=== PATIENT | female | born 1950 | race Caucasian/White ===

== ENCOUNTER 2019-03-04 14:28 | Emergency (ER) | payer MEDICARE, MEDICAID ==
[2019-03-04 14:38] VITALS: BP 112/70
--- NOTE | 2019-03-04 15:59 | EDM.PDOC ---
ED HPI GENERAL MEDICAL PROBLEM - General Chief Complaint: General Stated Complaint: Lab recheck Time Seen by Provider: 03/04/19 14:51 Source of Information: Reports: Patient History Limitations: Reports: No Limitations - History of Present Illness INITIAL COMMENTS - FREE TEXT/NARRATIVE: Patient sent to get recheck of labs due to previous concerns around elevated GFR. Is scheduled to see Nephrology March 12. Last GFR per [facility] was around 7 Patient feels well and has no complaints. - Related Data Allergies Allergy/AdvReac Type Severity Reaction Status Date / Time ibuprofen Allergy Renal Verified 03/04/19 14:29 Insufficiency zolpidem Allergy Hallucinati Verified 03/04/19 14:29 ons Home Meds: Home Meds Alendronate [Fosamax] 1 tab PO WEEKLY 04/14/15 [History] Cholecalciferol (Vitamin D3) [Vitamin D3] 4 tab PO DAILY 04/14/15 [History] Venlafaxine [Effexor XR] 1 cap PO DAILY 04/14/15 [History] ALPRAZolam [Alprazolam] 1 mg PO DAILY PRN 04/23/18 [History] Calcitriol 0.25 mcg PO DAILY 04/23/18 [History] Cyanocobalamin (Vitamin B-12) [Vitamin B-12] 1,000 mcg IM Q30D 04/23/18 [History ] Levothyroxine [Synthroid] 100 mcg PO DAILY 04/23/18 [History] Magnesium Oxide [Magnesium] 400 mg PO BID 04/23/18 [History] Metoprolol Tartrate 25 mg PO DAILY 04/23/18 [History] Nortriptyline HCl 75 mg PO DAILY 04/23/18 [History] Furosemide 20 mg PO DAILY 03/04/19 [History] Past Medical History HEENT History: Reports: Impaired Vision, Other (See Below) Other HEENT History: 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 of Lung Nodules. 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 every 6 months [employer] History: Reports: Other [employer] History: Menopause at age 46, Full term without complications during pregnancies or deliveries Musculoskeletal History: Reports: Osteoporosis Other Musculoskeletal History: Chronic knee and shoulder pain Neurological History: Reports: Migraines, Other (See Below) Other Neuro History: Long history, but have greatly improved Psychiatric History: Reports: Anxiety, Depression Endocrine/Metabolic History: Reports: Hypothyroidism, Osteoporosis, Other (See Below) Other Endocrine/Metabolic History: Hx of thyroid cancer and lymphoma; hypercalcemia; hypomagnesaemia Hematologic History: Reports: B12 Deficiency, Blood Transfusion(s) Other Hematologic History: blood transfusions with knee surgeries as below Immunologic History: Reports: None Oncologic (Cancer) History: Reports: Lymphoma, Thyroid Other Oncologic History: Thyroid cancer diagnosed in June 2010 with completed chemotherapy treatment in October 2015 with no radiation therapy or thyroidectomy secondary to apparent an operable disease Dermatologic History: Reports: None - Infectious Disease History Infectious Disease History: Reports: Chicken Pox - Past Surgical History Head Surgeries/Procedures: Reports: None GI Surgical History: Reports: Bariatric Procedure, Colonoscopy, Other (See Below ) Other GI Surgeries/Procedures: Gastric bypass, hemorrhoid surgery Endocrine Surgical History: Reports: Thyroid Biopsy Neurological Surgical History: Reports: Spinal Fusion Musculoskeletal Surgical History: Reports: Knee Replacement, Other (See Below) Other Musculoskeletal Surgeries/Procedures:: Spinal fusion; Bilateral knee replacement - Past Imaging History Past Imaging History: Reports: CAT Scan, DEXA Scan, Other (See Below) Social & Family History - Family History HEENT: Reports: None. Denies: Allergic Rhinitis, Glaucoma, Macular Degeneration , Retinal Detachment Cardiac: Reports: CAD, Heart Failure, High Cholesterol, Hypertension, [place], Other (See Below) Other Cardiac Family History: Maternal grandmother with fatal CHF at age 89, father with hyperlipidemia and hypertension, father with fatal LA at age 88 Respiratory: Reports: None. Denies: Asthma, COPD, PE, Pneumothorax, Sleep Apnea GI: Reports: None. Denies: Celiac Disease, Cholelithiasis, Colon Polyps, GERD, GI bleed, Inflammatory Bowel Disease, Irritable Bowel Syndrome, PUD : Reports: Dialysis, Renal Calculus, Renal Disease/Insufficiency, Other (See Below) Other Family History: Mother with urolithiasis, father and brother with renal insufficiency which did require dialysis OBGYN: Reports: None. Denies: Endometriosis, Recurrent Spontaneous Musculoskeletal: Reports: Osteoarthritis, SLE, Other (See Below) Other Musculoskeletal Family History: mother with SLE Neurological: Reports: None. Denies: Alzheimers Disease, CVA, Dementia, Migraines, Parkinson's, Seizure, TIA Psychiatric: Reports: None. Denies: Abuse, Victim of, ADD, ADHD, Anxiety, Depression, Psych Hospitalization(s), PTSD, Suicide Attempt Endocrine/Metabolic: Reports: None. Denies: Diabetes, Type I, Diabetes, type II , Hypothyroidism, IDDM Hematologic: Reports: None, SLE, Other (See Below) Other Hematologic Family History: Mother with SLE Immunologic: Reports: SLE, Other (See Below) Other Immunologic Family History: Mother with SLE Dermatologic: Reports: None. Denies: Angiodema, Eczema, Psoriasis, Seborrheic Dermatitis Oncologic: Reports: Metastatic, Prostate, Other (See Below) Other Oncologic Family History: brother with fatal metastatic prostate cancer in his 60s - Tobacco Use Smoking Status *Q: Never Smoker - Caffeine Use Caffeine Use: Reports: None - Recreational Drug Use Recreational Drug Use: No - Living Situation & Occupation Living situation: Reports: , with Family Occupation: Retired ED ROS GENERAL - Review of Systems Review Of Systems: ROS reveals no pertinent complaints other than HPI. Constitutional: Denies: Fever, Malaise, Weakness, Fatigue, Night Sweats, Diaphoresis, Decreased Appetite, Weight Loss Respiratory: Denies: Shortness of Breath Cardiovascular: Denies: Chest Pain, Lightheadedness, Palpitations GI/Abdominal: Denies: Abdominal Pain, Anorexia, Black Stool, Bloody Stool, Constipation, Diarrhea, Nausea, Vomiting : Reports: No Symptoms Musculoskeletal: Reports: No Symptoms (no acute changes from baeline) Skin: Reports: No Symptoms Neurological: Reports: No Symptoms Psychiatric: Reports: No Symptoms Hematologic/Lymphatic: Reports: No Symptoms ED EXAM, GENERAL - Physical Exam Exam: See Below Exam Limited By: No Limitations General Appearance: Alert, WD/WN, No Apparent Distress Eye Exam: Bilateral Eye: EOMI, PERRL Throat/Mouth: Normal Voice, No Airway Compromise Head: Atraumatic, Normocephalic Neck: Supple Respiratory/Chest: No Respiratory Distress Cardiovascular: Regular Rate, Rhythm GI/Abdominal: Soft Extremities: Normal Range of Motion Neurological: Alert, Oriented, Normal Cognition, Normal Gait Psychiatric: Normal Affect, Normal Mood Skin Exam: Warm, Dry, Normal Color Course - Vital Signs Last Recorded V/S: Last Vital Signs Temp 36.6 C 03/04/19 14:37 Pulse 72 03/04/19 14:37 Resp 16 03/04/19 14:37 BP 112/70 03/04/19 14:37 Pulse Ox 98 03/04/19 14:37 - Orders/Labs/Meds Labs: Laboratory Tests 03/04/19 03/04/19 Range/Units 15:13 15:13 WBC 6.4 (4.0-10.2) K/uL RBC 2.66 L (3.77-5.09) M/uL Hgb 8.6 L (11.7-15.5) g/dL Hct 26.9 L (34.0-46.0) % MCV 101.1 H D (84.0-98.0) fL MCH 32.3 (28.2-33.3) pg MCHC 32.0 (31.7-36.0) g/dL RDW 13.3 (11.2-14.1) % Plt Count 207 (150-350) K/uL Neut % (Auto) 79.7 (45.0-80.0) % Lymph % (Auto) 12.5 (10.0-50.0) % [place] % (Auto) 6.7 (2.0-14.0) % Eos % (Auto) 0.8 (0.0-5.0) % Baso % (Auto) 0.3 (0.0-2.0) % Neut # (Auto) 5.10 (1.40-7.00) K/uL Lymph # (Auto) 0.80 (0.50-3.50) K/uL [place] # (Auto) 0.43 (0.00-1.00) K/uL Eos # (Auto) 0.05 (0.00-0.50) K/uL Baso # (Auto) 0.02 (0.00-0.20) K/uL Sodium 138 (136-145) mmol/L Potassium 3.5 D (3.5-5.1) mmol/L Chloride 103 (98-107) mmol/L Carbon Dioxide 19.9 L (21.0-32.0) mmol/L BUN 70 H D (7-18) mg/dL Creatinine 5.76 H* D (0.51-1.17) mg/dL Est Cr Clr Drug Dosing 8.96 mL/min Estimated GFR (MDRD) 7 mL/min Glucose 93 (74-106) mg/dL Calcium 8.5 (8.5-10.1) mg/dL Total Bilirubin 0.4 (0.2-1.0) mg/dL AST 18 (15-37) U/L ALT 22 (12-78) U/L Alkaline Phosphatase 106 (46-116) IU/L Total Protein 6.6 (6.4-8.2) g/dL Albumin 3.2 L (3.4-5.0) g/dL - Re-Assessments/Exams Free Text/Narrative Re-Assessment/Exam: 03/04/19 16:07 GFR continues to remain at 7 (elevated BUN/Cr noted) Normal WBC. Na/K within good limits. CO2 19.9 Call placed to [facility]. Reviewed labs with from Nephrology. Given that the numbers are stable, and that patient feels well, he recommended that no intervention was required at this time. Patient is scheduled to see him March 12. He wants her to come in for labs before the appointment and will be further evaluated at that time. This was relayed to the patient who is in agreement with the above plan. Precautions reviewed. Patient is aware that electrolyte disturbances can result from renal disease. She will follow up as needed if she is not feeling well. Departure - Departure Time of Disposition: 15:57 Disposition: Home, Self-Care 01 Condition: Good Clinical Impression: Chronic kidney disease Qualifiers: Chronic kidney disease stage: unspecified stage Qualified Code(s): N18.9 - Chronic kidney disease, unspecified - Discharge Information *PRESCRIPTION DRUG MONITORING PROGRAM REVIEWED*: Not Applicable *COPY OF PRESCRIPTION DRUG MONITORING REPORT IN PATIENT [place]RAY[place]: Not Applicable Referrals: Shyla Chiang PA [Primary Care Provider] - Forms: ED Department Discharge Additional Instructions: Make certain that you follow up with at your scheduled Nephrology appointment at [facility] March 12. You will need to repeat your labs right before that appointment (day before or day of). Contact [facility] to make certain that the clinic has put in orders for these labs. Follow up as needed otherwise if you start to feel unwell.
== END 2019-03-04 16:30 | disposition home or self-care (01) ==
LOC: LL.ED 14:28
DX: N18.9 Chronic kidney disease, unspecified (principal); E03.9 Hypothyroidism, unspecified; E78.00 Pure hypercholesterolemia, unspecified; F41.9 Anxiety disorder, unspecified; F32.9 Major depressive disorder, single episode, unspecified; Z88.6 Allergy status to analgesic agent; Z88.8 Allergy status to other drugs, medicaments and biological substances; Z79.899 Other long term (current) drug therapy
CPT/HCPCS: 36415; 80053; 85025; 99284

== ENCOUNTER 2019-03-25 18:17 | Emergency (ER) | payer MEDICARE, MEDICAID ==
[2019-03-25 19:08] LABS: CHLORIDE,CL 107 mmol/L (98-107); SODIUM,NA 141 mmol/L (136-145)
[2019-03-25] MEDS ORDERED: Sodium Polystyrene Sulfonate 15 GM/60 ML Susp 60 ML Bot PO ONE (20:07)
--- NOTE | 2019-03-25 20:18 | EDM.PDOC ---
ED HPI GENERAL MEDICAL PROBLEM - General Chief Complaint: General Stated Complaint: abnormal lab work Time Seen by Provider: 03/25/19 19:01 Source of Information: Reports: Patient History Limitations: Reports: No Limitations - History of Present Illness INITIAL COMMENTS - FREE TEXT/NARRATIVE: Patient told to report to ER by [facility] Neurology for reported level of Potassium of 6.2 that was drawn earlier at local [facility]. Patient has been told that she needs to start dialysis due to chronic kidney failure. Due to transportation issues it appears that she will start peritoneal dialysis and be able to stay home. She feels fine. ROS negative for acute changes. Patient feels that she is at her usual baseline. Labs today were drawn in anticipation of Nephrology appointment tomorrow at [facility]. - Related Data Allergies Allergy/AdvReac Type Severity Reaction Status Date / Time ibuprofen Allergy Renal Verified 03/04/19 14:29 Insufficiency zolpidem Allergy Hallucinati Verified 03/04/19 14:29 ons Home Meds: Home Meds Alendronate [Fosamax] 1 tab PO WEEKLY 04/14/15 [History] Cholecalciferol (Vitamin D3) [Vitamin D3] 4 tab PO DAILY 04/14/15 [History] Venlafaxine [Effexor XR] 1 cap PO DAILY 04/14/15 [History] ALPRAZolam [Alprazolam] 1 mg PO DAILY PRN 04/23/18 [History] Calcitriol 0.25 mcg PO DAILY 04/23/18 [History] Cyanocobalamin (Vitamin B-12) [Vitamin B-12] 1,000 mcg IM Q30D 04/23/18 [History ] Levothyroxine [Synthroid] 100 mcg PO DAILY 04/23/18 [History] Magnesium Oxide [Magnesium] 400 mg PO BID 04/23/18 [History] Metoprolol Tartrate 25 mg PO DAILY 04/23/18 [History] Nortriptyline HCl 75 mg PO DAILY 04/23/18 [History] Sevelamer Carbonate 800 mg PO ASDIRECTED 03/25/19 [History] Sodium Bicarbonate 2 tab PO TID 03/25/19 [History] Past Medical History HEENT History: Reports: Impaired Vision, Other (See Below) Other HEENT History: 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 of Lung Nodules. 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 [employer] SUPERVISOR History: Menopause at age 46, Full term without complications during pregnancies or deliveries Musculoskeletal History: Reports: Osteoporosis Other Musculoskeletal History: Chronic knee and shoulder pain Neurological History: Reports: Migraines, Other (See Below) Other Neuro History: Long history, but have greatly improved Psychiatric History: Reports: Anxiety, Depression Endocrine/Metabolic History: Reports: Hypothyroidism, Osteoporosis, Other (See Below) Other Endocrine/Metabolic History: Hx of thyroid cancer and lymphoma; hypercalcemia; hypomagnesaemia Hematologic History: Reports: B12 Deficiency, Blood Transfusion(s) Other Hematologic History: blood transfusions with knee surgeries as below Immunologic History: Reports: None Oncologic (Cancer) History: Reports: Lymphoma, Thyroid Other Oncologic History: Thyroid cancer diagnosed in June 2010 with completed chemotherapy treatment in October 2015 with no radiation therapy or thyroidectomy secondary to apparent an operable disease Dermatologic History: Reports: None - Infectious Disease History Infectious Disease History: Reports: Chicken Pox - Past Surgical History Head Surgeries/Procedures: Reports: None GI Surgical History: Reports: Bariatric Procedure, Colonoscopy, Other (See Below ) Other GI Surgeries/Procedures: Gastric bypass, hemorrhoid surgery Endocrine Surgical History: Reports: Thyroid Biopsy Neurological Surgical History: Reports: Spinal Fusion Musculoskeletal Surgical History: Reports: Knee Replacement, Other (See Below) Other Musculoskeletal Surgeries/Procedures:: Spinal fusion; Bilateral knee replacement - Past Imaging History Past Imaging History: Reports: CAT Scan, DEXA Scan, Other (See Below) Social & Family History - Family History HEENT: Reports: None Cardiac: Reports: CAD, Heart Failure, High Cholesterol, Hypertension, [place], Other (See Below) Other Cardiac Family History: Maternal grandmother with fatal CHF at age 89, father with hyperlipidemia and hypertension, father with fatal [place] at age 88 Respiratory: Reports: None GI: Reports: None : Reports: Dialysis, Renal Calculus, Renal Disease/Insufficiency, Other (See Below) Other Family History: Mother with urolithiasis, father and brother with renal insufficiency which did require dialysis OBGYN: Reports: None Musculoskeletal: Reports: Osteoarthritis, SLE, Other (See Below) Other Musculoskeletal Family History: mother with SLE Neurological: Reports: None Psychiatric: Reports: None Endocrine/Metabolic: Reports: None Hematologic: Reports: None, SLE, Other (See Below) Other Hematologic Family History: Mother with SLE Immunologic: Reports: SLE, Other (See Below) Other Immunologic Family History: Mother with SLE Dermatologic: Reports: None Oncologic: Reports: Metastatic, Prostate, Other (See Below) Other Oncologic Family History: brother with fatal metastatic prostate cancer in his 60s - Caffeine Use Caffeine Use: Reports: None - Living Situation & Occupation Living situation: Reports: , with Family Occupation: Retired ED ROS GENERAL - Review of Systems Review Of Systems: ROS reveals no pertinent complaints other than HPI. ED EXAM, GENERAL - Physical Exam Exam: See Below General Appearance: Alert, No Apparent Distress, Obese Eye Exam: Bilateral Eye: EOMI, PERRL Nose: No: Nasal Deformity, Nasal Swelling, Nasal Drainage Throat/Mouth: Normal Voice, No Airway Compromise Head: Atraumatic, Normocephalic Neck: Supple Respiratory/Chest: No Respiratory Distress, Lungs Clear, Normal Breath Sounds, No Accessory Muscle Use Cardiovascular: Regular Rate, Rhythm, No Murmur GI/Abdominal: Soft, Non-Tender Extremities: Non-Tender, Normal Capillary Refill Neurological: Alert, Oriented, Normal Cognition Psychiatric: Normal Affect, Normal Mood Skin Exam: Warm, Dry, Intact, Normal Color EKG INTERPRETATION EKG Date: 03/25/19 Time: 19:13 Rhythm: Other (1st degree AV block) Rate (Beats/Min): 83 [place]: Normal P-Wave: Present QRS: Other (low voltage) ST-T: Normal QT: Normal Comparison: No Change Course - Orders/Labs/Meds Orders: Active Orders 24 hr Category Date Time Status EKG Documentation Completion [RC] ASDIRECTED Care 03/25/19 19:11 Active Labs: Laboratory Tests 03/25/19 03/25/19 Range/Units 18:45 18:45 WBC 3.8 L (4.0-10.2) K/uL RBC 2.73 L (3.77-5.09) M/uL Hgb 8.8 L (11.7-15.5) g/dL Hct 28.9 L (34.0-46.0) % MCV 105.9 H D (84.0-98.0) fL MCH 32.2 (28.2-33.3) pg MCHC 30.4 L (31.7-36.0) g/dL RDW 13.0 (11.2-14.1) % Plt Count 165 (150-350) K/uL Neut % (Auto) 71.8 (45.0-80.0) % Lymph % (Auto) 18.2 (10.0-50.0) % [place] % (Auto) 8.2 (2.0-14.0) % Eos % (Auto) 1.3 (0.0-5.0) % Baso % (Auto) 0.5 (0.0-2.0) % Neut # (Auto) 2.73 (1.40-7.00) K/uL Lymph # (Auto) 0.69 (0.50-3.50) K/uL [place] # (Auto) 0.31 (0.00-1.00) K/uL Eos # (Auto) 0.05 (0.00-0.50) K/uL Baso # (Auto) 0.02 (0.00-0.20) K/uL Sodium 141 (136-145) mmol/L Potassium 5.7 H* D (3.5-5.1) mmol/L Chloride 107 (98-107) mmol/L Carbon Dioxide 25.5 (21.0-32.0) mmol/L BUN 51 H (7-18) mg/dL Creatinine 5.02 H* (0.51-1.17) mg/dL Est Cr Clr Drug Dosing TNP Estimated GFR (MDRD) 9 mL/min Glucose 84 (74-106) mg/dL Calcium 8.5 (8.5-10.1) mg/dL Total Bilirubin 0.2 (0.2-1.0) mg/dL AST 22 (15-37) U/L ALT 22 (12-78) U/L Alkaline Phosphatase 106 (46-116) IU/L Total Protein 5.9 L (6.4-8.2) g/dL Albumin 3.0 L (3.4-5.0) g/dL Meds: Medications Discontinued Medications Generic Name Dose Route Start Last Admin Trade Name Freq PRN Reason Stop Dose Admin Sodium Polystyrene Sulfonate 45 gm 03/25/19 20:07 03/25/19 20:12 Kayexalate PO 03/25/19 20:08 45 gm NOW ONE Administration - Re-Assessments/Exams Free Text/Narrative Re-Assessment/Exam: 03/25/19 20:17 Given the concern over earlier lab values, CBC and Chemistry were repeated. Potassium 5.7 Creatinine 5.02 Hgb 8.[address] [facility] and patient reviewed with the on-call Baker Doughnut that referred her to the ER, . He felt comfortable having us give the patient a single dose of Kayexalate. She has an appointment to follow up with him tomorrow at the clinic in [place]. He plans on admitting her to [facility] from the clinic for initiation of dialysis treatment. Patient is happy that she is able to go home and is comfortable with the above plan. Departure - Departure Time of Disposition: 20:25 Disposition: Home, Self-Care 01 Condition: Good Clinical Impression: Hyperkalemia Chronic kidney disease Qualifiers: Chronic kidney disease stage: unspecified stage Qualified Code(s): N18.9 - Chronic kidney disease, unspecified - Discharge Information *PRESCRIPTION DRUG MONITORING PROGRAM REVIEWED*: Not Applicable *COPY OF PRESCRIPTION DRUG MONITORING REPORT IN PATIENT BRAYDEN: Not Applicable Instructions: Sodium Polystyrene Sulfonate powder for reconstitution to suspension Referrals: Shyla Chiang PA [Primary Care Provider] - Forms: ED Department Discharge Additional Instructions: Follow up tomorrow at your scheduled appointment with Nephrology. Do not miss this appointment as you need to be started on dialysis as planned. Follow up otherwise as needed. - My Orders Last 24 Hours: My Active Orders 03/25/19 19:11 EKG Documentation Completion [RC] ASDIRECTED - Assessment/Plan Last 24 Hours: My Active Orders 03/25/19 19:11 EKG Documentation Completion [RC] ASDIRECTED
[2019-03-25 21:33] VITALS: BP 160/89
== END 2019-03-25 20:35 | disposition home or self-care (01) ==
LOC: LL.ED 18:17
DX: E87.6 Hypokalemia (principal); N18.9 Chronic kidney disease, unspecified; E78.00 Pure hypercholesterolemia, unspecified; E03.9 Hypothyroidism, unspecified; F41.9 Anxiety disorder, unspecified; F32.9 Major depressive disorder, single episode, unspecified; Z79.899 Other long term (current) drug therapy; Z88.6 Allergy status to analgesic agent; Z88.8 Allergy status to other drugs, medicaments and biological substances
CPT/HCPCS: 36415; 80053; 85025; 93005; 99283-25; A9270-GY

== ENCOUNTER 2019-06-24 16:04 | Inpatient (IN) | payer MEDICARE, MEDICAID ==
[2019-06-24] MEDS ORDERED: Sodium Chloride 0.9% 10 ML Syringe FLUSH PRN (16:11)
[2019-06-24] MEDS ORDERED: Sodium Chloride 0.9% 1,000 ML IV SCH (16:30)
--- NOTE | 2019-06-24 17:23 | PCM.HP.2 ---
H&P History of Present Illness - General Date of Service: 06/24/19 Admit Problem/Dx: Admission Diagnosis/Problem Admission Diagnosis/Problem Hypotension Source of Information: Patient, Old Records History Limitations: Reports: No Limitations - History of Present Illness Initial Comments - Free Text/Narative: Seen today for [facility] follow-up, after overnight stay for symptomatic hypotension 06-15 to 06-16-19. Losartan was DC'd at that time. Onset of Symptoms: Reports: Gradual Duration of Symptoms: Reports: Day(s): Location: Reports: Generalized Improves with: Reports: Rest Worsens with: Reports: Movement Associated Symptoms: Reports: Loss of Appetite, Malaise, Weakness - Related Data Allergies/Adverse Reactions: Allergies Allergy/AdvReac Type Severity Reaction Status Date / Time ibuprofen Allergy Renal Verified 03/04/19 14:29 Insufficiency zolpidem Allergy Hallucinati Verified 03/04/19 14:29 ons Home Medications: Home Meds ALPRAZolam [Xanax] 1 cap PO BEDTIME 06/24/19 [History] Calcitriol [Rocaltrol] 0.25 mcg PO DAILY 06/24/19 [History] Cholecalciferol (Vitamin D3) [Vitamin D3] 4,000 unit PO DAILY 06/24/19 [History] Cyanocobalamin (Vitamin B-12) [Cyanocobalamin Injection] 1 ml IM Q30D 06/24/19 [ History] Levothyroxine [Synthroid] 88 mcg PO ACBREAKFAST 06/24/19 [History] Magnesium Chloride [Mag-64] 2 tab PO DAILY 06/24/19 [History] Nortriptyline HCl 1 cap PO BEDTIME 06/24/19 [History] Potassium Chloride [Klor-Con M20] 1 tab PO ACBREAKFAST 06/24/19 [History] Sevelamer Carbonate [Renvela] 800 mg PO TID 06/24/19 [History] Venlafaxine [Effexor XR] 1 cap PO DAILY 06/24/19 [History] Past Medical History HEENT History: Reports: Impaired Vision, Other (See Below) Other HEENT History: 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 of Lung Nodules. Negative for cancer Gastrointestinal History: Reports: Hemorrhoids Other Gastrointestinal History: Bowel obstruction about 1978 with subsequent surgery as below Genitourinary History: Reports: Chronic Renal Insuffiency, Dialysis, Peritoneal Other Genitourinary History: Home peritoneal dialysis, run every night continuously ANALYSIS CONSULTANT History: Reports: Other OB/BYN History: Menopause at age 46, Full term without complications during pregnancies or deliveries Musculoskeletal History: Reports: Osteoporosis Other Musculoskeletal History: Chronic knee and shoulder pain Neurological History: Reports: Migraines, Other (See Below) Other Neuro History: Long history, but have greatly improved Psychiatric History: Reports: Anxiety, Depression Endocrine/Metabolic History: Reports: Hypothyroidism, Osteoporosis, Other (See Below) Other Endocrine/Metabolic History: Hx of thyroid cancer and lymphoma; hypercalcemia; hypomagnesaemia Hematologic History: Reports: B12 Deficiency, Blood Transfusion(s) Other Hematologic History: blood transfusions with knee surgeries as below Immunologic History: Reports: None Oncologic (Cancer) History: Reports: Lymphoma, Thyroid Other Oncologic History: Thyroid cancer diagnosed in June 2010 with completed chemotherapy treatment in October 2015 with no radiation therapy or thyroidectomy secondary to apparent an operable disease Dermatologic History: Reports: None - Infectious Disease History Infectious Disease History: Reports: Chicken Pox - Past Surgical History Head Surgeries/Procedures: Reports: None GI Surgical History: Reports: Bariatric Procedure, Colonoscopy, Other (See Below ) Other GI Surgeries/Procedures: Gastric bypass, hemorrhoid surgery Endocrine Surgical History: Reports: Thyroid Biopsy Neurological Surgical History: Reports: Spinal Fusion Musculoskeletal Surgical History: Reports: Knee Replacement, Other (See Below) Other Musculoskeletal Surgeries/Procedures:: Spinal fusion; Bilateral knee replacement - Past Imaging History Past Imaging History: Reports: CAT Scan, DEXA Scan, Other (See Below) Social & Family History - Family History HEENT: Reports: None Cardiac: Reports: CAD, Heart Failure, High Cholesterol, Hypertension, MO, Other (See Below) Other Cardiac Family History: Maternal grandmother with fatal CHF at age 89, father with hyperlipidemia and hypertension, father with fatal MO at age 88 Respiratory: Reports: None GI: Reports: None : Reports: Dialysis, Renal Calculus, Renal Disease/Insufficiency, Other (See Below) Other Family History: Mother with urolithiasis, father and brother with renal insufficiency which did require dialysis OBGYN: Reports: None Musculoskeletal: Reports: Osteoarthritis, SLE, Other (See Below) Other Musculoskeletal Family History: mother with SLE Neurological: Reports: None Psychiatric: Reports: None Endocrine/Metabolic: Reports: None Hematologic: Reports: None, SLE, Other (See Below) Other Hematologic Family History: Mother with SLE Immunologic: Reports: SLE, Other (See Below) Other Immunologic Family History: Mother with SLE Dermatologic: Reports: None Oncologic: Reports: Metastatic, Prostate, Other (See Below) Other Oncologic Family History: brother with fatal metastatic prostate cancer in his 60s - Caffeine Use Caffeine Use: Reports: None - Alcohol Use Alcohol Use in Last Twelve Months: No - Living Situation & Occupation Living situation: Reports: , with Family Occupation: Retired H&P Review of Systems - Review of Systems: Review Of Systems: ROS reveals no pertinent complaints other than HPI. Exam - Exam Exam: See Below - Exam General: Alert, Oriented, Cooperative, Mild Distress HEENT: EACs Clear, EOMI, Hearing Intact Neck: Supple, Trachea Midline Lungs: Clear to Auscultation, Normal Respiratory Effort Cardiovascular: Regular Rate, Regular Rhythm GI/Abdominal Exam: Normal Bowel Sounds, Soft, Non-Tender, Other (peritoneal dialysis port) (Female) Exam: Deferred Rectal (Female) Exam: Deferred Back Exam: Normal Inspection Neuro Extensive - Mental Status: Alert, Oriented x3, Normal Mood/Affect Psychiatric: Alert, Normal Affect, Normal Mood - Problem List (1) Hypotension SNOMED Code(s): 89174691 ICD Code: I95.9 - HYPOTENSION, UNSPECIFIED Status: Acute Priority: High Current Visit: Yes Problem Details: Concern for dialysis related hypotension. Qualifiers: Hypotension type: unspecified hypotension type Qualified Code(s): I95.9 - Hypotension, unspecified (2) Weakness SNOMED Code(s): 32728886 ICD Code: R53.1 - WEAKNESS Status: Acute Priority: High Current Visit: Yes Problem Details: Considered secondary to hypotension. (3) Fall SNOMED Code(s): 1739809, 113192733 ICD Code: W19.XXXA - UNSPECIFIED FALL, INITIAL ENCOUNTER Status: Acute Priority: Medium Current Visit: Yes Problem Details: Fall at home today secondary to weakness. (4) Dialysis patient SNOMED Code(s): 218412602 ICD Code: Z99.2 - DEPENDENCE ON RENAL DIALYSIS Status: Acute Priority: High Current Visit: Yes Problem Details: Doing peritoneal dialysis, continuous run every night during hours of sleep. Problem List Initiated/Reviewed/Updated: Yes Orders Last 24hrs: Active Orders 24 hr Category Date Time Status Patient Status [ADT] Routine ADT 06/24/19 16:12 Active Antiembolic Devices [RC] PER UNIT ROUTINE Care 06/24/19 16:16 Ordered Bedrest Bathroom Privileges [RC] ASDIRECTED Care 06/24/19 16:11 Ordered Communication Order [RC] DAILY Care 06/24/19 17:00 Ordered Communication Order [RC] DAILY Care 06/24/19 17:01 Ordered Height and Weight [RC] DAILY Care 06/24/19 16:11 Ordered Intake and Output [RC] QSHIFT Care 06/24/19 16:13 Ordered Oxygen Therapy [RC] PRN Care 06/24/19 16:12 Ordered Peripheral IV Care [RC] . DIRECTED Care 06/24/19 16:16 Ordered Telemetry Monitoring [Cardiac Monitoring] [RC] . Care 06/24/19 16:17 Ordered DIRECTED Up With Assistance [RC] ASDIRECTED Care 06/24/19 16:11 Ordered VTE/DVT Education [RC] PER UNIT ROUTINE Care 06/24/19 16:12 Ordered Vital Signs [RC] Q4H Care 06/24/19 16:12 Ordered Regular Diet [DIET] Diet 06/24/19 Dinner Ordered Chest 2V [CR] Routine Exams 06/24/19 16:57 Ordered C-REACTIVE PROTEIN [CHEM] AM Lab 06/25/19 05:11 Ordered C-REACTIVE PROTEIN [CHEM] AM Lab 06/26/19 05:11 Ordered C-REACTIVE PROTEIN [CHEM] AM Lab 06/27/19 05:11 Ordered C-REACTIVE PROTEIN [CHEM] AM Lab 06/28/19 05:11 Ordered C-REACTIVE PROTEIN [CHEM] Stat Lab 06/24/19 16:11 Ordered CBC WITH AUTO DIFF [HEME] AM Lab 06/25/19 05:11 Ordered CBC WITH AUTO DIFF [HEME] AM Lab 06/26/19 05:11 Ordered CBC WITH AUTO DIFF [HEME] AM Lab 06/27/19 05:11 Ordered CBC WITH AUTO DIFF [HEME] AM Lab 06/28/19 05:11 Ordered CBC WITH AUTO DIFF [HEME] Stat Lab 06/24/19 16:11 Ordered COMPREHENSIVE METABOLIC PN,CMP [CHEM] AM Lab 06/25/19 05:11 Ordered COMPREHENSIVE METABOLIC PN,CMP [CHEM] AM Lab 06/26/19 05:11 Ordered COMPREHENSIVE METABOLIC PN,CMP [CHEM] AM Lab 06/27/19 05:11 Ordered COMPREHENSIVE METABOLIC PN,CMP [CHEM] AM Lab 06/28/19 05:11 Ordered COMPREHENSIVE METABOLIC PN,CMP [CHEM] Stat Lab 06/24/19 16:11 Ordered MAGNESIUM [CHEM] Stat Lab 06/24/19 16:11 Ordered PHOSPHORUS [CHEM] Stat Lab 06/24/19 16:11 Ordered UA W/MICROSCOPIC [URIN] Stat Lab 06/24/19 16:11 Ordered Sodium Chloride 0.9% [Normal Saline] 1,000 ml Med 06/24/19 16:30 Ordered IV ASDIRECTED Sodium Chloride 0.9% [Normal Saline] 1,000 ml Med 06/24/19 20:30 Ordered IV ASDIRECTED Sodium Chloride 0.9% [Saline Flush] Med 06/24/19 16:11 Ordered 10 ml FLUSH ASDIRECTED PRN Antiembolic Hose [OM.PC] Per Unit Routine Oth 06/24/19 16:14 Ordered Peripheral IV Insertion Adult [OM.PC] Routine Oth 06/24/19 16:11 Ordered Resuscitation Status Routine Resus Stat 06/24/19 16:11 Ordered Medication Orders Sodium Chloride (Normal Saline) 1,000 mls @ 250 mls/hr IV ASDIRECTED NILO Stop: 06/24/19 20:29 Sodium Chloride (Normal Saline) 1,000 mls @ 125 mls/hr IV ASDIRECTED NILO Sodium Chloride (Saline Flush) 10 ml FLUSH ASDIRECTED PRN PRN Reason: Keep Vein Open Assessment/Plan Comment:: 06-25-19 Rayna Chiang PA-C 68 yr-old female being admitted to status under the medical management of Dr. Kebede, who was consulted at the time of admit. She was recently hospitalized overnight at [facility] (06-15) for symptomatic hypotension, considered at that time secondary to the start of Losartan. The Losartan was DC 'd at that time. However she has continued to feel weak at home. Home Health did see her today and found her BP low, and she was evaluated at [facility] and BP was very difficult to determine and was heard manually to be 72/50. Patient was brought in a wheelchair as she felt too weak to walk, and did tell me she had fallen at home today. She denied any chest pain at any time. She did tell me that she has not been eating or drinking per her norm since coming home on the as she has been just too tired and weak to make meals. Within the last couple months the home PD dialysis has been started, the couple set it up and run it every night during hours of sleep. This is a patient with multiple co-morbidities and the etiology for the hypotension and weakness it not completely clear, and she will require 3-4 days of IP evaluation and treatment with medication adjustment. She is a significant fall risk. Telemetry is placed and follow-up labs ordered. - Mortality Measure Prognosis:: Good
[2019-06-24] MEDS ORDERED: Potassium Chloride 20 MEQ Tab.ER PO ONE (18:40)
[2019-06-24] MEDS: ALPRAZolam 1 MG Tab PO SCH (20:03)
[2019-06-24] MEDS: Nortriptyline 25 MG Cap PO SCH (20:04)
[2019-06-24] MEDS ORDERED: Aluminum Hydroxide/Magnesium Hydroxide/Simethicone Susp 30 ML Cup PO PRN (20:16)
[2019-06-24] MEDS: SEVELAMER CARBONATE 800 MG PO SCH (21:09)
[2019-06-24] MEDS: Sodium Chloride 0.9% 1,000 ML IV SCH (23:12)
[2019-06-25] MEDS: Sodium Chloride 0.9% 1,000 ML IV SCH ×3 (06:25→23:20)
[2019-06-25] MEDS ORDERED: Potassium Chloride 20 MEQ Tab.ER PO SCH (07:30)
[2019-06-25] MEDS: MAG PO SCH (08:24)
[2019-06-25] MEDS: SEVELAMER CARBONATE 800 MG PO SCH ×3 (08:26→18:08)
[2019-06-25] MEDS: Potassium Chloride 20 MEQ Tab.ER PO SCH ×2 (08:26→18:08)
[2019-06-25] MEDS: Calcitriol 0.25 MCG Cap PO SCH (08:26)
[2019-06-25] MEDS: Venlafaxine 75 MG Cap.ER PO SCH (08:27)
[2019-06-25] MEDS: Levothyroxine 88 MCG Tab PO SCH (08:27)
[2019-06-25] MEDS: Cholecalciferol (Vitamin D3) 25 MCG Tab PO SCH (08:27)
[2019-06-25] MEDS ORDERED: Potassium Chloride 10 MEQ Tab.ER PO ONE (18:00)
--- NOTE | 2019-06-25 19:00 | PCM.PN ---
- General Info Date of Service: 06/25/19 Admission Dx/Problem (Free Text): Admission Diagnosis/Problem Admission Diagnosis/Problem Hypotension Functional Status: Reports: Pain Controlled, Tolerating Diet - Review of Systems General: Reports: Weakness, Other (still dizziness) HEENT: Reports: No Symptoms Pulmonary: Reports: No Symptoms Cardiovascular: Reports: No Symptoms Gastrointestinal: Reports: No Symptoms Genitourinary: Reports: No Symptoms Musculoskeletal: Reports: No Symptoms Skin: Reports: No Symptoms Neurological: Reports: Dizziness, Weakness (improving) Psychiatric: Reports: No Symptoms - Patient Data Vitals - Most Recent: Last Vital Signs Temp 96.5 F 06/25/19 17:00 Pulse 93 06/25/19 17:00 Resp 24 H 06/25/19 17:00 BP 108/83 06/25/19 17:00 Pulse Ox 95 06/25/19 17:00 Weight - Most Recent: 218 lb 9.59 oz I&O - Last 24 Hours: Intake & Output 06/25/19 06/25/19 06/25/19 06:59 14:59 22:59 Intake Total 2039 700 2360 Output Total 0 200 Balance 2039 500 2360 Lab Results Last 24 Hours: Laboratory Results - last 24 hr 06/24/19 06/25/19 06/25/19 Range/Units 19:30 07:15 07:15 WBC 7.8 (4.0-10.2) K/uL RBC 2.92 L (3.77-5.09) M/uL Hgb 9.3 L D (11.7-15.5) g/dL Hct 29.0 L (34.0-46.0) % MCV 99.3 H (84.0-98.0) fL MCH 31.8 (28.2-33.3) pg MCHC 32.1 (31.7-36.0) g/dL RDW 13.8 (11.2-14.1) % Plt Count 240 (150-350) K/uL Neut % (Auto) 78.9 (45.0-80.0) % Lymph % (Auto) 12.8 (10.0-50.0) % [place] % (Auto) 7.6 (2.0-14.0) % Eos % (Auto) 0.6 (0.0-5.0) % Baso % (Auto) 0.1 (0.0-2.0) % Neut # (Auto) 6.12 (1.40-7.00) K/uL Lymph # (Auto) 0.99 (0.50-3.50) K/uL [place] # (Auto) 0.59 (0.00-1.00) K/uL Eos # (Auto) 0.05 (0.00-0.50) K/uL Baso # (Auto) 0.01 (0.00-0.20) K/uL Sodium 135 L (136-145) mmol/L Potassium 3.0 L (3.5-5.1) mmol/L Chloride 99 (98-107) mmol/L Carbon Dioxide 24.0 (21.0-32.0) mmol/L BUN 43 H (7-18) mg/dL Creatinine 5.17 H* (0.51-1.17) mg/dL Est Cr Clr Drug Dosing 9.99 mL/min Estimated GFR (MDRD) 8 mL/min Glucose 99 (74-106) mg/dL Calcium 7.4 L (8.5-10.1) mg/dL Total Bilirubin 0.3 (0.2-1.0) mg/dL AST 19 (15-37) U/L ALT 22 (12-78) U/L Alkaline Phosphatase 122 H (46-116) IU/L C-Reactive Protein 0.1 (<=0.9) mg/dL Total Protein 5.1 L (6.4-8.2) g/dL Albumin 1.9 L (3.4-5.0) g/dL Specimen Type Urincc Urine Color Yellow Urine Appearance Cloudy Urine pH 5.0 (5.0-9.0) Ur Specific [place] 1.025 (1.005-1.030) Urine Protein 30 H (NEGATIVE) mg/dL Urine Glucose (UA) Negative (NEGATIVE) mg/dL Urine Ketones 15 H (NEGATIVE) mg/dL Urine Occult Blood Trace-intact H (NEGATIVE) Urine Nitrite Negative (NEGATIVE) Urine Bilirubin Moderate H (NEGATIVE) Urine Urobilinogen 0.2 (0.2-1.0) E.U./dL Ur Leukocyte Esterase Small H (NEGATIVE) Urine RBC 0-5 /HPF Urine WBC >100 H /HPF Ur Epithelial Cells Many H /LPF Urine Bacteria Many H (NONE TO FEW) /HPF Med Orders - Current: Current Medications Al Hydroxide/Mg Hydroxide (Mag-Al Plus) 30 ml PO QID PRN PRN Reason: GI upset Alprazolam (Xanax) 1 mg PO BEDTIME [facility] Last Admin: 06/24/19 20:03 Dose: 1 mg Calcitriol (Rocaltrol) 0.25 mcg PO DAILY [facility] Last Admin: 06/25/19 08:26 Dose: 0.25 mcg Cholecalciferol (Vitamin D3) 100 mcg PO DAILY [facility] Last Admin: 06/25/19 08:27 Dose: 100 mcg Cyanocobalamin (Vitamin B12) 1,000 mcg IM Q30D [facility] Sodium Chloride (Normal Saline) 1,000 mls @ 125 mls/hr IV ASDIRECTED [facility] Last Admin: 06/25/19 15:16 Dose: 125 mls/hr Levothyroxine Sodium (Synthroid) 88 mcg PO ACBREAKFAST [facility] Last Admin: 06/25/19 08:27 Dose: 88 mcg Mag-64Own Med 2 tab PO DAILY [facility] Last Admin: 06/25/19 08:24 Dose: 2 tab Sevelamer Carbonate (800 MgOwn Med) 800 mg PO TIDMEALS [facility] Last Admin: 06/25/19 18:08 Dose: 800 mg Nortriptyline HCl (Nortriptyline) 75 mg PO BEDTIME [facility] Last Admin: 06/24/19 20:04 Dose: 75 mg Potassium Chloride (Klor-Con M20) 20 meq PO BID [facility] Last Admin: 06/25/19 18:08 Dose: 20 meq Sodium Chloride (Saline Flush) 10 ml FLUSH ASDIRECTED PRN PRN Reason: Keep Vein Open Last Admin: 06/25/19 15:20 Dose: 10 ml Venlafaxine HCl (Effexor Xr) 150 mg PO DAILY [facility] Last Admin: 06/25/19 08:27 Dose: 150 mg Discontinued Medications Sodium Chloride (Normal Saline) 1,000 mls @ 250 mls/hr IV ASDIRECTED [facility] Stop: 06/24/19 20:29 Last Admin: 06/24/19 18:38 Dose: 250 mls/hr Potassium Chloride (Klor-Con M20) 20 meq PO ACBREAKFAST [facility] Potassium Chloride (Klor-Con M20) 20 meq PO ONETIME ONE Stop: 06/24/19 18:41 Last Admin: 06/24/19 20:03 Dose: 20 meq Potassium Chloride (Klor-Con 10) 20 meq PO ONETIME ONE Stop: 06/25/19 18:01 Last Admin: 06/25/19 18:08 Dose: 20 meq - Exam General: Alert, Cooperative, No Acute Distress HEENT: Mucous Membr. Moist/[place] Neck: Trachea Midline, No JVD Lungs: Clear to Auscultation, Normal Respiratory Effort Cardiovascular: Regular Rate, Regular Rhythm GI/Abdominal Exam: Soft, Non-Tender, No Distention, Other (peritoneal catheter LUQ) (Female) Exam: Deferred Back Exam: Normal Inspection Extremities: Normal Inspection, Non-Tender, No Pedal Edema Skin: Warm, Dry, Intact Neurological: No New Focal Deficit Psy/Mental Status: Alert, Normal Affect, Normal Mood - Problem List & Annotations (1) Hypotension SNOMED Code(s): 35860771 Code(s): I95.9 - HYPOTENSION, UNSPECIFIED Status: Acute Priority: High Current Visit: Yes Qualifiers: Hypotension type: hemodialysis-associated hypotension Qualified Code(s): I95.3 - Hypotension of hemodialysis (2) Dialysis patient SNOMED Code(s): 313791353 Code(s): Z99.2 - DEPENDENCE ON RENAL DIALYSIS Status: Acute Priority: High Current Visit: Yes Annotation/Comment:: Doing peritoneal dialysis, continuous run every night during hours of sleep. (3) Fall SNOMED Code(s): 2258253, 718467493 Code(s): W19.XXXA - UNSPECIFIED FALL, INITIAL ENCOUNTER Status: Acute Priority: Medium Current Visit: Yes (4) Weakness SNOMED Code(s): 89620842 Code(s): R53.1 - WEAKNESS Status: Acute Priority: High Current Visit: Yes Annotation/Comment:: Considered secondary to hypotension. (5) Anemia SNOMED Code(s): 886188334 Code(s): D64.9 - ANEMIA, UNSPECIFIED Status: Acute Priority: High Current Visit: No Onset Date: ~10/04/16 Qualifiers: Anemia type: other cause Other causes of anemia: chronic disease, kidney Qualified Code(s): N18.9 - Chronic kidney disease, unspecified; D63.1 - Anemia in chronic kidney disease Annotation/Comment:: Hemoccult-positive stools as above. IV Protonix with caution secondary to her renal disease. Further GI workup depending on her clinical course. Blood workup for anemia initiated today with normal findings to this point, however transfer level is still pending. Note mild leukopenia (6) Chronic kidney disease SNOMED Code(s): 920779104 Code(s): N18.9 - CHRONIC KIDNEY DISEASE, UNSPECIFIED Status: Acute Current Visit: No Qualifiers: Chronic kidney disease stage: unspecified stage Qualified Code(s): N18.9 - Chronic kidney disease, unspecified (7) Fatigue SNOMED Code(s): 37614187 Code(s): R53.83 - OTHER FATIGUE Status: Acute Priority: High Current Visit: No Onset Date: ~10/04/16 Qualifiers: Fatigue type: other Qualified Code(s): R53.83 - Other fatigue Annotation/Comment:: Fatigue with history of recent recurrent falls is multifactorial secondary to her increased stressors, current anemia, renal insufficiency, inadequate thyroid supplementation, etc. as below. No chest pain or anginal complaints with elevated d-dimer and BNP. Secondary to renal insufficiency CTA of the chest cannot be conducted with consideration of VQ scan depending on venous Doppler study results tomorrow. Consider transfer to [facility] tomorrow depending on her clinical course. [place] [facility] physician assumes care in the a.m. (8) Hypoalbuminemia SNOMED Code(s): 940315810 Code(s): E88.09 - OTH DISORDERS OF PLASMA-PROTEIN METABOLISM, NEC Status: Acute Priority: Medium Current Visit: No Onset Date: 10/04/16 Annotation /Comment:: Consider high protein Glucerna supplements with caution secondary to her renal insufficiency, however advise nephrology followup prior to initiation of this therapy (9) Hypomagnesemia SNOMED Code(s): 352170450 Code(s): E83.42 - HYPOMAGNESEMIA Status: Acute Priority: Medium Current Visit: No Onset Date: 10/04/16 Annotation/Comment:: Low-dose magnesium therapy with caution secondary to her renal disease (10) Hypothyroidism SNOMED Code(s): 11779286 Code(s): E03.9 - HYPOTHYROIDISM, UNSPECIFIED Status: Acute Priority: High Current Visit: No Qualifiers: Hypothyroidism type: postablative Qualified Code(s): E89.0 - Postprocedural hypothyroidism Annotation/Comment:: Increase thyroid supplementation. TSH to be repeated in about 4 weeks with oncology consultation depending on her clinical course (11) Hypertension SNOMED Code(s): 78685500 Code(s): I10 - ESSENTIAL (PRIMARY) HYPERTENSION Status: Chronic Priority : Medium Current Visit: No Qualifiers: Hypertension type: essential hypertension Qualified Code(s): I10 - Essential (primary) hypertension Annotation/Comment:: Continue to observe closely with mild hypotension in the emergency room (12) Hypocalcemia SNOMED Code(s): 4510796 Code(s): E83.51 - HYPOCALCEMIA Status: Chronic Priority: Medium Current Visit: No Annotation/Comment:: Calcium supplementation with caution secondary to her renal disease with phosphate levels in the morning (13) Mixed anxiety depressive disorder SNOMED Code(s): 736980156 Code(s): F41.8 - OTHER SPECIFIED ANXIETY DISORDERS Status: Chronic Priority: Medium Current Visit: No Annotation/Comment:: Note increased stressors secondary to her 's illness as above. Observe closely by regular providers (14) Osteoarthritis SNOMED Code(s): 879014146 Code(s): M19.90 - UNSPECIFIED OSTEOARTHRITIS, UNSPECIFIED SITE Status: Chronic Priority: Medium Current Visit: No Qualifiers: Osteoarthritis location: multiple joints Osteoarthritis type: primary Qualified Code(s): M15.0 - Primary generalized (osteo)arthritis Annotation/Comment:: Stable by history (15) Peptic reflux disease SNOMED Code(s): 714573484 Code(s): K21.9 - GASTRO-ESOPHAGEAL REFLUX DISEASE WITHOUT ESOPHAGITIS Status: Chronic Priority: Medium Current Visit: No Annotation/Comment:: Stable by history (16) Thyroid cancer SNOMED Code(s): 294446036 Code(s): C73 - MALIGNANT NEOPLASM OF THYROID GLAND Status: Chronic Priority: Medium Current Visit: No Annotation/Comment:: As above (17) Hypovolemia dehydration SNOMED Code(s): 94194517 Code(s): E86.1 - HYPOVOLEMIA Status: Acute Priority: High Current Visit : Yes - Problem List Review Problem List Initiated/Reviewed/Updated: Yes - My Orders Last 24 Hours: My Active Orders 06/26/19 05:11 BLOOD GAS VENOUS [BG] Routine FERRITIN [CHEM] Routine FOLATE [REF] Routine IRON/TIBC [CHEM] Routine PHOSPHORUS [CHEM] Routine TSH ULTRASENSITIVE [CHEM] Routine 06/26/19 08:00 Consult to Case Management/Waiter/[employer] Caf[employer]ia [CONS] Routine Consult to Occupational Therapy [OT Evaluation and Treatment] [CONS] Routine Consult to Physical Therapy [PT Evaluation and Treatment] [CONS] Routine - Plan Plan:: 06-25-19 Rayna Chiang PA-C 68 yr-old female being admitted to status under the medical management of Dr. Kebede, who was consulted at the time of admit. She was recently hospitalized overnight at [facility] (06-15) for symptomatic hypotension, considered at that time secondary to the start of Losartan. The Losartan was DC 'd at that time. However she has continued to feel weak at home. Home Health did see her today and found her BP low, and she was evaluated at [facility] and BP was very difficult to determine and was heard manually to be 72/50. Patient was brought in a wheelchair as she felt too weak to walk, and did tell me she had fallen at home today. She denied any chest pain at any time. She did tell me that she has not been eating or drinking per her norm since coming home on the as she has been just too tired and weak to make meals. Within the last couple months the home PD dialysis has been started, the couple set it up and run it every night during hours of sleep. This is a patient with multiple co-morbidities and the etiology for the hypotension and weakness it not completely clear, and she will require 3-4 days of IP evaluation and treatment with medication adjustment. She is a significant fall risk. Telemetry is placed and follow-up labs ordered. 06/26/19 Yandy Dennison MD She does feel better today but still some dizziness. Blood pressure still low. Continue IV fluids. Hypokalemia so continue replacement.
[2019-06-25] MEDS: Nortriptyline 25 MG Cap PO SCH (19:13)
[2019-06-25] MEDS: ALPRAZolam 1 MG Tab PO SCH (19:13)
[2019-06-26 06:41] LABS: O2 DELIVERY DEVICE ROOM AIR
[2019-06-26 06:49] LABS: BASE EXCESS VENOUS -5 mmol/L ((-2)-3); BICARBONATE,VENOUS 21 mmol/L (23-28); O2 SATURATION VENOUS 75 %; PCO2 VENOUS 45 mmHG (41-51); PH,VENOUS 7.28 (7.31-7.41); PO2 VENOUS 45 mmHG
[2019-06-26] MEDS: SEVELAMER CARBONATE 800 MG PO SCH ×2 (07:28→11:47)
[2019-06-26] MEDS: Venlafaxine 75 MG Cap.ER PO SCH (07:30)
[2019-06-26] MEDS: MAG PO SCH (07:30)
[2019-06-26] MEDS: Potassium Chloride 20 MEQ Tab.ER PO SCH (07:30)
[2019-06-26] MEDS: Cholecalciferol (Vitamin D3) 25 MCG Tab PO SCH (07:31)
[2019-06-26] MEDS: Levothyroxine 88 MCG Tab PO SCH (07:31)
[2019-06-26] MEDS: Calcitriol 0.25 MCG Cap PO SCH (07:31)
[2019-06-26] MEDS: Sodium Chloride 0.9% 1,000 ML IV SCH (07:46)
[2019-06-26] MEDS ORDERED: Levothyroxine 25 MCG Tab PO ONE ×2 (09:48→11:24)
[2019-06-26] MEDS ORDERED: Folic Acid 1 MG Tab PO SCH (10:45)
[2019-06-26 12:11] VITALS: BP 112/51; PULSE 88
--- NOTE | 2019-06-26 12:29 | PCM.PN ---
- General Info Date of Service: 06/26/19 Admission Dx/Problem (Free Text): Admission Diagnosis/Problem Admission Diagnosis/Problem Hypotension Functional Status: Reports: Tolerating Diet, Ambulating, Urinating - Review of Systems General: Reports: No Symptoms HEENT: Reports: No Symptoms Pulmonary: Reports: No Symptoms Cardiovascular: Reports: No Symptoms Gastrointestinal: Reports: No Symptoms Genitourinary: Reports: No Symptoms Musculoskeletal: Reports: No Symptoms Skin: Reports: No Symptoms Neurological: Reports: No Symptoms Psychiatric: Reports: No Symptoms - Patient Data Vitals - Most Recent: Last Vital Signs Temp 96.5 F 06/26/19 12:00 Pulse 88 06/26/19 12:00 Resp 16 06/26/19 12:00 BP 112/51 L 06/26/19 12:00 Pulse Ox 96 06/26/19 12:00 Weight - Most Recent: 232 lb 8 oz I&O - Last 24 Hours: Intake & Output 06/25/19 06/26/19 06/26/19 22:59 06:59 14:59 Intake Total 2360 2889 1118 Output Total 100 300 Balance 2260 2889 818 Lab Results Last 24 Hours: Laboratory Results - last 24 hr 06/26/19 06/26/19 06/26/19 Range/Units 06:30 06:30 06:30 WBC 5.5 (4.0-10.2) K/uL RBC 2.73 L (3.77-5.09) M/uL Hgb 8.5 L (11.7-15.5) g/dL Hct 27.5 L (34.0-46.0) % MCV 100.7 H (84.0-98.0) fL MCH 31.1 (28.2-33.3) pg MCHC 30.9 L (31.7-36.0) g/dL RDW 13.8 (11.2-14.1) % Plt Count 229 (150-350) K/uL Neut % (Auto) 75.9 (45.0-80.0) % Lymph % (Auto) 15.6 (10.0-50.0) % [place] % (Auto) 7.6 (2.0-14.0) % Eos % (Auto) 0.5 (0.0-5.0) % Baso % (Auto) 0.4 (0.0-2.0) % Neut # (Auto) 4.18 (1.40-7.00) K/uL Lymph # (Auto) 0.86 (0.50-3.50) K/uL [place] # (Auto) 0.42 (0.00-1.00) K/uL Eos # (Auto) 0.03 (0.00-0.50) K/uL Baso # (Auto) 0.02 (0.00-0.20) K/uL VBG pH 7.28 L (7.31-7.41) VBG pCO2 45 (41-51) mmHG VBG pO2 45 mmHG VBG HCO3 21 L (23-28) mmol/L VBG Total CO2 23 mmol/L VBG O2 Saturation 75 % VBG Base Excess -5 L ((-2)-3) mmol/L O2 Delivery Device Room air Sodium 136 (136-145) mmol/L Potassium 3.7 (3.5-5.1) mmol/L Chloride 103 (98-107) mmol/L Carbon Dioxide 22.1 (21.0-32.0) mmol/L BUN 43 H (7-18) mg/dL Creatinine 4.65 H* (0.51-1.17) mg/dL Est Cr Clr Drug Dosing 11.07 mL/min Estimated GFR (MDRD) 9 mL/min Glucose 89 (74-106) mg/dL Calcium 7.6 L (8.5-10.1) mg/dL Phosphorus 3.0 (2.6-4.7) mg/dL Iron (50-175) ug/dL TIBC (250-450) ug/dL % Saturation Ferritin (8-388) ng/mL Total Bilirubin 0.2 (0.2-1.0) mg/dL AST 19 (15-37) U/L ALT 19 (12-78) U/L Alkaline Phosphatase 120 H (46-116) IU/L Troponin I (0.000-0.056) ng/mL NT-Pro-B Natriuret Pep (0-125) pg/mL Total Protein 4.8 L (6.4-8.2) g/dL Albumin 1.7 L (3.4-5.0) g/dL Folate 3.2 L (8.6-58.9) ng/mL TSH, Ultra Sensitive 26.104 H (0.358-3.740) mIU/mL 06/26/19 06/26/19 Range/Units 06:30 06:30 WBC (4.0-10.2) K/uL RBC (3.77-5.09) M/uL Hgb (11.7-15.5) g/dL Hct (34.0-46.0) % MCV (84.0-98.0) fL MCH (28.2-33.3) pg MCHC (31.7-36.0) g/dL RDW (11.2-14.1) % Plt Count (150-350) K/uL Neut % (Auto) (45.0-80.0) % Lymph % (Auto) (10.0-50.0) % [place] % (Auto) (2.0-14.0) % Eos % (Auto) (0.0-5.0) % Baso % (Auto) (0.0-2.0) % Neut # (Auto) (1.40-7.00) K/uL Lymph # (Auto) (0.50-3.50) K/uL [place] # (Auto) (0.00-1.00) K/uL Eos # (Auto) (0.00-0.50) K/uL Baso # (Auto) (0.00-0.20) K/uL VBG pH (7.31-7.41) VBG pCO2 (41-51) mmHG VBG pO2 mmHG VBG HCO3 (23-28) mmol/L VBG Total CO2 mmol/L VBG O2 Saturation % VBG Base Excess ((-2)-3) mmol/L O2 Delivery Device Sodium (136-145) mmol/L Potassium (3.5-5.1) mmol/L Chloride (98-107) mmol/L Carbon Dioxide (21.0-32.0) mmol/L BUN (7-18) mg/dL Creatinine (0.51-1.17) mg/dL Est Cr Clr Drug Dosing mL/min Estimated GFR (MDRD) mL/min Glucose (74-106) mg/dL Calcium (8.5-10.1) mg/dL Phosphorus (2.6-4.7) mg/dL Iron 128 (50-175) ug/dL TIBC 198 L (250-450) ug/dL % Saturation 64.68450 Ferritin 375 (8-388) ng/mL Total Bilirubin (0.2-1.0) mg/dL AST (15-37) U/L ALT (12-78) U/L Alkaline Phosphatase (46-116) IU/L Troponin I 0.013 (0.000-0.056) ng/mL NT-Pro-B Natriuret Pep 1048 H (0-125) pg/mL Total Protein (6.4-8.2) g/dL Albumin (3.4-5.0) g/dL Folate (8.6-58.9) ng/mL TSH, Ultra Sensitive (0.358-3.740) mIU/mL Med Orders - Current: Current Medications Al Hydroxide/Mg Hydroxide (Mag-Al Plus) 30 ml PO QID PRN PRN Reason: GI upset Alprazolam (Xanax) 1 mg PO BEDTIME [facility] Last Admin: 06/25/19 19:13 Dose: 1 mg Calcitriol (Rocaltrol) 0.25 mcg PO DAILY [facility] Last Admin: 06/26/19 07:31 Dose: 0.25 mcg Cholecalciferol (Vitamin D3) 100 mcg PO DAILY [facility] Last Admin: 06/26/19 07:31 Dose: 100 mcg Cyanocobalamin (Vitamin B12) 1,000 mcg IM Q30D [facility] Folic Acid (Folic Acid) 1 mg PO DAILY [facility] Last Admin: 06/26/19 11:48 Dose: 1 mg Levothyroxine Sodium (Levothyroxine) 112 mcg PO ACBREAKFAST [facility] Mag-64Own Med 2 tab PO DAILY [facility] Last Admin: 06/26/19 07:30 Dose: 2 tab Sevelamer Carbonate (800 MgOwn Med) 800 mg PO TIDMEALS [facility] Last Admin: 06/26/19 11:47 Dose: 800 mg Nortriptyline HCl (Nortriptyline) 75 mg PO BEDTIME [facility] Last Admin: 06/25/19 19:13 Dose: 75 mg Potassium Chloride (Klor-Con M20) 20 meq PO BID [facility] Last Admin: 06/26/19 07:30 Dose: 20 meq Sodium Chloride (Saline Flush) 10 ml FLUSH ASDIRECTED PRN PRN Reason: Keep Vein Open Last Admin: 06/25/19 15:20 Dose: 10 ml Venlafaxine HCl (Effexor Xr) 150 mg PO DAILY [facility] Last Admin: 06/26/19 07:30 Dose: 150 mg Discontinued Medications Sodium Chloride (Normal Saline) 1,000 mls @ 250 mls/hr IV ASDIRECTED [facility]O Stop: 06/24/19 20:29 Last Admin: 06/24/19 18:38 Dose: 250 mls/hr Sodium Chloride (Normal Saline) 1,000 mls @ 125 mls/hr IV ASDIRECTED [facility] Last Admin: 06/26/19 07:46 Dose: 125 mls/hr Levothyroxine Sodium (Synthroid) 88 mcg PO ACBREAKFAST [facility] Last Admin: 06/26/19 07:31 Dose: 88 mcg Levothyroxine Sodium (Levothyroxine) 25 mcg PO ONETIME ONE Stop: 06/26/19 09:49 Last Admin: 06/26/19 10:04 Dose: 25 mcg Levothyroxine Sodium (Levothyroxine) 25 mcg PO ONETIME ONE Stop: 06/26/19 11:25 Last Admin: 06/26/19 11:47 Dose: 25 mcg Potassium Chloride (Klor-Con M20) 20 meq PO ACBREAKFAST [facility] Potassium Chloride (Klor-Con M20) 20 meq PO ONETIME ONE Stop: 06/24/19 18:41 Last Admin: 06/24/19 20:03 Dose: 20 meq Potassium Chloride (Klor-Con 10) 20 meq PO ONETIME ONE Stop: 06/25/19 18:01 Last Admin: 06/25/19 18:08 Dose: 20 meq - Exam General: Alert, Cooperative, No Acute Distress HEENT: Mucous Membr. Moist/[place] Neck: Trachea Midline, No JVD Lungs: Clear to Auscultation, Normal Respiratory Effort Cardiovascular: Regular Rate, Regular Rhythm GI/Abdominal Exam: Soft, Non-Tender, Other (peritoneal dialysis catheter in LUQ) (Female) Exam: Deferred Back Exam: Normal Inspection Extremities: Normal Inspection, No Pedal Edema Skin: Warm, Dry, Intact Neurological: No New Focal Deficit Psy/Mental Status: Alert, Normal Affect, Normal Mood - Problem List & Annotations (1) Hypotension SNOMED Code(s): 99867403 Code(s): I95.9 - HYPOTENSION, UNSPECIFIED Status: Acute Priority: High Current Visit: Yes Qualifiers: Hypotension type: hemodialysis-associated hypotension Qualified Code(s): I95.3 - Hypotension of hemodialysis (2) Dialysis patient SNOMED Code(s): 897695930 Code(s): Z99.2 - DEPENDENCE ON RENAL DIALYSIS Status: Acute Priority: High Current Visit: Yes Annotation/Comment:: Doing peritoneal dialysis, continuous run every night during hours of sleep. (3) Fall SNOMED Code(s): 5209799, 220788875 Code(s): W19.XXXA - UNSPECIFIED FALL, INITIAL ENCOUNTER Status: Acute Priority: Medium Current Visit: Yes (4) Weakness SNOMED Code(s): 10588774 Code(s): R53.1 - WEAKNESS Status: Acute Priority: High Current Visit: Yes Annotation/Comment:: Considered secondary to hypotension. (5) Anemia SNOMED Code(s): 643936486 Code(s): D64.9 - ANEMIA, UNSPECIFIED Status: Acute Priority: High Current Visit: No Onset Date: ~10/04/16 Qualifiers: Anemia type: other cause Other causes of anemia: chronic disease, kidney Qualified Code(s): N18.9 - Chronic kidney disease, unspecified; D63.1 - Anemia in chronic kidney disease Annotation/Comment:: Hemoccult-positive stools as above. IV Protonix with caution secondary to her renal disease. Further GI workup depending on her clinical course. Blood workup for anemia initiated today with normal findings to this point, however transfer level is still pending. Note mild leukopenia (6) Chronic kidney disease SNOMED Code(s): 054225701 Code(s): N18.9 - CHRONIC KIDNEY DISEASE, UNSPECIFIED Status: Acute Current Visit: No Qualifiers: Chronic kidney disease stage: unspecified stage Qualified Code(s): N18.9 - Chronic kidney disease, unspecified (7) Fatigue SNOMED Code(s): 49436855 Code(s): R53.83 - OTHER FATIGUE Status: Acute Priority: High Current Visit: No Onset Date: ~10/04/16 Qualifiers: Fatigue type: other Qualified Code(s): R53.83 - Other fatigue Annotation/Comment:: Fatigue with history of recent recurrent falls is multifactorial secondary to her increased stressors, current anemia, renal insufficiency, inadequate thyroid supplementation, etc. as below. No chest pain or anginal complaints with elevated d-dimer and BNP. Secondary to renal insufficiency CTA of the chest cannot be conducted with consideration of VQ scan depending on venous Doppler study results tomorrow. Consider transfer to [place] tomorrow depending on her clinical course. [facility] physician assumes care in the a.m. (8) Hypoalbuminemia SNOMED Code(s): 075780808 Code(s): E88.09 - OTH DISORDERS OF PLASMA-PROTEIN METABOLISM, NEC Status: Acute Priority: Medium Current Visit: No Onset Date: 10/04/16 Annotation /Comment:: Consider high protein Glucerna supplements with caution secondary to her renal insufficiency, however advise nephrology followup prior to initiation of this therapy (9) Hypomagnesemia SNOMED Code(s): 606445686 Code(s): E83.42 - HYPOMAGNESEMIA Status: Acute Priority: Medium Current Visit: No Onset Date: 10/04/16 Annotation/Comment:: Low-dose magnesium therapy with caution secondary to her renal disease (10) Hypothyroidism SNOMED Code(s): 66236194 Code(s): E03.9 - HYPOTHYROIDISM, UNSPECIFIED Status: Acute Priority: High Current Visit: No Qualifiers: Hypothyroidism type: postablative Qualified Code(s): E89.0 - Postprocedural hypothyroidism Annotation/Comment:: Increase thyroid supplementation. TSH to be repeated in about 4 weeks with oncology consultation depending on her clinical course (11) Hypertension SNOMED Code(s): 96601584 Code(s): I10 - ESSENTIAL (PRIMARY) HYPERTENSION Status: Chronic Priority : Medium Current Visit: No Qualifiers: Hypertension type: essential hypertension Qualified Code(s): I10 - Essential (primary) hypertension Annotation/Comment:: Continue to observe closely with mild hypotension in the emergency room (12) Hypocalcemia SNOMED Code(s): 6959359 Code(s): E83.51 - HYPOCALCEMIA Status: Chronic Priority: Medium Current Visit: No Annotation/Comment:: Calcium supplementation with caution secondary to her renal disease with phosphate levels in the morning (13) Mixed anxiety depressive disorder SNOMED Code(s): 935481098 Code(s): F41.8 - OTHER SPECIFIED ANXIETY DISORDERS Status: Chronic Priority: Medium Current Visit: No Annotation/Comment:: Note increased stressors secondary to her 's illness as above. Observe closely by regular providers (14) Osteoarthritis SNOMED Code(s): 725222603 Code(s): M19.90 - UNSPECIFIED OSTEOARTHRITIS, UNSPECIFIED SITE Status: Chronic Priority: Medium Current Visit: No Qualifiers: Osteoarthritis location: multiple joints Osteoarthritis type: primary Qualified Code(s): M15.0 - Primary generalized (osteo)arthritis Annotation/Comment:: Stable by history (15) Peptic reflux disease SNOMED Code(s): 554710462 Code(s): K21.9 - GASTRO-ESOPHAGEAL REFLUX DISEASE WITHOUT ESOPHAGITIS Status: Chronic Priority: Medium Current Visit: No Annotation/Comment:: Stable by history (16) Thyroid cancer SNOMED Code(s): 758559622 Code(s): C73 - MALIGNANT NEOPLASM OF THYROID GLAND Status: Chronic Priority: Medium Current Visit: No Annotation/Comment:: As above (17) Hypovolemia dehydration SNOMED Code(s): 96458825 Code(s): E86.1 - HYPOVOLEMIA Status: Acute Priority: High Current Visit : Yes (18) Folic acid deficiency SNOMED Code(s): 466998318 Code(s): E53.8 - DEFICIENCY OF OTHER SPECIFIED B GROUP VITAMINS Status: Acute Priority: High Current Visit: Yes (19) Hypokalemia SNOMED Code(s): 77844465 Code(s): E87.6 - HYPOKALEMIA Status: Acute Priority: High Current Visit : Yes - Problem List Review Problem List Initiated/Reviewed/Updated: Yes - My Orders Last 24 Hours: My Active Orders 06/26/19 07:00 ACTH, PLASMA [REF] Routine CORTISOL [REF] Routine 06/26/19 08:00 Consult to Case Management/Profile Mill Operator Tape Control [CONS] Routine Consult to Occupational Therapy [OT Evaluation and Treatment] [CONS] Routine Consult to Physical Therapy [PT Evaluation and Treatment] [CONS] Routine 06/26/19 10:45 Folic Acid 1 mg PO DAILY 06/26/19 11:32 Ready for Discharge [RC] PER UNIT ROUTINE 06/26/19 11:34 Discontinue Telemetry Monitoring [Cardiac Monitoring Discontinue] [RC] Click to Edit Discontinue Saline Lock [Peripheral IV Discontinue] [OM.PC] Routine - Plan Plan:: 06-25-19 Rayna Chiang PA-C 68 yr-old female being admitted to IP status under the medical management of Dr. Kebede, who was consulted at the time of admit. She was recently hospitalized overnight at [facility] (06-15) for symptomatic hypotension, considered at that time secondary to the start of Losartan. The Losartan was DC 'd at that time. However she has continued to feel weak at home. Home Health did see her today and found her BP low, and [place] [facility] [place] was very difficult to determine and was heard manually to be 72/50. Patient was brought in a wheelchair as she felt too weak to walk, and did tell me she had fallen at home today. She denied any chest pain at any time. She did tell me that she has not been eating or drinking per her norm since coming home on the as she has been just too tired and weak to make meals. Within the last couple months the home PD dialysis has been started, the couple set it up and run it every night during hours of sleep. This is a patient with multiple co-morbidities and the etiology for the hypotension and weakness it not completely clear, and she will require 3-4 days of IP evaluation and treatment with medication adjustment. She is a significant fall risk. Telemetry is placed and follow-up labs ordered. 06/25/19 Yandy Dennison MD She does feel better today but still some dizziness. Blood pressure still low. Continue IV fluids. Hypokalemia so continue replacement. 06/26/19 Yandy Dennison MD She says she feels fine and she feels ready to go home. Denies shortness of breath, chest pain, dizziness, no syncope. Discussed lab results from this AM. Low folate and TSH 26.1. Potssium corrected. I did also talk with [facility], Dr. Schmidt. We will also check her for adrenal insufficiency. All medications discussed with her and discharge plans discussed with her. Will set up the ACTH Stimulation testing on Saturday as outpatient.
--- NOTE | 2019-06-26 12:31 | PCM.DCSUM1 ---
Discharge Summary - Hospital Course Diagnosis: Stroke: No - Discharge Data Discharge Date: 06/26/19 Discharge Disposition: Home, Self-Care 01 Condition: Good - Referral to Home Health Primary Care Physician: JAE Griffin - Discharge Diagnosis/Problem(s) (1) Hypotension SNOMED Code(s): 75074469 ICD Code: I95.9 - HYPOTENSION, UNSPECIFIED Status: Acute Priority: High Current Visit: Yes Qualifiers: Hypotension type: hemodialysis-associated hypotension Qualified Code(s): I95.3 - Hypotension of hemodialysis (2) Dialysis patient SNOMED Code(s): 343714583 ICD Code: Z99.2 - DEPENDENCE ON RENAL DIALYSIS Status: Acute Priority: High Current Visit: Yes Problem Details: Doing peritoneal dialysis, continuous run every night during hours of sleep. (3) Fall SNOMED Code(s): 2785979, 274807800 ICD Code: W19.XXXA - UNSPECIFIED FALL, INITIAL ENCOUNTER Status: Acute Priority: Medium Current Visit: Yes (4) Weakness SNOMED Code(s): 52260797 ICD Code: R53.1 - WEAKNESS Status: Acute Priority: High Current Visit: Yes Problem Details: Considered secondary to hypotension. (5) Anemia SNOMED Code(s): 676566136 ICD Code: D64.9 - ANEMIA, UNSPECIFIED Status: Acute Priority: High Current Visit: No Onset Date: ~10/04/16 Problem Details: Hemoccult-positive stools as above. IV Protonix with caution secondary to her renal disease. Further GI workup depending on her clinical course. Blood workup for anemia initiated today with normal findings to this point, however transfer level is still pending. Note mild leukopenia Qualifiers: Anemia type: other cause Other causes of anemia: chronic disease, kidney Qualified Code(s): N18.9 - Chronic kidney disease, unspecified; D63.1 - Anemia in chronic kidney disease (6) Chronic kidney disease SNOMED Code(s): 858484313 ICD Code: N18.9 - CHRONIC KIDNEY DISEASE, UNSPECIFIED Status: Acute Current Visit: No Qualifiers: Chronic kidney disease stage: unspecified stage Qualified Code(s): N18.9 - Chronic kidney disease, unspecified (7) Fatigue SNOMED Code(s): 30939896 ICD Code: R53.83 - OTHER FATIGUE Status: Acute Priority: High Current Visit: No Onset Date: ~10/04/16 Problem Details: Fatigue with history of recent recurrent falls is multifactorial secondary to her increased stressors, current anemia, renal insufficiency, inadequate thyroid supplementation, etc. as below. No chest pain or anginal complaints with elevated d-dimer and BNP. Secondary to renal insufficiency CTA of the chest cannot be conducted with consideration of VQ scan depending on venous Doppler study results tomorrow. Consider transfer to [place] tomorrow depending on her clinical course. bee breeder physician assumes care in the a.m. Qualifiers: Fatigue type: other Qualified Code(s): R53.83 - Other fatigue (8) Hypoalbuminemia SNOMED Code(s): 298849449 ICD Code: E88.09 - OTH DISORDERS OF PLASMA-PROTEIN METABOLISM, NEC Status: Acute Priority: Medium Current Visit: No Onset Date: 10/04/16 Problem Details: Consider high protein Glucerna supplements with caution secondary to her renal insufficiency, however advise nephrology followup prior to initiation of this therapy (9) Hypomagnesemia SNOMED Code(s): 947341295 ICD Code: E83.42 - HYPOMAGNESEMIA Status: Acute Priority: Medium Current Visit: No Onset Date: 10/04/16 Problem Details: Low-dose magnesium therapy with caution secondary to her renal disease (10) Hypothyroidism SNOMED Code(s): 91639550 ICD Code: E03.9 - HYPOTHYROIDISM, UNSPECIFIED Status: Acute Priority: High Current Visit: No Problem Details: Increase thyroid supplementation. TSH to be repeated in about 4 weeks with oncology consultation depending on her clinical course Qualifiers: Hypothyroidism type: postablative Qualified Code(s): E89.0 - Postprocedural hypothyroidism (11) Hypertension SNOMED Code(s): 33275247 ICD Code: I10 - ESSENTIAL (PRIMARY) HYPERTENSION Status: Chronic Priority : Medium Current Visit: No Problem Details: Continue to observe closely with mild hypotension in the emergency room Qualifiers: Hypertension type: essential hypertension Qualified Code(s): I10 - Essential (primary) hypertension (12) Hypocalcemia SNOMED Code(s): 4609712 ICD Code: E83.51 - HYPOCALCEMIA Status: Chronic Priority: Medium Current Visit: No Problem Details: Calcium supplementation with caution secondary to her renal disease with phosphate levels in the morning (13) Mixed anxiety depressive disorder SNOMED Code(s): 357260459 ICD Code: F41.8 - OTHER SPECIFIED ANXIETY DISORDERS Status: Chronic Priority: Medium Current Visit: No Problem Details: Note increased stressors secondary to her 's illness as above. Observe closely by regular providers (14) Osteoarthritis SNOMED Code(s): 267394918 ICD Code: M19.90 - UNSPECIFIED OSTEOARTHRITIS, UNSPECIFIED SITE Status: Chronic Priority: Medium Current Visit: No Problem Details: Stable by history Qualifiers: Osteoarthritis location: multiple joints Osteoarthritis type: primary Qualified Code(s): M15.0 - Primary generalized (osteo)arthritis (15) Peptic reflux disease SNOMED Code(s): 858225651 ICD Code: K21.9 - GASTRO-ESOPHAGEAL REFLUX DISEASE WITHOUT ESOPHAGITIS Status: Chronic Priority: Medium Current Visit: No Problem Details: Stable by history (16) Thyroid cancer SNOMED Code(s): 732710194 ICD Code: C73 - MALIGNANT NEOPLASM OF THYROID GLAND Status: Chronic Priority: Medium Current Visit: No Problem Details: As above (17) Hypovolemia dehydration SNOMED Code(s): 84336887 ICD Code: E86.1 - HYPOVOLEMIA Status: Acute Priority: High Current Visit: Yes (18) Folic acid deficiency SNOMED Code(s): 285475176 ICD Code: E53.8 - DEFICIENCY OF OTHER SPECIFIED B GROUP VITAMINS Status: Acute Priority: High Current Visit: Yes (19) Hypokalemia SNOMED Code(s): 38163774 ICD Code: E87.6 - HYPOKALEMIA Status: Acute Priority: High Current Visit: Yes - Patient Summary/Data Consults: Consultations 06/26/19 08:00 Consult to Case Management/Bakery Sales Clerk [CONS] Routine Consult to Occupational Therapy [OT Evaluation and Treatment] [CONS] Routine Consult to Physical Therapy [PT Evaluation and Treatment] [CONS] Routine - Patient Instructions Diet: Usual Diet as Tolerated Activity: As Tolerated Driving: Do Not Drive Showering/Bathing: May Shower - Discharge Plan *PRESCRIPTION DRUG MONITORING PROGRAM REVIEWED*: Not Applicable *COPY OF PRESCRIPTION DRUG MONITORING REPORT IN PATIENT [place]RAY[place]: Not Applicable Prescriptions/Med Rec: Folic Acid 1 mg PO DAILY #100 tablet Levothyroxine 150 mcg PO ACBREAKFAST #90 tab Home Medications: Home Meds ALPRAZolam [Xanax] 1 cap PO BEDTIME 06/24/19 [History] Calcitriol [Rocaltrol] 0.25 mcg PO DAILY 06/24/19 [History] Cholecalciferol (Vitamin D3) [Vitamin D3] 4,000 unit PO DAILY 06/24/19 [History] Cyanocobalamin (Vitamin B-12) [Cyanocobalamin Injection] 1 ml IM Q30D 06/24/19 [ History] Magnesium Chloride [Mag-64] 2 tab PO DAILY 06/24/19 [History] Nortriptyline HCl 1 cap PO BEDTIME 06/24/19 [History] Potassium Chloride [Klor-Con M20] 1 tab PO ACBREAKFAST 06/24/19 [History] Sevelamer Carbonate [Renvela] 800 mg PO TID 06/24/19 [History] Venlafaxine [Effexor XR] 1 cap PO DAILY 06/24/19 [History] Folic Acid 1 mg PO DAILY #100 tablet 06/26/19 [Rx] Levothyroxine 150 mcg PO ACBREAKFAST #90 tab 06/26/19 [Rx] Oxygen Therapy Mode: Room Air - Discharge Summary/Plan Comment DC Time >30 min.: No - Patient Data Vitals - Most Recent: Last Vital Signs Temp 96.5 F 06/26/19 12:00 Pulse 88 06/26/19 12:00 Resp 16 06/26/19 12:00 BP 112/51 L 06/26/19 12:00 Pulse Ox 96 06/26/19 12:00 Weight - Most Recent: 232 lb 8 oz I&O - Last 24 hours: Intake & Output 06/25/19 06/26/19 06/26/19 22:59 06:59 14:59 Intake Total 2360 2889 1118 Output Total 100 300 Balance 2260 2889 818 Lab Results - Last 24 hrs: Laboratory Results - last 24 hr 06/26/19 06/26/19 06/26/19 Range/Units 06:30 06:30 06:30 WBC 5.5 (4.0-10.2) K/uL RBC 2.73 L (3.77-5.09) M/uL Hgb 8.5 L (11.7-15.5) g/dL Hct 27.5 L (34.0-46.0) % MCV 100.7 H (84.0-98.0) fL MCH 31.1 (28.2-33.3) pg MCHC 30.9 L (31.7-36.0) g/dL RDW 13.8 (11.2-14.1) % Plt Count 229 (150-350) K/uL Neut % (Auto) 75.9 (45.0-80.0) % Lymph % (Auto) 15.6 (10.0-50.0) % [place] % (Auto) 7.6 (2.0-14.0) % Eos % (Auto) 0.5 (0.0-5.0) % Baso % (Auto) 0.4 (0.0-2.0) % Neut # (Auto) 4.18 (1.40-7.00) K/uL Lymph # (Auto) 0.86 (0.50-3.50) K/uL [place] # (Auto) 0.42 (0.00-1.00) K/uL Eos # (Auto) 0.03 (0.00-0.50) K/uL Baso # (Auto) 0.02 (0.00-0.20) K/uL VBG pH 7.28 L (7.31-7.41) VBG pCO2 45 (41-51) mmHG VBG pO2 45 mmHG VBG HCO3 21 L (23-28) mmol/L VBG Total CO2 23 mmol/L VBG O2 Saturation 75 % VBG Base Excess -5 L ((-2)-3) mmol/L O2 Delivery Device Room air Sodium 136 (136-145) mmol/L Potassium 3.7 (3.5-5.1) mmol/L Chloride 103 (98-107) mmol/L Carbon Dioxide 22.1 (21.0-32.0) mmol/L BUN 43 H (7-18) mg/dL Creatinine 4.65 H* (0.51-1.17) mg/dL Est Cr Clr Drug Dosing 11.07 mL/min Estimated GFR (MDRD) 9 mL/min Glucose 89 (74-106) mg/dL Calcium 7.6 L (8.5-10.1) mg/dL Phosphorus 3.0 (2.6-4.7) mg/dL Iron (50-175) ug/dL TIBC (250-450) ug/dL % Saturation Ferritin (8-388) ng/mL Total Bilirubin 0.2 (0.2-1.0) mg/dL AST 19 (15-37) U/L ALT 19 (12-78) U/L Alkaline Phosphatase 120 H (46-116) IU/L Troponin I (0.000-0.056) ng/mL NT-Pro-B Natriuret Pep (0-125) pg/mL Total Protein 4.8 L (6.4-8.2) g/dL Albumin 1.7 L (3.4-5.0) g/dL Folate 3.2 L (8.6-58.9) ng/mL TSH, Ultra Sensitive 26.104 H (0.358-3.740) mIU/mL 06/26/19 06/26/19 Range/Units 06:30 06:30 WBC (4.0-10.2) K/uL RBC (3.77-5.09) M/uL Hgb (11.7-15.5) g/dL Hct (34.0-46.0) % MCV (84.0-98.0) fL MCH (28.2-33.3) pg MCHC (31.7-36.0) g/dL RDW (11.2-14.1) % Plt Count (150-350) K/uL Neut % (Auto) (45.0-80.0) % Lymph % (Auto) (10.0-50.0) % [place] % (Auto) (2.0-14.0) % Eos % (Auto) (0.0-5.0) % Baso % (Auto) (0.0-2.0) % Neut # (Auto) (1.40-7.00) K/uL Lymph # (Auto) (0.50-3.50) K/uL [place] # (Auto) (0.00-1.00) K/uL Eos # (Auto) (0.00-0.50) K/uL Baso # (Auto) (0.00-0.20) K/uL VBG pH (7.31-7.41) VBG pCO2 (41-51) mmHG VBG pO2 mmHG VBG HCO3 (23-28) mmol/L VBG Total CO2 mmol/L VBG O2 Saturation % VBG Base Excess ((-2)-3) mmol/L O2 Delivery Device Sodium (136-145) mmol/L Potassium (3.5-5.1) mmol/L Chloride (98-107) mmol/L Carbon Dioxide (21.0-32.0) mmol/L BUN (7-18) mg/dL Creatinine (0.51-1.17) mg/dL Est Cr Clr Drug Dosing mL/min Estimated GFR (MDRD) mL/min Glucose (74-106) mg/dL Calcium (8.5-10.1) mg/dL Phosphorus (2.6-4.7) mg/dL Iron 128 (50-175) ug/dL TIBC 198 L (250-450) ug/dL % Saturation 64.13139 Ferritin 375 (8-388) ng/mL Total Bilirubin (0.2-1.0) mg/dL AST (15-37) U/L ALT (12-78) U/L Alkaline Phosphatase (46-116) IU/L Troponin I 0.013 (0.000-0.056) ng/mL NT-Pro-B Natriuret Pep 1048 H (0-125) pg/mL Total Protein (6.4-8.2) g/dL Albumin (3.4-5.0) g/dL Folate (8.6-58.9) ng/mL TSH, Ultra Sensitive (0.358-3.740) mIU/mL Med Orders - Current: Current Medications Al Hydroxide/Mg Hydroxide (Mag-Al Plus) 30 ml PO QID PRN PRN Reason: GI upset Alprazolam (Xanax) 1 mg PO BEDTIME [facility] Last Admin: 06/25/19 19:13 Dose: 1 mg Calcitriol (Rocaltrol) 0.25 mcg PO DAILY [facility] Last Admin: 06/26/19 07:31 Dose: 0.25 mcg Cholecalciferol (Vitamin D3) 100 mcg PO DAILY [facility] Last Admin: 06/26/19 07:31 Dose: 100 mcg Cyanocobalamin (Vitamin B12) 1,000 mcg IM Q30D [facility] Folic Acid (Folic Acid) 1 mg PO DAILY [facility] Last Admin: 06/26/19 11:48 Dose: 1 mg Levothyroxine Sodium (Levothyroxine) 112 mcg PO ACBREAKFAST [facility] Mag-64Own Med 2 tab PO DAILY [facility] Last Admin: 06/26/19 07:30 Dose: 2 tab Sevelamer Carbonate (800 MgOwn Med) 800 mg PO TIDMEALS [facility] Last Admin: 06/26/19 11:47 Dose: 800 mg Nortriptyline HCl (Nortriptyline) 75 mg PO BEDTIME [facility] Last Admin: 06/25/19 19:13 Dose: 75 mg Potassium Chloride (Klor-Con M20) 20 meq PO BID [facility] Last Admin: 06/26/19 07:30 Dose: 20 meq Sodium Chloride (Saline Flush) 10 ml FLUSH ASDIRECTED PRN PRN Reason: Keep Vein Open Last Admin: 06/25/19 15:20 Dose: 10 ml Venlafaxine HCl (Effexor Xr) 150 mg PO DAILY [facility] Last Admin: 06/26/19 07:30 Dose: 150 mg Discontinued Medications Sodium Chloride (Normal Saline) 1,000 mls @ 250 mls/hr IV ASDIRECTED [facility] Stop: 06/24/19 20:29 Last Admin: 06/24/19 18:38 Dose: 250 mls/hr Sodium Chloride (Normal Saline) 1,000 mls @ 125 mls/hr IV ASDIRECTED [facility] Last Admin: 06/26/19 07:46 Dose: 125 mls/hr Levothyroxine Sodium (Synthroid) 88 mcg PO ACBREAKFAST [facility] Last Admin: 06/26/19 07:31 Dose: 88 mcg Levothyroxine Sodium (Levothyroxine) 25 mcg PO ONETIME ONE Stop: 06/26/19 09:49 Last Admin: 06/26/19 10:04 Dose: 25 mcg Levothyroxine Sodium (Levothyroxine) 25 mcg PO ONETIME ONE Stop: 06/26/19 11:25 Last Admin: 06/26/19 11:47 Dose: 25 mcg Potassium Chloride (Klor-Con M20) 20 meq PO ACBREAKFAST [facility] Potassium Chloride (Klor-Con M20) 20 meq PO ONETIME ONE Stop: 06/24/19 18:41 Last Admin: 06/24/19 20:03 Dose: 20 meq Potassium Chloride (Klor-Con 10) 20 meq PO ONETIME ONE Stop: 06/25/19 18:01 Last Admin: 06/25/19 18:08 Dose: 20 meq
[2019-06-27] MEDS ORDERED: Levothyroxine 112 MCG Tab PO SCH (07:30)
[2019-07-10] MEDS ORDERED: Cyanocobalamin (Vitamin B12) 1,000 MCG/ML SDV IM SCH (18:00)
== END 2019-06-26 13:50 | disposition home or self-care (01) | DRG 312 ==
LOC: UNDOADMIN 16:04 → LL.MS 16:04
PROVIDERS: ADMIT Physician Assistant; ATTEND Family Medicine
DX: I95.3 Hypotension of hemodialysis (principal); H54.7 Unspecified visual loss; E78.00 Pure hypercholesterolemia, unspecified; N18.9 Chronic kidney disease, unspecified; M81.0 Age-related osteoporosis without current pathological fracture; G43.909 Migraine, unspecified, not intractable, without status migrainosus; C73 Malignant neoplasm of thyroid gland; E86.1 Hypovolemia; F41.9 Anxiety disorder, unspecified; F32.9 Major depressive disorder, single episode, unspecified; E03.9 Hypothyroidism, unspecified; Z96.653 Presence of artificial knee joint, bilateral; W19.XXXA Unspecified fall, initial encounter; D63.1 Anemia in chronic kidney disease; E87.6 Hypokalemia; E88.09 Other disorders of plasma-protein metabolism, not elsewhere classified; E83.42 Hypomagnesemia; I10 Essential (primary) hypertension; E83.51 Hypocalcemia; F41.8 Other specified anxiety disorders; M15.0 Primary generalized (osteo)arthritis; K21.9 Gastro-esophageal reflux disease without esophagitis; E53.8 Deficiency of other specified B group vitamins; Z98.84 Bariatric surgery status; Y92.009 Unspecified place in unspecified non-institutional (private) residence as the place of occurrence of the external cause; Z99.2 Dependence on renal dialysis; Z98.1 Arthrodesis status; Z79.899 Other long term (current) drug therapy; Z79.890 Hormone replacement therapy
CPT/HCPCS: 36415; 71046; 80053; 81001; 82533; 82728; 82746; 82803; 83540; 83550; 83735; 83880; 84100; 84443; 84484; 85025; 86140; 93005; A9270-GY; J7030

== ENCOUNTER 2019-09-16 15:19 | Inpatient (IN) | payer MEDICARE, MEDICAID ==
[2019-09-18] MEDS ORDERED: Sodium Chloride 0.9% 10 ML Syringe FLUSH PRN ×2 (20:53)
--- NOTE | 2019-09-18 21:16 | PCM.HP.2 ---
H&P History of Present Illness - General Date of Service: 09/18/19 Admit Problem/Dx: Admission Diagnosis/Problem Admission Diagnosis/Problem Weakness Source of Information: Patient, Family, Old Records History Limitations: Reports: No Limitations - History of Present Illness Initial Comments - Free Text/Narative: Weakness. Improves with: Reports: Other (therapy.) Worsens with: Reports: None Associated Symptoms: Reports: Loss of Appetite, Malaise, Weakness - Related Data Allergies/Adverse Reactions: Allergies Allergy/AdvReac Type Severity Reaction Status Date / Time ibuprofen Allergy Renal Verified 09/16/19 18:05 Insufficiency zolpidem Allergy Hallucinati Verified 09/16/19 18:05 ons Home Medications: Home Meds ALPRAZolam [Xanax] 1 cap PO BEDTIME 06/24/19 [History] Cholecalciferol (Vitamin D3) [Vitamin D3] 4,000 unit PO DAILY 06/24/19 [History] Cyanocobalamin (Vitamin B-12) [Cyanocobalamin Injection] 1 ml IM Q30D 06/24/19 [ History] Potassium Chloride [Klor-Con M20] 1 tab PO BID 06/24/19 [History] Sevelamer Carbonate [Renvela] 800 mg PO TID 06/24/19 [History] Venlafaxine [Effexor XR] 150 mg PO DAILY 06/24/19 [History] calcitrioL [Rocaltrol] 0.25 mcg PO DAILY 06/24/19 [History] Folic Acid 1 mg PO DAILY #100 tablet 06/26/19 [Rx] Ciprofloxacin [Ciprofloxacin HCl] 500 mg PO DAILY 09/16/19 [History] Epoetin Dante [Epogen] 20,000 unit SQ WEEKLY 09/16/19 [History] Levothyroxine [Synthroid] 100 mcg PO ACBREAKFAST 09/16/19 [History] Polyethylene Glycol 3350 [MiraLAX] 17 gm PO DAILY 09/16/19 [History] Venlafaxine [Effexor XR 24 Hr] 37.5 mg PO DAILY 09/16/19 [History] Past Medical History HEENT History: Reports: Impaired Vision, Other (See Below) Other HEENT History: 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 of Lung Nodules. Negative for cancer Gastrointestinal History: Reports: Hemorrhoids Other Gastrointestinal History: Bowel obstruction about 1978 with subsequent surgery as below Genitourinary History: Reports: Chronic Renal Insuffiency, Dialysis, Peritoneal Other Genitourinary History: Home peritoneal dialysis, run every night continuously STAFF TOXICOLOGIST History: Reports: Other OB/BYN History: Menopause at age 46, Full term without complications during pregnancies or deliveries Musculoskeletal History: Reports: Osteoporosis Other Musculoskeletal History: Chronic knee and shoulder pain Neurological History: Reports: Migraines, Other (See Below) Other Neuro History: Long history, but have greatly improved Psychiatric History: Reports: Anxiety, Depression Endocrine/Metabolic History: Reports: Hypothyroidism, Osteoporosis, Other (See Below) Other Endocrine/Metabolic History: Hx of thyroid cancer and lymphoma; hypercalcemia; hypomagnesaemia Hematologic History: Reports: B12 Deficiency, Blood Transfusion(s) Other Hematologic History: blood transfusions with knee surgeries as below Immunologic History: Reports: None Oncologic (Cancer) History: Reports: Lymphoma, Thyroid Other Oncologic History: Thyroid cancer diagnosed in June 2010 with completed chemotherapy treatment in October 2015 with no radiation therapy or thyroidectomy secondary to apparent an operable disease Dermatologic History: Reports: None - Infectious Disease History Infectious Disease History: Reports: Chicken Pox - Past Surgical History Head Surgeries/Procedures: Reports: None GI Surgical History: Reports: Bariatric Procedure, Colonoscopy, Other (See Below ) Other GI Surgeries/Procedures: Gastric bypass, hemorrhoid surgery Endocrine Surgical History: Reports: Thyroid Biopsy Neurological Surgical History: Reports: Spinal Fusion Musculoskeletal Surgical History: Reports: Knee Replacement, Other (See Below) Other Musculoskeletal Surgeries/Procedures:: Spinal fusion; Bilateral knee replacement - Past Imaging History Past Imaging History: Reports: CAT Scan, DEXA Scan, Other (See Below) Social & Family History - Family History HEENT: Reports: None Cardiac: Reports: CAD, Heart Failure, High Cholesterol, Hypertension, ND, Other (See Below) Other Cardiac Family History: Maternal grandmother with fatal CHF at age 89, father with hyperlipidemia and hypertension, father with fatal ND at age 88 Respiratory: Reports: None GI: Reports: None : Reports: Dialysis, Renal Calculus, Renal Disease/Insufficiency, Other (See Below) Other Family History: Mother with urolithiasis, father and brother with renal insufficiency which did require dialysis OBGYN: Reports: None Musculoskeletal: Reports: Osteoarthritis, SLE, Other (See Below) Other Musculoskeletal Family History: mother with SLE Neurological: Reports: None Psychiatric: Reports: None Endocrine/Metabolic: Reports: None Hematologic: Reports: None, SLE, Other (See Below) Other Hematologic Family History: Mother with SLE Immunologic: Reports: SLE, Other (See Below) Other Immunologic Family History: Mother with SLE Dermatologic: Reports: None Oncologic: Reports: Metastatic, Prostate, Other (See Below) Other Oncologic Family History: brother with fatal metastatic prostate cancer in his 60s - Caffeine Use Caffeine Use: Reports: None - Living Situation & Occupation Living situation: Reports: , with Family Occupation: Retired H&P Review of Systems - Review of Systems: Review Of Systems: See Below General: Reports: No Symptoms HEENT: Reports: No Symptoms Pulmonary: Reports: No Symptoms Cardiovascular: Reports: No Symptoms Gastrointestinal: Reports: No Symptoms Genitourinary: Reports: No Symptoms Musculoskeletal: Reports: No Symptoms Skin: Reports: Other (weeping) Psychiatric: Reports: No Symptoms Neurological: Reports: Weakness Hematologic/Lymphatic: Reports: Anemia Immunologic: Reports: No Symptoms Exam - Exam Exam: See Below - Exam General: Alert, Cooperative HEENT: Conjunctiva Clear, EOMI, Hearing Intact, Mucosa Moist & [place], Nares Patent Neck: Trachea Midline Lungs: Clear to Auscultation, Normal Respiratory Effort Cardiovascular: Regular Rate, Regular Rhythm GI/Abdominal Exam: Soft, Non-Tender, No Distention (Female) Exam: Deferred Rectal (Female) Exam: Deferred Back Exam: Normal Inspection Extremities: Pedal Edema, Other (BUE weeping) *Q Meaningful Use (ADM) - VTE *Q VTE Mechanical Contraindications *Q: At Risk for Falls VTE Pharmacological Contraindications *Q: Renal Impairment - Problem List (1) Weakness SNOMED Code(s): 91170918 ICD Code: R53.1 - WEAKNESS Status: Acute Priority: High Onset Date: ~ (2) Anemia SNOMED Code(s): 290727795 ICD Code: D64.9 - ANEMIA, UNSPECIFIED Status: Acute Priority: High Onset Date: ~10/04/16 Qualifiers: Anemia type: due to chronic kidney disease Chronic kidney disease stage: stage 4 (severe) Qualified Code(s): N18.4 - Chronic kidney disease, stage 4 ( severe); D63.1 - Anemia in chronic kidney disease (3) E. coli urinary tract infection SNOMED Code(s): 978021736 ICD Code: N39.0 - URINARY TRACT INFECTION, SITE NOT SPECIFIED; B96.20 - UNSP ESCHERICHIA COLI THE CAUSE OF DISEASES CLASSD ELSWHR Status: Acute Priority: High (4) Hypoalbuminemia SNOMED Code(s): 886262471 ICD Code: E88.09 - OTH DISORDERS OF PLASMA-PROTEIN METABOLISM, NEC Status: Acute Priority: Medium Onset Date: 10/04/16 (5) Hypomagnesemia SNOMED Code(s): 539360971 ICD Code: E83.42 - HYPOMAGNESEMIA Status: Acute Priority: Medium Onset Date: 10/04/16 (6) Chronic renal insufficiency, stage IV (severe) SNOMED Code(s): 726995110 ICD Code: N18.4 - CHRONIC KIDNEY DISEASE, STAGE 4 (SEVERE) Status: Chronic Priority: Medium (7) Hypertension SNOMED Code(s): 83964448 ICD Code: I10 - ESSENTIAL (PRIMARY) HYPERTENSION Status: Chronic Priority : Medium Qualifiers: Hypertension type: essential hypertension (8) Hypothyroidism SNOMED Code(s): 59283242 ICD Code: E03.9 - HYPOTHYROIDISM, UNSPECIFIED Status: Chronic Priority: Medium Qualifiers: Hypothyroidism type: postablative (9) Mixed anxiety depressive disorder SNOMED Code(s): 321768552 ICD Code: F41.8 - OTHER SPECIFIED ANXIETY DISORDERS Status: Chronic Priority: Medium (10) Osteoarthritis SNOMED Code(s): 258474115 ICD Code: M19.90 - UNSPECIFIED OSTEOARTHRITIS, UNSPECIFIED SITE Status: Chronic Priority: Medium Qualifiers: Osteoarthritis location: multiple joints Osteoarthritis type: primary Qualified Code(s): M15.0 - Primary generalized (osteo)arthritis (11) Peptic reflux disease SNOMED Code(s): 950316535 ICD Code: K21.9 - GASTRO-ESOPHAGEAL REFLUX DISEASE WITHOUT ESOPHAGITIS Status: Chronic Priority: Medium (12) Chronic kidney disease SNOMED Code(s): 017920606 ICD Code: N18.9 - CHRONIC KIDNEY DISEASE, UNSPECIFIED Status: Acute Qualifiers: Chronic kidney disease stage: on chronic dialysis Qualified Code(s): N18.6 - End stage renal disease; Z99.2 - Dependence on renal dialysis (13) Dialysis patient SNOMED Code(s): 286395643 ICD Code: Z99.2 - DEPENDENCE ON RENAL DIALYSIS Status: Acute Priority: High (14) Fall SNOMED Code(s): 9241343, 782189226 ICD Code: W19.XXXA - UNSPECIFIED FALL, INITIAL ENCOUNTER Status: Acute Priority: Medium (15) Fatigue SNOMED Code(s): 68327015 ICD Code: R53.83 - OTHER FATIGUE Status: Acute Priority: High Onset Date: ~10/04/16 Qualifiers: Fatigue type: due to exposure Encounter type: subsequent encounter Qualified Code(s): T73.2XXD - Exhaustion due to exposure, subsequent encounter (16) Folic acid deficiency SNOMED Code(s): 808247681 ICD Code: E53.8 - DEFICIENCY OF OTHER SPECIFIED B GROUP VITAMINS Status: Acute Priority: High (17) Hypocalcemia SNOMED Code(s): 6219570 ICD Code: E83.51 - HYPOCALCEMIA Status: Chronic Priority: Medium (18) Thyroid cancer SNOMED Code(s): 814269461 ICD Code: C73 - MALIGNANT NEOPLASM OF THYROID GLAND Status: Chronic Priority: Medium Problem List Initiated/Reviewed/Updated: Yes Orders Last 24hrs: Active Orders 24 hr Category Date Time Status Patient Status [ADT] Routine ADT 09/18/19 20:56 Active Cardiac Monitoring [RC] . DIRECTED Care 09/18/19 20:53 Inactive Communication Order [RC] ROUTINE Care 09/18/19 20:53 Active Communication Order [RC] ROUTINE Care 09/18/19 20:53 Active Communication Order [RC] ROUTINE Care 09/18/19 20:53 Inactive Communication Order [RC] ROUTINE Care 09/18/19 20:53 Inactive Communication, Vaccine [RC] PER UNIT ROUTINE Care 09/18/19 20:53 Inactive Communication, Vaccine [RC] PER UNIT ROUTINE Care 09/18/19 20:54 Inactive Cooling Warming Measures [RC] ASDIRECTED Care 09/18/19 20:53 Active Height and Weight [RC] DAILY Care 09/18/19 20:53 Inactive Intake and Output Strict [RC] ASDIRECTED Care 09/18/19 20:53 Inactive Oxygen Therapy [RC] PRN Care 09/18/19 20:53 Active Peripheral IV Care [RC] . DIRECTED Care 09/18/19 20:53 Inactive Peripheral IV Care [RC] . DIRECTED Care 09/18/19 20:53 Inactive Pulse Oximetry [RC] ASDIRECTED Care 09/18/19 20:53 Active Up With Assistance [RC] ASDIRECTED Care 09/18/19 20:53 Active Vaccines to be Administered [RC] PER UNIT ROUTINE Care 09/18/19 20:54 Inactive Vital Signs [RC] BID Care 09/19/19 08:00 Active Consult to Sebd Teacher [CONS] Routine Cons 09/18/19 20:53 Active OT Evaluation and Treatment [CONS] Routine Cons 09/18/19 20:53 Active PT Evaluation and Treatment [CONS] Routine Cons 09/18/19 20:53 Active Heart Healthy Diet [DIET] Diet 09/18/19 Dinner Active ALPRAZolam [Xanax] Med 09/19/19 20:00 Ordered 1 mg PO BEDTIME Acetaminophen [Tylenol] Med 09/18/19 20:53 Ordered 650 mg PO Q4H PRN Cholecalciferol (Vitamin D3) [Vitamin D3] Med 09/19/19 08:00 Ordered 100 mcg PO DAILY Ciprofloxacin [Ciprofloxacin HCl] Med 09/19/19 20:00 Ordered 500 mg PO BEDTIME Folic Acid Med 09/19/19 08:00 Ordered 1 mg PO DAILY Levothyroxine [Synthroid] Med 09/19/19 07:30 Ordered 100 mcg PO ACBREAKFAST Polyethylene Glycol 3350 [MiraLAX] Med 09/19/19 08:00 Ordered 17 gm PO DAILY Potassium Chloride [Klor-Con M20] Med 09/19/19 08:00 Ordered 20 meq PO BID Sevelamer Carbonate [Renvela] Med 09/19/19 08:00 Ordered 800 mg PO TID Venlafaxine [Effexor XR] Med 09/19/19 08:00 Ordered 150 mg PO DAILY Venlafaxine [Effexor XR] Med 09/19/19 08:00 Ordered 37.5 mg PO DAILY calcitrioL [Rocaltrol] Med 09/19/19 08:00 Ordered 0.25 mcg PO DAILY Heat Therapy [OM.PC] Routine Oth 09/18/19 20:53 Ordered Code Status [Resuscitation Status] Routine Resus Stat 09/18/19 20:57 Ordered Medication Orders Acetaminophen (Tylenol) 650 mg PO Q4H PRN PRN Reason: Pain Alprazolam (Xanax) 1 mg PO BEDTIME [facility] Calcitriol (Rocaltrol) 0.25 mcg PO DAILY [facility] Cholecalciferol (Vitamin D3) 100 mcg PO DAILY [facility] Ciprofloxacin (Ciprofloxacin Hcl) 500 mg PO BEDTIME [facility] Stop: 09/19/19 20:01 Folic Acid (Folic Acid) 1 mg PO DAILY [facility] Levothyroxine Sodium (Synthroid) 100 mcg PO ACBREAKFAST [facility] Non-Formulary Medication (Sevelamer Carbonate [Renvela]) 800 mg PO TID [facility] Polyethylene Glycol (Miralax) 17 gm PO DAILY [facility] Potassium Chloride (Klor-Con M20) 20 meq PO BID [facility] Venlafaxine HCl (Effexor Xr) 37.5 mg PO DAILY [facility] Venlafaxine HCl (Effexor Xr) 150 mg PO DAILY [facility] Assessment/Plan Comment:: 09/18/19 Yandy Dennison MD Extreme fatigue being unable to get out of bed. She needs swing-bed for PT-OT. - Mortality Measure Prognosis:: Good
[2019-09-19] MEDS ORDERED: SEVELAMER CARBONATE 800 MG PO SCH (08:00)
[2019-09-19] MEDS ORDERED: Sodium Chloride 0.9% 10 ML Syringe FLUSH SCH (08:00)
[2019-09-19] MEDS: Polyethylene Glycol 3350 Powder 17 GM Packet PO SCH (08:22)
[2019-09-19] MEDS: Venlafaxine 37.5 MG Cap.ER PO SCH (08:23)
[2019-09-19] MEDS: Venlafaxine 75 MG Cap.ER PO SCH (08:23)
[2019-09-19] MEDS: Cholecalciferol (Vitamin D3) 25 MCG Tab PO SCH (08:23)
[2019-09-19] MEDS: Folic Acid 1 MG Tab PO SCH (08:24)
[2019-09-19] MEDS: Potassium Chloride 20 MEQ Tab.ER PO SCH ×2 (08:24→17:33)
[2019-09-19] MEDS: Calcitriol 0.25 MCG Cap PO SCH (08:24)
[2019-09-19] MEDS: Levothyroxine 100 MCG Tab PO SCH (08:24)
[2019-09-19] MEDS: ALPRAZolam 1 MG Tab PO SCH (19:26)
[2019-09-19] MEDS ORDERED: Ciprofloxacin 500 MG Tab PO SCH (20:00)
[2019-09-20] MEDS: Venlafaxine 75 MG Cap.ER PO SCH (07:51)
[2019-09-20] MEDS: Calcitriol 0.25 MCG Cap PO SCH (07:52)
[2019-09-20] MEDS: Potassium Chloride 20 MEQ Tab.ER PO SCH ×2 (07:52→17:05)
[2019-09-20] MEDS: Venlafaxine 37.5 MG Cap.ER PO SCH (07:53)
[2019-09-20] MEDS: Cholecalciferol (Vitamin D3) 25 MCG Tab PO SCH (07:53)
[2019-09-20] MEDS: Levothyroxine 100 MCG Tab PO SCH (07:53)
[2019-09-20] MEDS: Folic Acid 1 MG Tab PO SCH (07:54)
[2019-09-20] MEDS: Polyethylene Glycol 3350 Powder 17 GM Packet PO SCH (07:55)
[2019-09-20] MEDS: ALPRAZolam 1 MG Tab PO SCH (19:44)
[2019-09-21] MEDS: Venlafaxine 75 MG Cap.ER PO SCH (07:35)
[2019-09-21] MEDS: Folic Acid 1 MG Tab PO SCH (07:35)
[2019-09-21] MEDS: Potassium Chloride 20 MEQ Tab.ER PO SCH ×2 (07:35→17:01)
[2019-09-21] MEDS: Polyethylene Glycol 3350 Powder 17 GM Packet PO SCH (07:35)
[2019-09-21] MEDS: Venlafaxine 37.5 MG Cap.ER PO SCH (07:35)
[2019-09-21] MEDS: Cholecalciferol (Vitamin D3) 25 MCG Tab PO SCH (07:35)
[2019-09-21] MEDS: Calcitriol 0.25 MCG Cap PO SCH (07:35)
[2019-09-21] MEDS: Levothyroxine 100 MCG Tab PO SCH (07:35)
[2019-09-21] MEDS: ALPRAZolam 1 MG Tab PO SCH (21:01)
[2019-09-22] MEDS: Folic Acid 1 MG Tab PO SCH (07:44)
[2019-09-22] MEDS: Levothyroxine 100 MCG Tab PO SCH (07:44)
[2019-09-22] MEDS: Cholecalciferol (Vitamin D3) 25 MCG Tab PO SCH (07:44)
[2019-09-22] MEDS: Potassium Chloride 20 MEQ Tab.ER PO SCH ×2 (07:45→17:15)
[2019-09-22] MEDS: Polyethylene Glycol 3350 Powder 17 GM Packet PO SCH (07:45)
[2019-09-22] MEDS: Calcitriol 0.25 MCG Cap PO SCH (07:45)
[2019-09-22] MEDS: Venlafaxine 37.5 MG Cap.ER PO SCH (07:45)
[2019-09-22] MEDS: Venlafaxine 75 MG Cap.ER PO SCH (07:45)
[2019-09-22] MEDS: ALPRAZolam 1 MG Tab PO SCH (20:11)
[2019-09-23] MEDS: Polyethylene Glycol 3350 Powder 17 GM Packet PO SCH (07:37)
[2019-09-23] MEDS: Cholecalciferol (Vitamin D3) 25 MCG Tab PO SCH (07:37)
[2019-09-23] MEDS: Calcitriol 0.25 MCG Cap PO SCH (07:38)
[2019-09-23] MEDS: Venlafaxine 75 MG Cap.ER PO SCH (07:38)
[2019-09-23] MEDS: Folic Acid 1 MG Tab PO SCH (07:38)
[2019-09-23] MEDS: Venlafaxine 37.5 MG Cap.ER PO SCH (07:38)
[2019-09-23] MEDS: Levothyroxine 100 MCG Tab PO SCH (07:38)
[2019-09-23] MEDS: Potassium Chloride 20 MEQ Tab.ER PO SCH ×2 (07:38→17:18)
[2019-09-23] MEDS: ALPRAZolam 1 MG Tab PO SCH (21:07)
[2019-09-24] MEDS: Folic Acid 1 MG Tab PO SCH (07:18)
[2019-09-24] MEDS: Venlafaxine 37.5 MG Cap.ER PO SCH (07:18)
[2019-09-24] MEDS: Potassium Chloride 20 MEQ Tab.ER PO SCH ×2 (07:18→17:21)
[2019-09-24] MEDS: Venlafaxine 75 MG Cap.ER PO SCH (07:18)
[2019-09-24] MEDS: Calcitriol 0.25 MCG Cap PO SCH (07:18)
[2019-09-24] MEDS: Levothyroxine 100 MCG Tab PO SCH (07:18)
[2019-09-24] MEDS: Cholecalciferol (Vitamin D3) 25 MCG Tab PO SCH (07:18)
[2019-09-24] MEDS: Polyethylene Glycol 3350 Powder 17 GM Packet PO SCH (07:19)
[2019-09-24] MEDS: ALPRAZolam 1 MG Tab PO SCH (21:11)
[2019-09-25] MEDS: Levothyroxine 100 MCG Tab PO SCH (07:19)
[2019-09-25] MEDS: Cholecalciferol (Vitamin D3) 25 MCG Tab PO SCH (07:19)
[2019-09-25] MEDS: Venlafaxine 75 MG Cap.ER PO SCH (07:20)
[2019-09-25] MEDS: Folic Acid 1 MG Tab PO SCH (07:20)
[2019-09-25] MEDS: Venlafaxine 37.5 MG Cap.ER PO SCH (07:20)
[2019-09-25] MEDS: Potassium Chloride 20 MEQ Tab.ER PO SCH ×2 (07:21→17:44)
[2019-09-25] MEDS: Calcitriol 0.25 MCG Cap PO SCH (07:21)
[2019-09-25] MEDS: Polyethylene Glycol 3350 Powder 17 GM Packet PO SCH (07:43)
[2019-09-25] MEDS: ALPRAZolam 1 MG Tab PO SCH (19:41)
[2019-09-26] MEDS: Calcitriol 0.25 MCG Cap PO SCH (08:58)
[2019-09-26] MEDS: Venlafaxine 75 MG Cap.ER PO SCH (08:58)
[2019-09-26] MEDS: Venlafaxine 37.5 MG Cap.ER PO SCH (08:58)
[2019-09-26] MEDS: Folic Acid 1 MG Tab PO SCH (08:59)
[2019-09-26] MEDS: Levothyroxine 100 MCG Tab PO SCH (08:59)
[2019-09-26] MEDS: Potassium Chloride 20 MEQ Tab.ER PO SCH ×2 (08:59→17:17)
[2019-09-26] MEDS: Cholecalciferol (Vitamin D3) 25 MCG Tab PO SCH (09:00)
[2019-09-26] MEDS: Polyethylene Glycol 3350 Powder 17 GM Packet PO SCH (09:01)
[2019-09-26] MEDS: ALPRAZolam 1 MG Tab PO SCH (20:18)
[2019-09-27] MEDS: Venlafaxine 75 MG Cap.ER PO SCH (08:53)
[2019-09-27] MEDS: Venlafaxine 37.5 MG Cap.ER PO SCH (08:54)
[2019-09-27] MEDS: Folic Acid 1 MG Tab PO SCH (08:54)
[2019-09-27] MEDS: Cholecalciferol (Vitamin D3) 25 MCG Tab PO SCH (08:55)
[2019-09-27] MEDS: Calcitriol 0.25 MCG Cap PO SCH (08:55)
[2019-09-27] MEDS: Polyethylene Glycol 3350 Powder 17 GM Packet PO SCH (08:56)
[2019-09-27] MEDS: Potassium Chloride 20 MEQ Tab.ER PO SCH ×2 (08:56→17:16)
[2019-09-27] MEDS: Levothyroxine 100 MCG Tab PO SCH (08:56)
[2019-09-27] MEDS: ALPRAZolam 1 MG Tab PO SCH (20:30)
[2019-09-28] MEDS: Venlafaxine 75 MG Cap.ER PO SCH (07:56)
[2019-09-28] MEDS: Levothyroxine 100 MCG Tab PO SCH (07:57)
[2019-09-28] MEDS: Cholecalciferol (Vitamin D3) 25 MCG Tab PO SCH (07:57)
[2019-09-28] MEDS: Venlafaxine 37.5 MG Cap.ER PO SCH (07:57)
[2019-09-28] MEDS: Calcitriol 0.25 MCG Cap PO SCH (07:57)
[2019-09-28] MEDS: Potassium Chloride 20 MEQ Tab.ER PO SCH ×2 (07:57→18:13)
[2019-09-28] MEDS: Folic Acid 1 MG Tab PO SCH (07:57)
[2019-09-28] MEDS: Polyethylene Glycol 3350 Powder 17 GM Packet PO SCH (07:57)
[2019-09-28] MEDS: ALPRAZolam 1 MG Tab PO SCH (19:47)
[2019-09-29] MEDS: Polyethylene Glycol 3350 Powder 17 GM Packet PO SCH (07:26)
[2019-09-29] MEDS: Cholecalciferol (Vitamin D3) 25 MCG Tab PO SCH (07:27)
[2019-09-29] MEDS: Potassium Chloride 20 MEQ Tab.ER PO SCH ×2 (07:27→17:45)
[2019-09-29] MEDS: Levothyroxine 100 MCG Tab PO SCH (07:27)
[2019-09-29] MEDS: Calcitriol 0.25 MCG Cap PO SCH (07:27)
[2019-09-29] MEDS: Venlafaxine 75 MG Cap.ER PO SCH (07:27)
[2019-09-29] MEDS: Folic Acid 1 MG Tab PO SCH (07:27)
[2019-09-29] MEDS: Venlafaxine 37.5 MG Cap.ER PO SCH (07:28)
[2019-09-29] MEDS: ALPRAZolam 1 MG Tab PO SCH (20:51)
[2019-09-30] MEDS: Polyethylene Glycol 3350 Powder 17 GM Packet PO SCH (07:44)
[2019-09-30] MEDS: Potassium Chloride 20 MEQ Tab.ER PO SCH ×2 (07:44→17:16)
[2019-09-30] MEDS: Venlafaxine 75 MG Cap.ER PO SCH (07:44)
[2019-09-30] MEDS: Levothyroxine 100 MCG Tab PO SCH (07:44)
[2019-09-30] MEDS: Venlafaxine 37.5 MG Cap.ER PO SCH (07:44)
[2019-09-30] MEDS: Folic Acid 1 MG Tab PO SCH (07:44)
[2019-09-30] MEDS: Calcitriol 0.25 MCG Cap PO SCH (07:45)
[2019-09-30] MEDS: Cholecalciferol (Vitamin D3) 25 MCG Tab PO SCH (07:45)
[2019-09-30] MEDS: ALPRAZolam 1 MG Tab PO SCH (20:56)
[2019-10-01] MEDS: Cholecalciferol (Vitamin D3) 25 MCG Tab PO SCH (07:23)
[2019-10-01] MEDS: Potassium Chloride 20 MEQ Tab.ER PO SCH ×2 (07:23→17:26)
[2019-10-01] MEDS: Folic Acid 1 MG Tab PO SCH (07:23)
[2019-10-01] MEDS: Venlafaxine 37.5 MG Cap.ER PO SCH (07:23)
[2019-10-01] MEDS: Levothyroxine 100 MCG Tab PO SCH (07:23)
[2019-10-01] MEDS: Calcitriol 0.25 MCG Cap PO SCH (07:23)
[2019-10-01] MEDS: Venlafaxine 75 MG Cap.ER PO SCH (07:23)
[2019-10-01] MEDS: Polyethylene Glycol 3350 Powder 17 GM Packet PO SCH (07:24)
[2019-10-01] MEDS: ALPRAZolam 1 MG Tab PO SCH (20:51)
[2019-10-02] MEDS: Potassium Chloride 20 MEQ Tab.ER PO SCH ×2 (07:26→17:24)
[2019-10-02] MEDS: Calcitriol 0.25 MCG Cap PO SCH (07:26)
[2019-10-02] MEDS: Polyethylene Glycol 3350 Powder 17 GM Packet PO SCH (07:26)
[2019-10-02] MEDS: Levothyroxine 100 MCG Tab PO SCH (07:26)
[2019-10-02] MEDS: Cholecalciferol (Vitamin D3) 25 MCG Tab PO SCH (07:26)
[2019-10-02] MEDS: Venlafaxine 75 MG Cap.ER PO SCH (07:26)
[2019-10-02] MEDS: Venlafaxine 37.5 MG Cap.ER PO SCH (07:26)
[2019-10-02] MEDS: Folic Acid 1 MG Tab PO SCH (07:26)
[2019-10-02] MEDS: Acetaminophen 325 MG Tab PO PRN ×2 (09:45→17:28)
[2019-10-02] MEDS: ALPRAZolam 1 MG Tab PO SCH (19:59)
[2019-10-03] MEDS: Levothyroxine 100 MCG Tab PO SCH (08:58)
[2019-10-03] MEDS: Folic Acid 1 MG Tab PO SCH (08:59)
[2019-10-03] MEDS: Venlafaxine 75 MG Cap.ER PO SCH (08:59)
[2019-10-03] MEDS: Potassium Chloride 20 MEQ Tab.ER PO SCH ×2 (08:59→17:50)
[2019-10-03] MEDS: Polyethylene Glycol 3350 Powder 17 GM Packet PO SCH (08:59)
[2019-10-03] MEDS: Calcitriol 0.25 MCG Cap PO SCH (08:59)
[2019-10-03] MEDS: Venlafaxine 37.5 MG Cap.ER PO SCH (08:59)
[2019-10-03] MEDS: Cholecalciferol (Vitamin D3) 25 MCG Tab PO SCH (08:59)
[2019-10-03] MEDS: Acetaminophen 325 MG Tab PO PRN (12:12)
[2019-10-03] MEDS: ALPRAZolam 1 MG Tab PO SCH (19:36)
[2019-10-04] MEDS: Calcitriol 0.25 MCG Cap PO SCH (08:21)
[2019-10-04] MEDS: Potassium Chloride 20 MEQ Tab.ER PO SCH ×2 (08:21→18:01)
[2019-10-04] MEDS: Venlafaxine 37.5 MG Cap.ER PO SCH (08:21)
[2019-10-04] MEDS: Venlafaxine 75 MG Cap.ER PO SCH (08:21)
[2019-10-04] MEDS: Levothyroxine 100 MCG Tab PO SCH (08:22)
[2019-10-04] MEDS: Folic Acid 1 MG Tab PO SCH (08:22)
[2019-10-04] MEDS: Polyethylene Glycol 3350 Powder 17 GM Packet PO SCH (08:22)
[2019-10-04] MEDS: Cholecalciferol (Vitamin D3) 25 MCG Tab PO SCH (08:22)
[2019-10-04] MEDS: Ondansetron 4 MG Tab.DIS PO PRN (20:19)
[2019-10-04] MEDS: ALPRAZolam 1 MG Tab PO SCH (20:19)
[2019-10-05] MEDS: Venlafaxine 75 MG Cap.ER PO SCH (07:48)
[2019-10-05] MEDS: Calcitriol 0.25 MCG Cap PO SCH (07:49)
[2019-10-05] MEDS: Folic Acid 1 MG Tab PO SCH (07:49)
[2019-10-05] MEDS: Polyethylene Glycol 3350 Powder 17 GM Packet PO SCH (07:49)
[2019-10-05] MEDS: Potassium Chloride 20 MEQ Tab.ER PO SCH ×2 (07:49→17:30)
[2019-10-05] MEDS: Cholecalciferol (Vitamin D3) 25 MCG Tab PO SCH (07:49)
[2019-10-05] MEDS: Levothyroxine 100 MCG Tab PO SCH (07:49)
[2019-10-05] MEDS: Venlafaxine 37.5 MG Cap.ER PO SCH (07:49)
[2019-10-05] MEDS: ALPRAZolam 1 MG Tab PO SCH (20:34)
[2019-10-06] MEDS: Calcitriol 0.25 MCG Cap PO SCH (08:11)
[2019-10-06] MEDS: Cholecalciferol (Vitamin D3) 25 MCG Tab PO SCH (08:11)
[2019-10-06] MEDS: Folic Acid 1 MG Tab PO SCH (08:11)
[2019-10-06] MEDS: Venlafaxine 37.5 MG Cap.ER PO SCH (08:11)
[2019-10-06] MEDS: Venlafaxine 75 MG Cap.ER PO SCH (08:12)
[2019-10-06] MEDS: Levothyroxine 100 MCG Tab PO SCH (08:12)
[2019-10-06] MEDS: Potassium Chloride 20 MEQ Tab.ER PO SCH ×2 (08:12→18:01)
[2019-10-06] MEDS: Polyethylene Glycol 3350 Powder 17 GM Packet PO SCH (08:12)
[2019-10-06] MEDS: Ondansetron 4 MG Tab.DIS PO PRN ×2 (13:17→22:28)
[2019-10-06] MEDS: ALPRAZolam 1 MG Tab PO SCH (22:29)
[2019-10-07] MEDS: Venlafaxine 37.5 MG Cap.ER PO SCH (08:03)
[2019-10-07] MEDS: Potassium Chloride 20 MEQ Tab.ER PO SCH ×2 (08:03→18:03)
[2019-10-07] MEDS: Polyethylene Glycol 3350 Powder 17 GM Packet PO SCH (08:04)
[2019-10-07] MEDS: Cholecalciferol (Vitamin D3) 25 MCG Tab PO SCH (08:04)
[2019-10-07] MEDS: Calcitriol 0.25 MCG Cap PO SCH (08:04)
[2019-10-07] MEDS: Venlafaxine 75 MG Cap.ER PO SCH (08:05)
[2019-10-07] MEDS: Levothyroxine 100 MCG Tab PO SCH (08:05)
[2019-10-07] MEDS: Folic Acid 1 MG Tab PO SCH (08:05)
[2019-10-07] MEDS: ALPRAZolam 1 MG Tab PO SCH (20:58)
[2019-10-07] MEDS: Ondansetron 4 MG Tab.DIS PO PRN (21:00)
[2019-10-08] MEDS: Venlafaxine 37.5 MG Cap.ER PO SCH (08:51)
[2019-10-08] MEDS: Calcitriol 0.25 MCG Cap PO SCH (08:51)
[2019-10-08] MEDS: Venlafaxine 75 MG Cap.ER PO SCH (08:52)
[2019-10-08] MEDS: Cholecalciferol (Vitamin D3) 25 MCG Tab PO SCH (08:52)
[2019-10-08] MEDS: Folic Acid 1 MG Tab PO SCH (08:52)
[2019-10-08] MEDS: Levothyroxine 100 MCG Tab PO SCH (08:52)
[2019-10-08] MEDS: Potassium Chloride 20 MEQ Tab.ER PO SCH ×2 (08:53→18:01)
[2019-10-08] MEDS: Polyethylene Glycol 3350 Powder 17 GM Packet PO SCH (08:53)
[2019-10-08] MEDS: ALPRAZolam 1 MG Tab PO SCH (20:26)
[2019-10-09] MEDS: Polyethylene Glycol 3350 Powder 510 GM Bot PO SCH (11:19)
[2019-10-09] MEDS: Potassium Chloride 20 MEQ Tab.ER PO SCH ×2 (11:21→18:12)
[2019-10-09] MEDS: Folic Acid 1 MG Tab PO SCH (11:22)
[2019-10-09] MEDS: Venlafaxine 75 MG Cap.ER PO SCH (11:22)
[2019-10-09] MEDS: Venlafaxine 37.5 MG Cap.ER PO SCH (11:23)
[2019-10-09] MEDS: Levothyroxine 100 MCG Tab PO SCH (11:23)
[2019-10-09] MEDS: Cholecalciferol (Vitamin D3) 25 MCG Tab PO SCH (11:24)
[2019-10-09] MEDS: Calcitriol 0.25 MCG Cap PO SCH (11:24)
[2019-10-09] MEDS: ALPRAZolam 1 MG Tab PO SCH (19:58)
[2019-10-10] MEDS: Levothyroxine 100 MCG Tab PO SCH (10:34)
[2019-10-10] MEDS: Venlafaxine 75 MG Cap.ER PO SCH (10:37)
[2019-10-10] MEDS: Venlafaxine 37.5 MG Cap.ER PO SCH (10:37)
[2019-10-10] MEDS: Folic Acid 1 MG Tab PO SCH (10:38)
[2019-10-10] MEDS: Potassium Chloride 20 MEQ Tab.ER PO SCH ×2 (10:39→17:33)
[2019-10-10] MEDS: Polyethylene Glycol 3350 Powder 510 GM Bot PO SCH (10:40)
[2019-10-10] MEDS: Calcitriol 0.25 MCG Cap PO SCH (10:41)
[2019-10-10] MEDS: Cholecalciferol (Vitamin D3) 25 MCG Tab PO SCH (10:42)
[2019-10-10] MEDS: Ondansetron 4 MG Tab.DIS PO PRN (12:06)
[2019-10-10] MEDS: ALPRAZolam 1 MG Tab PO SCH (20:47)
[2019-10-11] MEDS: Levothyroxine 100 MCG Tab PO SCH (09:53)
[2019-10-11] MEDS: Venlafaxine 37.5 MG Cap.ER PO SCH (09:55)
[2019-10-11] MEDS: Venlafaxine 75 MG Cap.ER PO SCH (09:55)
[2019-10-11] MEDS: Folic Acid 1 MG Tab PO SCH (09:57)
[2019-10-11] MEDS: Potassium Chloride 20 MEQ Tab.ER PO SCH ×2 (09:57→18:02)
[2019-10-11] MEDS: Polyethylene Glycol 3350 Powder 510 GM Bot PO SCH (09:59)
[2019-10-11] MEDS: Calcitriol 0.25 MCG Cap PO SCH (10:00)
[2019-10-11] MEDS: Cholecalciferol (Vitamin D3) 25 MCG Tab PO SCH (10:01)
[2019-10-11] MEDS: Acetaminophen 325 MG Tab PO PRN ×2 (10:03→18:18)
[2019-10-11] MEDS: ALPRAZolam 1 MG Tab PO SCH (20:42)
[2019-10-12] MEDS: Levothyroxine 100 MCG Tab PO SCH (08:28)
[2019-10-12] MEDS: Venlafaxine 75 MG Cap.ER PO SCH (08:29)
[2019-10-12] MEDS: Venlafaxine 37.5 MG Cap.ER PO SCH (08:29)
[2019-10-12] MEDS: Calcitriol 0.25 MCG Cap PO SCH (08:30)
[2019-10-12] MEDS: Potassium Chloride 20 MEQ Tab.ER PO SCH ×2 (08:30→17:41)
[2019-10-12] MEDS: Folic Acid 1 MG Tab PO SCH (08:30)
[2019-10-12] MEDS: Polyethylene Glycol 3350 Powder 510 GM Bot PO SCH (08:31)
[2019-10-12] MEDS: Cholecalciferol (Vitamin D3) 25 MCG Tab PO SCH (08:31)
[2019-10-12] MEDS: Acetaminophen 325 MG Tab PO PRN (17:41)
[2019-10-12] MEDS: ALPRAZolam 1 MG Tab PO SCH (20:50)
[2019-10-13] MEDS: Potassium Chloride 20 MEQ Tab.ER PO SCH ×2 (09:40→17:29)
[2019-10-13] MEDS: Calcitriol 0.25 MCG Cap PO SCH (09:41)
[2019-10-13] MEDS: Folic Acid 1 MG Tab PO SCH (09:42)
[2019-10-13] MEDS: Venlafaxine 37.5 MG Cap.ER PO SCH (09:42)
[2019-10-13] MEDS: Venlafaxine 75 MG Cap.ER PO SCH (09:43)
[2019-10-13] MEDS: Levothyroxine 100 MCG Tab PO SCH (09:44)
[2019-10-13] MEDS: Cholecalciferol (Vitamin D3) 25 MCG Tab PO SCH (09:47)
[2019-10-13] MEDS: Polyethylene Glycol 3350 Powder 510 GM Bot PO SCH (10:42)
[2019-10-13] MEDS: Ondansetron 4 MG Tab.DIS PO PRN ×2 (14:19→19:49)
[2019-10-13] MEDS ORDERED: hydrOXYzine HCl 50 MG/ML SDV IM PRN (19:25)
--- NOTE | 2019-10-13 19:37 | PCM.PN ---
- General Info Date of Service: 10/13/19 Admission Dx/Problem (Free Text): Admission Diagnosis/Problem Admission Diagnosis/Problem Weakness Functional Status: Reports: New Symptoms (nausea, vomiting) - Review of Systems General: Reports: Weakness, Malaise HEENT: Reports: No Symptoms Pulmonary: Reports: No Symptoms Cardiovascular: Reports: No Symptoms Gastrointestinal: Reports: Decreased Appetite, Diarrhea (one loose stool this AM ), Nausea, Vomiting Genitourinary: Reports: Other (on peritoneal dialysis) Musculoskeletal: Reports: No Symptoms Skin: Reports: No Symptoms Neurological: Reports: Weakness Psychiatric: Reports: Other (frustrated) - Patient Data Vitals - Most Recent: Last Vital Signs Temp 97.3 F 10/13/19 08:00 Pulse 125 H 10/13/19 15:50 Resp 18 10/13/19 08:00 BP 84/64 L 10/13/19 15:50 Pulse Ox 94 L 10/13/19 15:50 Weight - Most Recent: 212 lb 6.893 oz Med Orders - Current: Current Medications Acetaminophen (Tylenol) 650 mg PO Q4H PRN PRN Reason: Pain Last Admin: 10/12/19 17:41 Dose: 650 mg Alprazolam (Xanax) 1 mg PO BEDTIME [facility] Last Admin: 10/12/19 20:50 Dose: 1 mg Calcitriol (Rocaltrol) 0.25 mcg PO DAILY [facility] Last Admin: 10/13/19 09:41 Dose: 0.25 mcg Cholecalciferol (Vitamin D3) 100 mcg PO DAILY [facility] Last Admin: 10/13/19 09:47 Dose: 100 mcg Folic Acid (Folic Acid) 1 mg PO DAILY [facility] Last Admin: 10/13/19 09:42 Dose: 1 mg Hydroxyzine HCl (Vistaril) 25 mg IM Q4H PRN PRN Reason: Nausea/Vomiting Levothyroxine Sodium (Synthroid) 100 mcg PO ACBREAKFAST [facility] Last Admin: 10/13/19 09:44 Dose: 100 mcg Ondansetron HCl (Zofran Odt) 4 mg PO Q4H PRN PRN Reason: Nausea (Sevelamer Carbonate [Renvela] 800 Mg)* Pt Own Med* 0 each PO TID [facility] Last Admin: 10/13/19 17:30 Dose: 1 each Polyethylene Glycol (Miralax) 17 gm PO DAILY [facility] Last Admin: 10/13/19 10:42 Dose: Not Given Potassium Chloride (Klor-Con M20) 20 meq PO BID [facility] Last Admin: 10/13/19 17:29 Dose: 20 meq Venlafaxine HCl (Effexor Xr) 37.5 mg PO DAILY [facility] Last Admin: 10/13/19 09:42 Dose: 37.5 mg Venlafaxine HCl (Effexor Xr) 150 mg PO DAILY [facility] Last Admin: 10/13/19 09:43 Dose: 150 mg Discontinued Medications Ciprofloxacin (Ciprofloxacin Hcl) 500 mg PO BEDTIME [facility] Stop: 09/19/19 20:01 Last Admin: 09/19/19 19:26 Dose: 500 mg Non-Formulary Medication (Sevelamer Carbonate [Renvela]) 800 mg PO TID [facility] Last Admin: 09/19/19 08:41 Dose: Not Given Ondansetron HCl (Zofran Odt) 4 mg PO Q8H PRN PRN Reason: Nausea Last Admin: 10/13/19 14:19 Dose: 4 mg Polyethylene Glycol (Miralax) 17 gm PO DAILY [facility] Last Admin: 10/08/19 08:53 Dose: Not Given Sodium Chloride (Saline Flush) 10 ml FLUSH ASDIRECTED PRN PRN Reason: Keep Vein Open Sodium Chloride (Saline Flush) 10 ml FLUSH Q12HR [facility] Sodium Chloride (Saline Flush) 10 ml FLUSH ASDIRECTED PRN PRN Reason: Keep Vein Open - Exam General: Alert, Cooperative, Mild Distress HEENT: EOMI Neck: Trachea Midline, No JVD, No Thyromegaly Lungs: Clear to Auscultation, Normal Respiratory Effort Cardiovascular: Regular Rate, Regular Rhythm GI/Abdominal Exam: Soft, Non-Tender (Female) Exam: Deferred Back Exam: Normal Inspection Extremities: Normal Inspection, Non-Tender Skin: Warm, Dry, Intact Neurological: No New Focal Deficit, Other (generalized weakness) Psy/Mental Status: Alert, Normal Affect, Normal Mood, Other (frustrated) Sepsis Event Note - Evaluation Sepsis Screening Result: No Definite Risk - Focused Exam Vital Signs: Vital Signs Temp Pulse Resp BP Pulse Ox 10/13/19 15:50 125 H 84/64 L 94 L 10/13/19 08:00 97.3 F 67 18 130/67 94 L Date Exam was Performed: 10/13/19 Time Exam was Performed: 19:29 - Problem List & Annotations (1) Weakness SNOMED Code(s): 61355084 Code(s): R53.1 - WEAKNESS Status: Acute Priority: High Current Visit: No Onset Date: ~09/15/19 (2) Anemia SNOMED Code(s): 992688422 Code(s): D64.9 - ANEMIA, UNSPECIFIED Status: Acute Priority: High Current Visit: No Onset Date: ~10/04/16 Qualifiers: Anemia type: due to chronic kidney disease Chronic kidney disease stage: stage 4 (severe) Qualified Code(s): N18.4 - Chronic kidney disease, stage 4 ( severe); D63.1 - Anemia in chronic kidney disease (3) E. coli urinary tract infection SNOMED Code(s): 815294287 Code(s): N39.0 - URINARY TRACT INFECTION, SITE NOT SPECIFIED; B96.20 - UNSP ESCHERICHIA COLI THE CAUSE OF DISEASES CLASSD ELSWHR Status: Acute Priority: High Current Visit: No (4) Hypoalbuminemia SNOMED Code(s): 658847427 Code(s): E88.09 - OTH DISORDERS OF PLASMA-PROTEIN METABOLISM, NEC Status: Acute Priority: Medium Current Visit: No Onset Date: 10/04/16 (5) Hypomagnesemia SNOMED Code(s): 683412340 Code(s): E83.42 - HYPOMAGNESEMIA Status: Acute Priority: Medium Current Visit: No Onset Date: 10/04/16 (6) Chronic renal insufficiency, stage IV (severe) SNOMED Code(s): 325395349 Code(s): N18.4 - CHRONIC KIDNEY DISEASE, STAGE 4 (SEVERE) Status: Chronic Priority: Medium Current Visit: No (7) Hypertension SNOMED Code(s): 63664133 Code(s): I10 - ESSENTIAL (PRIMARY) HYPERTENSION Status: Chronic Priority : Medium Current Visit: No Qualifiers: Hypertension type: essential hypertension (8) Hypothyroidism SNOMED Code(s): 07794219 Code(s): E03.9 - HYPOTHYROIDISM, UNSPECIFIED Status: Chronic Priority: Medium Current Visit: No Qualifiers: Hypothyroidism type: postablative (9) Mixed anxiety depressive disorder SNOMED Code(s): 177324001 Code(s): F41.8 - OTHER SPECIFIED ANXIETY DISORDERS Status: Chronic Priority: Medium Current Visit: No (10) Osteoarthritis SNOMED Code(s): 289388299 Code(s): M19.90 - UNSPECIFIED OSTEOARTHRITIS, UNSPECIFIED SITE Status: Chronic Priority: Medium Current Visit: No Qualifiers: Osteoarthritis location: multiple joints Osteoarthritis type: primary Qualified Code(s): M15.0 - Primary generalized (osteo)arthritis (11) Peptic reflux disease SNOMED Code(s): 511179969 Code(s): K21.9 - GASTRO-ESOPHAGEAL REFLUX DISEASE WITHOUT ESOPHAGITIS Status: Chronic Priority: Medium Current Visit: No (12) Chronic kidney disease SNOMED Code(s): 712268736 Code(s): N18.9 - CHRONIC KIDNEY DISEASE, UNSPECIFIED Status: Acute Current Visit: No Qualifiers: Chronic kidney disease stage: on chronic dialysis Qualified Code(s): N18.6 - End stage renal disease; Z99.2 - Dependence on renal dialysis (13) Dialysis patient SNOMED Code(s): 082169494 Code(s): Z99.2 - DEPENDENCE ON RENAL DIALYSIS Status: Acute Priority: High Current Visit: No (14) Fall SNOMED Code(s): 7001495, 779116525 Code(s): W19.XXXA - UNSPECIFIED FALL, INITIAL ENCOUNTER Status: Acute Priority: Medium Current Visit: No (15) Fatigue SNOMED Code(s): 41449674 Code(s): R53.83 - OTHER FATIGUE Status: Acute Priority: High Current Visit: No Onset Date: ~10/04/16 Qualifiers: Fatigue type: due to exposure Encounter type: subsequent encounter Qualified Code(s): T73.2XXD - Exhaustion due to exposure, subsequent encounter (16) Folic acid deficiency SNOMED Code(s): 152402375 Code(s): E53.8 - DEFICIENCY OF OTHER SPECIFIED B GROUP VITAMINS Status: Acute Priority: High Current Visit: No (17) Hypocalcemia SNOMED Code(s): 9948424 Code(s): E83.51 - HYPOCALCEMIA Status: Chronic Priority: Medium Current Visit: No (18) Thyroid cancer SNOMED Code(s): 784291509 Code(s): C73 - MALIGNANT NEOPLASM OF THYROID GLAND Status: Chronic Priority: Medium Current Visit: No - Problem List Review Problem List Initiated/Reviewed/Updated: Yes - My Orders Last 24 Hours: My Active Orders 10/13/19 19:24 Ondansetron [Zofran ODT] 4 mg PO Q4H PRN 10/13/19 19:25 hydrOXYzine HCL [Vistaril] 25 mg IM Q4H PRN 10/14/19 05:11 EKG Documentation Completion [RC] ASDIRECTED TSH ULTRASENSITIVE [CHEM] Routine EKG 12 Lead [EK] Routine - Plan Plan:: 09/18/19 Yandy Dennison MD Extreme fatigue being unable to get out of bed. She needs swing-bed for PT-OT. 10/13/2019 Yandy Dennison MD She has been working with PT-OT. Still weakness. Nausea, dry heaving today and dizziness especially if she moves her head around. Also discussed last TSH we have results that were abnormal. This could be contributing to her weakness. She agrees for blood draw attempt in AM. She is extremely difficult IV draw. Also zofran did help stomach earlier today. It is ordered prn and dose does not need adjusted due to CKD. Also will order vistaril prn. Discharge plans discussed. She is frustrated.
[2019-10-13] MEDS: ALPRAZolam 1 MG Tab PO SCH (19:48)
[2019-10-14] MEDS: Levothyroxine 100 MCG Tab PO SCH (08:58)
[2019-10-14] MEDS: Venlafaxine 37.5 MG Cap.ER PO SCH (09:00)
[2019-10-14] MEDS: Venlafaxine 75 MG Cap.ER PO SCH (09:01)
[2019-10-14] MEDS: Potassium Chloride 20 MEQ Tab.ER PO SCH ×2 (09:02→17:44)
[2019-10-14] MEDS: Folic Acid 1 MG Tab PO SCH (09:02)
[2019-10-14] MEDS: Polyethylene Glycol 3350 Powder 510 GM Bot PO SCH (09:03)
[2019-10-14] MEDS: Cholecalciferol (Vitamin D3) 25 MCG Tab PO SCH (09:04)
[2019-10-14] MEDS: Calcitriol 0.25 MCG Cap PO SCH (11:25)
[2019-10-14] MEDS: Ondansetron 4 MG Tab.DIS PO PRN (11:52)
[2019-10-14] MEDS: ALPRAZolam 1 MG Tab PO SCH (19:59)
[2019-10-15] MEDS: Cholecalciferol (Vitamin D3) 25 MCG Tab PO SCH (10:04)
[2019-10-15] MEDS: Potassium Chloride 20 MEQ Tab.ER PO SCH ×2 (10:05→17:16)
[2019-10-15] MEDS: Venlafaxine 75 MG Cap.ER PO SCH (10:06)
[2019-10-15] MEDS: Folic Acid 1 MG Tab PO SCH (10:07)
[2019-10-15] MEDS: Venlafaxine 37.5 MG Cap.ER PO SCH (10:07)
[2019-10-15] MEDS: Calcitriol 0.25 MCG Cap PO SCH (10:08)
[2019-10-15] MEDS: Levothyroxine 112 MCG Tab PO SCH (10:17)
[2019-10-15] MEDS: Polyethylene Glycol 3350 Powder 510 GM Bot PO SCH (10:18)
[2019-10-15] MEDS: ALPRAZolam 1 MG Tab PO SCH (19:43)
--- NOTE | 2019-10-15 20:57 | PCM.PN ---
- General Info Date of Service: 10/15/19 Admission Dx/Problem (Free Text): Admission Diagnosis/Problem Admission Diagnosis/Problem Weakness Functional Status: Reports: Tolerating Diet, Ambulating - Review of Systems General: Reports: Weakness (improved) HEENT: Reports: No Symptoms Pulmonary: Reports: No Symptoms Cardiovascular: Reports: No Symptoms Gastrointestinal: Reports: No Symptoms Genitourinary: Reports: No Symptoms Musculoskeletal: Reports: No Symptoms Skin: Reports: No Symptoms Neurological: Reports: Weakness Psychiatric: Reports: No Symptoms - Patient Data Vitals - Most Recent: Last Vital Signs Temp 97.1 F 10/15/19 20:00 Pulse 103 H 10/15/19 20:00 Resp 16 10/15/19 20:00 BP 142/63 H 10/15/19 20:00 Pulse Ox 96 10/15/19 20:00 Weight - Most Recent: 212 lb 6.893 oz I&O - Last 24 Hours: Intake & Output 10/15/19 10/15/19 10/15/19 06:59 14:59 22:59 Intake Total 240 Balance 240 Lab Results Last 24 Hours: Laboratory Results - last 24 hr 10/15/19 10/15/19 Range/Units 07:45 07:45 WBC 5.4 (4.0-10.2) K/uL RBC 2.94 L (3.77-5.09) M/uL Hgb 9.3 L (11.7-15.5) g/dL Hct 29.8 L (34.0-46.0) % MCV 101.4 H (84.0-98.0) fL MCH 31.6 (28.2-33.3) pg MCHC 31.2 L (31.7-36.0) g/dL RDW 14.5 H (11.2-14.1) % Plt Count 255 D (150-350) K/uL Neut % (Auto) 60.2 (45.0-80.0) % Lymph % (Auto) 28.2 (10.0-50.0) % Hall % (Auto) 11.2 (2.0-14.0) % Eos % (Auto) 0.2 (0.0-5.0) % Baso % (Auto) 0.2 (0.0-2.0) % Neut # (Auto) 3.23 (1.40-7.00) K/uL Lymph # (Auto) 1.51 (0.50-3.50) K/uL Hall # (Auto) 0.60 (0.00-1.00) K/uL Eos # (Auto) 0.01 (0.00-0.50) K/uL Baso # (Auto) 0.01 (0.00-0.20) K/uL Sodium 136 (136-145) mmol/L Potassium 5.3 H (3.5-5.1) mmol/L Chloride 104 (98-107) mmol/L Carbon Dioxide 27.0 (21.0-32.0) mmol/L BUN 55 H (7-18) mg/dL Creatinine 4.83 H* (0.51-1.17) mg/dL Est Cr Clr Drug Dosing 10.54 mL/min Estimated GFR (MDRD) 9 mL/min Glucose 73 L (74-106) mg/dL Calcium 7.7 L (8.5-10.1) mg/dL Total Bilirubin 0.2 (0.2-1.0) mg/dL AST 20 (15-37) U/L ALT 19 (12-78) U/L Alkaline Phosphatase 135 H (46-116) IU/L Total Protein 4.2 L (6.4-8.2) g/dL Albumin 1.2 L (3.4-5.0) g/dL Med Orders - Current: Current Medications Acetaminophen (Tylenol) 650 mg PO Q4H PRN PRN Reason: Pain Last Admin: 10/12/19 17:41 Dose: 650 mg Alprazolam (Xanax) 1 mg PO BEDTIME [facility] Last Admin: 10/15/19 19:43 Dose: 1 mg Calcitriol (Rocaltrol) 0.25 mcg PO DAILY [facility] Last Admin: 10/15/19 10:08 Dose: 0.25 mcg Cholecalciferol (Vitamin D3) 100 mcg PO DAILY [facility] Last Admin: 10/15/19 10:04 Dose: 100 mcg Folic Acid (Folic Acid) 1 mg PO DAILY [facility] Last Admin: 10/15/19 10:07 Dose: 1 mg Hydroxyzine HCl (Vistaril) 25 mg IM Q4H PRN PRN Reason: Nausea/Vomiting Last Admin: 10/13/19 21:58 Dose: 25 mg Levothyroxine Sodium (Levothyroxine) 112 mcg PO ACBREAKFAST [facility] Last Admin: 10/15/19 10:17 Dose: 112 mcg Ondansetron HCl (Zofran Odt) 4 mg PO Q4H PRN PRN Reason: Nausea Last Admin: 10/14/19 11:52 Dose: 4 mg (Sevelamer Carbonate [Renvela] 800 Mg)* Pt Own Med* 0 each PO TID [facility] Last Admin: 10/15/19 17:15 Dose: 1 each Polyethylene Glycol (Miralax) 17 gm PO DAILY [facility] Last Admin: 10/15/19 10:18 Dose: Not Given Venlafaxine HCl (Effexor Xr) 37.5 mg PO DAILY [facility] Last Admin: 10/15/19 10:07 Dose: 37.5 mg Venlafaxine HCl (Effexor Xr) 150 mg PO DAILY [facility] Last Admin: 10/15/19 10:06 Dose: 150 mg Discontinued Medications Ciprofloxacin (Ciprofloxacin Hcl) 500 mg PO BEDTIME [facility] Stop: 09/19/19 20:01 Last Admin: 09/19/19 19:26 Dose: 500 mg Levothyroxine Sodium (Synthroid) 100 mcg PO ACBREAKFAST [facility] Last Admin: 10/14/19 08:58 Dose: 100 mcg Non-Formulary Medication (Sevelamer Carbonate [Renvela]) 800 mg PO TID [facility] Last Admin: 09/19/19 08:41 Dose: Not Given Ondansetron HCl (Zofran Odt) 4 mg PO Q8H PRN PRN Reason: Nausea Last Admin: 10/13/19 14:19 Dose: 4 mg Polyethylene Glycol (Miralax) 17 gm PO DAILY [facility] Last Admin: 10/08/19 08:53 Dose: Not Given Potassium Chloride (Klor-Con M20) 20 meq PO BID [facility] Last Admin: 10/15/19 17:16 Dose: 20 meq Sodium Chloride (Saline Flush) 10 ml FLUSH ASDIRECTED PRN PRN Reason: Keep Vein Open Sodium Chloride (Saline Flush) 10 ml FLUSH Q12HR [facility] Sodium Chloride (Saline Flush) 10 ml FLUSH ASDIRECTED PRN PRN Reason: Keep Vein Open - Exam General: Alert, Cooperative, No Acute Distress HEENT: Mucous Membr. Moist/[place] Neck: Trachea Midline, No JVD Lungs: Clear to Auscultation, Normal Respiratory Effort Cardiovascular: Regular Rate, Regular Rhythm GI/Abdominal Exam: Soft, Non-Tender (Female) Exam: Deferred Back Exam: Normal Inspection Extremities: Normal Inspection Skin: Warm, Dry, Intact Neurological: No New Focal Deficit Psy/Mental Status: Alert, Normal Affect, Normal Mood Sepsis Event Note - Evaluation Sepsis Screening Result: No Definite Risk - Focused Exam Vital Signs: Vital Signs Temp Pulse Resp BP Pulse Ox 10/15/19 20:00 97.1 F 103 H 16 142/63 H 96 Date Exam was Performed: 10/15/19 Time Exam was Performed: 20:52 - Problem List & Annotations (1) Weakness SNOMED Code(s): 73195715 Code(s): R53.1 - WEAKNESS Status: Acute Priority: High Current Visit: No Onset Date: ~09/15/19 (2) Anemia SNOMED Code(s): 786639663 Code(s): D64.9 - ANEMIA, UNSPECIFIED Status: Acute Priority: High Current Visit: No Onset Date: ~10/04/16 Qualifiers: Anemia type: due to chronic kidney disease Chronic kidney disease stage: stage 4 (severe) Qualified Code(s): N18.4 - Chronic kidney disease, stage 4 ( severe); D63.1 - Anemia in chronic kidney disease (3) Hypoalbuminemia SNOMED Code(s): 329738351 Code(s): E88.09 - [facility] DISORDERS OF PLASMA-PROTEIN METABOLISM, NEC Status: Acute Priority: Medium Current Visit: No Onset Date: 10/04/16 (4) Hypomagnesemia SNOMED Code(s): 932598034 Code(s): E83.42 - HYPOMAGNESEMIA Status: Acute Priority: Medium Current Visit: No Onset Date: 10/04/16 (5) Chronic renal insufficiency, stage IV (severe) SNOMED Code(s): 755069802 Code(s): N18.4 - CHRONIC KIDNEY DISEASE, STAGE 4 (SEVERE) Status: Chronic Priority: Medium Current Visit: No (6) Hypertension SNOMED Code(s): 43035282 Code(s): I10 - ESSENTIAL (PRIMARY) HYPERTENSION Status: Chronic Priority : Medium Current Visit: No Qualifiers: Hypertension type: essential hypertension (7) Hypothyroidism SNOMED Code(s): 44296917 Code(s): E03.9 - HYPOTHYROIDISM, UNSPECIFIED Status: Chronic Priority: Medium Current Visit: No Qualifiers: Hypothyroidism type: postablative (8) Mixed anxiety depressive disorder SNOMED Code(s): 896221420 Code(s): F41.8 - OTHER SPECIFIED ANXIETY DISORDERS Status: Chronic Priority: Medium Current Visit: No (9) Osteoarthritis SNOMED Code(s): 075912837 Code(s): M19.90 - UNSPECIFIED OSTEOARTHRITIS, UNSPECIFIED SITE Status: Chronic Priority: Medium Current Visit: No Qualifiers: Osteoarthritis location: multiple joints Osteoarthritis type: primary Qualified Code(s): M15.0 - Primary generalized (osteo)arthritis (10) Peptic reflux disease SNOMED Code(s): 897184853 Code(s): K21.9 - GASTRO-ESOPHAGEAL REFLUX DISEASE WITHOUT ESOPHAGITIS Status: Chronic Priority: Medium Current Visit: No (11) Chronic kidney disease SNOMED Code(s): 551651013 Code(s): N18.9 - CHRONIC KIDNEY DISEASE, UNSPECIFIED Status: Acute Current Visit: No Qualifiers: Chronic kidney disease stage: on chronic dialysis Qualified Code(s): N18.6 - End stage renal disease; Z99.2 - Dependence on renal dialysis (12) Dialysis patient SNOMED Code(s): 727372930 Code(s): Z99.2 - DEPENDENCE ON RENAL DIALYSIS Status: Acute Priority: High Current Visit: No (13) Fall SNOMED Code(s): 9524297, 958040572 Code(s): W19.XXXA - UNSPECIFIED FALL, INITIAL ENCOUNTER Status: Acute Priority: Medium Current Visit: No (14) Fatigue SNOMED Code(s): 71778241 Code(s): R53.83 - OTHER FATIGUE Status: Acute Priority: High Current Visit: No Onset Date: ~10/04/16 Qualifiers: Fatigue type: due to exposure Encounter type: subsequent encounter Qualified Code(s): T73.2XXD - Exhaustion due to exposure, subsequent encounter (15) Folic acid deficiency SNOMED Code(s): 397965576 Code(s): E53.8 - DEFICIENCY OF OTHER SPECIFIED B GROUP VITAMINS Status: Acute Priority: High Current Visit: No (16) Hypocalcemia SNOMED Code(s): 2911285 Code(s): E83.51 - HYPOCALCEMIA Status: Chronic Priority: Medium Current Visit: No (17) Thyroid cancer SNOMED Code(s): 221281871 Code(s): C73 - MALIGNANT NEOPLASM OF THYROID GLAND Status: Chronic Priority: Medium Current Visit: No - Problem List Review Problem List Initiated/Reviewed/Updated: Yes - My Orders Last 24 Hours: My Active Orders 10/15/19 07:30 Levothyroxine 112 mcg PO ACBREAKFAST - Plan Plan:: 09/18/19 Yandy Dennison MD Extreme fatigue being unable to get out of bed. She needs swing-bed for PT-OT. 10/13/2019 Yandy Dennison MD She has been working with PT-OT. Still weakness. Nausea, dry heaving today and dizziness especially if she moves her head around. Also discussed last TSH we have results that were abnormal. This could be contributing to her weakness. She agrees for blood draw attempt in AM. She is extremely difficult IV draw. Also zofran did help stomach earlier today. It is ordered prn and dose does not need adjusted due to CKD. Zofran is metabolized through the liver. Also will order vistaril prn. Discharge plans discussed. She is frustrated. 10/15/2019 Yandy Dennison MD She feels much better. No more emesis, nausea. Muscles stronger today. Discussed her lab results and increase in synthroid and decrease in KCL. Discharge plans discussed with her and her .
[2019-10-16 10:18] VITALS: BP 109/71; PULSE 107
[2019-10-16] MEDS: Levothyroxine 112 MCG Tab PO SCH (10:19)
[2019-10-16] MEDS: Venlafaxine 75 MG Cap.ER PO SCH (10:20)
[2019-10-16] MEDS: Venlafaxine 37.5 MG Cap.ER PO SCH (10:21)
[2019-10-16] MEDS: Folic Acid 1 MG Tab PO SCH (10:22)
[2019-10-16] MEDS: Calcitriol 0.25 MCG Cap PO SCH (10:23)
[2019-10-16] MEDS: Cholecalciferol (Vitamin D3) 25 MCG Tab PO SCH (10:24)
[2019-10-16] MEDS: Polyethylene Glycol 3350 Powder 510 GM Bot PO SCH (10:27)
--- NOTE | 2019-10-16 12:59 | PCM.DCSUM1 ---
Discharge Summary - Hospital Course Diagnosis: Stroke: No - Discharge Data Discharge Date: 10/16/19 Discharge Disposition: Home, W Home Health Agency 06 Condition: Good - Referral to Home Health Date of Face to Face Encounter: 10/16/19 Reason for Homebound Status: Weakness, CKD on dialysis, hypertension, hypotension, hypothryoid Primary Care Physician: PCP Unknown Skilled Need: nursing to monitor blood pressure, pulse, give shots, monitor weight, and fluid status. - Discharge Diagnosis/Problem(s) (1) Weakness SNOMED Code(s): 38834165 ICD Code: R53.1 - WEAKNESS Status: Acute Priority: High Current Visit: No Onset Date: ~09/15/19 (2) Anemia SNOMED Code(s): 662833748 ICD Code: D64.9 - ANEMIA, UNSPECIFIED Status: Acute Priority: High Current Visit: No Onset Date: ~10/04/16 Qualifiers: Anemia type: due to chronic kidney disease Chronic kidney disease stage: stage 4 (severe) Qualified Code(s): N18.4 - Chronic kidney disease, stage 4 ( severe); D63.1 - Anemia in chronic kidney disease (3) Hypoalbuminemia SNOMED Code(s): 781571372 ICD Code: E88.09 - OTH DISORDERS OF PLASMA-PROTEIN METABOLISM, NEC Status: Acute Priority: Medium Current Visit: No Onset Date: 10/04/16 (4) Hypomagnesemia SNOMED Code(s): 998282384 ICD Code: E83.42 - HYPOMAGNESEMIA Status: Acute Priority: Medium Current Visit: No Onset Date: 10/04/16 (5) Chronic renal insufficiency, stage IV (severe) SNOMED Code(s): 191253835 ICD Code: N18.4 - CHRONIC KIDNEY DISEASE, STAGE 4 (SEVERE) Status: Chronic Priority: Medium Current Visit: No (6) Hypertension SNOMED Code(s): 95857428 ICD Code: I10 - ESSENTIAL (PRIMARY) HYPERTENSION Status: Chronic Priority : Medium Current Visit: No Qualifiers: Hypertension type: essential hypertension (7) Hypothyroidism SNOMED Code(s): 48513720 ICD Code: E03.9 - HYPOTHYROIDISM, UNSPECIFIED Status: Chronic Priority: Medium Current Visit: No Qualifiers: Hypothyroidism type: postablative (8) Mixed anxiety depressive disorder SNOMED Code(s): 964225510 ICD Code: F41.8 - OTHER SPECIFIED ANXIETY DISORDERS Status: Chronic Priority: Medium Current Visit: No (9) Osteoarthritis SNOMED Code(s): 435540949 ICD Code: M19.90 - UNSPECIFIED OSTEOARTHRITIS, UNSPECIFIED SITE Status: Chronic Priority: Medium Current Visit: No Qualifiers: Osteoarthritis location: multiple joints Osteoarthritis type: primary Qualified Code(s): M15.0 - Primary generalized (osteo)arthritis (10) Peptic reflux disease SNOMED Code(s): 105301223 ICD Code: K21.9 - GASTRO-ESOPHAGEAL REFLUX DISEASE WITHOUT ESOPHAGITIS Status: Chronic Priority: Medium Current Visit: No (11) Chronic kidney disease SNOMED Code(s): 616382250 ICD Code: N18.9 - CHRONIC KIDNEY DISEASE, UNSPECIFIED Status: Acute Current Visit: No Qualifiers: Chronic kidney disease stage: on chronic dialysis Qualified Code(s): N18.6 - End stage renal disease; Z99.2 - Dependence on renal dialysis (12) Dialysis patient SNOMED Code(s): 338588079 ICD Code: Z99.2 - DEPENDENCE ON RENAL DIALYSIS Status: Acute Priority: High Current Visit: No (13) Fall SNOMED Code(s): 4702114, 217842771 ICD Code: W19.XXXA - UNSPECIFIED FALL, INITIAL ENCOUNTER Status: Acute Priority: Medium Current Visit: No (14) Fatigue SNOMED Code(s): 44446713 ICD Code: R53.83 - OTHER FATIGUE Status: Acute Priority: High Current Visit: No Onset Date: ~10/04/16 Qualifiers: Fatigue type: due to exposure Encounter type: subsequent encounter Qualified Code(s): T73.2XXD - Exhaustion due to exposure, subsequent encounter (15) Folic acid deficiency SNOMED Code(s): 261720140 ICD Code: E53.8 - DEFICIENCY OF OTHER SPECIFIED B GROUP VITAMINS Status: Acute Priority: High Current Visit: No (16) Hypocalcemia SNOMED Code(s): 2519162 ICD Code: E83.51 - HYPOCALCEMIA Status: Chronic Priority: Medium Current Visit: No (17) Thyroid cancer SNOMED Code(s): 486407875 ICD Code: C73 - MALIGNANT NEOPLASM OF THYROID GLAND Status: Chronic Priority: Medium Current Visit: No - Patient Summary/Data Consults: Consultations 10/16/19 11:32 Consult to Home Care [Consult to Home Health] [CONS] Routine 09/18/19 20:53 Consult to Shipping And Receiving Coordinator [CONS] Routine OT Evaluation and Treatment [CONS] Routine PT Evaluation and Treatment [CONS] Routine - Patient Instructions Diet: Heart Healthy Diet Activity: As Tolerated Driving: Do Not Drive Showering/Bathing: May Shower Other/Special Instructions: In house PT referral Follow up with Liz - Discharge Plan *PRESCRIPTION DRUG MONITORING PROGRAM REVIEWED*: Not Applicable *COPY OF PRESCRIPTION DRUG MONITORING REPORT IN PATIENT [place]: Not Applicable Prescriptions/Med Rec: Levothyroxine 112 mcg PO ACBREAKFAST #90 tablet Ondansetron [Zofran ODT] 4 mg PO Q4H PRN #30 tab.dis PRN Reason: Nausea Home Medications: Home Meds ALPRAZolam [Xanax] 1 cap PO BEDTIME 06/24/19 [History] Cholecalciferol (Vitamin D3) [Vitamin D3] 4,000 unit PO DAILY 06/24/19 [History] Cyanocobalamin (Vitamin B-12) [Cyanocobalamin Injection] 1 ml IM Q30D 06/24/19 [ History] Potassium Chloride [Klor-Con M20] 1 tab PO BID 06/24/19 [History] Sevelamer Carbonate [Renvela] 800 mg PO TID 06/24/19 [History] Venlafaxine [Effexor XR] 150 mg PO DAILY 06/24/19 [History] calcitrioL [Rocaltrol] 0.25 mcg PO DAILY 06/24/19 [History] Folic Acid 1 mg PO DAILY #100 tablet 06/26/19 [Rx] Epoetin Dante [Epogen] 20,000 unit SQ WEEKLY 09/16/19 [History] Polyethylene Glycol 3350 [MiraLAX] 17 gm PO DAILY 09/16/19 [History] Venlafaxine [Effexor XR] 37.5 mg PO DAILY 09/16/19 [History] Levothyroxine 112 mcg PO ACBREAKFAST #90 tablet 10/16/19 [Rx] Ondansetron [Zofran ODT] 4 mg PO Q4H PRN #30 tab.dis 10/16/19 [Rx] Oxygen Therapy Mode: Room Air - Discharge Summary/Plan Comment DC Time >30 min.: No - Patient Data Vitals - Most Recent: Last Vital Signs Temp 97.1 F 10/16/19 08:00 Pulse 107 H 10/16/19 08:00 Resp 14 10/16/19 08:00 BP 109/71 10/16/19 08:00 Pulse Ox 96 10/16/19 08:00 Weight - Most Recent: 193 lb 3.2 oz Med Orders - Current: Current Medications Acetaminophen (Tylenol) 650 mg PO Q4H PRN PRN Reason: Pain Last Admin: 10/12/19 17:41 Dose: 650 mg Alprazolam (Xanax) 1 mg PO BEDTIME [facility] Last Admin: 10/15/19 19:43 Dose: 1 mg Calcitriol (Rocaltrol) 0.25 mcg PO DAILY [facility] Last Admin: 10/16/19 10:23 Dose: 0.25 mcg Cholecalciferol (Vitamin D3) 100 mcg PO DAILY [facility] Last Admin: 10/16/19 10:24 Dose: 100 mcg Folic Acid (Folic Acid) 1 mg PO DAILY [facility] Last Admin: 10/16/19 10:22 Dose: 1 mg Hydroxyzine HCl (Vistaril) 25 mg IM Q4H PRN PRN Reason: Nausea/Vomiting Last Admin: 10/13/19 21:58 Dose: 25 mg Levothyroxine Sodium (Levothyroxine) 112 mcg PO ACBREAKFAST [facility] Last Admin: 10/16/19 10:19 Dose: 112 mcg Ondansetron HCl (Zofran Odt) 4 mg PO Q4H PRN PRN Reason: Nausea Last Admin: 10/14/19 11:52 Dose: 4 mg (Sevelamer Carbonate [Renvela] 800 Mg)* Pt Own Med* 0 each PO TID [facility] Last Admin: 10/16/19 12:17 Dose: 1 each Polyethylene Glycol (Miralax) 17 gm PO DAILY [facility] Last Admin: 10/16/19 10:27 Dose: Not Given Venlafaxine HCl (Effexor Xr) 37.5 mg PO DAILY [facility] Last Admin: 10/16/19 10:21 Dose: 37.5 mg Venlafaxine HCl (Effexor Xr) 150 mg PO DAILY [facility] Last Admin: 10/16/19 10:20 Dose: 150 mg Discontinued Medications Ciprofloxacin (Ciprofloxacin Hcl) 500 mg PO BEDTIME [facility] Stop: 09/19/19 20:01 Last Admin: 09/19/19 19:26 Dose: 500 mg Levothyroxine Sodium (Synthroid) 100 mcg PO ACBREAKFAST [facility] Last Admin: 10/14/19 08:58 Dose: 100 mcg Non-Formulary Medication (Sevelamer Carbonate [Renvela]) 800 mg PO TID [facility] Last Admin: 09/19/19 08:41 Dose: Not Given Ondansetron HCl (Zofran Odt) 4 mg PO Q8H PRN PRN Reason: Nausea Last Admin: 10/13/19 14:19 Dose: 4 mg Polyethylene Glycol (Miralax) 17 gm PO DAILY [facility] Last Admin: 10/08/19 08:53 Dose: Not Given Potassium Chloride (Klor-Con M20) 20 meq PO BID [facility] Last Admin: 10/15/19 17:16 Dose: 20 meq Sodium Chloride (Saline Flush) 10 ml FLUSH ASDIRECTED PRN PRN Reason: Keep Vein Open Sodium Chloride (Saline Flush) 10 ml FLUSH Q12HR [facility] Sodium Chloride (Saline Flush) 10 ml FLUSH ASDIRECTED PRN PRN Reason: Keep Vein Open *Q Meaningful Use (DIS) - VTE *Q VTE Mechanical Contraindications *Q: At Risk for Falls VTE Pharmacological Contraindications *Q: Renal Impairment
--- NOTE | 2019-10-16 20:17 | PCM.PN ---
- General Info Date of Service: 10/16/19 Admission Dx/Problem (Free Text): Admission Diagnosis/Problem Admission Diagnosis/Problem Weakness Functional Status: Reports: Pain Controlled, Tolerating Diet, Ambulating - Review of Systems General: Reports: Weakness (improved) HEENT: Reports: No Symptoms Pulmonary: Reports: No Symptoms Cardiovascular: Reports: No Symptoms Gastrointestinal: Reports: No Symptoms Genitourinary: Reports: Other (on dialysis) Musculoskeletal: Reports: No Symptoms Skin: Reports: No Symptoms Neurological: Reports: Weakness (improving) Psychiatric: Reports: No Symptoms - Patient Data Vitals - Most Recent: Last Vital Signs Temp 97.1 F 10/16/19 08:00 Pulse 107 H 10/16/19 08:00 Resp 14 10/16/19 08:00 BP 109/71 10/16/19 08:00 Pulse Ox 96 10/16/19 08:00 Weight - Most Recent: 193 lb 3.2 oz Med Orders - Current: Current Medications Discontinued Medications Acetaminophen (Tylenol) 650 mg PO Q4H PRN PRN Reason: Pain Last Admin: 10/12/19 17:41 Dose: 650 mg Alprazolam (Xanax) 1 mg PO BEDTIME [facility] Last Admin: 10/15/19 19:43 Dose: 1 mg Calcitriol (Rocaltrol) 0.25 mcg PO DAILY [facility] Last Admin: 10/16/19 10:23 Dose: 0.25 mcg Cholecalciferol (Vitamin D3) 100 mcg PO DAILY [facility] Last Admin: 10/16/19 10:24 Dose: 100 mcg Ciprofloxacin (Ciprofloxacin Hcl) 500 mg PO BEDTIME [facility] Stop: 09/19/19 20:01 Last Admin: 09/19/19 19:26 Dose: 500 mg Folic Acid (Folic Acid) 1 mg PO DAILY [facility] Last Admin: 10/16/19 10:22 Dose: 1 mg Hydroxyzine HCl (Vistaril) 25 mg IM Q4H PRN PRN Reason: Nausea/Vomiting Last Admin: 10/13/19 21:58 Dose: 25 mg Levothyroxine Sodium (Synthroid) 100 mcg PO ACBREAKFAST [facility] Last Admin: 10/14/19 08:58 Dose: 100 mcg Levothyroxine Sodium (Levothyroxine) 112 mcg PO ACBREAKFAST [facility] Last Admin: 10/16/19 10:19 Dose: 112 mcg Non-Formulary Medication (Sevelamer Carbonate [Renvela]) 800 mg PO TID [facility] Last Admin: 09/19/19 08:41 Dose: Not Given Ondansetron HCl (Zofran Odt) 4 mg PO Q8H PRN PRN Reason: Nausea Last Admin: 10/13/19 14:19 Dose: 4 mg Ondansetron HCl (Zofran Odt) 4 mg PO Q4H PRN PRN Reason: Nausea Last Admin: 10/14/19 11:52 Dose: 4 mg (Sevelamer Carbonate [Renvela] 800 Mg)* Pt Own Med* 0 each PO TID [facility] Last Admin: 10/16/19 12:17 Dose: 1 each Polyethylene Glycol (Miralax) 17 gm PO DAILY [facility] Last Admin: 10/08/19 08:53 Dose: Not Given Polyethylene Glycol (Miralax) 17 gm PO DAILY [facility] Last Admin: 10/16/19 10:27 Dose: Not Given Potassium Chloride (Klor-Con M20) 20 meq PO BID [facility] Last Admin: 10/15/19 17:16 Dose: 20 meq Sodium Chloride (Saline Flush) 10 ml FLUSH ASDIRECTED PRN PRN Reason: Keep Vein Open Sodium Chloride (Saline Flush) 10 ml FLUSH Q12HR [facility] Sodium Chloride (Saline Flush) 10 ml FLUSH ASDIRECTED PRN PRN Reason: Keep Vein Open Venlafaxine HCl (Effexor Xr) 37.5 mg PO DAILY [facility] Last Admin: 10/16/19 10:21 Dose: 37.5 mg Venlafaxine HCl (Effexor Xr) 150 mg PO DAILY [facility] Last Admin: 10/16/19 10:20 Dose: 150 mg - Exam General: Alert, Cooperative, No Acute Distress HEENT: Mucous Membr. Moist/[place] Neck: Trachea Midline, No JVD Lungs: Clear to Auscultation, Normal Respiratory Effort Cardiovascular: Regular Rate, Regular Rhythm GI/Abdominal Exam: Soft, Non-Tender (Female) Exam: Deferred Back Exam: Normal Inspection Extremities: Normal Inspection Skin: Warm, Dry, Intact Neurological: No New Focal Deficit Psy/Mental Status: Alert, Normal Affect, Normal Mood Sepsis Event Note - Evaluation Sepsis Screening Result: No Definite Risk - Problem List & Annotations (1) Weakness SNOMED Code(s): 88423780 Code(s): R53.1 - WEAKNESS Status: Acute Priority: High Onset Date: ~ (2) Anemia SNOMED Code(s): 436047509 Code(s): D64.9 - ANEMIA, UNSPECIFIED Status: Acute Priority: High Onset Date: ~10/04/16 Qualifiers: Anemia type: due to chronic kidney disease Chronic kidney disease stage: stage 4 (severe) Qualified Code(s): N18.4 - Chronic kidney disease, stage 4 ( severe); D63.1 - Anemia in chronic kidney disease (3) Hypoalbuminemia SNOMED Code(s): 241892927 Code(s): E88.09 - OTH DISORDERS OF PLASMA-PROTEIN METABOLISM, NEC Status: Acute Priority: Medium Onset Date: 10/04/16 (4) Hypomagnesemia SNOMED Code(s): 147786523 Code(s): E83.42 - HYPOMAGNESEMIA Status: Acute Priority: Medium Onset Date: 10/04/16 (5) Chronic renal insufficiency, stage IV (severe) SNOMED Code(s): 455687203 Code(s): N18.4 - CHRONIC KIDNEY DISEASE, STAGE 4 (SEVERE) Status: Chronic Priority: Medium (6) Hypertension SNOMED Code(s): 28299222 Code(s): I10 - ESSENTIAL (PRIMARY) HYPERTENSION Status: Chronic Priority : Medium Qualifiers: Hypertension type: essential hypertension (7) Hypothyroidism SNOMED Code(s): 15266066 Code(s): E03.9 - HYPOTHYROIDISM, UNSPECIFIED Status: Chronic Priority: Medium Qualifiers: Hypothyroidism type: postablative (8) Mixed anxiety depressive disorder SNOMED Code(s): 812521880 Code(s): F41.8 - OTHER SPECIFIED ANXIETY DISORDERS Status: Chronic Priority: Medium (9) Osteoarthritis SNOMED Code(s): 742816298 Code(s): M19.90 - UNSPECIFIED OSTEOARTHRITIS, UNSPECIFIED SITE Status: Chronic Priority: Medium Qualifiers: Osteoarthritis location: multiple joints Osteoarthritis type: primary Qualified Code(s): M15.0 - Primary generalized (osteo)arthritis (10) Peptic reflux disease SNOMED Code(s): 805726921 Code(s): K21.9 - GASTRO-ESOPHAGEAL REFLUX DISEASE WITHOUT ESOPHAGITIS Status: Chronic Priority: Medium (11) Chronic kidney disease SNOMED Code(s): 056575487 Code(s): N18.9 - CHRONIC KIDNEY DISEASE, UNSPECIFIED Status: Acute Qualifiers: Chronic kidney disease stage: on chronic dialysis Qualified Code(s): N18.6 - End stage renal disease; Z99.2 - Dependence on renal dialysis (12) Dialysis patient SNOMED Code(s): 945219617 Code(s): Z99.2 - DEPENDENCE ON RENAL DIALYSIS Status: Acute Priority: High (13) Fall SNOMED Code(s): 3123923, 247346793 Code(s): W19.XXXA - UNSPECIFIED FALL, INITIAL ENCOUNTER Status: Acute Priority: Medium (14) Fatigue SNOMED Code(s): 44080030 Code(s): R53.83 - OTHER FATIGUE Status: Acute Priority: High Onset Date : ~10/04/16 Qualifiers: Fatigue type: due to exposure Encounter type: subsequent encounter Qualified Code(s): T73.2XXD - Exhaustion due to exposure, subsequent encounter (15) Folic acid deficiency SNOMED Code(s): 370870486 Code(s): E53.8 - DEFICIENCY OF OTHER SPECIFIED B GROUP VITAMINS Status: Acute Priority: High (16) Hypocalcemia SNOMED Code(s): 8772243 Code(s): E83.51 - HYPOCALCEMIA Status: Chronic Priority: Medium (17) Thyroid cancer SNOMED Code(s): 383206341 Code(s): C73 - MALIGNANT NEOPLASM OF THYROID GLAND Status: Chronic Priority: Medium - Problem List Review Problem List Initiated/Reviewed/Updated: Yes - My Orders Last 24 Hours: My Active Orders 10/16/19 10:54 Ready for Discharge [RC] PER UNIT ROUTINE 10/16/19 11:32 Consult to Home Care [Consult to Home Health] [CONS] Routine - Plan Plan:: 09/18/19 Yandy Denniosn MD Extreme fatigue being unable to get out of bed. She needs swing-bed for PT-OT. 10/13/2019 Yandy Dennison MD She has been working with PT-OT. Still weakness. Nausea, dry heaving today and dizziness especially if she moves her head around. Also discussed last TSH we have results that were abnormal. This could be contributing to her weakness. She agrees for blood draw attempt in AM. She is extremely difficult IV draw. Also zofran did help stomach earlier today. It is ordered prn and dose does not need adjusted due to CKD. Zofran is metabolized through the liver. Also will order vistaril prn. Discharge plans discussed. She is frustrated. 10/15/2019 Yandy Dennison MD She feels much better. No more emesis, nausea. Muscles stronger today. Discussed her lab results and increase in synthroid and decrease in KCL. Discharge plans discussed with her and her . 10/16/2019 ~12:30 (late entry) Yandy Dennison MD Ready to go home. Very excited. Home support systems arranged including home health, in home PT, home makers, meals on wheels. She will follow up at [facility].
== END 2019-10-16 13:20 | disposition home health service (06) | DRG 947 ==
LOC: LL.MS 09-18 21:44 → LL.SWG 10-08 12:12
PROVIDERS: ADMIT Family Medicine; ATTEND Family Medicine
DX: R53.83 Other fatigue (principal); N18.6 End stage renal disease; N39.0 Urinary tract infection, site not specified; I12.0 Hypertensive chronic kidney disease with stage 5 chronic kidney disease or end stage renal disease; D63.1 Anemia in chronic kidney disease; E88.09 Other disorders of plasma-protein metabolism, not elsewhere classified; E83.42 Hypomagnesemia; E03.9 Hypothyroidism, unspecified; C73 Malignant neoplasm of thyroid gland; F41.8 Other specified anxiety disorders; M15.0 Primary generalized (osteo)arthritis; K21.9 Gastro-esophageal reflux disease without esophagitis; E53.8 Deficiency of other specified B group vitamins; E83.51 Hypocalcemia; B96.20 Unspecified Escherichia coli [E. coli] as the cause of diseases classified elsewhere; T73.2XXD Exhaustion due to exposure, subsequent encounter; Z99.2 Dependence on renal dialysis; Z88.6 Allergy status to analgesic agent; Z88.8 Allergy status to other drugs, medicaments and biological substances; Z79.890 Hormone replacement therapy; Z79.899 Other long term (current) drug therapy; Z96.653 Presence of artificial knee joint, bilateral
CPT/HCPCS: 36415; 80053; 84443; 85025; 93005; 97110-GO; 97110-GP; 97116-GP; 97162-GP; 97165-GO; 97530-GO; 97530-GP; 97535-GO; A9270-GY; J3410

== ENCOUNTER 2019-09-16 17:23 | Observation (INO) | payer MEDICARE, MEDICAID ==
--- NOTE | 2019-09-16 17:48 | EDM.PDOC ---
ED HPI GENERAL MEDICAL PROBLEM - General Chief Complaint: General Stated Complaint: weakness,fall Time Seen by Provider: 09/16/19 17:40 Source of Information: Reports: Family (, [id number]), Old Records ( [facility] chart/EMR.), Other ([facility] EMR) History Limitations: Reports: No Limitations - History of Present Illness INITIAL COMMENTS - FREE TEXT/NARRATIVE: The patient was brought to the emergency room via private automobile by her son , , and [id number] for evaluation of progressive weakness during the last several weeks, however especially during the last few days. He did have a minor fall outside of her grandson's home earlier this morning with mild right hand swelling since that time. She complains of 3/10 hand pain. No history of head injury, loss of consciousness, change in mental status, headaches, visual changes, neck/back pain, etc.. She did need assistance getting up earlier this morning after the above fall. She also has extremely weak legs and is no longer able to perform her ADLs at home. The patient was seen in the [facility] emergency room yesterday with blood work, EKG, etc. conducted with stable blood work at that time, although newly diagnosed UTI. She was able to take oral fluids well at that time and was discharged to home, however note weakness as above. The patient denies any chest pain/pressure, heart flutter, dizziness, orthostasis, orthopnea, diaphoresis, paresthesias, recent decreased exercise tolerance, or any other anginal-type symptoms. No recent history of abdominal pain, heartburn, nausea, diarrhea, melena, gross hematochezia, or any food intolerance, including fatty foods, etc.. She has problems with both urine and stool incontinence including today. No recent history of gross hematuria, colic, etc. with home dialysis progressing well by their history. The patient also denies any recent fever, cough, wheezing, dyspnea, etc.. Onset: Gradual, Unknown/Unsure, Other (As above) Onset Date: 09/15/19 Duration: Getting Worse Location: Reports: Upper Extremity, Right. Denies: Head, Face, Neck, Chest, Abdomen, Back, Pelvis, Upper Extremity, Left, Lower Extremity, Left, Lower Extremity, Right, Radiates to Quality: Reports: Ache, Same as Previous Episode Severity: Mild Improves with: Reports: Rest Worsens with: Reports: Movement Context: Reports: Other (As above) Associated Symptoms: Reports: Weakness. Denies: Confusion, Chest Pain, Cough, Diaphoresis, Fever/Chills, Headaches, Loss of Appetite, Malaise, Nausea/Vomiting , Seizure, Shortness of Breath, Syncope Treatments SWITCH OPERATOR: Reports: Other (see below) (None) - Related Data Allergies Allergy/AdvReac Type Severity Reaction Status Date / Time ibuprofen Allergy Renal Verified 09/16/19 18:05 Insufficiency zolpidem Allergy Hallucinati Verified 09/16/19 18:05 ons Home Meds: Home Meds ALPRAZolam [Xanax] 1 cap PO BEDTIME 06/24/19 [History] Cholecalciferol (Vitamin D3) [Vitamin D3] 4,000 unit PO DAILY 06/24/19 [History] Cyanocobalamin (Vitamin B-12) [Cyanocobalamin Injection] 1 ml IM Q30D 06/24/19 [ History] Potassium Chloride [Klor-Con M20] 1 tab PO BID 06/24/19 [History] Sevelamer Carbonate [Renvela] 800 mg PO TID 06/24/19 [History] Venlafaxine [Effexor XR] 150 mg PO DAILY 06/24/19 [History] calcitrioL [Rocaltrol] 0.25 mcg PO DAILY 06/24/19 [History] Folic Acid 1 mg PO DAILY #100 tablet 06/26/19 [Rx] Ciprofloxacin [Ciprofloxacin HCl] 500 mg PO DAILY 09/16/19 [History] Epoetin Dante [Epogen] 20,000 unit SQ WEEKLY 09/16/19 [History] Levothyroxine [Synthroid] 100 mcg PO ACBREAKFAST 09/16/19 [History] Polyethylene Glycol 3350 [MiraLAX] 17 gm PO DAILY 09/16/19 [History] Venlafaxine [Effexor XR 24 Hr] 37.5 mg PO DAILY 09/16/19 [History] Past Medical History HEENT History: Reports: Cataract, Impaired Vision, Other (See Below). 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 The patient does wear glasses. Cardiovascular History: Reports: Arrhythmia, Heart Failure, High Cholesterol, Hypertension, Other (See Below). Denies: Afib, Aneurysm, Blood Clots/VTE/DVT, CAD, Heart Murmur, VT, PTCA, PVD, Syncope Other Cardiovascular History: PAC's first-degree AV block by EKG on 09/15/2019 at [facility]. Respiratory History: Reports: Intubation, Previous, Other (See Below). Denies: Asthma, Bronchitis, Recurrent, COPD, Intubation, Difficult, PE, Pneumonia, Recurrent, Sleep Apnea, TB Other Respiratory History: 8 mm right middle lobe pulmonary nodule with multiple probable benign right lower lobe pulmonary nodules. Gastrointestinal History: Reports: Bowel Obstruction, Chronic Constipation, Chronic Diarrhea, Fecal Incontinence, GERD, Hemorrhoids, Other (See Below). Denies: Cholelithiasis, Colon Polyp, Gastritis, GI Bleed, Hiatal Hernia, Inflammatory Bowel Disease, Irritable Bowel Syndrome, Jaundice, Pancreatitis, PUD Other Gastrointestinal History: Colitis with rectal ulcer by colonoscopy in 2019 as below. Bowel obstruction about 1978 with subsequent surgery as below. Genitourinary History: Reports: Chronic Renal Insuffiency, Dialysis, Dialysis, Peritoneal, Urinary Incontinence, UTI, Recurrent, Other (See Below). Denies: Acute Renal Failure, Renal Calculus, Retention, Urinary, STD Other Genitourinary History: Home peritoneal dialysis which was initiated in March 2019 peritoneal catheter insertion on 10/24/2018. YEAST DISTILLER History: Reports: . Denies: Dysfunctional Uterine Bleeding, Endometriosis, Fibroids, Spontaneous : 3 Para: 3 LMP (Approximate): Other (See Below) Other YEAST DISTILLER History: Menopause at age 46, Full term without complications during pregnancies or deliveries Musculoskeletal History: Reports: Arthritis, Back Pain, Chronic, Fracture, Neck Pain, Chronic, Osteoarthritis, Osteoporosis. Denies: Gout, RA, SLE Other Musculoskeletal History: Right #3 posterior rib fracture. Right shoulder and right scapular fracture. Incidental L3 hemangioma CT scan. Neurological History: Reports: Headaches, Chronic, Migraines. Denies: Alzheimers Disease, Cerebral Aneurysms, Concussion, CVA, Head Trauma, MS, Neuropathy, Diabetic, Neuropathy, Peripheral, Seizure, TIA, Vertigo Psychiatric History: Reports: Anxiety, Depression. Denies: Abuse, Victim of, ADD, ADHD, Addiction, Psych Hospitalization(s), Psychosis, PTSD, Suicide Attempt , Suicidal Ideation Endocrine/Metabolic History: Reports: Hyperparathyroidism, Hypokalemia, Hypomagnesemia, Hypothyroidism, Obesity/BMI 30+, Osteopenia, Osteoporosis, Vitamin D Deficiency, Other (See Below). Denies: Diabetes, Gestational, Diabetes, Type I, Diabetes, Type II, Diabetes Mellitus, Type 3c, IDDM Other Endocrine/Metabolic History: Hx of thyroid cancer nonoperable by patient history with subsequent chemotherapy and secondary hypothyroidism. Hypercalcemia /hypocalcemia; Hypoalbuminemia. Hematologic History: Reports: Anemia, B12 Deficiency, Blood Transfusion(s), Folic Acid, Iron Deficiency Other Hematologic History: Blood transfusions with knee surgeries as below. Immunologic History: Reports: None, Immunosuppression. Denies: AIDS, HIV, SLE Oncologic (Cancer) History: Reports: Lymphoma, Thyroid Other Oncologic History: Thyroid cancer diagnosed in June 2010 with completed chemotherapy treatment in October 2015 with no radiation therapy or thyroidectomy secondary to apparent inoperable disease. Lymphoma also diagnosed with her thyroid cancer with chemotherapy as above. Dermatologic History: Reports: None. Denies: Eczema, Psoriasis - Infectious Disease History Infectious Disease History: Reports: Chicken Pox. Denies: C-Difficile, Measles , Meningitis, Mononucleosis, MRSA, Mumps, Pertussis (Whooping Cough), Rheumatic Fever, Rubella, Scarlet Fever, Shingles, TB, VRE - Past Surgical History Head Surgeries/Procedures: Reports: None HEENT Surgical History: Reports: Eye Surgery, Laser Surgery, Oral Surgery, Other (See Below). Denies: Adenoidectomy, LASIK, Myringotomy w Tube(s), Naso- Sinus Surgery, Tonsillectomy Other HEENT Surgeries/Procedures: Right cataract extraction 04/03/2012. Previous right eye laser therapy. Pleat teeth extraction. Left upper eyelid cyst excision at about age 11. Cardiovascular Surgical History: Reports: None. Denies: Varicose Respiratory Surgical History: Reports: None. Denies: Lung Biopsies, Thoracentesis GI Surgical History: Reports: Appendectomy, Bariatric Procedure, Colon, Colonoscopy, Other (See Below). Denies: Cholecystectomy, Hernia, Abdominal, Hernia, Inguinal, Hernia Repair/Other, Polypectomy Other GI Surgeries/Procedures: Gastric bypass, hemorrhoid surgery x2, including hemorrhoidectomy in October 2005 and hemorrhoid stapling in 2004; last colonoscopy on 09/09/2019 with multiple serial biopsies indicated mild colitis with additional rectal ulcer. Incomplete colonoscopy to the transverse colon on 04/24/2018 with follow-up barium enema as below. Otherwise colonoscopies on and 02/06/2005. Partial colon resection secondary to bowel obstruction in 1978 with concomitant appendectomy with previous intestinal torsion revision without partial colectomy about 6 weeks prior to the surgery. Multiple previous failed colonoscopies as above with last barium enema as below. Peritoneal dialysis catheter placement on 04/23/2019. Female Surgical History: Reports: None. Denies: Breast Biopsy, D&C, Hysterectomy, Salpingo-Oophorectomy, Tubal Ligation Endocrine Surgical History: Reports: Thyroid Biopsy, Other (See Below). Denies : Thyroidectomy Other Endocrine Surgeries/Procedures: Failed thyroidectomy for thyroid cancer in June 2010 as above. Neurological Surgical History: Reports: C-Spine, Spinal Fusion, Other (See Below ). Denies: Discectomy, Laminectomy, Lumbar Spine, Sacral Spine, Thoracic Spine , Vertebroplasty Other Neurological Surgeries/Procedures: Questionable cervical fusion versus bone implant in September 1996. Musculoskeletal Surgical History: Reports: Joint Replacement, Knee Replacement, Other (See Below). Denies: Arthroscopic Procedure, Carpal Tunnel, Ganglion Cyst , ORIF Other Musculoskeletal Surgeries/Procedures:: Bilateral total knee arthroplasty with right TKA on 12/13/2011. Oncologic Surgical History: Reports: None. Denies: Biopsy of Breast Dermatological Surgical History: Reports: None - Past Imaging History Past Imaging History: Reports: Barium Enema (Last on 09/11/2019, however difficult exam secondary to bowel gas and stool.), Cardiac Echo (06/15/2019 with ejection fraction of 60-65%.), CAT Scan (CT of the brain on 10/04/[address] of the chest without contrast on 05/06/2018, 01/13/2018 and 09/08.), DEXA Scan (07/25/2018, 07/01/2017, and 04/10/2016.), Mammogram (Last on 07/24/2019), PET (PET/CT from the base of the skull to the mid thigh on 2017, 01/29/2014, 06/12/2013 and in 2011.), PFT (03/11/18.), Ultrasound (Renal ultrasound on 03/12/2019 and 10/05/2016. Sound bilateral arm mapping on 03/26/2019 for possible future AV fistula placement for dialysis), Venous Doppler ( Negative on 10/04/2016 for the legs bilaterally.), Other (See Below) Social & Family History - Family History HEENT: Reports: None. Denies: Allergic Rhinitis, Glaucoma, Macular Degeneration , Retinal Detachment Cardiac: Reports: CAD, Heart Failure, High Cholesterol, Hypertension, VT, Other (See Below). Denies: Afib, Aneurysm, Arrhythmia, Blood Clots/VTE/DVT, Bypass, Cardiomyopathy, Heart Murmur, Pacemaker, PVD/COD, Stent, Syncope Other Cardiac Family History: Maternal grandmother with fatal CHF at age 89, father with hyperlipidemia and hypertension, father with fatal VT at age 88 Respiratory: Reports: None. Denies: Asthma, COPD, PE, Pneumothorax, Sleep Apnea GI: Reports: None. Denies: Celiac Disease, Cholelithiasis, Colon Polyps, GERD, GI bleed, Inflammatory Bowel Disease, Irritable Bowel Syndrome, PUD : Reports: Dialysis, Renal Calculus, Renal Disease/Insufficiency, Other (See Below) Other Family History: Mother with urolithiasis, father and brother with renal insufficiency which did require dialysis OBGYN: Reports: None. Denies: Dysfunctional uterine bleeding, Endometriosis, Recurrent Spontaneous Musculoskeletal: Reports: Arthritis, Osteoarthritis, SLE, Other (See Below). Denies: Gout, RA Other Musculoskeletal Family History: mother with SLE Neurological: Reports: None. Denies: Alzheimers Disease, Cerebral Aneurysms, CVA, Dementia, Migraines, MS, Neuropathy, Peripheral, Parkinson's, Seizure, TIA Psychiatric: Reports: None. Denies: Abuse, Victim of, ADD, ADHD, Anxiety, Depression, Psych Hospitalization(s), Psychosis, PTSD, Suicide Attempt Endocrine/Metabolic: Reports: None. Denies: Diabetes, Gestational, Diabetes, Type I, Diabetes, type II, Diabetes Mellitus, Type 3c, Hypothyroidism, IDDM Hematologic: Reports: None, SLE, Other (See Below). Denies: Anemia Other Hematologic Family History: Mother with SLE Immunologic: Reports: SLE, Other (See Below). Denies: AIDS, HIV Other Immunologic Family History: Mother with SLE Dermatologic: Reports: None. Denies: Eczema, Psoriasis Oncologic: Reports: Metastatic, Prostate, Other (See Below). Denies: Breast, Cervix, Colon, Hodgkin's Lymphoma, Leukemia, Lymphoma, Non-Hodgkin's Lymphoma, Ovarian, Skin, Uterine Other Oncologic Family History: brother with fatal metastatic prostate cancer in his 60s - Tobacco Use Smoking Status *Q: Never Smoker Tobacco Use Within Last Twelve Months: No Used Tobacco, but Quit: No Smoking Cessation Information Provided To Patient: No Second Hand Smoke Exposure: Yes Source of Second Hand Smoke Exposure: smokes Second Hand Smoke Education Provided: Yes - Caffeine Use Caffeine Use: Reports: None. Denies: Coffee, Energy Drinks, Soda, Tea - Alcohol Use Alcohol Use History: Yes Days Per Week of Alcohol Use: 0 Number of Drinks Per Day: 0 Number of Drinks Per Day Comment: The patient no longer drinks alcohol since her dialysis. No previous DWIs, problems with alcohol abuse, etc. Total Drinks Per Week: 0 Alcohol Use in Last Twelve Months: No - Recreational Drug Use Recreational Drug Use: No Drug Use in Last 12 Months: No Recreational Drug Type: Denies: Amphetamines (Speed), Cocaine, Heroin, LSD (Acid ), Marijuana/Hashish, Methamphetamine, Morphine, Oxycodone - Living Situation & Occupation Living situation: Reports: (1970, 3 children), with Family () Occupation: Retired (Retired in the 1960s. [employer] . 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 ED EXAM, GENERAL - Physical Exam Exam: See Below Exam Limited By: No Limitations General Appearance: Alert, WD/WN, No Apparent Distress, Anxious (Mild) Eye Exam: Bilateral Eye: EOMI, Normal Inspection (No nystagmus. Patient wearing glasses), PERRL Ears: Normal External Exam, Normal Canal, Hearing Grossly Normal, Normal TMs Nose: Normal Inspection, Normal Mucosa, No Blood Throat/Mouth: Normal Lips, Normal Gums, Normal Oropharynx, Normal Voice, No Airway Compromise. No: Normal Teeth (Complete dentures uppers and lowers), Dysphagia, Perioral Cyanosis Head: Atraumatic, Normocephalic. No: Facial Swelling, Facial Tenderness, Sinus Tenderness Neck: Supple, Non-Tender, Full Range of Motion, Carotid Bruit (Mild bilateral carotid bruits). No: Lymphadenopathy (L), Lymphadenopathy (R), Thyromegaly Respiratory/Chest: No Respiratory Distress, Lungs Clear, Normal Breath Sounds, No Accessory Muscle Use, Chest Non-Tender. No: Pleural Rub, Retractions Cardiovascular: Normal Peripheral Pulses, No Gallop, No JVD, No Murmur, No Rub, Tachycardia (Regular rhythm). No: No Edema (Dependent edema as below), Gallop/ S3, Gallop/S4, Friction Rub Peripheral Pulses: 2+: Radial (L), Radial (R), Dorsalis Pedis (L), Dorsalis Pedis (R) GI/Abdominal: Normal Bowel Sounds, Soft, Non-Tender, No Organomegaly, No Distention, No Abnormal Bruit, No Mass, Pelvis Stable, Other (Peritoneal dialysis catheter noted with no local signs of infection. Obese.). No: Guarding (Female) Exam: Deferred Rectal (Female) Exam: Deferred Back Exam: Normal Inspection, Full Range of Motion. No: CVA Tenderness (L), CVA Tenderness (R), Muscle Spasm Extremities: Normal Range of Motion, Normal Capillary Refill, Pedal Edema (+1 bilateral pedal/pretibial edema). No: Non-Tender (Minimal tenderness over dorsal aspect of right hand with moderate dorsal hand swelling), No Pedal Edema , Joint Swelling, Clary's Sign, Increased Warmth Neurological: Alert, Oriented, CN II-XII Intact, Normal Cognition, Normal Gait, Normal Reflexes (Negative Babinski's), No Motor/Sensory Deficits Psychiatric: Anxious (Mild), Depressed Mood (Mild) Skin Exam: Warm, Dry, Intact, Normal Color, No Rash. No: Diaphoretic, Wound/ Incision Lymphatic: No Adenopathy Course - Vital Signs Last Recorded V/S: Last Vital Signs Temp 36.3 C 09/16/19 17:24 Pulse 96 09/16/19 19:35 Resp 16 09/16/19 19:35 BP 126/89 09/16/19 20:57 Pulse Ox 98 09/16/19 19:35 Vital Signs - 24 hr 09/16/19 09/16/19 09/16/19 17:24 17:34 17:50 Temperature [ 36.3 C Oral] Pulse, 112 H 110 H 111 H Peripheral [ Left Pulse Oximetry] Respiratory 12 18 16 Rate Blood Pressure 119/83 119/75 110/89 [Left Upper Arm ] O2 Sat by Pulse 100 100 97 Oximetry 09/16/19 09/16/19 09/16/19 18:19 18:34 18:49 Temperature [ Oral] Pulse, 97 96 97 Peripheral [ Left Pulse Oximetry] Respiratory 15 15 17 Rate Blood Pressure 131/80 122/74 122/81 [Left Upper Arm ] O2 Sat by Pulse 98 98 98 Oximetry 09/16/19 09/16/19 09/16/19 19:05 19:35 20:05 Temperature [ Oral] Pulse, 96 96 Peripheral [ Left Pulse Oximetry] Respiratory 15 16 Rate Blood Pressure 118/82 129/78 124/74 [Left Upper Arm ] O2 Sat by Pulse 98 98 Oximetry 09/16/19 09/16/19 20:20 20:35 Temperature [ Oral] Pulse, Peripheral [ Left Pulse Oximetry] Respiratory Rate Blood Pressure 125/75 127/69 [Left Upper Arm ] O2 Sat by Pulse Oximetry - Orders/Labs/Meds Orders: Active Orders 24 hr Category Date Time Status Cardiac Monitoring [RC] . DIRECTED Care 09/16/19 17:50 Active Peripheral IV Care [RC] . DIRECTED Care 09/16/19 17:50 Active Hand Comp Min 3V Rt [CR] Stat Exams 09/16/19 18:17 Taken Sodium Chloride 0.9% [Saline Flush] Med 09/16/19 17:49 Active 10 ml FLUSH ASDIRECTED PRN Obtain Past Medical Record [OM.PC] Routine Oth 09/16/19 17:49 Active Peripheral IV Insertion Adult [OM.PC] Routine Oth 09/16/19 17:50 Ordered Medication Orders Sodium Chloride (Saline Flush) 10 ml FLUSH ASDIRECTED PRN PRN Reason: Keep Vein Open Labs: Laboratory Tests 09/16/19 09/16/19 Range/Units 17:58 17:58 WBC 14.6 H (4.0-10.2) K/uL RBC 3.29 L (3.77-5.09) M/uL Hgb 10.6 L (11.7-15.5) g/dL Hct 33.5 L (34.0-46.0) % MCV 101.8 H D (84.0-98.0) fL MCH 32.2 (28.2-33.3) pg MCHC 31.6 L (31.7-36.0) g/dL RDW 15.7 H (11.2-14.1) % Plt Count 342 (150-350) K/uL Neut % (Auto) 86.8 H (45.0-80.0) % Lymph % (Auto) 8.9 L (10.0-50.0) % [place] % (Auto) 4.1 (2.0-14.0) % Eos % (Auto) 0.1 (0.0-5.0) % Baso % (Auto) 0.1 (0.0-2.0) % Neut # (Auto) 12.65 H (1.40-7.00) K/uL Lymph # (Auto) 1.30 (0.50-3.50) K/uL [place] # (Auto) 0.59 (0.00-1.00) K/uL Eos # (Auto) 0.01 (0.00-0.50) K/uL Baso # (Auto) 0.01 (0.00-0.20) K/uL Sodium 138 (136-145) mmol/L Potassium 4.4 (3.5-5.1) mmol/L Chloride 105 (98-107) mmol/L Carbon Dioxide 21.2 (21.0-32.0) mmol/L BUN 39 H (7-18) mg/dL Creatinine 4.21 H* (0.51-1.17) mg/dL Est Cr Clr Drug Dosing 12.09 mL/min Estimated GFR (MDRD) 10 mL/min Glucose 88 (74-106) mg/dL Uric Acid 7.2 (2.6-7.2) mg/dL Calcium 7.6 L (8.5-10.1) mg/dL Phosphorus 3.1 (2.6-4.7) mg/dL Magnesium 1.7 L (1.8-2.4) mg/dL Total Bilirubin 0.3 (0.2-1.0) mg/dL AST 33 (15-37) U/L ALT 40 (12-78) U/L Alkaline Phosphatase 188 H (46-116) IU/L Total Protein 4.9 L (6.4-8.2) g/dL Albumin 1.6 L (3.4-5.0) g/dL Meds: Medications Generic Name Dose Route Start Last Admin Trade Name Freq PRN Reason Stop Dose Admin Sodium Chloride 10 ml 09/16/19 17:49 Saline Flush FLUSH ASDIRECTED PRN Keep Vein Open - Radiology Interpretation Free Text/Narrative:: 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 X-rays of the right hand, 3 views, shows moderate to severe osteoarthritic changes but no evidence of fracture, dislocation, etc. Departure - Departure Time of Disposition: 21:00 Disposition: Refer to Observation Condition: Good Clinical Impression: Peptic reflux disease, Mixed anxiety depressive disorder, UTI, Urinary tract infectious disease, Hypomagnesemia, Weakness, Tobacco abuse counseling, Hypoalbuminemia, Chronic renal insufficiency, stage IV (severe) Hypothyroidism Qualifiers: Hypothyroidism type: postablative Qualified Code(s): E89.0 - Postprocedural hypothyroidism Hypertension Qualifiers: Hypertension type: essential hypertension Qualified Code(s): I10 - Essential ( primary) hypertension Osteoarthritis Qualifiers: Osteoarthritis location: multiple joints Osteoarthritis type: primary Qualified Code(s): M15.0 - Primary generalized (osteo)arthritis Anemia Qualifiers: Anemia type: other cause Other causes of anemia: chronic disease, other Qualified Code(s): D63.8 - Anemia in other chronic diseases classified elsewhere - Discharge Information Sepsis Event Note - Evaluation Sepsis Screening Result: No Definite Risk - Focused Exam Vital Signs: Vital Signs Temp Pulse Resp BP Pulse Ox 09/16/19 20:35 127/69 09/16/19 20:20 125/75 09/16/19 20:05 124/74 09/16/19 19:35 96 16 129/78 98 09/16/19 19:05 96 15 118/82 98 09/16/19 18:49 97 17 122/81 98 09/16/19 18:34 96 15 122/74 98 09/16/19 18:19 97 15 131/80 98 09/16/19 17:50 111 H 16 110/89 97 09/16/19 17:34 110 H 18 119/75 100 09/16/19 17:24 36.3 C 112 H 12 119/83 100 Date Exam was Performed: 09/16/19 Time Exam was Performed: 21:00 - Problem List & Annotations (1) Weakness SNOMED Code(s): 58416274 Code(s): R53.1 - WEAKNESS Status: Acute Priority: High Current Visit: Yes Onset Date: ~09/15/19 Annotation/Comment:: Progressive this affecting ADLs as above. Her regular provider, Luda Kwong MD at [facility] in [place] , did not evaluate the patient in her office today with plans to admit directly to swing bed care. Secondary to the patient's significant weakness on arrival, however, her provider did request initial evaluation in the emergency room. Patient will be placed in observation status on telemetry initially with IV antibiotics as below and additional IV fluids with caution. The patient and the family apparently plan shelter placement in the future. (2) Chronic renal insufficiency, stage IV (severe) SNOMED Code(s): 575180215 Code(s): N18.4 - CHRONIC KIDNEY DISEASE, STAGE 4 (SEVERE) Status: Chronic Priority: Medium Current Visit: Yes Annotation/Comment:: Continue nocturnal peritoneal dialysis on a daily basis with family to help in this therapy. Otherwise close follow-up by her secured entrance monitor at [facility]. Note stable creatinine level in comparison to blood work in [place] in the emergency room on 09/15 as above. Phosphate level is normal. Her calcium is still somewhat decreased, however. Continue to observe closely with repeat blood work in the a.m.. (3) Anemia SNOMED Code(s): 711056221 Code(s): D64.9 - ANEMIA, UNSPECIFIED Status: Acute Priority: High Current Visit: Yes Onset Date: ~10/04/16 Annotation/Comment:: Stable hemoglobin in comparison to ER evaluation at [facility] yesterday. Anemia likely secondary to chronic disease with additional history of vitamin B12 and folic acid deficiency. Continue current supplementation. Iron studies were recently conducted at [facility] per review of the records today. Qualifiers: Anemia type: other cause Other causes of anemia: chronic disease, other Qualified Code(s): D63.8 - Anemia in other chronic diseases classified elsewhere (4) Hypothyroidism SNOMED Code(s): 38170813 Code(s): E03.9 - HYPOTHYROIDISM, UNSPECIFIED Status: Chronic Priority: Medium Current Visit: Yes Annotation/Comment:: TSH to be conducted in the a.m. Reviewed history of thyroid cancer as above. Qualifiers: Hypothyroidism type: postablative Qualified Code(s): E89.0 - Postprocedural hypothyroidism (5) Peptic reflux disease SNOMED Code(s): 902244892 Code(s): K21.9 - GASTRO-ESOPHAGEAL REFLUX DISEASE WITHOUT ESOPHAGITIS Status: Chronic Priority: Medium Current Visit: Yes Annotation/Comment:: Stable by history (6) Osteoarthritis SNOMED Code(s): 238533071 Code(s): M19.90 - UNSPECIFIED OSTEOARTHRITIS, UNSPECIFIED SITE Status: Chronic Priority: Medium Current Visit: Yes Annotation/Comment:: Stable by history. Mild right hand contusion today. Ice packs for now. Qualifiers: Osteoarthritis location: multiple joints Osteoarthritis type: primary Qualified Code(s): M15.0 - Primary generalized (osteo)arthritis (7) Hypertension SNOMED Code(s): 90413647 Code(s): I10 - ESSENTIAL (PRIMARY) HYPERTENSION Status: Chronic Priority : Medium Current Visit: Yes Annotation/Comment:: Continue to observe closely with blood pressures under good control in the emergency room. Qualifiers: Hypertension type: essential hypertension Qualified Code(s): I10 - Essential (primary) hypertension (8) Mixed anxiety depressive disorder SNOMED Code(s): 250989195 Code(s): F41.8 - OTHER SPECIFIED ANXIETY DISORDERS Status: Chronic Priority: Medium Current Visit: Yes Annotation/Comment:: Stable by history. Observe closely by regular providers (9) Hypoalbuminemia SNOMED Code(s): 532045812 Code(s): E88.09 - [facility] DISORDERS OF PLASMA-PROTEIN METABOLISM, NEC Status: Acute Priority: Medium Current Visit: Yes Onset Date: 10/04/16 Annotation/Comment:: Consider high protein Glucerna supplements with caution secondary to her renal insufficiency, however advise nephrology followup prior to initiation of this therapy (10) Hypomagnesemia SNOMED Code(s): 379290478 Code(s): E83.42 - HYPOMAGNESEMIA Status: Acute Priority: Medium Current Visit: Yes Onset Date: 10/04/16 Annotation/Comment:: Low-dose magnesium therapy with caution secondary to her renal disease (11) UTI (urinary tract infection) SNOMED Code(s): 93940178 Code(s): N39.0 - URINARY TRACT INFECTION, SITE NOT SPECIFIED Status: Acute Priority: High Current Visit: No Onset Date: 10/04/16 Annotation/ Comment:: UTI diagnosed by [facility] physicians yesterday. She was discharged on oral Cipro which will be changed to IV Cipro and IV Rocephin on admission. Note urine culture and sensitivity was positive for E. coli at [facility], however final sensitivities are still pending. Note leukocytosis on admission. Qualifiers: Urinary tract infection type: acute cystitis Hematuria presence: without hematuria Qualified Code(s): N30.00 - Acute cystitis without hematuria (12) Tobacco abuse counseling SNOMED Code(s): 178515542, 361717928, 410941425 Code(s): Z71.6 - TOBACCO ABUSE COUNSELING Status: Chronic Priority: Medium Current Visit: Yes Annotation/Comment:: Her was strongly encouraged to discontinue smoking RUBA. Tobacco cessation information to be provided at patient's discharge from this facility. - Problem List Review Problem List Initiated/Reviewed/Updated: Yes - My Orders Last 24 Hours: My Active Orders 09/16/19 17:49 Sodium Chloride 0.9% [Saline Flush] 10 ml FLUSH ASDIRECTED PRN Obtain Past Medical Record [OM.PC] Routine 09/16/19 17:50 Cardiac Monitoring [RC] . DIRECTED Peripheral IV Care [RC] . DIRECTED Peripheral IV Insertion Adult [OM.PC] Routine 09/16/19 18:17 Hand Comp Min 3V Rt [CR] Stat - Assessment/Plan Admission H&P: Please use this note as an admission H&P Last 24 Hours: My Active Orders 09/16/19 17:49 Sodium Chloride 0.9% [Saline Flush] 10 ml FLUSH ASDIRECTED PRN Obtain Past Medical Record [OM.PC] Routine 09/16/19 17:50 Cardiac Monitoring [RC] . DIRECTED Peripheral IV Care [RC] . DIRECTED Peripheral IV Insertion Adult [OM.PC] Routine 09/16/19 18:17 Hand Comp Min 3V Rt [CR] Stat Assessment:: As above. Plan: As above. Extensive precautions were given to the patient and her family, who are in agreement with the treatment plan. The patient's condition is stable enough for observation status and general supervision.
[2019-09-16] MEDS ORDERED: Sodium Chloride 0.9% 10 ML Syringe FLUSH PRN (17:49)
[2019-09-16] MEDS ORDERED: Ondansetron 4 MG/2 ML SDV IVPUSH PRN (21:08)
[2019-09-16] MEDS ORDERED: Ciprofloxacin in D5W 200 MG in Premix Bag 1 BAG IV SCH ×2 (21:15)
[2019-09-16] MEDS ORDERED: Enoxaparin 30 MG/0.3 ML Syringe SUBCUT SCH (21:15)
[2019-09-16] MEDS ORDERED: Sodium Chloride 0.9% 1,000 ML IV SCH (21:15)
[2019-09-16] MEDS ORDERED: Heparin Sodium 5,000 Units/ML Vial SUBCUT SCH (22:15)
[2019-09-16] MEDS: cefTRIAXone 1 GM in Sodium Chloride 0.9% 100 ML IV SCH (23:00)
[2019-09-17] MEDS: Acetaminophen 325 MG Tab PO PRN ×2 (04:38→12:19)
[2019-09-17] MEDS: Venlafaxine 75 MG Cap.ER PO SCH (08:35)
[2019-09-17] MEDS: Venlafaxine 37.5 MG Cap.ER PO SCH (08:35)
[2019-09-17] MEDS: Cholecalciferol (Vitamin D3) 25 MCG Tab PO SCH (08:36)
[2019-09-17] MEDS: Folic Acid 1 MG Tab PO SCH (08:36)
[2019-09-17] MEDS: Potassium Chloride 20 MEQ Tab.ER PO SCH ×2 (08:36→17:02)
[2019-09-17] MEDS: SEVELAMER CARBONATE 800 MG PO SCH ×3 (08:37→17:02)
[2019-09-17] MEDS: Sodium Chloride 0.9% 10 ML Syringe FLUSH SCH ×2 (08:37→21:10)
[2019-09-17] MEDS: Polyethylene Glycol 3350 Powder 17 GM Packet PO SCH (08:37)
[2019-09-17] MEDS: Calcitriol 0.25 MCG Cap PO SCH (08:37)
[2019-09-17] MEDS: Levothyroxine 100 MCG Tab PO SCH (08:37)
[2019-09-17] MEDS: cefTRIAXone 1 GM in Sodium Chloride 0.9% 100 ML IV SCH (12:11)
[2019-09-17] MEDS: ALPRAZolam 1 MG Tab PO SCH (21:12)
[2019-09-17] MEDS ORDERED: Ciprofloxacin 500 MG Tab PO ONE (21:17)
--- NOTE | 2019-09-17 21:30 | PCM.PN ---
- General Info Date of Service: 09/17/19 Functional Status: Reports: Pain Controlled, Tolerating Diet - Review of Systems General: Reports: Weakness, Malaise, Appetite (decreased) HEENT: Reports: No Symptoms Pulmonary: Reports: No Symptoms Cardiovascular: Reports: No Symptoms Gastrointestinal: Reports: Decreased Appetite Genitourinary: Reports: No Symptoms Musculoskeletal: Reports: Hand Pain (improving) Skin: Reports: No Symptoms Neurological: Reports: Difficulty Walking (unable), Weakness Psychiatric: Reports: No Symptoms - Patient Data Vitals - Most Recent: Last Vital Signs Temp 98.9 F 09/17/19 20:00 Pulse 96 09/17/19 20:00 Resp 17 09/17/19 20:00 BP 113/50 L 09/17/19 20:00 Pulse Ox 96 09/17/19 20:00 Weight - Most Recent: 240 lb I&O - Last 24 Hours: Intake & Output 09/17/19 09/17/19 09/17/19 06:59 14:59 22:59 Intake Total 965 720 220 Output Total 300 Balance 965 420 220 Lab Results Last 24 Hours: Laboratory Results - last 24 hr 09/17/19 Range/Units 07:05 Lactic Acid 3.7 H (0.4-2.0) mmol/L Med Orders - Current: Current Medications Acetaminophen (Tylenol) 650 mg PO Q4H PRN PRN Reason: Pain Last Admin: 09/17/19 12:19 Dose: 650 mg Alprazolam (Xanax) 1 mg PO BEDTIME [facility] Last Admin: 09/17/19 21:12 Dose: 1 mg Calcitriol (Rocaltrol) 0.25 mcg PO DAILY [facility] Last Admin: 09/17/19 08:37 Dose: 0.25 mcg Cholecalciferol (Vitamin D3) 100 mcg PO DAILY [facility] Last Admin: 09/17/19 08:36 Dose: 100 mcg Ciprofloxacin (Ciprofloxacin Hcl) 500 mg PO BEDTIME [facility] Stop: 09/19/19 20:01 Ciprofloxacin (Ciprofloxacin Hcl) 500 mg PO ONETIME ONE Stop: 09/17/19 21:18 Folic Acid (Folic Acid) 1 mg PO DAILY [facility] Last Admin: 09/17/19 08:36 Dose: 1 mg Levothyroxine Sodium (Synthroid) 100 mcg PO ACBREAKFAST [facility] Last Admin: 09/17/19 08:37 Dose: 100 mcg Sevelamer Carbonate [Renvela] 800 Mg Tablets 800 mg PO TID [facility] Last Admin: 09/17/19 17:02 Dose: 800 mg Polyethylene Glycol (Miralax) 17 gm PO DAILY [facility] Last Admin: 09/17/19 08:37 Dose: Not Given Potassium Chloride (Klor-Con M20) 20 meq PO BID [facility] Last Admin: 09/17/19 17:02 Dose: 20 meq Sodium Chloride (Saline Flush) 10 ml FLUSH ASDIRECTED PRN PRN Reason: Keep Vein Open Last Admin: 09/16/19 23:01 Dose: 10 ml Sodium Chloride (Saline Flush) 10 ml FLUSH Q12HR [facility] Last Admin: 09/17/19 21:10 Dose: 10 ml Venlafaxine HCl (Effexor Xr) 37.5 mg PO DAILY [facility] Last Admin: 09/17/19 08:35 Dose: 37.5 mg Venlafaxine HCl (Effexor Xr) 150 mg PO DAILY [facility] Last Admin: 09/17/19 08:35 Dose: 150 mg Discontinued Medications Enoxaparin Sodium (Lovenox) 30 mg SUBCUT Q24H [facility] Last Admin: 09/16/19 23:23 Dose: Not Given Heparin Sodium (Porcine) (Heparin Sodium) 5,000 units SUBCUT Q12H [facility] Ceftriaxone Sodium 1 gm/ (Sodium Chloride) 100 mls @ 200 mls/hr IV Q12H [facility] Last Admin: 09/17/19 12:11 Dose: Not Given Ciprofloxacin/Dextrose 200 mg/ (Premix) 100 mls @ 100 mls/hr IV Q24H [facility] Last Admin: 09/16/19 21:50 Dose: 100 mls/hr Sodium Chloride (Normal Saline) 1,000 mls @ 75 mls/hr IV ASDIRECTED [facility] Last Admin: 09/16/19 22:57 Dose: 75 mls/hr Ondansetron HCl (Zofran) 4 mg IVPUSH Q6H PRN PRN Reason: Nausea/Vomiting - Exam Quality Assessment: Central Line/PICC (unable to be placed) General: Alert, Cooperative, No Acute Distress HEENT: Mucous Membr. Moist/[place] Neck: Trachea Midline, No JVD Lungs: Clear to Auscultation, Normal Respiratory Effort Cardiovascular: Regular Rate, Regular Rhythm GI/Abdominal Exam: Soft, Non-Tender, No Distention, Other (peritoneal dialysis catheter site clean) (Female) Exam: Deferred Back Exam: Normal Inspection Extremities: Pedal Edema (minimal) Skin: Warm, Dry, Intact Neurological: No New Focal Deficit, Other (generalized weakness) Psy/Mental Status: Alert, Normal Affect, Normal Mood Sepsis Event Note - Evaluation Sepsis Screening Result: No Definite Risk - Focused Exam Vital Signs: Vital Signs Temp Pulse Resp BP Pulse Ox 09/17/19 20:00 98.9 F 96 17 113/50 L 96 09/17/19 16:00 98.6 F 97 16 112/46 L 98 09/17/19 11:04 97.2 F 94 17 138/86 98 Date Exam was Performed: 09/17/19 Time Exam was Performed: 21:25 - Problem List & Annotations (1) E. coli urinary tract infection SNOMED Code(s): 038240747 Code(s): N39.0 - URINARY TRACT INFECTION, SITE NOT SPECIFIED; B96.20 - UNSP ESCHERICHIA COLI THE CAUSE OF DISEASES CLASSD ELSWHR Status: Acute Priority: High Current Visit: Yes (2) Anemia SNOMED Code(s): 399602487 Code(s): D64.9 - ANEMIA, UNSPECIFIED Status: Acute Priority: High Current Visit: Yes Onset Date: ~10/04/16 Qualifiers: Anemia type: other cause Other causes of anemia: chronic disease, other Qualified Code(s): D63.8 - Anemia in other chronic diseases classified elsewhere (3) Hypoalbuminemia SNOMED Code(s): 185166523 Code(s): E88.09 - OTH DISORDERS OF PLASMA-PROTEIN METABOLISM, NEC Status: Acute Priority: Medium Current Visit: Yes Onset Date: 10/04/16 (4) Hypomagnesemia SNOMED Code(s): 703085846 Code(s): E83.42 - HYPOMAGNESEMIA Status: Acute Priority: Medium Current Visit: Yes Onset Date: 10/04/16 (5) Weakness SNOMED Code(s): 01510969 Code(s): R53.1 - WEAKNESS Status: Acute Priority: High Current Visit: Yes Onset Date: ~09/15/19 (6) Chronic renal insufficiency, stage IV (severe) SNOMED Code(s): 669677861 Code(s): N18.4 - CHRONIC KIDNEY DISEASE, STAGE 4 (SEVERE) Status: Chronic Priority: Medium Current Visit: Yes (7) Hypertension SNOMED Code(s): 84867876 Code(s): I10 - ESSENTIAL (PRIMARY) HYPERTENSION Status: Chronic Priority : Medium Current Visit: Yes Qualifiers: Hypertension type: essential hypertension Qualified Code(s): I10 - Essential (primary) hypertension (8) Hypothyroidism SNOMED Code(s): 24791268 Code(s): E03.9 - HYPOTHYROIDISM, UNSPECIFIED Status: Chronic Priority: Medium Current Visit: Yes Qualifiers: Hypothyroidism type: postablative Qualified Code(s): E89.0 - Postprocedural hypothyroidism (9) Mixed anxiety depressive disorder SNOMED Code(s): 887292686 Code(s): F41.8 - OTHER SPECIFIED ANXIETY DISORDERS Status: Chronic Priority: Medium Current Visit: Yes (10) Osteoarthritis SNOMED Code(s): 507887023 Code(s): M19.90 - UNSPECIFIED OSTEOARTHRITIS, UNSPECIFIED SITE Status: Chronic Priority: Medium Current Visit: Yes Qualifiers: Osteoarthritis location: multiple joints Osteoarthritis type: primary Qualified Code(s): M15.0 - Primary generalized (osteo)arthritis (11) Peptic reflux disease SNOMED Code(s): 209915711 Code(s): K21.9 - GASTRO-ESOPHAGEAL REFLUX DISEASE WITHOUT ESOPHAGITIS Status: Chronic Priority: Medium Current Visit: Yes (12) Chronic kidney disease SNOMED Code(s): 428462634 Code(s): N18.9 - CHRONIC KIDNEY DISEASE, UNSPECIFIED Status: Acute Current Visit: No Qualifiers: Chronic kidney disease stage: unspecified stage Qualified Code(s): N18.9 - Chronic kidney disease, unspecified (13) Dialysis patient SNOMED Code(s): 394323776 Code(s): Z99.2 - DEPENDENCE ON RENAL DIALYSIS Status: Acute Priority: High Current Visit: No (14) Fall SNOMED Code(s): 1017007, 663447590 Code(s): W19.XXXA - UNSPECIFIED FALL, INITIAL ENCOUNTER Status: Acute Priority: Medium Current Visit: No (15) Fatigue SNOMED Code(s): 31935061 Code(s): R53.83 - OTHER FATIGUE Status: Acute Priority: High Current Visit: No Onset Date: ~01/05/17 Qualifiers: Fatigue type: other Qualified Code(s): R53.83 - Other fatigue (16) Folic acid deficiency SNOMED Code(s): 841540762 Code(s): E53.8 - DEFICIENCY OF OTHER SPECIFIED B GROUP VITAMINS Status: Acute Priority: High Current Visit: No (17) Hypocalcemia SNOMED Code(s): 6602289 Code(s): E83.51 - HYPOCALCEMIA Status: Chronic Priority: Medium Current Visit: No (18) Thyroid cancer SNOMED Code(s): 198129672 Code(s): C73 - MALIGNANT NEOPLASM OF THYROID GLAND Status: Chronic Priority: Medium Current Visit: No - Problem List Review Problem List Initiated/Reviewed/Updated: Yes - My Orders Last 24 Hours: My Active Orders 09/17/19 12:07 Central Line PICC Insertion [Central Venous Line Insertion] [OM.PC] Routine 09/17/19 21:17 Communication Order [RC] ROUTINE Ciprofloxacin [Ciprofloxacin HCl] 500 mg PO ONETIME ONE 09/18/19 08:00 Consult to [place] [CONS] Routine 09/18/19 20:00 Ciprofloxacin [Ciprofloxacin HCl] 500 mg PO BEDTIME - Plan Plan:: 09/17/19 Yandy Dennison MD Unable to maintain peripheral IV, unable to insert PICC, unable to draw blood today. She says she doesn't need IV. Appetite is not good but she is eating and drinking. UTI C&S E coli senitivities pending from [facility]. here and discharge plans discussed. She is willing to go to [place] to continue PT- OT
[2019-09-18] MEDS: Levothyroxine 100 MCG Tab PO SCH (07:49)
[2019-09-18] MEDS: Calcitriol 0.25 MCG Cap PO SCH (07:49)
[2019-09-18] MEDS: Venlafaxine 37.5 MG Cap.ER PO SCH (07:49)
[2019-09-18] MEDS: Venlafaxine 75 MG Cap.ER PO SCH (07:49)
[2019-09-18] MEDS: Polyethylene Glycol 3350 Powder 17 GM Packet PO SCH (07:50)
[2019-09-18] MEDS: SEVELAMER CARBONATE 800 MG PO SCH ×3 (07:50→17:44)
[2019-09-18] MEDS: Potassium Chloride 20 MEQ Tab.ER PO SCH ×2 (07:50→17:44)
[2019-09-18] MEDS: Folic Acid 1 MG Tab PO SCH (07:50)
[2019-09-18] MEDS: Cholecalciferol (Vitamin D3) 25 MCG Tab PO SCH (07:50)
[2019-09-18] MEDS: Sodium Chloride 0.9% 10 ML Syringe FLUSH SCH ×2 (07:59→20:46)
[2019-09-18 11:45] VITALS: PULSE 94
[2019-09-18 19:34] VITALS: BP 121/78
[2019-09-18] MEDS ORDERED: Ciprofloxacin 500 MG Tab PO SCH (20:00)
[2019-09-18] MEDS: ALPRAZolam 1 MG Tab PO SCH (20:45)
--- NOTE | 2019-09-18 21:25 | PCM.PN ---
- General Info Date of Service: 09/18/19 Functional Status: Reports: Pain Controlled, Tolerating Diet - Review of Systems General: Reports: Weakness HEENT: Reports: No Symptoms Pulmonary: Reports: No Symptoms Cardiovascular: Reports: No Symptoms Gastrointestinal: Reports: No Symptoms Genitourinary: Reports: No Symptoms Musculoskeletal: Reports: No Symptoms Skin: Reports: Other (weeping) Neurological: Reports: Difficulty Walking, Weakness Psychiatric: Reports: No Symptoms - Patient Data Vitals - Most Recent: Last Vital Signs Temp 97.9 F 09/18/19 19:32 Pulse 94 09/18/19 19:32 Resp 16 09/18/19 19:32 BP 121/78 09/18/19 19:32 Pulse Ox 100 09/18/19 19:32 Weight - Most Recent: 240 lb I&O - Last 24 Hours: Intake & Output 09/18/19 09/18/19 09/18/19 06:59 14:59 22:59 Intake Total 50 720 300 Output Total 300 Balance 50 720 0 Med Orders - Current: Current Medications Acetaminophen (Tylenol) 650 mg PO Q4H PRN PRN Reason: Pain Last Admin: 09/17/19 12:19 Dose: 650 mg Alprazolam (Xanax) 1 mg PO BEDTIME [facility] Last Admin: 09/18/19 20:45 Dose: 1 mg Calcitriol (Rocaltrol) 0.25 mcg PO DAILY [facility] Last Admin: 09/18/19 07:49 Dose: 0.25 mcg Cholecalciferol (Vitamin D3) 100 mcg PO DAILY [facility] Last Admin: 09/18/19 07:50 Dose: 100 mcg Ciprofloxacin (Ciprofloxacin Hcl) 500 mg PO BEDTIME [facility] Stop: 09/19/19 20:01 Last Admin: 09/18/19 20:45 Dose: 500 mg Folic Acid (Folic Acid) 1 mg PO DAILY [facility] Last Admin: 09/18/19 07:50 Dose: 1 mg Levothyroxine Sodium (Synthroid) 100 mcg PO ACBREAKFAST [facility] Last Admin: 09/18/19 07:49 Dose: 100 mcg Sevelamer Carbonate [Renvela] 800 Mg Tablets 800 mg PO TID [facility] Last Admin: 09/18/19 17:44 Dose: 800 mg Polyethylene Glycol (Miralax) 17 gm PO DAILY [facility] Last Admin: 09/18/19 07:50 Dose: 17 gm Potassium Chloride (Klor-Con M20) 20 meq PO BID [facility] Last Admin: 09/18/19 17:44 Dose: 20 meq Sodium Chloride (Saline Flush) 10 ml FLUSH ASDIRECTED PRN PRN Reason: Keep Vein Open Last Admin: 09/16/19 23:01 Dose: 10 ml Sodium Chloride (Saline Flush) 10 ml FLUSH Q12HR [facility] Last Admin: 09/18/19 20:46 Dose: Not Given Venlafaxine HCl (Effexor Xr) 37.5 mg PO DAILY [facility] Last Admin: 09/18/19 07:49 Dose: 37.5 mg Venlafaxine HCl (Effexor Xr) 150 mg PO DAILY [facility] Last Admin: 09/18/19 07:49 Dose: 150 mg Discontinued Medications Ciprofloxacin (Ciprofloxacin Hcl) 500 mg PO ONETIME ONE Stop: 09/17/19 21:18 Last Admin: 09/18/19 12:33 Dose: 500 mg Enoxaparin Sodium (Lovenox) 30 mg SUBCUT Q24H [facility] Last Admin: 09/16/19 23:23 Dose: Not Given Heparin Sodium (Porcine) (Heparin Sodium) 5,000 units SUBCUT Q12H [facility] Ceftriaxone Sodium 1 gm/ (Sodium Chloride) 100 mls @ 200 mls/hr IV Q12H [facility] Last Admin: 09/17/19 12:11 Dose: Not Given Ciprofloxacin/Dextrose 200 mg/ (Premix) 100 mls @ 100 mls/hr IV Q24H [facility] Last Admin: 09/16/19 21:50 Dose: 100 mls/hr Sodium Chloride (Normal Saline) 1,000 mls @ 75 mls/hr IV ASDIRECTED [facility] Last Admin: 09/16/19 22:57 Dose: 75 mls/hr Ondansetron HCl (Zofran) 4 mg IVPUSH Q6H PRN PRN Reason: Nausea/Vomiting - Exam General: Alert, Cooperative HEENT: Mucous Membr. Moist/[place] Neck: Trachea Midline, No JVD Lungs: Clear to Auscultation, Normal Respiratory Effort Cardiovascular: Regular Rate, Regular Rhythm GI/Abdominal Exam: Soft, Non-Tender, No Distention (Female) Exam: Deferred Back Exam: Normal Inspection Extremities: Pedal Edema, Other (BUE skin weeping) Skin: Other (weeping) Neurological: No New Focal Deficit, Other (generalized weakness) Psy/Mental Status: Alert, Normal Affect, Normal Mood Sepsis Event Note - Evaluation Sepsis Screening Result: No Definite Risk - Focused Exam Vital Signs: Vital Signs Temp Pulse Resp BP Pulse Ox 09/18/19 19:32 97.9 F 94 16 121/78 100 09/18/19 16:00 98.1 F 94 16 101/71 98 09/18/19 11:44 97.8 F 94 17 138/82 94 L Date Exam was Performed: 09/18/19 Time Exam was Performed: 21:21 - Problem List & Annotations (1) E. coli urinary tract infection SNOMED Code(s): 851823461 Code(s): N39.0 - URINARY TRACT INFECTION, SITE NOT SPECIFIED; B96.20 - UNSP ESCHERICHIA COLI THE CAUSE OF DISEASES CLASSD ELSWHR Status: Acute Priority: High Current Visit: Yes (2) Anemia SNOMED Code(s): 622902852 Code(s): D64.9 - ANEMIA, UNSPECIFIED Status: Acute Priority: High Current Visit: Yes Onset Date: ~10/04/16 Qualifiers: Anemia type: due to chronic kidney disease Chronic kidney disease stage: stage 4 (severe) Qualified Code(s): N18.4 - Chronic kidney disease, stage 4 ( severe); D63.1 - Anemia in chronic kidney disease (3) Hypoalbuminemia SNOMED Code(s): 255965715 Code(s): E88.09 - [facility] DISORDERS OF PLASMA-PROTEIN METABOLISM, NEC Status: Acute Priority: Medium Current Visit: Yes Onset Date: 10/04/16 (4) Hypomagnesemia SNOMED Code(s): 237269168 Code(s): E83.42 - HYPOMAGNESEMIA Status: Acute Priority: Medium Current Visit: Yes Onset Date: 10/04/16 (5) Weakness SNOMED Code(s): 12734127 Code(s): R53.1 - WEAKNESS Status: Acute Priority: High Current Visit: Yes Onset Date: ~09/15/19 (6) Chronic renal insufficiency, stage IV (severe) SNOMED Code(s): 607910797 Code(s): N18.4 - CHRONIC KIDNEY DISEASE, STAGE 4 (SEVERE) Status: Chronic Priority: Medium Current Visit: Yes (7) Hypertension SNOMED Code(s): 48048700 Code(s): I10 - ESSENTIAL (PRIMARY) HYPERTENSION Status: Chronic Priority : Medium Current Visit: Yes Qualifiers: Hypertension type: essential hypertension (8) Hypothyroidism SNOMED Code(s): 68165955 Code(s): E03.9 - HYPOTHYROIDISM, UNSPECIFIED Status: Chronic Priority: Medium Current Visit: Yes Qualifiers: Hypothyroidism type: postablative (9) Mixed anxiety depressive disorder SNOMED Code(s): 612179993 Code(s): F41.8 - OTHER SPECIFIED ANXIETY DISORDERS Status: Chronic Priority: Medium Current Visit: Yes (10) Osteoarthritis SNOMED Code(s): 827041292 Code(s): M19.90 - UNSPECIFIED OSTEOARTHRITIS, UNSPECIFIED SITE Status: Chronic Priority: Medium Current Visit: Yes Qualifiers: Osteoarthritis location: multiple joints Osteoarthritis type: primary Qualified Code(s): M15.0 - Primary generalized (osteo)arthritis (11) Peptic reflux disease SNOMED Code(s): 395926618 Code(s): K21.9 - GASTRO-ESOPHAGEAL REFLUX DISEASE WITHOUT ESOPHAGITIS Status: Chronic Priority: Medium Current Visit: Yes (12) Chronic kidney disease SNOMED Code(s): 629070313 Code(s): N18.9 - CHRONIC KIDNEY DISEASE, UNSPECIFIED Status: Acute Current Visit: No Qualifiers: Chronic kidney disease stage: on chronic dialysis Qualified Code(s): N18.6 - End stage renal disease; Z99.2 - Dependence on renal dialysis (13) Dialysis patient SNOMED Code(s): 602859119 Code(s): Z99.2 - DEPENDENCE ON RENAL DIALYSIS Status: Acute Priority: High Current Visit: No (14) Fall SNOMED Code(s): 3925037, 433042066 Code(s): W19.XXXA - UNSPECIFIED FALL, INITIAL ENCOUNTER Status: Acute Priority: Medium Current Visit: No (15) Fatigue SNOMED Code(s): 17495422 Code(s): R53.83 - OTHER FATIGUE Status: Acute Priority: High Current Visit: No Onset Date: ~10/04/16 Qualifiers: Fatigue type: due to exposure Encounter type: subsequent encounter Qualified Code(s): T73.2XXD - Exhaustion due to exposure, subsequent encounter (16) Folic acid deficiency SNOMED Code(s): 331670417 Code(s): E53.8 - DEFICIENCY OF OTHER SPECIFIED B GROUP VITAMINS Status: Acute Priority: High Current Visit: No (17) Hypocalcemia SNOMED Code(s): 6225295 Code(s): E83.51 - HYPOCALCEMIA Status: Chronic Priority: Medium Current Visit: No (18) Thyroid cancer SNOMED Code(s): 292050913 Code(s): C73 - MALIGNANT NEOPLASM OF THYROID GLAND Status: Chronic Priority: Medium Current Visit: No - Problem List Review Problem List Initiated/Reviewed/Updated: Yes - My Orders Last 24 Hours: My Active Orders 09/17/19 21:17 Communication Order [RC] 09/18/19 08:00 Consult to Truck Despatcher [CONS] Routine 09/18/19 20:00 Ciprofloxacin [Ciprofloxacin HCl] 500 mg PO BEDTIME 09/18/19 20:52 Ready for Discharge [RC] PER UNIT ROUTINE 09/18/19 20:58 Cardiac Monitoring Discontinue [RC] Click to Edit - Plan Plan:: 09/17/19 Yandy Dennison MD Unable to maintain peripheral IV, unable to insert PICC, unable to draw blood today. She says she doesn't need IV. Appetite is not good but she is eating and drinking. UTI C&S E coli sensitivities pending from [facility]. here and discharge plans discussed. She is willing to go to [place] to continue PT-OT. 09/18/19 Yandy Dennison MD Needing swing-bed status to continue PT-OT. [place] sending staff to be educated and trained on peritoneal dialysis.
--- NOTE | 2019-09-18 21:27 | PCM.DCSUM1 ---
Discharge Summary - Hospital Course Diagnosis: Stroke: No - Discharge Data Discharge Date: 09/18/19 Discharge Disposition: DC/Tfer W/I Hosp To Swing [facility] Condition: Fair - Referral to Home Health Primary Care Physician: JAE Griffin - Discharge Diagnosis/Problem(s) (1) E. coli urinary tract infection SNOMED Code(s): 664237003 ICD Code: N39.0 - URINARY TRACT INFECTION, SITE NOT SPECIFIED; B96.20 - UNSP ESCHERICHIA COLI THE CAUSE OF DISEASES CLASSD ELSWHR Status: Acute Priority: High Current Visit: Yes (2) Anemia SNOMED Code(s): 251743338 ICD Code: D64.9 - ANEMIA, UNSPECIFIED Status: Acute Priority: High Current Visit: Yes Onset Date: ~10/04/16 Qualifiers: Anemia type: due to chronic kidney disease Chronic kidney disease stage: stage 4 (severe) Qualified Code(s): N18.4 - Chronic kidney disease, stage 4 ( severe); D63.1 - Anemia in chronic kidney disease (3) Hypoalbuminemia SNOMED Code(s): 108833043 ICD Code: E88.09 - [facility] DISORDERS OF PLASMA-PROTEIN METABOLISM, NEC Status: Acute Priority: Medium Current Visit: Yes Onset Date: 10/04/16 (4) Hypomagnesemia SNOMED Code(s): 334045385 ICD Code: E83.42 - HYPOMAGNESEMIA Status: Acute Priority: Medium Current Visit: Yes Onset Date: 10/04/16 (5) Weakness SNOMED Code(s): 34985644 ICD Code: R53.1 - WEAKNESS Status: Acute Priority: High Current Visit: Yes Onset Date: ~09/15/19 (6) Chronic renal insufficiency, stage IV (severe) SNOMED Code(s): 609445038 ICD Code: N18.4 - CHRONIC KIDNEY DISEASE, STAGE 4 (SEVERE) Status: Chronic Priority: Medium Current Visit: Yes (7) Hypertension SNOMED Code(s): 38622018 ICD Code: I10 - ESSENTIAL (PRIMARY) HYPERTENSION Status: Chronic Priority : Medium Current Visit: Yes Qualifiers: Hypertension type: essential hypertension (8) Hypothyroidism SNOMED Code(s): 33525743 ICD Code: E03.9 - HYPOTHYROIDISM, UNSPECIFIED Status: Chronic Priority: Medium Current Visit: Yes Qualifiers: Hypothyroidism type: postablative (9) Mixed anxiety depressive disorder SNOMED Code(s): 013691773 ICD Code: F41.8 - OTHER SPECIFIED ANXIETY DISORDERS Status: Chronic Priority: Medium Current Visit: Yes (10) Osteoarthritis SNOMED Code(s): 864646007 ICD Code: M19.90 - UNSPECIFIED OSTEOARTHRITIS, UNSPECIFIED SITE Status: Chronic Priority: Medium Current Visit: Yes Qualifiers: Osteoarthritis location: multiple joints Osteoarthritis type: primary Qualified Code(s): M15.0 - Primary generalized (osteo)arthritis (11) Peptic reflux disease SNOMED Code(s): 061531958 ICD Code: K21.9 - GASTRO-ESOPHAGEAL REFLUX DISEASE WITHOUT ESOPHAGITIS Status: Chronic Priority: Medium Current Visit: Yes (12) Chronic kidney disease SNOMED Code(s): 171618339 ICD Code: N18.9 - CHRONIC KIDNEY DISEASE, UNSPECIFIED Status: Acute Current Visit: No Qualifiers: Chronic kidney disease stage: on chronic dialysis Qualified Code(s): N18.6 - End stage renal disease; Z99.2 - Dependence on renal dialysis (13) Dialysis patient SNOMED Code(s): 020941151 ICD Code: Z99.2 - DEPENDENCE ON RENAL DIALYSIS Status: Acute Priority: High Current Visit: No (14) Fall SNOMED Code(s): 8534442, 704486178 ICD Code: W19.XXXA - UNSPECIFIED FALL, INITIAL ENCOUNTER Status: Acute Priority: Medium Current Visit: No (15) Fatigue SNOMED Code(s): 66645378 ICD Code: R53.83 - OTHER FATIGUE Status: Acute Priority: High Current Visit: No Onset Date: ~10/04/16 Qualifiers: Fatigue type: due to exposure Encounter type: subsequent encounter Qualified Code(s): T73.2XXD - Exhaustion due to exposure, subsequent encounter (16) Folic acid deficiency SNOMED Code(s): 120765968 ICD Code: E53.8 - DEFICIENCY OF OTHER SPECIFIED B GROUP VITAMINS Status: Acute Priority: High Current Visit: No (17) Hypocalcemia SNOMED Code(s): 1927474 ICD Code: E83.51 - HYPOCALCEMIA Status: Chronic Priority: Medium Current Visit: No (18) Thyroid cancer SNOMED Code(s): 915213296 ICD Code: C73 - MALIGNANT NEOPLASM OF THYROID GLAND Status: Chronic Priority: Medium Current Visit: No - Patient Summary/Data Consults: Consultations 09/16/19 21:17 PT Evaluation and Treatment [CONS] Routine 09/16/19 21:18 OT Evaluation and Treatment [CONS] Routine 09/18/19 08:00 Consult to Sales Manager [CONS] Routine - Patient Instructions Diet: Heart Healthy Diet Activity: As Tolerated Driving: Do Not Drive Showering/Bathing: May Shower - Discharge Plan *PRESCRIPTION DRUG MONITORING PROGRAM REVIEWED*: Not Applicable *COPY OF PRESCRIPTION DRUG MONITORING REPORT IN PATIENT [place]: Not Applicable Home Medications: Home Meds ALPRAZolam [Xanax] 1 cap PO BEDTIME 06/24/19 [History] Cholecalciferol (Vitamin D3) [Vitamin D3] 4,000 unit PO DAILY 06/24/19 [History] Cyanocobalamin (Vitamin B-12) [Cyanocobalamin Injection] 1 ml IM Q30D 06/24/19 [ History] Potassium Chloride [Klor-Con M20] 1 tab PO BID 06/24/19 [History] Sevelamer Carbonate [Renvela] 800 mg PO TID 06/24/19 [History] Venlafaxine [Effexor XR] 150 mg PO DAILY 06/24/19 [History] calcitrioL [Rocaltrol] 0.25 mcg PO DAILY 06/24/19 [History] Folic Acid 1 mg PO DAILY #100 tablet 06/26/19 [Rx] Ciprofloxacin [Ciprofloxacin HCl] 500 mg PO DAILY 09/16/19 [History] Epoetin Dante [Epogen] 20,000 unit SQ WEEKLY 09/16/19 [History] Levothyroxine [Synthroid] 100 mcg PO ACBREAKFAST 09/16/19 [History] Polyethylene Glycol 3350 [MiraLAX] 17 gm PO DAILY 09/16/19 [History] Venlafaxine [Effexor XR 24 Hr] 37.5 mg PO DAILY 09/16/19 [History] Oxygen Therapy Mode: Room Air Forms: ED Department Discharge Referrals: Shyla Chiang PA [Primary Care Provider] - - Discharge Summary/Plan Comment DC Time >30 min.: Yes - Patient Data Vitals - Most Recent: Last Vital Signs Temp 97.9 F 09/18/19 19:32 Pulse 94 09/18/19 19:32 Resp 16 09/18/19 19:32 BP 121/78 09/18/19 19:32 Pulse Ox 100 09/18/19 19:32 Weight - Most Recent: 240 lb I&O - Last 24 hours: Intake & Output 09/18/19 09/18/19 09/18/19 06:59 14:59 22:59 Intake Total 50 720 300 Output Total 300 Balance 50 720 0 Med Orders - Current: Current Medications Acetaminophen (Tylenol) 650 mg PO Q4H PRN PRN Reason: Pain Last Admin: 09/17/19 12:19 Dose: 650 mg Alprazolam (Xanax) 1 mg PO BEDTIME [facility] Last Admin: 09/18/19 20:45 Dose: 1 mg Calcitriol (Rocaltrol) 0.25 mcg PO DAILY [facility] Last Admin: 09/18/19 07:49 Dose: 0.25 mcg Cholecalciferol (Vitamin D3) 100 mcg PO DAILY [facility] Last Admin: 09/18/19 07:50 Dose: 100 mcg Ciprofloxacin (Ciprofloxacin Hcl) 500 mg PO BEDTIME NILO Stop: 09/19/19 20:01 Last Admin: 09/18/19 20:45 Dose: 500 mg Folic Acid (Folic Acid) 1 mg PO DAILY [facility] Last Admin: 09/18/19 07:50 Dose: 1 mg Levothyroxine Sodium (Synthroid) 100 mcg PO ACBREAKFAST [facility] Last Admin: 09/18/19 07:49 Dose: 100 mcg Sevelamer Carbonate [Renvela] 800 Mg Tablets 800 mg PO TID [facility] Last Admin: 09/18/19 17:44 Dose: 800 mg Polyethylene Glycol (Miralax) 17 gm PO DAILY [facility] Last Admin: 09/18/19 07:50 Dose: 17 gm Potassium Chloride (Klor-Con M20) 20 meq PO BID [facility] Last Admin: 09/18/19 17:44 Dose: 20 meq Sodium Chloride (Saline Flush) 10 ml FLUSH ASDIRECTED PRN PRN Reason: Keep Vein Open Last Admin: 09/16/19 23:01 Dose: 10 ml Sodium Chloride (Saline Flush) 10 ml FLUSH Q12HR [facility] Last Admin: 09/18/19 20:46 Dose: Not Given Venlafaxine HCl (Effexor Xr) 37.5 mg PO DAILY [facility] Last Admin: 09/18/19 07:49 Dose: 37.5 mg Venlafaxine HCl (Effexor Xr) 150 mg PO DAILY [facility] Last Admin: 09/18/19 07:49 Dose: 150 mg Discontinued Medications Ciprofloxacin (Ciprofloxacin Hcl) 500 mg PO ONETIME ONE Stop: 09/17/19 21:18 Last Admin: 09/18/19 12:33 Dose: 500 mg Enoxaparin Sodium (Lovenox) 30 mg SUBCUT Q24H [facility] Last Admin: 09/16/19 23:23 Dose: Not Given Heparin Sodium (Porcine) (Heparin Sodium) 5,000 units SUBCUT Q12H [facility] Ceftriaxone Sodium 1 gm/ (Sodium Chloride) 100 mls @ 200 mls/hr IV Q12H [facility] Last Admin: 09/17/19 12:11 Dose: Not Given Ciprofloxacin/Dextrose 200 mg/ (Premix) 100 mls @ 100 mls/hr IV Q24H [facility] Last Admin: 09/16/19 21:50 Dose: 100 mls/hr Sodium Chloride (Normal Saline) 1,000 mls @ 75 mls/hr IV ASDIRECTED [facility] Last Admin: 09/16/19 22:57 Dose: 75 mls/hr Ondansetron HCl (Zofran) 4 mg IVPUSH Q6H PRN PRN Reason: Nausea/Vomiting
== END 2019-09-18 20:55 | disposition swing bed (61) ==
LOC: LL.ED 17:23 → LL.MS 20:42 → UNDOADMOB 20:42 → LL.MS 21:01
PROVIDERS: ADMIT Family Medicine; ATTEND Family Medicine
DX: N39.0 Urinary tract infection, site not specified (principal); B96.20 Unspecified Escherichia coli [E. coli] as the cause of diseases classified elsewhere; I12.0 Hypertensive chronic kidney disease with stage 5 chronic kidney disease or end stage renal disease; N18.6 End stage renal disease; D63.1 Anemia in chronic kidney disease; E88.09 Other disorders of plasma-protein metabolism, not elsewhere classified; E83.42 Hypomagnesemia; E03.9 Hypothyroidism, unspecified; E53.8 Deficiency of other specified B group vitamins; E83.51 Hypocalcemia; F41.8 Other specified anxiety disorders; K21.9 Gastro-esophageal reflux disease without esophagitis; C73 Malignant neoplasm of thyroid gland; M15.0 Primary generalized (osteo)arthritis; Z88.6 Allergy status to analgesic agent; Z88.8 Allergy status to other drugs, medicaments and biological substances; Z99.2 Dependence on renal dialysis; Z79.899 Other long term (current) drug therapy
CPT/HCPCS: 36415; 73130-RT; 80053; 83605; 83735; 84100; 84550; 85025; 97110-GP; 97161-GP; 97530-GP; A9270-GY; C1751; J0696; J0744; J7030; J7050

== ENCOUNTER 2019-10-18 00:27 | Emergency (ER) | payer MEDICARE, MEDICAID ==
--- NOTE | 2019-10-18 01:17 | EDM.PDOC ---
ED HPI GENERAL MEDICAL PROBLEM - General Chief Complaint: Abdominal Pain Stated Complaint: abd pain Time Seen by Provider: 10/18/19 00:45 Source of Information: Reports: Patient, Old Records History Limitations: Reports: No Limitations - History of Present Illness INITIAL COMMENTS - FREE TEXT/NARRATIVE: She was brought to the emergency department by ambulance complaining of weakness , dizziness and abdominal pain. She states that she felt weak all day, but used the bathroom about 10 PM and felt increased weakness and also significant dizziness and lightheadedness. She was unable to get up from the stool. She is complaining of pain in the lower mid abdomen. She has had pain in that area for several days. No chest pain or tightness. No shortness of breath. She does complain of nausea but that's also been present for several days. She is on home dialysis. She was discharged from swing bed 2 days ago. She was having all of the same problems at that time with the exception of the dizziness which she states is new. - Related Data Allergies Allergy/AdvReac Type Severity Reaction Status Date / Time ibuprofen Allergy Renal Verified 09/16/19 18:05 Insufficiency zolpidem Allergy Hallucinati Verified 09/16/19 18:05 ons Home Meds: Home Meds ALPRAZolam [Xanax] 1 cap PO BEDTIME 06/24/19 [History] Cholecalciferol (Vitamin D3) [Vitamin D3] 4,000 unit PO DAILY 06/24/19 [History] Cyanocobalamin (Vitamin B-12) [Cyanocobalamin Injection] 1 ml IM Q30D 06/24/19 [ History] Potassium Chloride [Klor-Con M20] 1 tab PO BID 06/24/19 [History] Sevelamer Carbonate [Renvela] 800 mg PO TID 06/24/19 [History] Venlafaxine [Effexor XR] 150 mg PO DAILY 06/24/19 [History] calcitrioL [Rocaltrol] 0.25 mcg PO DAILY 06/24/19 [History] Folic Acid 1 mg PO DAILY #100 tablet 06/26/19 [Rx] Epoetin Dante [Epogen] 20,000 unit SQ WEEKLY 09/16/19 [History] Polyethylene Glycol 3350 [MiraLAX] 17 gm PO DAILY 09/16/19 [History] Venlafaxine [Effexor XR] 37.5 mg PO DAILY 09/16/19 [History] Levothyroxine 112 mcg PO ACBREAKFAST #90 tablet 10/16/19 [Rx] Ondansetron [Zofran ODT] 4 mg PO Q4H PRN #30 tab.dis 10/16/19 [Rx] Past Medical History HEENT History: Reports: Cataract, Impaired Vision, Other (See Below) Other HEENT History: 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 The patient does wear glasses. Cardiovascular History: Reports: Arrhythmia, Heart Failure, High Cholesterol, Hypertension, Other (See Below) Other Cardiovascular History: PAC's first-degree AV block by EKG on 09/15/2019 at [facility]. Respiratory History: Reports: Intubation, Previous, Other (See Below) Other Respiratory History: 8 mm right middle lobe pulmonary nodule with multiple probable benign right lower lobe pulmonary nodules. Gastrointestinal History: Reports: Bowel Obstruction, Chronic Constipation, Chronic Diarrhea, Fecal Incontinence, GERD, Hemorrhoids, Other (See Below) Other Gastrointestinal History: Colitis with rectal ulcer by colonoscopy in 2019 as below. Bowel obstruction about 1978 with subsequent surgery as below. Genitourinary History: Reports: Chronic Renal Insuffiency, Dialysis, Dialysis, Peritoneal, Urinary Incontinence, UTI, Recurrent, Other (See Below) Other Genitourinary History: Home peritoneal dialysis which was initiated in March 2019 peritoneal catheter insertion on 10/24/2018. PROPOSAL MANAGER History: Reports: Other PROPOSAL MANAGER History: Menopause at age 46, Full term without complications during pregnancies or deliveries Musculoskeletal History: Reports: Arthritis, Back Pain, Chronic, Fracture, Neck Pain, Chronic, Osteoarthritis, Osteoporosis Other Musculoskeletal History: Right #3 posterior rib fracture. Right shoulder and right scapular fracture. Incidental L3 hemangioma CT scan. Neurological History: Reports: Headaches, Chronic, Migraines Other Neuro History: Long history, but have greatly improved Psychiatric History: Reports: Anxiety, Depression Endocrine/Metabolic History: Reports: Hyperparathyroidism, Hypokalemia, Hypomagnesemia, Hypothyroidism, Obesity/BMI 30+, Osteopenia, Osteoporosis, Vitamin D Deficiency, Other (See Below) Other Endocrine/Metabolic History: Hx of thyroid cancer nonoperable by patient history with subsequent chemotherapy and secondary hypothyroidism. Hypercalcemia /hypocalcemia; Hypoalbuminemia. Hematologic History: Reports: Anemia, B12 Deficiency, Blood Transfusion(s), Folic Acid, Iron Deficiency Other Hematologic History: Blood transfusions with knee surgeries as below. Immunologic History: Reports: None, Immunosuppression Oncologic (Cancer) History: Reports: Lymphoma, Thyroid Other Oncologic History: Thyroid cancer diagnosed in June 2010 with completed chemotherapy treatment in October 2015 with no radiation therapy or thyroidectomy secondary to apparent inoperable disease. Lymphoma also diagnosed with her thyroid cancer with chemotherapy as above. Dermatologic History: Reports: None - Infectious Disease History Infectious Disease History: Reports: Chicken Pox - Past Surgical History GI Surgical History: Reports: Appendectomy, Bariatric Procedure, Colon, Colonoscopy, Other (See Below) Other GI Surgeries/Procedures: Gastric bypass, hemorrhoid surgery x2, including hemorrhoidectomy in October 2005 and hemorrhoid stapling in 2004; last colonoscopy on 09/09/2019 with multiple serial biopsies indicated mild colitis with additional rectal ulcer. Incomplete colonoscopy to the transverse colon on 04/24/2018 with follow-up barium enema as below. Otherwise colonoscopies on and 02/06/2005. Partial colon resection secondary to bowel obstruction in 1978 with concomitant appendectomy with previous intestinal torsion revision without partial colectomy about 6 weeks prior to the surgery. Multiple previous failed colonoscopies as above with last barium enema as below. Peritoneal dialysis catheter placement on 04/23/2019. Endocrine Surgical History: Reports: Thyroid Biopsy, Other (See Below) Neurological Surgical History: Reports: C-Spine, Spinal Fusion, Other (See Below ) Musculoskeletal Surgical History: Reports: Joint Replacement, Knee Replacement, Other (See Below) Other Musculoskeletal Surgeries/Procedures:: Bilateral total knee arthroplasty with right TKA on 12/13/2011. - Past Imaging History Past Imaging History: Reports: Barium Enema, Cardiac Echo, CAT Scan, DEXA Scan, Mammogram, PET, PFT, Ultrasound, Venous Doppler, Other (See Below) Social & Family History - Family History Family Medical History: Noncontributory HEENT: Reports: None Cardiac: Reports: CAD, Heart Failure, High Cholesterol, Hypertension, [place], Other (See Below) Other Cardiac Family History: Maternal grandmother with fatal CHF at age 89, father with hyperlipidemia and hypertension, father with fatal [place] at age 88 Respiratory: Reports: None GI: Reports: None : Reports: Dialysis, Renal Calculus, Renal Disease/Insufficiency, Other (See Below) Other Family History: Mother with urolithiasis, father and brother with renal insufficiency which did require dialysis OBGYN: Reports: None Musculoskeletal: Reports: Arthritis, Osteoarthritis, SLE, Other (See Below) Other Musculoskeletal Family History: mother with SLE Neurological: Reports: None Psychiatric: Reports: None Endocrine/Metabolic: Reports: None Hematologic: Reports: None, SLE, Other (See Below) Other Hematologic Family History: Mother with SLE Immunologic: Reports: SLE, Other (See Below) Other Immunologic Family History: Mother with SLE Dermatologic: Reports: None Oncologic: Reports: Metastatic, Prostate, Other (See Below) Other Oncologic Family History: brother with fatal metastatic prostate cancer in his 60s - Caffeine Use Caffeine Use: Reports: None - Living Situation & Occupation Living situation: Reports: , with Family Occupation: Retired ED ROS GENERAL - Review of Systems Review Of Systems: See Below Constitutional: Reports: Weakness, Fatigue, Diaphoresis. Denies: Fever, Chills HEENT: Reports: No Symptoms Respiratory: Denies: Shortness of Breath, Pleuritic Chest Pain, Cough Cardiovascular: Reports: Edema, Lightheadedness. Denies: Chest Pain, Blood Pressure Problem, Palpitations Endocrine: Reports: Fatigue GI/Abdominal: Reports: Abdominal Pain (an aching pain in the lower mid abdomen) , Nausea. Denies: Constipation, Diarrhea, Vomiting : Reports: Other (chronic renal failure on dialysis.Recently treated for a UTI.) Musculoskeletal: Reports: No Symptoms Skin: Reports: No Symptoms Neurological: Denies: Confusion, Dizziness, Headache, Numbness Psychiatric: Reports: Anxiety. Denies: Agitation, Confusion Hematologic/Lymphatic: Reports: Anemia Immunologic: Reports: No Symptoms ED EXAM, GENERAL - Physical Exam Exam: See Below Exam Limited By: No Limitations General Appearance: Alert, WD/WN, Mild Distress Neck: Normal Inspection, Non-Tender Respiratory/Chest: No Respiratory Distress, Lungs Clear, Normal Breath Sounds, No Accessory Muscle Use Cardiovascular: Normal Peripheral Pulses, Tachycardia. No: Diastolic Murmur, Systolic Murmur, Gallop/S3, Gallop/S4 GI/Abdominal: Normal Bowel Sounds, Soft, No Distention, No Mass, Tender (Mild tenderness in the OR midabdomen.) (Female) Exam: Deferred Rectal (Female) Exam: Deferred Neurological: Alert, Oriented Psychiatric: Normal Affect, Normal Mood Skin Exam: Warm, Dry EKG INTERPRETATION Rhythm: NSR P-Wave: Present QRS: Normal ST-T: Normal Comparison: No Change (no change from EKG done October 14, 2019) Course - Vital Signs Last Recorded V/S: Last Vital Signs Temp 36.4 C 10/18/19 00:30 Pulse 121 H 10/18/19 02:14 Resp 22 H 10/18/19 02:14 BP 98/63 10/18/19 02:14 Pulse Ox 81 L 10/18/19 01:55 - Orders/Labs/Meds Orders: Active Orders 24 hr Category Date Time Status EKG Documentation Completion [RC] ASDIRECTED Care 10/18/19 01:00 Active CMP [COMPREHENSIVE METABOLIC PN,CMP] [CHEM] Stat Lab 10/18/19 01:00 Received TROPONIN I [CHEM] Stat Lab 10/18/19 01:00 Received Labs: Laboratory Tests 10/18/19 Range/Units 01:05 WBC 10.2 (4.0-10.2) K/uL RBC 4.13 (3.77-5.09) M/uL Hgb 13.0 D (11.7-15.5) g/dL Hct 42.1 (34.0-46.0) % MCV 101.9 H (84.0-98.0) fL MCH 31.5 (28.2-33.3) pg MCHC 30.9 L (31.7-36.0) g/dL RDW 14.6 H (11.2-14.1) % Plt Count 366 H D (150-350) K/uL Neut % (Auto) 72.5 (45.0-80.0) % Lymph % (Auto) 21.9 (10.0-50.0) % [place] % (Auto) 5.3 (2.0-14.0) % Eos % (Auto) 0.1 (0.0-5.0) % Baso % (Auto) 0.2 (0.0-2.0) % Neut # (Auto) 7.43 H (1.40-7.00) K/uL Lymph # (Auto) 2.24 (0.50-3.50) K/uL [place] # (Auto) 0.54 (0.00-1.00) K/uL Eos # (Auto) 0.01 (0.00-0.50) K/uL Baso # (Auto) 0.02 (0.00-0.20) K/uL Meds: Medications Discontinued Medications Generic Name Dose Route Start Last Admin Trade Name Kun PRN Reason Stop Dose Admin Ondansetron HCl 4 mg 10/18/19 01:51 10/18/19 01:53 Zofran Odt PO 10/18/19 01:52 4 mg ONETIME ONE Administration Ondansetron HCl Confirm 10/18/19 01:53 Zofran Odt Administered 10/18/19 01:54 Dose 4 mg .ROUTE .STK-MED ONE - Re-Assessments/Exams Free Text/Narrative Re-Assessment/Exam: 10/18/19 02:19 patient was stable throughout emergency department stay. She continued to complain of nausea was given Zofran 4 mg sublingually. We were unable to draw sufficient blood to check metabolic panel and troponin, and unable to start an IV, so the patient will be transferred to [facility]. Departure - Departure Time of Disposition: 02:30 Disposition: DC/Tfer to Acute Hospital 02 Condition: Good Clinical Impression: Abdominal pain - Discharge Information *PRESCRIPTION DRUG MONITORING PROGRAM REVIEWED*: No *COPY OF PRESCRIPTION DRUG MONITORING REPORT IN PATIENT [place]: No Forms: ED Department Discharge, Interfacility Transfer EMTALA Sepsis Event Note - Evaluation Sepsis Screening Result: No Definite Risk - Focused Exam Vital Signs: Vital Signs Temp Pulse Resp BP Pulse Ox 10/18/19 02:14 121 H 22 H 98/63 10/18/19 01:55 121 H 21 H 108/80 81 L 10/18/19 01:28 122 H 15 116/41 L 85 L 10/18/19 00:45 119 H 18 84/60 L 85 L 10/18/19 00:30 36.4 C 119 H 18 76/40 L Date Exam was Performed: 10/18/19 Time Exam was Performed: 02:15 - My Orders Last 24 Hours: My Active Orders 10/18/19 01:00 EKG Documentation Completion [RC] ASDIRECTED CMP [COMPREHENSIVE METABOLIC PN,CMP] [CHEM] Stat TROPONIN I [CHEM] Stat - Assessment/Plan Last 24 Hours: My Active Orders 10/18/19 01:00 EKG Documentation Completion [RC] ASDIRECTED CMP [COMPREHENSIVE METABOLIC PN,CMP] [CHEM] Stat TROPONIN I [CHEM] Stat
[2019-10-18] MEDS ORDERED: Ondansetron 4 MG Tab.DIS PO ONE (01:51)
[2019-10-18] MEDS ORDERED: Ondansetron 4 MG Tab.DIS ONE (01:53)
[2019-10-18 02:59] VITALS: BP 92/54; PULSE 126
== END 2019-10-18 02:50 ==
LOC: LL.ED 00:27
DX: R10.30 Lower abdominal pain, unspecified (principal); R11.0 Nausea; I13.2 Hypertensive heart and chronic kidney disease with heart failure and with stage 5 chronic kidney disease, or end stage renal disease; N18.6 End stage renal disease; I50.9 Heart failure, unspecified; H54.8 Legal blindness, as defined in USA; E03.9 Hypothyroidism, unspecified; F41.9 Anxiety disorder, unspecified; F32.9 Major depressive disorder, single episode, unspecified; E66.9 Obesity, unspecified; Z68.30 Body mass index [BMI] 30.0-30.9, adult; Z90.89 Acquired absence of other organs; Z98.84 Bariatric surgery status; Z88.6 Allergy status to analgesic agent; Z88.8 Allergy status to other drugs, medicaments and biological substances; Z99.2 Dependence on renal dialysis; Z79.890 Hormone replacement therapy; Z79.899 Other long term (current) drug therapy
CPT/HCPCS: 36415; 85025; 93005; 93010; 94761; 99284; 99285-25; A9270-GY

== ENCOUNTER 2019-10-22 21:12 | Observation (INO) | payer MEDICARE, MEDICAID ==
[2019-10-22] MEDS ORDERED: Metoprolol Tartrate 5 MG/5 ML SDV IVPUSH ONE (21:20)
--- NOTE | 2019-10-22 21:20 | EDM.PDOC ---
ED HPI GENERAL MEDICAL PROBLEM - General Chief Complaint: General Stated Complaint: weakness Time Seen by Provider: 10/22/19 21:15 Source of Information: Reports: Patient, EMS, Old Records ([facility] chart/EMR). Denies: EMS Notes Reviewed (Not available at time of dictation) History Limitations: Reports: No Limitations - History of Present Illness INITIAL COMMENTS - FREE TEXT/NARRATIVE: The patient was brought to the emergency room via ambulance with veneer patcher accompaniment for persistent generalized weakness, including her legs bilaterally, with patient unable to get out of her bed. Note the patient was hospitalized at [facility] for similar type symptoms from until 10/21/[address] scan of the abdomen and pelvis showing some ascites at time of the no significant findings. Note that the patient is a hemodialysis patient and was previously and her swing bed unit for similar symptoms as above. Symptoms have been slow to respond to previous physical therapy treatments. She denies any other change in her neurological status at this time. The patient denies any chest pain/pressure, heart flutter, dizziness, orthostasis, orthopnea, diaphoresis, paresthesias, recent decreased exercise tolerance, or any other anginal-type symptoms. No recent history of abdominal pain, heartburn, nausea, diarrhea, melena, gross hematochezia, or any food intolerance, including fatty foods, etc.. The patient also denies any recent fever, cough, wheezing, dyspnea, etc.. No history of recent headaches, visual changes, diplopia, change in mental status, or other neurological deficits. She denies any gross hematuria, colic, or other UTI symptoms. She denies any specific pain or discomfort. Onset: Gradual, Other (As above) Duration: Constant Location: Reports: Other (No pain) Quality: Reports: Same as Previous Episode Severity: Moderate Worsens with: Reports: None Context: Reports: Other (As above). Denies: Sick Contact, Trauma Associated Symptoms: Reports: Weakness (Chronic as above). Denies: Confusion, Chest Pain, Cough, Diaphoresis, Fever/Chills, Headaches, Loss of Appetite, Malaise, Nausea/Vomiting, Syncope Treatments SOLE PAINTER: Reports: Other (see below) (None) - Related Data Allergies Allergy/AdvReac Type Severity Reaction Status Date / Time ibuprofen Allergy Renal Verified 09/16/19 18:05 Insufficiency zolpidem Allergy Hallucinati Verified 09/16/19 18:05 ons Home Meds: Home Meds ALPRAZolam [Xanax] 1 cap PO BEDTIME 06/24/19 [History] Cholecalciferol (Vitamin D3) [Vitamin D3] 4,000 unit PO DAILY 06/24/19 [History] Cyanocobalamin (Vitamin B-12) [Cyanocobalamin Injection] 1 ml IM Q30D 06/24/19 [ History] Potassium Chloride [Klor-Con M20] 1 tab PO BID 06/24/19 [History] Sevelamer Carbonate [Renvela] 800 mg PO TID 06/24/19 [History] Venlafaxine [Effexor XR] 150 mg PO DAILY 06/24/19 [History] calcitrioL [Rocaltrol] 0.25 mcg PO DAILY 06/24/19 [History] Folic Acid 1 mg PO DAILY #100 tablet 06/26/19 [Rx] Epoetin Dante [Epogen] 20,000 unit SQ WEEKLY 09/16/19 [History] Venlafaxine [Effexor XR] 37.5 mg PO DAILY 09/16/19 [History] polyethylene glycoL 3350 [MiraLAX] 17 gm PO DAILY 09/16/19 [History] Levothyroxine 112 mcg PO ACBREAKFAST #90 tablet 10/16/19 [Rx] Ondansetron [Zofran ODT] 4 mg PO Q4H PRN #30 tab.dis 10/16/19 [Rx] Past Medical History HEENT History: Reports: Cataract, Impaired Vision, Other (See Below). 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 The patient does wear glasses. Cardiovascular History: Reports: Arrhythmia, Heart Failure, High Cholesterol, Hypertension, Other (See Below). Denies: Afib, Aneurysm, Blood Clots/VTE/DVT, CAD, Cardiomyopathy, Heart Murmur, NV, PVD, Syncope Other Cardiovascular History: PAC's and first-degree AV block by EKG on 2018 at [facility]. Respiratory History: Reports: Intubation, Previous, Other (See Below). Denies: Asthma, Bronchitis, Recurrent, COPD, Intubation, Difficult, PE, Pneumonia, Recurrent, Pneumothorax, TB Other Respiratory History: 8 mm right middle lobe pulmonary nodule with multiple probable benign right lower lobe pulmonary nodules. Gastrointestinal History: Reports: Bowel Obstruction, Chronic Constipation, Chronic Diarrhea, Fecal Incontinence, GERD, Hemorrhoids, Other (See Below). Denies: Celiac Disease, Cholelithiasis, Colon Polyp, Fatty Liver, Gastritis, GI Bleed, Hepatitis, Irritable Bowel Syndrome, Jaundice, Pancreatitis Other Gastrointestinal History: Nonspecific ascites by CT scan on 10/18/19. Colitis with rectal ulcer by colonoscopy in 2019 as below. Bowel obstruction about 1978 with subsequent surgery as below. Genitourinary History: Reports: Chronic Renal Insuffiency, Dialysis, Dialysis, Peritoneal, Urinary Incontinence, UTI, Recurrent, Other (See Below). Denies: Acute Renal Failure, Renal Calculus, STD Other Genitourinary History: Home peritoneal dialysis which was initiated in March 2019 peritoneal catheter insertion on 10/24/2018. MIG WELDER History: Reports: . Denies: Dysfunctional Uterine Bleeding, Endometriosis, Fibroids, Spontaneous : 3 Para: 3 LMP (Approximate): Other (See Below) Other MIG WELDER History: Menopause at age 46, Full term without complications during pregnancies or deliveries Musculoskeletal History: Reports: Arthritis, Back Pain, Chronic, Fracture, Neck Pain, Chronic, Osteoarthritis, Osteoporosis. Denies: Amputation, Gout, RA, SLE Other Musculoskeletal History: Right #3 posterior rib fracture. Right shoulder and right scapular fracture. Incidental L3 hemangioma CT scan. Neurological History: Reports: Headaches, Chronic, Migraines. Denies: Cerebral Aneurysms, Concussion, CVA, Head Trauma, MS, Neuropathy, Peripheral, Parkinson's , Seizure, TIA, Vertigo Psychiatric History: Reports: Anxiety, Depression. Denies: Abuse, Victim of, ADD, ADHD, Addiction, Alzheimers Disease, Dementia, Psych Hospitalization(s), Psychosis, PTSD, Suicide Attempt, Suicidal Ideation Endocrine/Metabolic History: Reports: Hyperparathyroidism, Hypokalemia, Hypomagnesemia, Hypothyroidism, Obesity/BMI 30+, Osteopenia, Osteoporosis, Vitamin D Deficiency, Other (See Below). Denies: Diabetes, Gestational, Diabetes, Type I, Diabetes, Type II, Diabetes Mellitus, Type 3c, IDDM Other Endocrine/Metabolic History: Hx of thyroid cancer nonoperable by patient history with subsequent chemotherapy and secondary hypothyroidism. Hypercalcemia /hypocalcemia; Hypoalbuminemia. Hematologic History: Reports: Anemia, B12 Deficiency, Blood Transfusion(s), Folic Acid, Iron Deficiency Other Hematologic History: Blood transfusions with knee surgeries as below. Immunologic History: Reports: Immunosuppression, Other (See Below). 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 Denies: Basal Cell Carcinoma, Bladder, Breast, Cervix, Hodgkin's Lymphoma, Leukemia, Malignant Melanoma, Non-Hodgkin's Lymphoma, Ovarian, Squamous Cell Carcinoma, Uterine Other Oncologic History: Thyroid cancer diagnosed in June 2010 with completed chemotherapy treatment in October 2015 with no radiation therapy or thyroidectomy secondary to apparent inoperable disease. Lymphoma also diagnosed with her thyroid cancer with chemotherapy as above. Dermatologic History: Reports: None. Denies: Eczema, Melanoma - Infectious Disease History Infectious Disease History: Reports: Chicken Pox. Denies: C-Difficile, Measles , Meningitis, Mononucleosis, MRSA, Mumps, Pertussis (Whooping Cough), Rheumatic Fever, Rubella, Shingles, TB, VRE - Past Surgical History Head Surgeries/Procedures: Reports: None HEENT Surgical History: Reports: Cataract Surgery, Eye Surgery, Laser Surgery, Oral Surgery, Other (See Below). Denies: Adenoidectomy, Myringotomy w Tube(s), Naso-Sinus Surgery, Tonsillectomy Other HEENT Surgeries/Procedures: Complete teeth extraction with complete dentures uppers and lowers. Right cataract surgery on 04/03/12. Previous right eye laser therapy. Left upper eyelid cyst excision at about age 11. Cardiovascular Surgical History: Reports: None. Denies: Varicose Respiratory Surgical History: Reports: None. Denies: Lung Biopsies, Thoracentesis GI Surgical History: Reports: Appendectomy, Bariatric Procedure, Colon, Colonoscopy, Other (See Below). Denies: Cholecystectomy, EGD, Hernia, Abdominal , Hernia, Inguinal, Hernia Repair/Other, Polypectomy Other GI Surgeries/Procedures: Gastric bypass, hemorrhoid surgery x2, including hemorrhoidectomy in October 2005 and hemorrhoid stapling in 2004; last colonoscopy on 09/09/2019 with multiple serial biopsies indicated mild colitis with additional rectal ulcer. Incomplete colonoscopy to the transverse colon on 04/24/2018 with follow-up barium enema as below. Otherwise colonoscopies on and 02/06/2005. Partial colon resection secondary to bowel obstruction in 1978 with concomitant appendectomy with previous intestinal torsion revision without partial colectomy about 6 weeks prior to the surgery. Multiple previous failed colonoscopies as above with last barium enema as below. Peritoneal dialysis catheter placement on 04/23/2019. Female Surgical History: Reports: None. Denies: D&C, Hysterectomy, Oophorectomy, Salpingo-Oophorectomy, Tubal Ligation Endocrine Surgical History: Reports: Thyroid Biopsy, Other (See Below) Other Endocrine Surgeries/Procedures: Failed thyroidectomy for thyroid cancer in June 2010 as above. Neurological Surgical History: Reports: C-Spine, Spinal Fusion, Other (See Below ). Denies: Discectomy, Laminectomy, Lumbar Spine, Sacral Spine, Thoracic Spine Other Neurological Surgeries/Procedures: Questionable cervical fusion versus stone implant in September 1996. Musculoskeletal Surgical History: Reports: Joint Replacement, Knee Replacement, Other (See Below). Denies: Arthroscopic Knee, Carpal Tunnel, Ganglion Cyst, ORIF, Shoulder Surgery Other Musculoskeletal Surgeries/Procedures:: Bilateral total knee arthroplasty with right TKA on 12/13/2011. Oncologic Surgical History: Reports: None Dermatological Surgical History: Reports: None - Past Imaging History Past Imaging History: Reports: Barium Enema (Last on 09/11/19 however difficult exam secondary to bowel gas and stool.), Cardiac Echo (06/15/19 with ejection fraction of 6065 percent.), CAT Scan (CT of the abdomen and pelvis on 10/18/19. CT of the brain on 10/04/[address] of the chest without contrast on 05/06/18, 01/13/18, and 07/11/10.), DEXA Scan (07/25/18, 07/01/17, and 09/10/16,) , Mammogram (Last on 07/27/19.), PET (PET/CT T scan of the base of the skull to the mid thigh region on 03/15/19 and 10/05/16.), PFT (03/11/18.), Ultrasound (Renal ultrasound on 03/12/19 and 10/05/16. Bilateral ultrasound arm mapping on 03/26/19 for possible future AV fistula placement for dialysis.), Venous Doppler ( Negative on 10/04/16 of the legs bilaterally), Other (See Below) Social & Family History - Family History Family Medical History: Noncontributory HEENT: Reports: None. Denies: Glaucoma, Macular Degeneration, Retinal Detachment Cardiac: Reports: CAD, Cardiomyopathy, Heart Failure, High Cholesterol, Hypertension, NV, Other (See Below). Denies: Aneurysm, Arrhythmia, Blood Clots/ VTE/DVT, Bypass, Heart Murmur, PVD/COD, Syncope Other Cardiac Family History: Maternal grandmother with fatal CHF at age 89, father with hyperlipidemia and hypertension, father with fatal NV at age 88 Respiratory: Reports: None. Denies: Asthma, COPD, PE, Pneumothorax, Sleep Apnea GI: Reports: None. Denies: Celiac Disease, Cholelithiasis, Colon Polyps, GERD, GI bleed, Inflammatory Bowel Disease, Irritable Bowel Syndrome, PUD : Reports: Dialysis, Renal Calculus, Renal Disease/Insufficiency, Other (See Below) Other Family History: Mother with urolithiasis, father and brother with renal insufficiency which did require dialysis OBGYN: Reports: None. Denies: Endometriosis, Recurrent Spontaneous Musculoskeletal: Reports: Arthritis, Osteoarthritis, SLE, Other (See Below). Denies: Gout, RA Other Musculoskeletal Family History: mother with SLE Neurological: Reports: None. Denies: Alzheimers Disease, Cerebral Aneurysms, CVA, Dementia, Migraines, Neuropathy, Peripheral, Parkinson's, Seizure, TIA Psychiatric: Reports: None. Denies: Abuse, Victim of, ADD, ADHD, Anxiety, Depression, Psych Hospitalization(s), Psychosis, PTSD, Suicide Attempt Endocrine/Metabolic: Reports: None. Denies: Diabetes, Type I, Diabetes, type II , Diabetes Mellitus, Type 3c, Hypothyroidism, IDDM Hematologic: Reports: None, SLE, Other (See Below). Denies: Anemia Other Hematologic Family History: Mother with SLE Immunologic: Reports: SLE, Other (See Below). Denies: AIDS, HIV Other Immunologic Family History: Mother with SLE Dermatologic: Reports: None. Denies: Eczema, Psoriasis Oncologic: Reports: Metastatic, Prostate, Other (See Below). Denies: Breast, Cervix, Colon, Hodgkin's Lymphoma, Leukemia, Lymphoma, Non-Hodgkin's Lymphoma, Ovarian, Skin, Uterine Other Oncologic Family History: brother with fatal metastatic prostate cancer in his 60s - Tobacco Use Smoking Status *Q: Never Smoker Tobacco Use Within Last Twelve Months: No Used Tobacco, but Quit: No Smoking Cessation Information Provided To Patient: No Second Hand Smoke Exposure: Yes Source of Second Hand Smoke Exposure: smokes Second Hand Smoke Education Provided: No (Planned admission to swing bed) - Caffeine Use Caffeine Use: Reports: None. Denies: Coffee, Energy Drinks, Soda, Tea - Alcohol Use Alcohol Use History: No Days Per Week of Alcohol Use: 0 Number of Drinks Per Day: 0 Number of Drinks Per Day Comment: No alcohol use since starting dialysis. No previous DWIs, problems with alcohol abuse, etc. 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 ED EXAM, GENERAL - Physical Exam Exam: See Below Exam Limited By: No Limitations General Appearance: Alert, WD/WN, No Apparent Distress, Anxious (Moderate) Eye Exam: Bilateral Eye: Normal Inspection (No nystagmus. Patient wearing glasses), PERRL Ears: Normal External Exam, Normal Canal, Hearing Grossly Normal, Normal TMs Nose: Normal Inspection, Normal Mucosa, No Blood Throat/Mouth: Normal Lips, Normal Gums, Normal Oropharynx, Normal Voice, No Airway Compromise. No: Normal Teeth (Complete dentures uppers and lowers), Dysphagia, Perioral Cyanosis Head: Atraumatic, Normocephalic. No: Facial Swelling, Facial Tenderness, Sinus Tenderness Neck: Normal Inspection, Supple, Non-Tender, Full Range of Motion. No: Lymphadenopathy (L), Lymphadenopathy (R), Thyromegaly Respiratory/Chest: No Respiratory Distress, Lungs Clear, Normal Breath Sounds, No Accessory Muscle Use, Chest Non-Tender. No: Pleural Rub, Retractions Cardiovascular: Normal Peripheral Pulses, No Gallop, No JVD, No Murmur, No Rub, Tachycardia (Mild tachycardiastable by history. Regular rhythm). No: No Edema (Dependent edema as below), Gallop/S3, Gallop/S4, Friction Rub Peripheral Pulses: 2+: Radial (L), Radial (R), Dorsalis Pedis (L), Dorsalis Pedis (R) GI/Abdominal: Normal Bowel Sounds, Soft, Non-Tender, No Organomegaly, No Distention, No Abnormal Bruit, No Mass, Pelvis Stable, Other (Obese. Dialysis catheter noted with no evidence of infection.). No: Guarding (Female) Exam: Deferred Rectal (Female) Exam: Deferred Back Exam: Normal Inspection, Full Range of Motion. No: CVA Tenderness (L), CVA Tenderness (R), Muscle Spasm Extremities: Normal Range of Motion, Non-Tender, Normal Capillary Refill, Pedal Edema (Stable +1 pedal/pretibial edema bilaterally). No: Clary's Sign Neurological: Alert, Oriented, CN II-XII Intact, Normal Cognition, Normal Gait ( However difficult to ambulate secondary to chronic leg weakness), Normal Reflexes (Negative Babinski's), No Motor/Sensory Deficits Psychiatric: Anxious (Moderate), Depressed Mood (Mild to moderate with adequate eye contact) Skin Exam: Warm, Dry, Intact, Ecchymosis (Arms, hands, and feet bilaterally secondary to previous blood draws and IV placement). No: Diaphoretic, Wound/ Incision Lymphatic: No Adenopathy Course - Vital Signs Last Recorded V/S: Last Vital Signs Temp 36.3 C 10/22/19 21:13 Pulse 110 H 10/22/19 21:21 Resp 15 10/22/19 21:21 BP 122/73 10/22/19 21:21 Pulse Ox 97 10/22/19 21:21 Vital Signs - 24 hr 10/22/19 10/22/19 21:13 21:21 Temperature [ 36.3 C Oral] Pulse, 112 H 110 H Peripheral [ Right Pulse Oximetry] Respiratory 18 15 Rate Blood Pressure 126/89 122/73 [Right Upper Arm] O2 Sat by Pulse 98 97 Oximetry - Orders/Labs/Meds Orders: Active Orders 24 hr Category Date Time Status Cardiac Monitoring [RC] . DIRECTED Care 10/22/19 21:21 Active Oxygen Therapy, ED [RC] PRN Care 10/22/19 21:21 Active Pulse Oximetry [RC] CONTINUOUS Care 10/22/19 21:21 Active Up With Assistance [RC] PFP Care 10/22/19 21:21 Active Vital Signs [RC] PFP Care 10/22/19 21:21 Active Nothing per Oral Now Diet [DIET] Diet 10/22/19 Breakfast Active Obtain Past Medical Record [OM.PC] Urgent Oth 10/22/19 21:21 Active Peripheral IV Insertion Adult [OM.PC] Stat Oth 10/22/19 21:21 Ordered Resuscitation Status Stat Resus Stat 10/22/19 21:20 Ordered Labs: Unable to obtain Meds: Medications Discontinued Medications Generic Name Dose Route Start Last Admin Trade Name Freq PRN Reason Stop Dose Admin Metoprolol Tartrate 2.5 mg 10/22/19 21:20 Lopressor IVPUSH 10/22/19 21:21 ONETIME ONE IV access unable to be obtained - Radiology Interpretation Free Text/Narrative:: manager trading shows mild sinus tachycardia in the 110s with no ectopy or arrhythmia Departure - Departure Time of Disposition: 22:55 Disposition: Refer to Observation Condition: Fair Clinical Impression: Mixed anxiety depressive disorder, Hypertension, Hypothyroidism, CHF ( congestive heart failure), Tobacco abuse counseling, Weakness, Chronic renal insufficiency, stage IV (severe) - Discharge Information *PRESCRIPTION DRUG MONITORING PROGRAM REVIEWED*: Not Applicable *COPY OF PRESCRIPTION DRUG MONITORING REPORT IN PATIENT BRAYDEN: Not Applicable Referrals: Luda Kwong MD [Primary Care Provider] - Forms: ED Department Discharge Care Plan Goals: See plan Sepsis Event Note - Evaluation Sepsis Screening Result: No Definite Risk - Focused Exam Vital Signs: Vital Signs Temp Pulse Resp BP Pulse Ox 10/22/19 21:21 110 H 15 122/73 97 10/22/19 21:13 36.3 C 112 H 18 126/89 98 Date Exam was Performed: 10/22/19 Time Exam was Performed: 22:37 - Problem List & Annotations (1) Weakness SNOMED Code(s): 20174121 Code(s): R53.1 - WEAKNESS Status: Acute Priority: High Current Visit: Yes Onset Date: ~09/15/19 Annotation/Comment:: The patient and her now agree to a long-term fdc/swing bed placement. She will be initially placed in observation status with [facility] to assume care in the a.m. Note recent hospitalization at [facility] in [place], which should qualify her for transfer to [facility] bed within the next 2448 hours. Physical therapy and occupational therapy to evaluate the patient in the a.m. (2) Chronic renal insufficiency, stage IV (severe) SNOMED Code(s): 401544902 Code(s): N18.4 - CHRONIC KIDNEY DISEASE, STAGE 4 (SEVERE) Status: Chronic Priority: Medium Current Visit: Yes Annotation/Comment:: Continue peritoneal hemodialysis. Blood work unable to be obtained as above. (3) Hypothyroidism SNOMED Code(s): 89120569 Code(s): E03.9 - HYPOTHYROIDISM, UNSPECIFIED Status: Chronic Priority: Medium Current Visit: Yes Annotation/Comment:: Currently under therapy Qualifiers: Hypothyroidism type: postablative (4) Peptic reflux disease SNOMED Code(s): 258922251 Code(s): K21.9 - GASTRO-ESOPHAGEAL REFLUX DISEASE WITHOUT ESOPHAGITIS Status: Chronic Priority: Medium Current Visit: Yes Annotation/Comment:: Stable by history (5) Osteoarthritis SNOMED Code(s): 972612501 Code(s): M19.90 - UNSPECIFIED OSTEOARTHRITIS, UNSPECIFIED SITE Status: Chronic Priority: Medium Current Visit: Yes Annotation/Comment:: Stable by history Qualifiers: Osteoarthritis location: multiple joints Osteoarthritis type: primary Qualified Code(s): M15.0 - Primary generalized (osteo)arthritis (6) Hypertension SNOMED Code(s): 07408938 Code(s): I10 - ESSENTIAL (PRIMARY) HYPERTENSION Status: Chronic Priority : Medium Current Visit: Yes Annotation/Comment:: Stable by history. Continue to observe closely. Qualifiers: Hypertension type: essential hypertension (7) Mixed anxiety depressive disorder SNOMED Code(s): 603323477 Code(s): F41.8 - OTHER SPECIFIED ANXIETY DISORDERS Status: Chronic Priority: Medium Current Visit: Yes Annotation/Comment:: Mild to moderate control based on today's exam. Continue to observe closely by regular provider. (8) CHF (congestive heart failure) SNOMED Code(s): 12443702 Code(s): I50.9 - HEART FAILURE, UNSPECIFIED Status: Chronic Priority: High Current Visit: No Onset Date: 10/04/16 Annotation/Comment:: No chest pain or anginal complaints. Note mild tachycardia today. Qualifiers: Qualified Code(s): I50.9 - Heart failure, unspecified (9) Tobacco abuse counseling SNOMED Code(s): 149159363, 981895595, 384797466 Code(s): Z71.6 - TOBACCO ABUSE COUNSELING Status: Chronic Priority: Medium Current Visit: No Annotation/Comment:: Her was once again strongly encouraged to discontinue smoking RUBA. - Problem List Review Problem List Initiated/Reviewed/Updated: Yes - My Orders Last 24 Hours: My Active Orders 10/22/19 21:20 Resuscitation Status Stat 10/22/19 21:21 Cardiac Monitoring [RC] . DIRECTED Oxygen Therapy, ED [RC] PRN Pulse Oximetry [RC] CONTINUOUS Up With Assistance [RC] PFP Vital Signs [RC] PFP Obtain Past Medical Record [OM.PC] Urgent Peripheral IV Insertion Adult [OM.PC] Stat 10/22/19 Breakfast Nothing per Oral Now Diet [DIET] - Assessment/Plan Last 24 Hours: My Active Orders 10/22/19 21:20 Resuscitation Status Stat 10/22/19 21:21 Cardiac Monitoring [RC] . DIRECTED Oxygen Therapy, ED [RC] PRN Pulse Oximetry [RC] CONTINUOUS Up With Assistance [RC] PFP Vital Signs [RC] PFP Obtain Past Medical Record [OM.PC] Urgent Peripheral IV Insertion Adult [OM.PC] Stat 10/22/19 Breakfast Nothing per Oral Now Diet [DIET] Assessment:: As above. Plan: As above. Extensive precautions were given to the patient and her , who is in agreement with the treatment plan. The patient's condition is stable enough for observation status and general supervision. [facility] assumes care in the a.m. with patient and her requesting long-term care either in our swing bed unit or a local fdc. Physical and occupational therapy has been ordered.
[2019-10-22] MEDS ORDERED: Ondansetron 4 MG Tab.DIS PO PRN (23:42)
[2019-10-22] MEDS ORDERED: Metoprolol Succinate 25 MG Tab.ER PO ONE (23:43)
[2019-10-22] MEDS ORDERED: Epoetin Alfa 40,000 Units/1 ML SDV SUBCUT SCH (23:45)
[2019-10-22] MEDS ORDERED: Acetaminophen 325 MG Tab PO PRN (23:45)
[2019-10-22] MEDS ORDERED: Cyanocobalamin (Vitamin B12) 1,000 MCG/ML SDV IM SCH (23:45)
[2019-10-23] MEDS: ALPRAZolam 1 MG Tab PO SCH ×2 (00:15→20:31)
[2019-10-23] MEDS: Sodium Chloride 0.9% 10 ML Syringe FLUSH SCH ×3 (00:16→22:53)
[2019-10-23] MEDS ORDERED: Levothyroxine 112 MCG Tab PO SCH (07:30)
[2019-10-23] MEDS: Venlafaxine 75 MG Cap.ER PO SCH (08:22)
[2019-10-23] MEDS: Levothyroxine 100 MCG Tab PO SCH (08:22)
[2019-10-23] MEDS: Levothyroxine 25 MCG Tab PO SCH (08:22)
[2019-10-23] MEDS: Potassium Chloride 20 MEQ Tab.ER PO SCH ×2 (08:23→17:05)
[2019-10-23] MEDS: Cholecalciferol (Vitamin D3) 25 MCG Tab PO SCH (08:23)
[2019-10-23] MEDS: Calcitriol 0.25 MCG Cap PO SCH (08:23)
[2019-10-23] MEDS: Folic Acid 1 MG Tab PO SCH (08:23)
[2019-10-23] MEDS: Venlafaxine 37.5 MG Cap.ER PO SCH (08:23)
[2019-10-23] MEDS: SEVELAMER CARBONATE 800 MG PO SCH ×3 (08:23→17:05)
[2019-10-23] MEDS: Polyethylene Glycol 3350 Powder 17 GM Packet PO SCH (08:24)
--- NOTE | 2019-10-23 23:05 | PCM.PN ---
- General Info Date of Service: 10/23/19 Functional Status: Reports: Pain Controlled, Tolerating Diet - Review of Systems General: Reports: Weakness (improving) HEENT: Reports: No Symptoms Pulmonary: Reports: No Symptoms Cardiovascular: Reports: No Symptoms Gastrointestinal: Reports: No Symptoms Genitourinary: Reports: Other (peritoneal dialysis) Musculoskeletal: Reports: No Symptoms Skin: Reports: No Symptoms Neurological: Reports: Weakness Psychiatric: Reports: No Symptoms - Patient Data Vitals - Most Recent: Last Vital Signs Temp 97.6 F 10/23/19 20:00 Pulse 89 10/23/19 20:00 Resp 20 10/23/19 20:00 BP 90/52 L 10/23/19 20:00 Pulse Ox 95 10/23/19 20:00 Weight - Most Recent: 206 lb 14.4 oz I&O - Last 24 Hours: Intake & Output 10/23/19 10/23/19 10/24/19 14:59 22:59 06:59 Intake Total 480 830 Balance 480 830 Lab Results Last 24 Hours: Laboratory Results - last 24 hr 10/23/19 Range/Units 19:50 WBC 8.0 (4.0-10.2) K/uL RBC 2.62 L (3.77-5.09) M/uL Hgb 8.3 L D (11.7-15.5) g/dL Hct 26.2 L (34.0-46.0) % MCV 100.0 H (84.0-98.0) fL MCH 31.7 (28.2-33.3) pg MCHC 31.7 (31.7-36.0) g/dL RDW 14.6 H (11.2-14.1) % Plt Count 200 D (150-350) K/uL Neut % (Auto) 72.1 (45.0-80.0) % Lymph % (Auto) 16.1 (10.0-50.0) % [place] % (Auto) 11.5 (2.0-14.0) % Eos % (Auto) 0.1 (0.0-5.0) % Baso % (Auto) 0.2 (0.0-2.0) % Neut # (Auto) 5.78 (1.40-7.00) K/uL Lymph # (Auto) 1.29 (0.50-3.50) K/uL [place] # (Auto) 0.92 (0.00-1.00) K/uL Eos # (Auto) 0.01 (0.00-0.50) K/uL Baso # (Auto) 0.02 (0.00-0.20) K/uL Med Orders - Current: Current Medications Acetaminophen (Tylenol) 650 mg PO Q4H PRN PRN Reason: Pain/Fever Alprazolam (Xanax) 1 mg PO BEDTIME [facility] Last Admin: 10/23/19 20:31 Dose: 1 mg Calcitriol (Rocaltrol) 0.25 mcg PO DAILY [facility] Last Admin: 10/23/19 08:23 Dose: 0.25 mcg Cholecalciferol (Vitamin D3) 100 mcg PO DAILY [facility] Last Admin: 10/23/19 08:23 Dose: 100 mcg Cyanocobalamin (Vitamin B12) 1,000 mcg IM Q30D [facility] Last Admin: 10/23/19 00:16 Dose: Not Given Epoetin Dante (Procrit) 20,000 units SUBCUT Q7D [facility] Last Admin: 10/23/19 19:30 Dose: Not Given Folic Acid (Folic Acid) 1 mg PO DAILY [facility] Last Admin: 10/23/19 08:23 Dose: 1 mg Levothyroxine Sodium (Synthroid) 100 mcg PO DAILY@0700 [facility] Last Admin: 10/23/19 08:22 Dose: 100 mcg Levothyroxine Sodium (Levothyroxine) 25 mcg PO DAILY@0700 [facility] Last Admin: 10/23/19 08:22 Dose: 25 mcg Sevelamer Carbonate [Renvela] 800 Mg Tab Own Med 800 mg PO TIDMEALS [facility] Last Admin: 10/23/19 17:05 Dose: 800 mg Ondansetron HCl (Zofran Odt) 4 mg PO Q4H PRN PRN Reason: Nausea Polyethylene Glycol (Miralax) 17 gm PO DAILY [facility] Last Admin: 10/23/19 08:24 Dose: Not Given Potassium Chloride (Klor-Con M20) 20 meq PO BID [facility] Last Admin: 10/23/19 17:05 Dose: 20 meq Sodium Chloride (Saline Flush) 10 ml FLUSH Q12H [facility] Last Admin: 10/23/19 22:53 Dose: Not Given Venlafaxine HCl (Effexor Xr) 37.5 mg PO DAILY [facility] Last Admin: 10/23/19 08:23 Dose: 37.5 mg Venlafaxine HCl (Effexor Xr) 150 mg PO DAILY [facility] Last Admin: 10/23/19 08:22 Dose: 150 mg Discontinued Medications Metoprolol Succinate (Toprol Xl) 25 mg PO ONETIME ONE Stop: 10/22/19 23:44 Last Admin: 10/23/19 00:14 Dose: 25 mg Metoprolol Tartrate (Lopressor) 2.5 mg IVPUSH ONETIME ONE Stop: 10/22/19 21:21 Last Admin: 10/23/19 00:23 Dose: Not Given - Exam General: Alert, Cooperative, No Acute Distress HEENT: Mucous Membr. Moist/[place] Neck: Trachea Midline, No JVD Lungs: Clear to Auscultation, Normal Respiratory Effort Cardiovascular: Regular Rate, Regular Rhythm GI/Abdominal Exam: Soft, Non-Tender, No Distention, Other (peritoneal catheter site clean, peritoneal catheter entrance has some staining appears from betadine ) (Female) Exam: Deferred Back Exam: Normal Inspection Extremities: Normal Inspection, Non-Tender, No Pedal Edema Skin: Warm, Dry, Intact Neurological: No New Focal Deficit Psy/Mental Status: Alert, Normal Affect, Normal Mood Sepsis Event Note - Evaluation Sepsis Screening Result: No Definite Risk - Focused Exam Vital Signs: Vital Signs Temp Pulse Resp BP Pulse Ox 10/23/19 20:00 97.6 F 89 20 90/52 L 95 Date Exam was Performed: 10/23/19 Time Exam was Performed: 23:00 - Problem List & Annotations (1) Weakness SNOMED Code(s): 25842413 Code(s): R53.1 - WEAKNESS Status: Acute Priority: High Current Visit: Yes Onset Date: ~09/15/19 Annotation/Comment:: The patient and her now agree to a long-term senior care/swing bed placement. She will be initially placed in observation status with [facility] to assume care in the a.m. Note recent hospitalization at [facility], which should qualify her for transfer to swing bed within the next 2448 hours. Physical therapy and occupational therapy to evaluate the patient in the a.m. (2) Chronic renal insufficiency, stage IV (severe) SNOMED Code(s): 790525033 Code(s): N18.4 - CHRONIC KIDNEY DISEASE, STAGE 4 (SEVERE) Status: Chronic Priority: Medium Current Visit: Yes Annotation/Comment:: Continue peritoneal hemodialysis. Blood work unable to be obtained as above. (3) Hypertension SNOMED Code(s): 60245156 Code(s): I10 - ESSENTIAL (PRIMARY) HYPERTENSION Status: Chronic Priority : Medium Current Visit: Yes Qualifiers: Hypertension type: essential hypertension Annotation/Comment:: Stable by history. Continue to observe closely. (4) Hypothyroidism SNOMED Code(s): 04313256 Code(s): E03.9 - HYPOTHYROIDISM, UNSPECIFIED Status: Chronic Priority: Medium Current Visit: Yes Qualifiers: Hypothyroidism type: postablative Annotation/Comment:: Currently under therapy (5) Mixed anxiety depressive disorder SNOMED Code(s): 799792719 Code(s): F41.8 - OTHER SPECIFIED ANXIETY DISORDERS Status: Chronic Priority: Medium Current Visit: Yes Annotation/Comment:: Mild to moderate control based on today's exam. Continue to observe closely by regular provider. (6) Osteoarthritis SNOMED Code(s): 120439114 Code(s): M19.90 - UNSPECIFIED OSTEOARTHRITIS, UNSPECIFIED SITE Status: Chronic Priority: Medium Current Visit: Yes Qualifiers: Osteoarthritis location: multiple joints Osteoarthritis type: primary Qualified Code(s): M15.0 - Primary generalized (osteo)arthritis Annotation/Comment:: Stable by history (7) Peptic reflux disease SNOMED Code(s): 460124642 Code(s): K21.9 - GASTRO-ESOPHAGEAL REFLUX DISEASE WITHOUT ESOPHAGITIS Status: Chronic Priority: Medium Current Visit: Yes Annotation/Comment:: Stable by history (8) Anemia SNOMED Code(s): 180135374 Code(s): D64.9 - ANEMIA, UNSPECIFIED Status: Acute Priority: High Current Visit: No Onset Date: ~10/04/16 Qualifiers: Anemia type: due to chronic kidney disease Chronic kidney disease stage: stage 4 (severe) Qualified Code(s): N18.4 - Chronic kidney disease, stage 4 ( severe); D63.1 - Anemia in chronic kidney disease (9) Chronic kidney disease SNOMED Code(s): 413458757 Code(s): N18.9 - CHRONIC KIDNEY DISEASE, UNSPECIFIED Status: Acute Current Visit: No Qualifiers: Chronic kidney disease stage: on chronic dialysis Qualified Code(s): N18.6 - End stage renal disease; Z99.2 - Dependence on renal dialysis (10) Dialysis patient SNOMED Code(s): 428800413 Code(s): Z99.2 - DEPENDENCE ON RENAL DIALYSIS Status: Acute Priority: High Current Visit: No (11) Folic acid deficiency SNOMED Code(s): 729688534 Code(s): E53.8 - DEFICIENCY OF OTHER SPECIFIED B GROUP VITAMINS Status: Acute Priority: High Current Visit: No (12) Hypoalbuminemia SNOMED Code(s): 045509001 Code(s): E88.09 - OTH DISORDERS OF PLASMA-PROTEIN METABOLISM, NEC Status: Acute Priority: Medium Current Visit: No Onset Date: 10/04/16 (13) Hypokalemia SNOMED Code(s): 28635938 Code(s): E87.6 - HYPOKALEMIA Status: Acute Priority: High Current Visit : No (14) Hypotension SNOMED Code(s): 56117305 Code(s): I95.9 - HYPOTENSION, UNSPECIFIED Status: Acute Priority: High Current Visit: No Qualifiers: Hypotension type: hemodialysis-associated hypotension Qualified Code(s): I95.3 - Hypotension of hemodialysis (15) Hypovolemia dehydration SNOMED Code(s): 65852051 Code(s): E86.1 - HYPOVOLEMIA Status: Acute Priority: High Current Visit : No (16) Hypocalcemia SNOMED Code(s): 6092338 Code(s): E83.51 - HYPOCALCEMIA Status: Chronic Priority: Medium Current Visit: No (17) Thyroid cancer SNOMED Code(s): 023937834 Code(s): C73 - MALIGNANT NEOPLASM OF THYROID GLAND Status: Chronic Priority: Medium Current Visit: No - Problem List Review Problem List Initiated/Reviewed/Updated: Yes - My Orders Last 24 Hours: My Active Orders 10/24/19 Breakfast Regular Diet [DIET] - Plan Plan:: 10/23/2019 Yandy Dennison MD She feels much better today. Strength improving. Received a call from her dialysis nurse "Kaitlin" stating Anupama has been diagnosed with staph coag negative peritonitis and is receiving intra peritoneal vancomycin next dose due Thursday 10/26. Anupama has the medication and the equipment to administer herself. I discussed with Kaitlin that we are not a dialysis center with no specialty trained staff and perhaps Anupama should be transferred back to [facility]. She was worried about Anupama's hemoglobin but we did do a finger stick and Hgb is 8.3 and was 7.5 on Saturday so Hgb is stabilized. Kaitlin advises me that Anupama knows everything about her peritoneal dialysis and the vancomycin so we should keep her in [place] in swing bed status. She also states that the culture may be only be contamination so treating with the vancomycin is precautionary. Vital signs are stable, I/O shows adequate intake, WBC is not elevated. I then discussed all of these facts with Anupama and she refuses transfer to [place] and agrees to stay in the hospital in [place] and plan for swing bed admission tomorrow if she remains stable and then onto [facility] when their staff is all trained.
[2019-10-24] MEDS: Potassium Chloride 20 MEQ Tab.ER PO SCH (07:28)
[2019-10-24] MEDS: Cholecalciferol (Vitamin D3) 25 MCG Tab PO SCH (07:28)
[2019-10-24] MEDS: Polyethylene Glycol 3350 Powder 17 GM Packet PO SCH (07:28)
[2019-10-24] MEDS: Folic Acid 1 MG Tab PO SCH (07:28)
[2019-10-24] MEDS: Calcitriol 0.25 MCG Cap PO SCH (07:28)
[2019-10-24] MEDS: Levothyroxine 100 MCG Tab PO SCH (07:28)
[2019-10-24] MEDS: Venlafaxine 75 MG Cap.ER PO SCH (07:28)
[2019-10-24] MEDS: Levothyroxine 25 MCG Tab PO SCH (07:28)
[2019-10-24] MEDS: Venlafaxine 37.5 MG Cap.ER PO SCH (07:28)
[2019-10-24 07:56] VITALS: BP 94/61; PULSE 88
[2019-10-24] MEDS: SEVELAMER CARBONATE 800 MG PO SCH ×2 (08:45→11:22)
--- NOTE | 2019-10-24 11:58 | PCM.PN ---
- General Info Date of Service: 10/24/19 Functional Status: Reports: Pain Controlled, Tolerating Diet - Review of Systems General: Reports: Weakness HEENT: Reports: No Symptoms Pulmonary: Reports: No Symptoms Cardiovascular: Reports: No Symptoms Gastrointestinal: Reports: No Symptoms Genitourinary: Reports: Other (peritoneal dialysis) Musculoskeletal: Reports: No Symptoms Skin: Reports: No Symptoms Neurological: Reports: Difficulty Walking, Weakness Psychiatric: Reports: No Symptoms - Patient Data Vitals - Most Recent: Last Vital Signs Temp 97 F 10/24/19 07:56 Pulse 88 10/24/19 07:56 Resp 16 10/24/19 07:56 BP 94/61 10/24/19 07:56 Pulse Ox 98 10/24/19 07:56 Weight - Most Recent: 206 lb 14.4 oz I&O - Last 24 Hours: Intake & Output 10/23/19 10/24/19 10/24/19 22:59 06:59 14:59 Intake Total 830 0 Output Total 0 Balance 830 0 Lab Results Last 24 Hours: Laboratory Results - last 24 hr 10/23/19 10/24/19 Range/Units 19:50 08:00 WBC 8.0 6.4 (4.0-10.2) K/uL RBC 2.62 L 2.59 L (3.77-5.09) M/uL Hgb 8.3 L D 8.0 L (11.7-15.5) g/dL Hct 26.2 L 26.3 L (34.0-46.0) % MCV 100.0 H 101.5 H (84.0-98.0) fL MCH 31.7 30.9 (28.2-33.3) pg MCHC 31.7 30.4 L (31.7-36.0) g/dL RDW 14.6 H 14.8 H (11.2-14.1) % Plt Count 200 D 183 (150-350) K/uL Neut % (Auto) 72.1 64.3 (45.0-80.0) % Lymph % (Auto) 16.1 22.7 (10.0-50.0) % [place] % (Auto) 11.5 12.6 (2.0-14.0) % Eos % (Auto) 0.1 0.2 (0.0-5.0) % Baso % (Auto) 0.2 0.2 (0.0-2.0) % Neut # (Auto) 5.78 4.15 (1.40-7.00) K/uL Lymph # (Auto) 1.29 1.46 (0.50-3.50) K/uL [place] # (Auto) 0.92 0.81 (0.00-1.00) K/uL Eos # (Auto) 0.01 0.01 (0.00-0.50) K/uL Baso # (Auto) 0.02 0.01 (0.00-0.20) K/uL Med Orders - Current: Current Medications Discontinued Medications Acetaminophen (Tylenol) 650 mg PO Q4H PRN PRN Reason: Pain/Fever Alprazolam (Xanax) 1 mg PO BEDTIME [facility] Last Admin: 10/23/19 20:31 Dose: 1 mg Calcitriol (Rocaltrol) 0.25 mcg PO DAILY [facility] Last Admin: 10/24/19 07:28 Dose: 0.25 mcg Cholecalciferol (Vitamin D3) 100 mcg PO DAILY [facility] Last Admin: 10/24/19 07:28 Dose: 100 mcg Cyanocobalamin (Vitamin B12) 1,000 mcg IM Q30D [facility] Last Admin: 10/23/19 00:16 Dose: Not Given Epoetin Dante (Procrit) 20,000 units SUBCUT Q7D [facility] Last Admin: 10/23/19 19:30 Dose: Not Given Folic Acid (Folic Acid) 1 mg PO DAILY [facility] Last Admin: 10/24/19 07:28 Dose: 1 mg Levothyroxine Sodium (Synthroid) 100 mcg PO DAILY@0700 [facility] Last Admin: 10/24/19 07:28 Dose: 100 mcg Levothyroxine Sodium (Levothyroxine) 25 mcg PO DAILY@0700 [facility] Last Admin: 10/24/19 07:28 Dose: 25 mcg Metoprolol Succinate (Toprol Xl) 25 mg PO ONETIME ONE Stop: 10/22/19 23:44 Last Admin: 10/23/19 00:14 Dose: 25 mg Metoprolol Tartrate (Lopressor) 2.5 mg IVPUSH ONETIME ONE Stop: 10/22/19 21:21 Last Admin: 10/23/19 00:23 Dose: Not Given Sevelamer Carbonate [Renvela] 800 Mg Tab Own Med 800 mg PO TIDMEALS [facility] Last Admin: 10/24/19 11:22 Dose: 800 mg Ondansetron HCl (Zofran Odt) 4 mg PO Q4H PRN PRN Reason: Nausea Polyethylene Glycol (Miralax) 17 gm PO DAILY [facility] Last Admin: 10/24/19 07:28 Dose: Not Given Potassium Chloride (Klor-Con M20) 20 meq PO BID [facility] Last Admin: 10/24/19 07:28 Dose: 20 meq Sodium Chloride (Saline Flush) 10 ml FLUSH Q12H [facility] Last Admin: 10/23/19 22:53 Dose: Not Given Venlafaxine HCl (Effexor Xr) 37.5 mg PO DAILY [facility] Last Admin: 10/24/19 07:28 Dose: 37.5 mg Venlafaxine HCl (Effexor Xr) 150 mg PO DAILY [facility] Last Admin: 10/24/19 07:28 Dose: 150 mg - Exam General: Alert, Cooperative, No Acute Distress HEENT: Mucous Membr. Moist/[place] Neck: Trachea Midline, No JVD Lungs: Clear to Auscultation, Normal Respiratory Effort Cardiovascular: Regular Rate, Regular Rhythm GI/Abdominal Exam: Soft, Non-Tender, No Distention, Other (peritoneal catheter LUQ entrance site clean, catheter some betadine stain) (Female) Exam: Deferred Back Exam: Normal Inspection, Other (mild kyphosis) Extremities: Normal Inspection, Non-Tender, No Pedal Edema Skin: Warm, Dry, Intact Neurological: No New Focal Deficit Psy/Mental Status: Alert, Normal Affect, Normal Mood Sepsis Event Note - Evaluation Sepsis Screening Result: No Definite Risk - Focused Exam Vital Signs: Vital Signs Temp Pulse Resp BP Pulse Ox 10/24/19 07:56 97 F 88 16 94/61 98 Date Exam was Performed: 10/24/19 Time Exam was Performed: 11:54 - Problem List & Annotations (1) Weakness SNOMED Code(s): 92025008 Code(s): R53.1 - WEAKNESS Status: Acute Priority: High Onset Date: ~ Annotation/Comment:: The patient and her now agree to a long- term fpc/swing bed placement. She will be initially placed in observation status with [facility] to assume care in the a.m. Note recent hospitalization at [facility] in [place], which should qualify her for transfer to swing bed within the next 2448 hours. Physical therapy and occupational therapy to evaluate the patient in the a.m. 10/24/2019 Agree with above. (2) Chronic renal insufficiency, stage IV (severe) SNOMED Code(s): 021594133 Code(s): N18.4 - CHRONIC KIDNEY DISEASE, STAGE 4 (SEVERE) Status: Chronic Priority: Medium (3) Hypertension SNOMED Code(s): 30063910 Code(s): I10 - ESSENTIAL (PRIMARY) HYPERTENSION Status: Chronic Priority : Medium Qualifiers: Hypertension type: essential hypertension Annotation/Comment:: Stable by history. Continue to observe closely. (4) Hypothyroidism SNOMED Code(s): 27504410 Code(s): E03.9 - HYPOTHYROIDISM, UNSPECIFIED Status: Chronic Priority: Medium Qualifiers: Annotation/Comment:: Currently under therapy (5) Mixed anxiety depressive disorder SNOMED Code(s): 420924444 Code(s): F41.8 - OTHER SPECIFIED ANXIETY DISORDERS Status: Chronic Priority: Medium (6) Osteoarthritis SNOMED Code(s): 650128514 Code(s): M19.90 - UNSPECIFIED OSTEOARTHRITIS, UNSPECIFIED SITE Status: Chronic Priority: Medium Qualifiers: Annotation/Comment:: Stable by history (7) Peptic reflux disease SNOMED Code(s): 736142007 Code(s): K21.9 - GASTRO-ESOPHAGEAL REFLUX DISEASE WITHOUT ESOPHAGITIS Status: Chronic Priority: Medium Annotation/Comment:: Stable by history (8) Anemia SNOMED Code(s): 889733565 Code(s): D64.9 - ANEMIA, UNSPECIFIED Status: Acute Priority: High Onset Date: ~10/04/16 Qualifiers: Anemia type: folate deficiency Folate deficiency anemia type: dietary Qualified Code(s): D52.0 - Dietary folate deficiency anemia (9) Chronic kidney disease SNOMED Code(s): 142777626 Code(s): N18.9 - CHRONIC KIDNEY DISEASE, UNSPECIFIED Status: Acute Qualifiers: (10) Dialysis patient SNOMED Code(s): 421730155 Code(s): Z99.2 - DEPENDENCE ON RENAL DIALYSIS Status: Acute Priority: High (11) Folic acid deficiency SNOMED Code(s): 934206934 Code(s): E53.8 - DEFICIENCY OF OTHER SPECIFIED B GROUP VITAMINS Status: Acute Priority: High (12) Hypoalbuminemia SNOMED Code(s): 365032937 Code(s): E88.09 - OTH DISORDERS OF PLASMA-PROTEIN METABOLISM, NEC Status: Acute Priority: Medium Onset Date: 10/04/16 (13) Hypokalemia SNOMED Code(s): 61289528 Code(s): E87.6 - HYPOKALEMIA Status: Acute Priority: High (14) Hypotension SNOMED Code(s): 05085506 Code(s): I95.9 - HYPOTENSION, UNSPECIFIED Status: Acute Priority: High Qualifiers: Hypotension type: hemodialysis-associated hypotension (15) Hypovolemia dehydration SNOMED Code(s): 49403477 Code(s): E86.1 - HYPOVOLEMIA Status: Acute Priority: High (16) Hypocalcemia SNOMED Code(s): 6091111 Code(s): E83.51 - HYPOCALCEMIA Status: Chronic Priority: Medium (17) Thyroid cancer SNOMED Code(s): 771243020 Code(s): C73 - MALIGNANT NEOPLASM OF THYROID GLAND Status: Chronic Priority: Medium - Problem List Review Problem List Initiated/Reviewed/Updated: Yes - My Orders Last 24 Hours: My Active Orders 10/24/19 11:15 Discontinue Telemetry Monitoring [Cardiac Monitoring Discontinue] [RC] Click to Edit 10/24/19 11:19 Ready for Discharge [RC] PER UNIT ROUTINE - Plan Plan:: 10/23/2019 Yandy Dennison MD She feels much better today. Strength improving. Received a call from her dialysis nurse "Kaitlin" stating Anupama has been diagnosed with staph coag negative peritonitis and is receiving intra peritoneal vancomycin next dose due Thursday 10/26. Anupama has the medication and the equipment to administer herself. I discussed with Kaitlin that we are not a dialysis center with no specialty trained staff and perhaps Anupama should be transferred back to [facility]. She was worried about Anupama's hemoglobin but we did do a finger stick and Hgb is 8.3 and was 7.5 on Saturday so Hgb is stabilized. Kaitlin advises me that Anupama knows everything about her peritoneal dialysis and the vancomycin so we should keep her in [place] in swing bed status. She also states that the culture may be only be contamination so treating with the vancomycin is precautionary. Vital signs are stable, I/O shows adequate intake, WBC is not elevated. I then discussed all of these facts with Anupama and she refuses transfer to [place] and agrees to stay in the hospital in [place] and plan for swing bed admission tomorrow if she remains stable and then onto [facility] when their staff is all trained. 10/24/2019 Yandy Dennison MD Feeling okay. Qualifies for admission into swing-bed to continue PT-OT.
--- NOTE | 2019-10-24 12:00 | PCM.DCSUM1 ---
Discharge Summary - Hospital Course Diagnosis: Stroke: No - Discharge Data Discharge Date: 10/24/19 Discharge Disposition: DC/Tfer W/I Hosp To Swing 61 Condition: Fair - Referral to Home Health Primary Care Physician: Luda Kwong MD - Discharge Diagnosis/Problem(s) (1) Weakness SNOMED Code(s): 35232922 ICD Code: R53.1 - WEAKNESS Status: Acute Priority: High Onset Date: ~ Problem Details: The patient and her now agree to a long-term usp/swing bed placement. She will be initially placed in observation status with [facility] to assume care in the a.m. Note recent hospitalization at [facility] in [place], which should qualify her for transfer to swing bed within the next 2448 hours. Physical therapy and occupational therapy to evaluate the patient in the a.m. 10/24/2019 Agree with above. (2) Chronic renal insufficiency, stage IV (severe) SNOMED Code(s): 565297724 ICD Code: N18.4 - CHRONIC KIDNEY DISEASE, STAGE 4 (SEVERE) Status: Chronic Priority: Medium (3) Hypertension SNOMED Code(s): 24188031 ICD Code: I10 - ESSENTIAL (PRIMARY) HYPERTENSION Status: Chronic Priority : Medium Problem Details: Stable by history. Continue to observe closely. Qualifiers: Hypertension type: essential hypertension (4) Hypothyroidism SNOMED Code(s): 63783191 ICD Code: E03.9 - HYPOTHYROIDISM, UNSPECIFIED Status: Chronic Priority: Medium Problem Details: Currently under therapy Qualifiers: (5) Mixed anxiety depressive disorder SNOMED Code(s): 376724624 ICD Code: F41.8 - OTHER SPECIFIED ANXIETY DISORDERS Status: Chronic Priority: Medium (6) Osteoarthritis SNOMED Code(s): 167204542 ICD Code: M19.90 - UNSPECIFIED OSTEOARTHRITIS, UNSPECIFIED SITE Status: Chronic Priority: Medium Problem Details: Stable by history Qualifiers: (7) Peptic reflux disease SNOMED Code(s): 423614027 ICD Code: K21.9 - GASTRO-ESOPHAGEAL REFLUX DISEASE WITHOUT ESOPHAGITIS Status: Chronic Priority: Medium Problem Details: Stable by history (8) Anemia SNOMED Code(s): 054706536 ICD Code: D64.9 - ANEMIA, UNSPECIFIED Status: Acute Priority: High Onset Date: ~10/04/16 Qualifiers: Anemia type: folate deficiency Folate deficiency anemia type: dietary Qualified Code(s): D52.0 - Dietary folate deficiency anemia (9) Chronic kidney disease SNOMED Code(s): 321917160 ICD Code: N18.9 - CHRONIC KIDNEY DISEASE, UNSPECIFIED Status: Acute Qualifiers: (10) Dialysis patient SNOMED Code(s): 215823158 ICD Code: Z99.2 - DEPENDENCE ON RENAL DIALYSIS Status: Acute Priority: High (11) Folic acid deficiency SNOMED Code(s): 521944433 ICD Code: E53.8 - DEFICIENCY OF OTHER SPECIFIED B GROUP VITAMINS Status: Acute Priority: High (12) Hypoalbuminemia SNOMED Code(s): 460733115 ICD Code: E88.09 - OTH DISORDERS OF PLASMA-PROTEIN METABOLISM, NEC Status: Acute Priority: Medium Onset Date: 10/04/16 (13) Hypokalemia SNOMED Code(s): 16690955 ICD Code: E87.6 - HYPOKALEMIA Status: Acute Priority: High (14) Hypotension SNOMED Code(s): 84822834 ICD Code: I95.9 - HYPOTENSION, UNSPECIFIED Status: Acute Priority: High Qualifiers: Hypotension type: hemodialysis-associated hypotension (15) Hypovolemia dehydration SNOMED Code(s): 38669874 ICD Code: E86.1 - HYPOVOLEMIA Status: Acute Priority: High (16) Hypocalcemia SNOMED Code(s): 0720760 ICD Code: E83.51 - HYPOCALCEMIA Status: Chronic Priority: Medium (17) Thyroid cancer SNOMED Code(s): 086967962 ICD Code: C73 - MALIGNANT NEOPLASM OF THYROID GLAND Status: Chronic Priority: Medium - Patient Summary/Data Consults: Consultations 10/22/19 23:47 Consult to Physical Therapy [PT Evaluation and Treatment] [CONS] Routine 10/22/19 23:48 Consult to Occupational Therapy [OT Evaluation and Treatment] [CONS] Routine - Patient Instructions Diet: Regular Diet as Tolerated Activity: As Tolerated Driving: Do Not Drive Showering/Bathing: May Shower - Discharge Plan *PRESCRIPTION DRUG MONITORING PROGRAM REVIEWED*: Not Applicable *COPY OF PRESCRIPTION DRUG MONITORING REPORT IN PATIENT [place]: Not Applicable Home Medications: Home Meds ALPRAZolam [Xanax] 1 cap PO BEDTIME 06/24/19 [History] Cholecalciferol (Vitamin D3) [Vitamin D3] 4,000 unit PO DAILY 06/24/19 [History] Cyanocobalamin (Vitamin B-12) [Cyanocobalamin Injection] 1 ml IM Q30D 06/24/19 [ History] Potassium Chloride [Klor-Con M20] 1 tab PO TID 06/24/19 [History] Sevelamer Carbonate [Renvela] 800 mg PO TID 06/24/19 [History] Venlafaxine [Effexor XR] 150 mg PO DAILY 06/24/19 [History] calcitrioL [Rocaltrol] 0.25 mcg PO DAILY 06/24/19 [History] Folic Acid 1 mg PO DAILY #100 tablet 06/26/19 [Rx] Epoetin Dante [Epogen] 30,000 unit SQ WEEKLY 09/16/19 [History] Venlafaxine [Effexor XR] 37.5 mg PO DAILY 09/16/19 [History] polyethylene glycoL 3350 [MiraLAX] 17 gm PO DAILY 09/16/19 [History] Ondansetron [Zofran ODT] 4 mg PO Q4H PRN #30 tab.dis 10/16/19 [Rx] Levothyroxine 125 mcg PO ACBREAKFAST 10/23/19 [History] Oxygen Therapy Mode: Room Air Forms: ED Department Discharge Referrals: Luda Kwong MD [Primary Care Provider] - - Discharge Summary/Plan Comment DC Time >30 min.: Yes - Patient Data Vitals - Most Recent: Last Vital Signs Temp 97 F 10/24/19 07:56 Pulse 88 10/24/19 07:56 Resp 16 10/24/19 07:56 BP 94/61 10/24/19 07:56 Pulse Ox 98 10/24/19 07:56 Weight - Most Recent: 206 lb 14.4 oz I&O - Last 24 hours: Intake & Output 10/23/19 10/24/19 10/24/19 22:59 06:59 14:59 Intake Total 830 0 Output Total 0 Balance 830 0 Lab Results - Last 24 hrs: Laboratory Results - last 24 hr 10/23/19 10/24/19 Range/Units 19:50 08:00 WBC 8.0 6.4 (4.0-10.2) K/uL RBC 2.62 L 2.59 L (3.77-5.09) M/uL Hgb 8.3 L D 8.0 L (11.7-15.5) g/dL Hct 26.2 L 26.3 L (34.0-46.0) % MCV 100.0 H 101.5 H (84.0-98.0) fL MCH 31.7 30.9 (28.2-33.3) pg MCHC 31.7 30.4 L (31.7-36.0) g/dL RDW 14.6 H 14.8 H (11.2-14.1) % Plt Count 200 D 183 (150-350) K/uL Neut % (Auto) 72.1 64.3 (45.0-80.0) % Lymph % (Auto) 16.1 22.7 (10.0-50.0) % [place] % (Auto) 11.5 12.6 (2.0-14.0) % Eos % (Auto) 0.1 0.2 (0.0-5.0) % Baso % (Auto) 0.2 0.2 (0.0-2.0) % Neut # (Auto) 5.78 4.15 (1.40-7.00) K/uL Lymph # (Auto) 1.29 1.46 (0.50-3.50) K/uL [place] # (Auto) 0.92 0.81 (0.00-1.00) K/uL Eos # (Auto) 0.01 0.01 (0.00-0.50) K/uL Baso # (Auto) 0.02 0.01 (0.00-0.20) K/uL Med Orders - Current: Current Medications Discontinued Medications Acetaminophen (Tylenol) 650 mg PO Q4H PRN PRN Reason: Pain/Fever Alprazolam (Xanax) 1 mg PO BEDTIME [facility] Last Admin: 10/23/19 20:31 Dose: 1 mg Calcitriol (Rocaltrol) 0.25 mcg PO DAILY [facility] Last Admin: 10/24/19 07:28 Dose: 0.25 mcg Cholecalciferol (Vitamin D3) 100 mcg PO DAILY [facility] Last Admin: 10/24/19 07:28 Dose: 100 mcg Cyanocobalamin (Vitamin B12) 1,000 mcg IM Q30D [facility] Last Admin: 10/23/19 00:16 Dose: Not Given Epoetin Dante (Procrit) 20,000 units SUBCUT Q7D [facility] Last Admin: 10/23/19 19:30 Dose: Not Given Folic Acid (Folic Acid) 1 mg PO DAILY [facility] Last Admin: 10/24/19 07:28 Dose: 1 mg Levothyroxine Sodium (Synthroid) 100 mcg PO DAILY@0700 [facility] Last Admin: 10/24/19 07:28 Dose: 100 mcg Levothyroxine Sodium (Levothyroxine) 25 mcg PO DAILY@0700 [facility] Last Admin: 10/24/19 07:28 Dose: 25 mcg Metoprolol Succinate (Toprol Xl) 25 mg PO ONETIME ONE Stop: 10/22/19 23:44 Last Admin: 10/23/19 00:14 Dose: 25 mg Metoprolol Tartrate (Lopressor) 2.5 mg IVPUSH ONETIME ONE Stop: 10/22/19 21:21 Last Admin: 10/23/19 00:23 Dose: Not Given Sevelamer Carbonate [Renvela] 800 Mg Tab Own Med 800 mg PO TIDMEALS [facility] Last Admin: 10/24/19 11:22 Dose: 800 mg Ondansetron HCl (Zofran Odt) 4 mg PO Q4H PRN PRN Reason: Nausea Polyethylene Glycol (Miralax) 17 gm PO DAILY [facility] Last Admin: 10/24/19 07:28 Dose: Not Given Potassium Chloride (Klor-Con M20) 20 meq PO BID [facility] Last Admin: 10/24/19 07:28 Dose: 20 meq Sodium Chloride (Saline Flush) 10 ml FLUSH Q12H [facility] Last Admin: 10/23/19 22:53 Dose: Not Given Venlafaxine HCl (Effexor Xr) 37.5 mg PO DAILY [facility] Last Admin: 10/24/19 07:28 Dose: 37.5 mg Venlafaxine HCl (Effexor Xr) 150 mg PO DAILY [facility] Last Admin: 10/24/19 07:28 Dose: 150 mg
== END 2019-10-24 11:35 | disposition swing bed (61) ==
LOC: LL.ED 21:12 → UNDOADMOB 22:44 → LL.MS 22:44
PROVIDERS: ADMIT Family Medicine; ATTEND Family Medicine
DX: R53.1 Weakness (principal); I13.0 Hypertensive heart and chronic kidney disease with heart failure and stage 1 through stage 4 chronic kidney disease, or unspecified chronic kidney disease; I50.9 Heart failure, unspecified; N18.4 Chronic kidney disease, stage 4 (severe); E03.9 Hypothyroidism, unspecified; F41.8 Other specified anxiety disorders; K21.9 Gastro-esophageal reflux disease without esophagitis; D52.0 Dietary folate deficiency anemia; M19.90 Unspecified osteoarthritis, unspecified site; E53.8 Deficiency of other specified B group vitamins; E88.09 Other disorders of plasma-protein metabolism, not elsewhere classified; E87.6 Hypokalemia; I95.9 Hypotension, unspecified; E86.1 Hypovolemia; E83.51 Hypocalcemia; C73 Malignant neoplasm of thyroid gland; E78.00 Pure hypercholesterolemia, unspecified; G43.909 Migraine, unspecified, not intractable, without status migrainosus; F41.9 Anxiety disorder, unspecified; F32.9 Major depressive disorder, single episode, unspecified; M81.0 Age-related osteoporosis without current pathological fracture; E55.9 Vitamin D deficiency, unspecified; E66.9 Obesity, unspecified; Z71.6 Tobacco abuse counseling; Z99.2 Dependence on renal dialysis; Z88.6 Allergy status to analgesic agent; Z88.8 Allergy status to other drugs, medicaments and biological substances; Z79.899 Other long term (current) drug therapy
CPT/HCPCS: 36415; 85025; 97110; 97161; 99285; A9270; G0378

== ENCOUNTER 2019-10-24 11:24 | Inpatient (IN) | payer MEDICARE, MEDICAID ==
--- NOTE | 2019-10-24 11:38 | PCM.HP.2 ---
H&P History of Present Illness - General Date of Service: 10/24/19 Admit Problem/Dx: Admission Diagnosis/Problem Admission Diagnosis/Problem Weakness Source of Information: Patient, Old Records History Limitations: Reports: No Limitations - Related Data Allergies/Adverse Reactions: Allergies Allergy/AdvReac Type Severity Reaction Status Date / Time ibuprofen Allergy Renal Verified 09/16/19 18:05 Insufficiency zolpidem Allergy Hallucinati Verified 09/16/19 18:05 ons Home Medications: Home Meds ALPRAZolam [Xanax] 1 cap PO BEDTIME 06/24/19 [History] Cholecalciferol (Vitamin D3) [Vitamin D3] 4,000 unit PO DAILY 06/24/19 [History] Cyanocobalamin (Vitamin B-12) [Cyanocobalamin Injection] 1 ml IM Q30D 06/24/19 [ History] Potassium Chloride [Klor-Con M20] 1 tab PO TID 06/24/19 [History] Sevelamer Carbonate [Renvela] 800 mg PO TID 06/24/19 [History] Venlafaxine [Effexor XR] 150 mg PO DAILY 06/24/19 [History] calcitrioL [Rocaltrol] 0.25 mcg PO DAILY 06/24/19 [History] Folic Acid 1 mg PO DAILY #100 tablet 06/26/19 [Rx] Epoetin Dante [Epogen] 30,000 unit SQ WEEKLY 09/16/19 [History] Venlafaxine [Effexor XR] 37.5 mg PO DAILY 09/16/19 [History] polyethylene glycoL 3350 [MiraLAX] 17 gm PO DAILY 09/16/19 [History] Ondansetron [Zofran ODT] 4 mg PO Q4H PRN #30 tab.dis 10/16/19 [Rx] Levothyroxine 125 mcg PO ACBREAKFAST 10/23/19 [History] Past Medical History HEENT History: Reports: Cataract, Impaired Vision, Other (See Below). 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 The patient does wear glasses. Cardiovascular History: Reports: Arrhythmia, Heart Failure, High Cholesterol, Hypertension, Other (See Below). Denies: Afib, Aneurysm, Blood Clots/VTE/DVT, CAD, Cardiomyopathy, Heart Murmur, MS, PVD, Syncope Other Cardiovascular History: PAC's and first-degree AV block by EKG on 2018 at [facility]. Respiratory History: Reports: Intubation, Previous, Other (See Below). Denies: Asthma, Bronchitis, Recurrent, COPD, Intubation, Difficult, PE, Pneumonia, Recurrent, Pneumothorax, TB Other Respiratory History: 8 mm right middle lobe pulmonary nodule with multiple probable benign right lower lobe pulmonary nodules. Gastrointestinal History: Reports: Bowel Obstruction, Chronic Constipation, Chronic Diarrhea, Fecal Incontinence, GERD, Hemorrhoids, Other (See Below). Denies: Celiac Disease, Cholelithiasis, Colon Polyp, Fatty Liver, Gastritis, GI Bleed, Hepatitis, Irritable Bowel Syndrome, Jaundice, Pancreatitis Other Gastrointestinal History: Nonspecific ascites by CT scan on 10/18/19. Colitis with rectal ulcer by colonoscopy in 2019 as below. Bowel obstruction about 1978 with subsequent surgery as below. Genitourinary History: Reports: Chronic Renal Insuffiency, Dialysis, Dialysis, Peritoneal, Urinary Incontinence, UTI, Recurrent, Other (See Below). Denies: Acute Renal Failure, Renal Calculus, STD Other Genitourinary History: Home peritoneal dialysis which was initiated in March 2019 peritoneal catheter insertion on 10/24/2018. DYNAMOMETER TUNER History: Reports: . Denies: Dysfunctional Uterine Bleeding, Endometriosis, Fibroids, Spontaneous Other OB/BYN History: Menopause at age 46, Full term without complications during pregnancies or deliveries Musculoskeletal History: Reports: Arthritis, Back Pain, Chronic, Fracture, Neck Pain, Chronic, Osteoarthritis, Osteoporosis. Denies: Amputation, Gout, RA, SLE Other Musculoskeletal History: Right #3 posterior rib fracture. Right shoulder and right scapular fracture. Incidental L3 hemangioma CT scan. Neurological History: Reports: Headaches, Chronic, Migraines. Denies: Cerebral Aneurysms, Concussion, CVA, Head Trauma, MS, Neuropathy, Peripheral, Parkinson's , Seizure, TIA, Vertigo Other Neuro History: Long history, but have greatly improved Psychiatric History: Reports: Anxiety, Depression. Denies: Abuse, Victim of, ADD, ADHD, Addiction, Alzheimers Disease, Dementia, Psych Hospitalization(s), Psychosis, PTSD, Suicide Attempt, Suicidal Ideation Endocrine/Metabolic History: Reports: Hyperparathyroidism, Hypokalemia, Hypomagnesemia, Hypothyroidism, Obesity/BMI 30+, Osteopenia, Osteoporosis, Vitamin D Deficiency, Other (See Below). Denies: Diabetes, Gestational, Diabetes, Type I, Diabetes, Type II, Diabetes Mellitus, Type 3c, IDDM Other Endocrine/Metabolic History: Hx of thyroid cancer nonoperable by patient history with subsequent chemotherapy and secondary hypothyroidism. Hypercalcemia /hypocalcemia; Hypoalbuminemia. Hematologic History: Reports: Anemia, B12 Deficiency, Blood Transfusion(s), Folic Acid, Iron Deficiency Other Hematologic History: Blood transfusions with knee surgeries as below. Immunologic History: Reports: Immunosuppression, Other (See Below). 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 Denies: Basal Cell Carcinoma, Bladder, Breast, Cervix, Hodgkin's Lymphoma, Leukemia, Malignant Melanoma, Non-Hodgkin's Lymphoma, Ovarian, Squamous Cell Carcinoma, Uterine Other Oncologic History: Thyroid cancer diagnosed in June 2010 with completed chemotherapy treatment in October 2015 with no radiation therapy or thyroidectomy secondary to apparent inoperable disease. Lymphoma also diagnosed with her thyroid cancer with chemotherapy as above. Dermatologic History: Reports: None. Denies: Eczema, Melanoma - Infectious Disease History Infectious Disease History: Reports: Chicken Pox. Denies: C-Difficile, Measles , Meningitis, Mononucleosis, MRSA, Mumps, Pertussis (Whooping Cough), Rheumatic Fever, Rubella, Shingles, TB, VRE - Past Surgical History Head Surgeries/Procedures: Reports: None HEENT Surgical History: Reports: Cataract Surgery, Eye Surgery, Laser Surgery, Oral Surgery, Other (See Below). Denies: Adenoidectomy, Myringotomy w Tube(s), Naso-Sinus Surgery, Tonsillectomy Other HEENT Surgeries/Procedures: Complete teeth extraction with complete dentures uppers and lowers. Right cataract surgery on 04/03/12. Previous right eye laser therapy. Left upper eyelid cyst excision at about age 11. Cardiovascular Surgical History: Reports: None. Denies: Varicose Respiratory Surgical History: Reports: None. Denies: Lung Biopsies, Thoracentesis GI Surgical History: Reports: Appendectomy, Bariatric Procedure, Colon, Colonoscopy, Other (See Below). Denies: Cholecystectomy, EGD, Hernia, Abdominal , Hernia, Inguinal, Hernia Repair/Other, Polypectomy Other GI Surgeries/Procedures: Gastric bypass, hemorrhoid surgery x2, including hemorrhoidectomy in October 2005 and hemorrhoid stapling in 2004; last colonoscopy on 09/09/2019 with multiple serial biopsies indicated mild colitis with additional rectal ulcer. Incomplete colonoscopy to the transverse colon on 04/24/2018 with follow-up barium enema as below. Otherwise colonoscopies on and 02/06/2005. Partial colon resection secondary to bowel obstruction in 1978 with concomitant appendectomy with previous intestinal torsion revision without partial colectomy about 6 weeks prior to the surgery. Multiple previous failed colonoscopies as above with last barium enema as below. Peritoneal dialysis catheter placement on 04/23/2019. Female Surgical History: Reports: None. Denies: D&C, Hysterectomy, Oophorectomy, Salpingo-Oophorectomy, Tubal Ligation Endocrine Surgical History: Reports: Thyroid Biopsy, Other (See Below) Other Endocrine Surgeries/Procedures: Failed thyroidectomy for thyroid cancer in June 2010 as above. Neurological Surgical History: Reports: C-Spine, Spinal Fusion, Other (See Below ). Denies: Discectomy, Laminectomy, Lumbar Spine, Sacral Spine, Thoracic Spine Other Neurological Surgeries/Procedures: Questionable cervical fusion versus stone implant in September 1996. Musculoskeletal Surgical History: Reports: Joint Replacement, Knee Replacement, Other (See Below). Denies: Arthroscopic Knee, Carpal Tunnel, Ganglion Cyst, ORIF, Shoulder Surgery Other Musculoskeletal Surgeries/Procedures:: Bilateral total knee arthroplasty with right TKA on 12/13/2011. Oncologic Surgical History: Reports: None Dermatological Surgical History: Reports: None - Past Imaging History Past Imaging History: Reports: Barium Enema (Last on 09/11/19 however difficult exam secondary to bowel gas and stool.), Cardiac Echo (06/15/19 with ejection fraction of 6065 percent.), CAT Scan (CT of the abdomen and pelvis on 10/18/19. CT of the brain on 10/04/[address] of the chest without contrast on 05/06/18, 01/13/18, and 07/11/10.), DEXA Scan (07/25/18, 07/01/17, and 09/10/16,) , Mammogram (Last on 07/27/19.), PET (PET/CT T scan of the base of the skull to the mid thigh region on 03/15/19 and 10/05/16.), PFT (03/11/18.), Ultrasound (Renal ultrasound on 03/12/19 and 10/05/16. Bilateral ultrasound arm mapping on 03/26/19 for possible future AV fistula placement for dialysis.), Venous Doppler ( Negative on 10/04/16 of the legs bilaterally), Other (See Below) Social & Family History - Family History Family Medical History: Noncontributory HEENT: Reports: None. Denies: Glaucoma, Macular Degeneration, Retinal Detachment Cardiac: Reports: CAD, Cardiomyopathy, Heart Failure, High Cholesterol, Hypertension, MS, Other (See Below). Denies: Aneurysm, Arrhythmia, Blood Clots/ VTE/DVT, Bypass, Heart Murmur, PVD/COD, Syncope Other Cardiac Family History: Maternal grandmother with fatal CHF at age 89, father with hyperlipidemia and hypertension, father with fatal MS at age 88 Respiratory: Reports: None. Denies: Asthma, COPD, PE, Pneumothorax, Sleep Apnea GI: Reports: None. Denies: Celiac Disease, Cholelithiasis, Colon Polyps, GERD, GI bleed, Inflammatory Bowel Disease, Irritable Bowel Syndrome, PUD : Reports: Dialysis, Renal Calculus, Renal Disease/Insufficiency, Other (See Below) Other Family History: Mother with urolithiasis, father and brother with renal insufficiency which did require dialysis OBGYN: Reports: None. Denies: Endometriosis, Recurrent Spontaneous Musculoskeletal: Reports: Arthritis, Osteoarthritis, SLE, Other (See Below). Denies: Gout, RA Other Musculoskeletal Family History: mother with SLE Neurological: Reports: None. Denies: Alzheimers Disease, Cerebral Aneurysms, CVA, Dementia, Migraines, Neuropathy, Peripheral, Parkinson's, Seizure, TIA Psychiatric: Reports: None. Denies: Abuse, Victim of, ADD, ADHD, Anxiety, Depression, Psych Hospitalization(s), Psychosis, PTSD, Suicide Attempt Endocrine/Metabolic: Reports: None. Denies: Diabetes, Type I, Diabetes, type II , Diabetes Mellitus, Type 3c, Hypothyroidism, IDDM Hematologic: Reports: None, SLE, Other (See Below). Denies: Anemia Other Hematologic Family History: Mother with SLE Immunologic: Reports: SLE, Other (See Below). Denies: AIDS, HIV Other Immunologic Family History: Mother with SLE Dermatologic: Reports: None. Denies: Eczema, Psoriasis Oncologic: Reports: Metastatic, Prostate, Other (See Below). Denies: Breast, Cervix, Colon, Hodgkin's Lymphoma, Leukemia, Lymphoma, Non-Hodgkin's Lymphoma, Ovarian, Skin, Uterine Other Oncologic Family History: brother with fatal metastatic prostate cancer in his 60s - Caffeine Use Caffeine Use: Reports: None. 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.) H&P Review of Systems - Review of Systems: Review Of Systems: See Below General: Reports: Weakness HEENT: Reports: No Symptoms Pulmonary: Reports: No Symptoms Cardiovascular: Reports: No Symptoms Gastrointestinal: Reports: No Symptoms Genitourinary: Reports: Other (peritoneal dialysis) Musculoskeletal: Reports: No Symptoms Skin: Reports: No Symptoms Psychiatric: Reports: No Symptoms Neurological: Reports: Weakness Hematologic/Lymphatic: Reports: Anemia Immunologic: Reports: No Symptoms Exam - Exam Exam: See Below - Exam General: Alert, Cooperative, Mild Distress HEENT: Hearing Intact, Mucosa Moist & [place] Neck: Trachea Midline Lungs: Clear to Auscultation, Normal Respiratory Effort Cardiovascular: Regular Rate, Regular Rhythm GI/Abdominal Exam: Soft, Non-Tender, No Distention (Female) Exam: Deferred Rectal (Female) Exam: Deferred Back Exam: Normal Inspection, Other (mild kyphosis) Extremities: Normal Inspection, Non-Tender Skin: Warm, Dry, Intact Neurological: Other (weakness) Neuro Extensive - Mental Status: Alert, Normal Mood/Affect, Normal Cognition, Memory Intact Neuro Extensive - Motor, Sensory, Reflexes: Abnormal Gait (using walker and assist) Psychiatric: Alert, Normal Affect, Normal Mood *Q Meaningful Use (ADM) - VTE *Q VTE Mechanical Contraindications *Q: At Risk for Falls VTE Pharmacological Contraindications *Q: Patient has Severe Anemia VTE Anticoagulation Contraindications: Med/TX Not Indicated/Need - Problem List (1) Weakness SNOMED Code(s): 27902968 ICD Code: R53.1 - WEAKNESS Status: Acute Priority: High Onset Date: ~ Problem Details: The patient and her now agree to a long-term long term/swing bed placement. She will be initially placed in observation status with [facility] to assume care in the a.m. Note recent hospitalization at [facility], which should qualify her for transfer to swing bed within the next 2448 hours. Physical therapy and occupational therapy to evaluate the patient in the a.m. 10/24/2019 Agree with above. (2) Chronic renal insufficiency, stage IV (severe) SNOMED Code(s): 610894351 ICD Code: N18.4 - CHRONIC KIDNEY DISEASE, STAGE 4 (SEVERE) Status: Chronic Priority: Medium (3) Hypertension SNOMED Code(s): 13169444 ICD Code: I10 - ESSENTIAL (PRIMARY) HYPERTENSION Status: Chronic Priority : Medium Problem Details: Stable by history. Continue to observe closely. Qualifiers: Hypertension type: essential hypertension (4) Hypothyroidism SNOMED Code(s): 96638982 ICD Code: E03.9 - HYPOTHYROIDISM, UNSPECIFIED Status: Chronic Priority: Medium Problem Details: Currently under therapy Qualifiers: (5) Mixed anxiety depressive disorder SNOMED Code(s): 521299642 ICD Code: F41.8 - OTHER SPECIFIED ANXIETY DISORDERS Status: Chronic Priority: Medium (6) Osteoarthritis SNOMED Code(s): 383269459 ICD Code: M19.90 - UNSPECIFIED OSTEOARTHRITIS, UNSPECIFIED SITE Status: Chronic Priority: Medium Problem Details: Stable by history Qualifiers: (7) Peptic reflux disease SNOMED Code(s): 719077568 ICD Code: K21.9 - GASTRO-ESOPHAGEAL REFLUX DISEASE WITHOUT ESOPHAGITIS Status: Chronic Priority: Medium Problem Details: Stable by history (8) Anemia SNOMED Code(s): 864896954 ICD Code: D64.9 - ANEMIA, UNSPECIFIED Status: Acute Priority: High Onset Date: ~10/04/16 Qualifiers: Anemia type: folate deficiency Folate deficiency anemia type: dietary Qualified Code(s): D52.0 - Dietary folate deficiency anemia (9) Chronic kidney disease SNOMED Code(s): 623477269 ICD Code: N18.9 - CHRONIC KIDNEY DISEASE, UNSPECIFIED Status: Acute Qualifiers: Qualified Code(s): N18.6 - End stage renal disease; Z99.2 - Dependence on renal dialysis (10) Dialysis patient SNOMED Code(s): 362826728 ICD Code: Z99.2 - DEPENDENCE ON RENAL DIALYSIS Status: Acute Priority: High (11) Fatigue SNOMED Code(s): 92895131 ICD Code: R53.83 - OTHER FATIGUE Status: Acute Priority: High Onset Date: ~10/04/16 Qualifiers: Fatigue type: chronic, unspecified Qualified Code(s): R53.82 - Chronic fatigue, unspecified (12) First degree AV block SNOMED Code(s): 351103075 ICD Code: I44.0 - ATRIOVENTRICULAR BLOCK, FIRST DEGREE Status: Acute Priority: Medium Onset Date: 10/04/16 (13) Folic acid deficiency SNOMED Code(s): 560109675 ICD Code: E53.8 - DEFICIENCY OF OTHER SPECIFIED B GROUP VITAMINS Status: Acute Priority: High (14) Hypoalbuminemia SNOMED Code(s): 333540292 ICD Code: E88.09 - OTH DISORDERS OF PLASMA-PROTEIN METABOLISM, NEC Status: Acute Priority: Medium Onset Date: 10/04/16 (15) Hypokalemia SNOMED Code(s): 55599597 ICD Code: E87.6 - HYPOKALEMIA Status: Acute Priority: High (16) Hypomagnesemia SNOMED Code(s): 949121349 ICD Code: E83.42 - HYPOMAGNESEMIA Status: Acute Priority: Medium Onset Date: 10/04/16 (17) Hypotension SNOMED Code(s): 36555034 ICD Code: I95.9 - HYPOTENSION, UNSPECIFIED Status: Acute Priority: High Qualifiers: Hypotension type: hemodialysis-associated hypotension (18) Hypovolemia dehydration SNOMED Code(s): 49930455 ICD Code: E86.1 - HYPOVOLEMIA Status: Acute Priority: High (19) Hypocalcemia SNOMED Code(s): 1643774 ICD Code: E83.51 - HYPOCALCEMIA Status: Chronic Priority: Medium (20) Thyroid cancer SNOMED Code(s): 033041495 ICD Code: C73 - MALIGNANT NEOPLASM OF THYROID GLAND Status: Chronic Priority: Medium Problem List Initiated/Reviewed/Updated: Yes Orders Last 24hrs: Active Orders 24 hr Category Date Time Status Admission Status [Patient Status] [ADT] Routine ADT 10/24/19 11:24 Ordered Antiembolic Devices [RC] .Routine Care 10/24/19 11:20 Ordered Communication Order [RC] ROUTINE Care 10/24/19 11:23 Active Communication, Vaccine [RC] PER UNIT ROUTINE Care 10/24/19 11:21 Active Oxygen Therapy [RC] PRN Care 10/24/19 11:20 Ordered Pulse Oximetry [RC] ASDIRECTED Care 10/24/19 11:20 Ordered VTE/DVT Education [RC] PER UNIT ROUTINE Care 10/24/19 11:20 Ordered Vaccines to be Administered [RC] PER UNIT ROUTINE Care 10/24/19 11:21 Ordered Vital Signs [RC] DAILY Care 10/24/19 11:20 Ordered Consult to Case Management/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 [CONS] Cons 10/24/19 11:26 Ordered Routine Consult to Occupational Therapy [OT Evaluation and Cons 10/24/19 11:20 Ordered Treatment] [CONS] Routine Consult to Physical Therapy [PT Evaluation and Cons 10/24/19 11:20 Ordered Treatment] [CONS] Routine Regular Diet [DIET] Diet 10/24/19 Breakfast Ordered ALPRAZolam [Xanax] Med 10/24/19 20:00 Ordered 1 mg PO BEDTIME Acetaminophen [Tylenol] Med 10/24/19 11:20 Ordered 650 mg PO Q4H PRN Cholecalciferol (Vitamin D3) [Vitamin D3] Med 10/25/19 08:00 Ordered 100 mcg PO DAILY Cyanocobalamin (Vitamin B12) [Vitamin B12] Med 11/21/19 23:45 Ordered 1,000 mcg IM Q30D Folic Acid Med 10/25/19 08:00 Ordered 1 mg PO DAILY Levothyroxine Med 10/25/19 07:00 Ordered 25 mcg PO DAILY@0700 Levothyroxine [Synthroid] Med 10/25/19 07:00 Ordered 100 mcg PO DAILY@0700 Ondansetron [Zofran ODT] Med 10/24/19 11:20 Ordered 4 mg PO Q4H PRN Potassium Chloride [Klor-Con M20] Med 10/24/19 18:00 Ordered 20 meq PO BID Sevelamer Carbonate [Renvela] Med 10/24/19 12:00 Ordered 800 mg PO TIDMEALS Venlafaxine [Effexor XR] Med 10/25/19 08:00 Ordered 150 mg PO DAILY Venlafaxine [Effexor XR] Med 10/25/19 08:00 Ordered 37.5 mg PO DAILY calcitrioL [Rocaltrol] Med 10/25/19 08:00 Ordered 0.25 mcg PO DAILY polyethylene glycoL 3350 [MiraLAX] Med 10/25/19 08:00 Ordered 17 gm PO DAILY DVT/VTE Prophylaxis Reflex [OM.PC] Routine Oth 10/24/19 11:20 Ordered GM Immunization Reflex [OM.PC] Click To Edit Oth 10/24/19 11:20 Ordered Code Status [Resuscitation Status] Routine Resus Stat 10/24/19 11:25 Ordered Medication Orders Acetaminophen (Tylenol) 650 mg PO Q4H PRN PRN Reason: Pain/Fever Alprazolam (Xanax) 1 mg PO BEDTIME NILO Calcitriol (Rocaltrol) 0.25 mcg PO DAILY NILO Cholecalciferol (Vitamin D3) 100 mcg PO DAILY NILO Cyanocobalamin (Vitamin B12) 1,000 mcg IM Q30D NILO Folic Acid (Folic Acid) 1 mg PO DAILY NILO Levothyroxine Sodium (Synthroid) 100 mcg PO DAILY@0700 NILO Levothyroxine Sodium (Levothyroxine) 25 mcg PO DAILY@0700 [facility] Non-Formulary Medication (Sevelamer Carbonate [Renvela]) 800 mg PO TIDMEALS NILO Ondansetron HCl (Zofran Odt) 4 mg PO Q4H PRN PRN Reason: Nausea Polyethylene Glycol (Miralax) 17 gm PO DAILY [facility] Potassium Chloride (Klor-Con M20) 20 meq PO BID NILO Venlafaxine HCl (Effexor Xr) 37.5 mg PO DAILY NILO Venlafaxine HCl (Effexor Xr) 150 mg PO DAILY NILO Assessment/Plan Comment:: 10/24/2019 Yandy Dennison MD 69 year old lady with multifactorial reasons for weakness and difficulty maintaining her ADLs. She has CKD, peritoneal dialysis, anemia, hypothyroid not well controlled at this time, question of hypo-adrenalism (hypo cortisone) which has not been completely worked up to my knowledge, and recent question of peritonitis secondary to contaminated peritoneal catheter. C&S grew staph coag negative only x1 so may be a contaminant but her coil inspector elected to treat her with intraperitoneal vancomycin which Anupama has been instructed and has the medicine and equipment. Next dose due Saturday10/26/2019. We have been in contact with her [facility] nurse Kaitlin ([phone]). She will be in [place] on Saturday10/28/2019. Anupama qualifies for admission into swing bed for PT-OT. - Mortality Measure Prognosis:: Poor
[2019-10-24] MEDS: Potassium Chloride 20 MEQ Tab.ER PO SCH (16:59)
[2019-10-24] MEDS: SEVELAMER CARBONATE 800 MG PO SCH (16:59)
[2019-10-24] MEDS: ALPRAZolam 1 MG Tab PO SCH (20:05)
[2019-10-25] MEDS: Venlafaxine 75 MG Cap.ER PO SCH (07:38)
[2019-10-25] MEDS: Levothyroxine 25 MCG Tab PO SCH (07:39)
[2019-10-25] MEDS: Levothyroxine 100 MCG Tab PO SCH (07:40)
[2019-10-25] MEDS: Folic Acid 1 MG Tab PO SCH (07:41)
[2019-10-25] MEDS: Potassium Chloride 20 MEQ Tab.ER PO SCH ×2 (07:41→17:23)
[2019-10-25] MEDS: Venlafaxine 37.5 MG Cap.ER PO SCH (07:41)
[2019-10-25] MEDS: Calcitriol 0.25 MCG Cap PO SCH (07:42)
[2019-10-25] MEDS: Cholecalciferol (Vitamin D3) 25 MCG Tab PO SCH (07:42)
[2019-10-25] MEDS: Polyethylene Glycol 3350 Powder 17 GM Packet PO SCH (07:43)
[2019-10-25] MEDS: SEVELAMER CARBONATE 800 MG PO SCH ×3 (10:36→17:24)
[2019-10-25] MEDS: ALPRAZolam 1 MG Tab PO SCH (20:54)
[2019-10-26] MEDS: Polyethylene Glycol 3350 Powder 17 GM Packet PO SCH (07:51)
[2019-10-26] MEDS: Cholecalciferol (Vitamin D3) 25 MCG Tab PO SCH (07:52)
[2019-10-26] MEDS: Acetaminophen 325 MG Tab PO PRN ×2 (07:52→12:02)
[2019-10-26] MEDS: Calcitriol 0.25 MCG Cap PO SCH (07:54)
[2019-10-26] MEDS: Folic Acid 1 MG Tab PO SCH (07:54)
[2019-10-26] MEDS: Levothyroxine 100 MCG Tab PO SCH (07:54)
[2019-10-26] MEDS: Potassium Chloride 20 MEQ Tab.ER PO SCH ×2 (07:54→17:09)
[2019-10-26] MEDS: Venlafaxine 75 MG Cap.ER PO SCH (07:54)
[2019-10-26] MEDS: Levothyroxine 25 MCG Tab PO SCH (07:54)
[2019-10-26] MEDS: SEVELAMER CARBONATE 800 MG PO SCH ×3 (07:55→17:09)
[2019-10-26] MEDS: Venlafaxine 37.5 MG Cap.ER PO SCH (07:55)
--- NOTE | 2019-10-26 12:53 | PCM.PN ---
- General Info Date of Service: 10/26/19 Admission Dx/Problem (Free Text): Admission Diagnosis/Problem Admission Diagnosis/Problem Weakness Functional Status: Reports: Other (headache today) - Review of Systems General: Reports: Weakness HEENT: Reports: Headaches Pulmonary: Reports: No Symptoms Cardiovascular: Reports: No Symptoms Gastrointestinal: Reports: No Symptoms Genitourinary: Reports: Other (dialysis) Musculoskeletal: Reports: No Symptoms Skin: Reports: No Symptoms Neurological: Reports: No Symptoms Psychiatric: Reports: No Symptoms - Patient Data Vitals - Most Recent: Last Vital Signs Temp 97.1 F 10/26/19 08:00 Pulse 96 10/26/19 08:00 Resp 17 10/26/19 08:00 BP 103/53 L 10/26/19 08:00 Pulse Ox 96 10/26/19 08:00 Weight - Most Recent: 206 lb I&O - Last 24 Hours: Intake & Output 10/25/19 10/26/19 10/26/19 22:59 06:59 14:59 Intake Total 50 Balance 50 Lab Results Last 24 Hours: Laboratory Results - last 24 hr 10/26/19 Range/Units 07:37 WBC 6.4 (4.0-10.2) K/uL RBC 2.70 L (3.77-5.09) M/uL Hgb 8.4 L (11.7-15.5) g/dL Hct 26.8 L (34.0-46.0) % MCV 99.3 H (84.0-98.0) fL MCH 31.1 (28.2-33.3) pg MCHC 31.3 L (31.7-36.0) g/dL RDW 14.9 H (11.2-14.1) % Plt Count 214 (150-350) K/uL Neut % (Auto) 64.5 (45.0-80.0) % Lymph % (Auto) 23.0 (10.0-50.0) % [place] % (Auto) 12.0 (2.0-14.0) % Eos % (Auto) 0.2 (0.0-5.0) % Baso % (Auto) 0.3 (0.0-2.0) % Neut # (Auto) 4.16 (1.40-7.00) K/uL Lymph # (Auto) 1.48 (0.50-3.50) K/uL [place] # (Auto) 0.77 (0.00-1.00) K/uL Eos # (Auto) 0.01 (0.00-0.50) K/uL Baso # (Auto) 0.02 (0.00-0.20) K/uL Med Orders - Current: Current Medications Acetaminophen (Tylenol) 650 mg PO Q4H PRN PRN Reason: Pain/Fever Last Admin: 10/26/19 12:02 Dose: 650 mg Alprazolam (Xanax) 1 mg PO BEDTIME [facility] Last Admin: 10/25/19 20:54 Dose: 1 mg Calcitriol (Rocaltrol) 0.25 mcg PO DAILY [facility] Last Admin: 10/26/19 07:54 Dose: 0.25 mcg Cholecalciferol (Vitamin D3) 100 mcg PO DAILY [facility] Last Admin: 10/26/19 07:52 Dose: 100 mcg Cyanocobalamin (Vitamin B12) 1,000 mcg IM Q30D [facility] Folic Acid (Folic Acid) 1 mg PO DAILY [facility] Last Admin: 10/26/19 07:54 Dose: 1 mg Levothyroxine Sodium (Synthroid) 100 mcg PO DAILY@0700 [facility] Last Admin: 10/26/19 07:54 Dose: 100 mcg Levothyroxine Sodium (Levothyroxine) 25 mcg PO DAILY@0700 [facility] Last Admin: 10/26/19 07:54 Dose: 25 mcg Sevelamer Carbonate [Renvela] 800 Mg Own Med 800 mg PO TIDMEALS [facility] Last Admin: 10/26/19 12:03 Dose: 800 mg Ondansetron HCl (Zofran Odt) 4 mg PO Q4H PRN PRN Reason: Nausea Polyethylene Glycol (Miralax) 17 gm PO DAILY [facility] Last Admin: 10/26/19 07:51 Dose: 17 gm Potassium Chloride (Klor-Con M20) 20 meq PO BID [facility] Last Admin: 10/26/19 07:54 Dose: 20 meq Venlafaxine HCl (Effexor Xr) 37.5 mg PO DAILY [facility] Last Admin: 10/26/19 07:55 Dose: 37.5 mg Venlafaxine HCl (Effexor Xr) 150 mg PO DAILY [facility] Last Admin: 10/26/19 07:54 Dose: 150 mg - Exam General: Alert, Cooperative HEENT: Mucous Membr. Moist/[place] Neck: Trachea Midline, No JVD Lungs: Clear to Auscultation, Normal Respiratory Effort Cardiovascular: Regular Rate, Regular Rhythm GI/Abdominal Exam: Soft, Non-Tender, No Distention, Other (peritoneal dialysis catheter) (Female) Exam: Deferred Back Exam: Normal Inspection Extremities: Normal Inspection, Non-Tender Skin: Warm, Dry, Intact Neurological: No New Focal Deficit Psy/Mental Status: Alert, Normal Affect, Normal Mood Sepsis Event Note - Evaluation Sepsis Screening Result: No Definite Risk - Focused Exam Vital Signs: Vital Signs Temp Pulse Resp BP Pulse Ox 10/26/19 08:00 97.1 F 96 17 103/53 L 96 Date Exam was Performed: 10/26/19 Time Exam was Performed: 12:50 - Problem List & Annotations (1) Weakness SNOMED Code(s): 48546614 Code(s): R53.1 - WEAKNESS Status: Acute Priority: High Current Visit: No Onset Date: ~09/15/19 Annotation/Comment:: The patient and her now agree to a long-term mcc/swing bed placement. She will be initially [place] [facility] [place] in the [place]. Note recent hospitalization at [facility] in [place], which should qualify her for transfer to swing bed within the next 2448 hours. Physical therapy and occupational therapy to evaluate the patient in the a.m. 10/24/2019 Agree with above. (2) Chronic renal insufficiency, stage IV (severe) SNOMED Code(s): 337896554 Code(s): N18.4 - CHRONIC KIDNEY DISEASE, STAGE 4 (SEVERE) Status: Chronic Priority: Medium Current Visit: No (3) Hypertension SNOMED Code(s): 61341414 Code(s): I10 - ESSENTIAL (PRIMARY) HYPERTENSION Status: Chronic Priority : Medium Current Visit: No Qualifiers: Hypertension type: essential hypertension Annotation/Comment:: Stable by history. Continue to observe closely. (4) Hypothyroidism SNOMED Code(s): 91123432 Code(s): E03.9 - HYPOTHYROIDISM, UNSPECIFIED Status: Chronic Priority: Medium Current Visit: No Qualifiers: Annotation/Comment:: Currently under therapy (5) Mixed anxiety depressive disorder SNOMED Code(s): 892226958 Code(s): F41.8 - OTHER SPECIFIED ANXIETY DISORDERS Status: Chronic Priority: Medium Current Visit: No (6) Osteoarthritis SNOMED Code(s): 956239767 Code(s): M19.90 - UNSPECIFIED OSTEOARTHRITIS, UNSPECIFIED SITE Status: Chronic Priority: Medium Current Visit: No Qualifiers: Annotation/Comment:: Stable by history (7) Peptic reflux disease SNOMED Code(s): 132488315 Code(s): K21.9 - GASTRO-ESOPHAGEAL REFLUX DISEASE WITHOUT ESOPHAGITIS Status: Chronic Priority: Medium Current Visit: No Annotation/Comment:: Stable by history (8) Anemia SNOMED Code(s): 790333764 Code(s): D64.9 - ANEMIA, UNSPECIFIED Status: Acute Priority: High Current Visit: No Onset Date: ~10/04/16 Qualifiers: Anemia type: folate deficiency Folate deficiency anemia type: dietary Qualified Code(s): D52.0 - Dietary folate deficiency anemia (9) Chronic kidney disease SNOMED Code(s): 189917057 Code(s): N18.9 - CHRONIC KIDNEY DISEASE, UNSPECIFIED Status: Acute Current Visit: No Qualifiers: (10) Dialysis patient SNOMED Code(s): 379975978 Code(s): Z99.2 - DEPENDENCE ON RENAL DIALYSIS Status: Acute Priority: High Current Visit: No (11) Fatigue SNOMED Code(s): 63352409 Code(s): R53.83 - OTHER FATIGUE Status: Acute Priority: High Current Visit: No Onset Date: ~10/04/16 Qualifiers: Fatigue type: chronic, unspecified Qualified Code(s): R53.82 - Chronic fatigue, unspecified (12) First degree AV block SNOMED Code(s): 596957237 Code(s): I44.0 - ATRIOVENTRICULAR BLOCK, FIRST DEGREE Status: Acute Priority: Medium Current Visit: No Onset Date: 10/04/16 (13) Folic acid deficiency SNOMED Code(s): 692787397 Code(s): E53.8 - DEFICIENCY OF OTHER SPECIFIED B GROUP VITAMINS Status: Acute Priority: High Current Visit: No (14) Hypoalbuminemia SNOMED Code(s): 712091819 Code(s): E88.09 - OTH DISORDERS OF PLASMA-PROTEIN METABOLISM, NEC Status: Acute Priority: Medium Current Visit: No Onset Date: 10/04/16 (15) Hypokalemia SNOMED Code(s): 26944604 Code(s): E87.6 - HYPOKALEMIA Status: Acute Priority: High Current Visit : No (16) Hypomagnesemia SNOMED Code(s): 930777287 Code(s): E83.42 - HYPOMAGNESEMIA Status: Acute Priority: Medium Current Visit: No Onset Date: 10/04/16 (17) Hypotension SNOMED Code(s): 40279679 Code(s): I95.9 - HYPOTENSION, UNSPECIFIED Status: Acute Priority: High Current Visit: No Qualifiers: Hypotension type: hemodialysis-associated hypotension (18) Hypovolemia dehydration SNOMED Code(s): 49629826 Code(s): E86.1 - HYPOVOLEMIA Status: Acute Priority: High Current Visit : No (19) Hypocalcemia SNOMED Code(s): 3796693 Code(s): E83.51 - HYPOCALCEMIA Status: Chronic Priority: Medium Current Visit: No (20) Thyroid cancer SNOMED Code(s): 034413125 Code(s): C73 - MALIGNANT NEOPLASM OF THYROID GLAND Status: Chronic Priority: Medium Current Visit: No - Problem List Review Problem List Initiated/Reviewed/Updated: Yes - My Orders Last 24 Hours: My Active Orders 11/21/19 09:00 Cyanocobalamin (Vitamin B12) [Vitamin B12] 1,000 mcg IM Q30D - Plan Plan:: 10/24/2019 Yandy Dennison MD 69 year old lady with multifactorial reasons for weakness and difficulty maintaining her ADLs. She has CKD, peritoneal dialysis, anemia, hypothyroid not well controlled at this time, question of hypo-adrenalism (hypo cortisone) which has not been completely worked up to my knowledge, and recent question of peritonitis secondary to contaminated peritoneal catheter. C&S grew staph coag negative only x1 so may be a contaminant but her guidance director elected to treat her with intraperitoneal vancomycin which Anupama has been instructed and has the medicine and equipment. Next dose due Saturday10/26/2019. We have been in contact with her [facility] nurse Kaitlin ([phone]). She will be in [place] on Saturday10/28/2019. Anupama qualifies for admission into swing bed for PT-OT. 10/26/2019 Yandy Dennison MD Headache today. Discharge plans discussed with her. [place] stablized.
[2019-10-26] MEDS: ALPRAZolam 1 MG Tab PO SCH (19:42)
[2019-10-27] MEDS: Acetaminophen 325 MG Tab PO PRN (07:37)
[2019-10-27] MEDS: Calcitriol 0.25 MCG Cap PO SCH (07:38)
[2019-10-27] MEDS: Cholecalciferol (Vitamin D3) 25 MCG Tab PO SCH (07:39)
[2019-10-27] MEDS: Venlafaxine 75 MG Cap.ER PO SCH (07:39)
[2019-10-27] MEDS: Levothyroxine 100 MCG Tab PO SCH (07:40)
[2019-10-27] MEDS: Potassium Chloride 20 MEQ Tab.ER PO SCH ×2 (07:40→18:08)
[2019-10-27] MEDS: Venlafaxine 37.5 MG Cap.ER PO SCH (07:41)
[2019-10-27] MEDS: Levothyroxine 25 MCG Tab PO SCH (07:41)
[2019-10-27] MEDS: SEVELAMER CARBONATE 800 MG PO SCH ×3 (07:41→18:08)
[2019-10-27] MEDS: Polyethylene Glycol 3350 Powder 17 GM Packet PO SCH (07:41)
[2019-10-27] MEDS: Folic Acid 1 MG Tab PO SCH (07:41)
[2019-10-27] MEDS ORDERED: EPOETIN ALFA 20000 UNIT SQ SCH (12:00)
[2019-10-27] MEDS: ALPRAZolam 1 MG Tab PO SCH (20:48)
[2019-10-28] MEDS: Venlafaxine 75 MG Cap.ER PO SCH (07:42)
[2019-10-28] MEDS: Levothyroxine 100 MCG Tab PO SCH (07:43)
[2019-10-28] MEDS: Venlafaxine 37.5 MG Cap.ER PO SCH (07:43)
[2019-10-28] MEDS: Calcitriol 0.25 MCG Cap PO SCH (07:44)
[2019-10-28] MEDS: Cholecalciferol (Vitamin D3) 25 MCG Tab PO SCH (07:44)
[2019-10-28] MEDS: Levothyroxine 25 MCG Tab PO SCH (07:45)
[2019-10-28] MEDS: Folic Acid 1 MG Tab PO SCH (07:45)
[2019-10-28] MEDS: Potassium Chloride 20 MEQ Tab.ER PO SCH ×2 (07:46→17:15)
[2019-10-28] MEDS: Polyethylene Glycol 3350 Powder 17 GM Packet PO SCH (07:46)
[2019-10-28] MEDS: SEVELAMER CARBONATE 800 MG PO SCH ×3 (08:52→17:15)
[2019-10-28] MEDS: ALPRAZolam 1 MG Tab PO SCH (19:57)
[2019-10-29] MEDS: Levothyroxine 100 MCG Tab PO SCH (07:18)
[2019-10-29] MEDS: Levothyroxine 25 MCG Tab PO SCH (07:18)
[2019-10-29] MEDS: Calcitriol 0.25 MCG Cap PO SCH (07:18)
[2019-10-29] MEDS: Venlafaxine 75 MG Cap.ER PO SCH (07:19)
[2019-10-29] MEDS: Venlafaxine 37.5 MG Cap.ER PO SCH (07:19)
[2019-10-29] MEDS: Folic Acid 1 MG Tab PO SCH (07:19)
[2019-10-29] MEDS: Potassium Chloride 20 MEQ Tab.ER PO SCH ×2 (07:19→17:24)
[2019-10-29] MEDS: Polyethylene Glycol 3350 Powder 17 GM Packet PO SCH (07:19)
[2019-10-29] MEDS: Cholecalciferol (Vitamin D3) 25 MCG Tab PO SCH (07:19)
[2019-10-29] MEDS: SEVELAMER CARBONATE 800 MG PO SCH ×3 (08:47→17:24)
[2019-10-29] MEDS ORDERED: Nystatin Crm 30 GM Tube TOP ONE (14:00)
[2019-10-29] MEDS: Nystatin Crm 30 GM Tube TOP SCH (19:12)
[2019-10-29] MEDS: ALPRAZolam 1 MG Tab PO SCH (19:13)
--- NOTE | 2019-10-29 19:51 | PCM.PN ---
- General Info Date of Service: 10/29/19 Admission Dx/Problem (Free Text): Admission Diagnosis/Problem Admission Diagnosis/Problem Weakness Functional Status: Reports: Pain Controlled, Tolerating Diet, Ambulating - Review of Systems General: Reports: Weakness HEENT: Reports: No Symptoms Pulmonary: Reports: No Symptoms Cardiovascular: Reports: No Symptoms Gastrointestinal: Reports: No Symptoms Genitourinary: Reports: Other (peritoneal dialysis) Musculoskeletal: Reports: No Symptoms Skin: Reports: No Symptoms Neurological: Reports: Weakness Psychiatric: Reports: No Symptoms - Patient Data Vitals - Most Recent: Last Vital Signs Temp 97.2 F 10/29/19 07:22 Pulse 104 H 10/29/19 07:22 Resp 18 10/29/19 07:22 BP 102/66 10/29/19 07:22 Pulse Ox 100 10/29/19 07:22 Weight - Most Recent: 206 lb I&O - Last 24 Hours: Intake & Output 10/29/19 10/29/19 10/29/19 06:59 14:59 22:59 Intake Total 420 Balance 420 Lab Results Last 24 Hours: Laboratory Results - last 24 hr 10/29/19 Range/Units 07:19 WBC 6.1 (4.0-10.2) K/uL RBC 3.10 L (3.77-5.09) M/uL Hgb 9.7 L (11.7-15.5) g/dL Hct 31.8 L (34.0-46.0) % MCV 102.6 H D (84.0-98.0) fL MCH 31.3 (28.2-33.3) pg MCHC 30.5 L (31.7-36.0) g/dL RDW 16.9 H (11.2-14.1) % Plt Count 241 (150-350) K/uL MPV 10.10 (7.00-11.50) fL Med Orders - Current: Current Medications Acetaminophen (Tylenol) 650 mg PO Q4H PRN PRN Reason: Pain/Fever Last Admin: 10/27/19 07:37 Dose: 650 mg Alprazolam (Xanax) 1 mg PO BEDTIME [facility] Last Admin: 10/29/19 19:13 Dose: 1 mg Calcitriol (Rocaltrol) 0.25 mcg PO DAILY [facility] Last Admin: 10/29/19 07:18 Dose: 0.25 mcg Cholecalciferol (Vitamin D3) 100 mcg PO DAILY [facility] Last Admin: 10/29/19 07:19 Dose: 100 mcg Cyanocobalamin (Vitamin B12) 1,000 mcg IM Q30D [facility] Folic Acid (Folic Acid) 1 mg PO DAILY [facility] Last Admin: 10/29/19 07:19 Dose: 1 mg Levothyroxine Sodium (Synthroid) 100 mcg PO DAILY@0700 [facility] Last Admin: 10/29/19 07:18 Dose: 100 mcg Levothyroxine Sodium (Levothyroxine) 25 mcg PO DAILY@0700 [facility] Last Admin: 10/29/19 07:18 Dose: 25 mcg Sevelamer Carbonate [Renvela] 800 Mg Own Med 800 mg PO TIDMEALS [facility] Last Admin: 10/29/19 17:24 Dose: 800 mg Epoetin Dante (Epogen () 20,000 Units) 30,000 each SQ Q7D [facility] Last Admin: 10/27/19 12:20 Dose: 30,000 each Nystatin (Nystatin Crm) 0 gm TOP TID [facility] Last Admin: 10/29/19 19:12 Dose: 1 applic Ondansetron HCl (Zofran Odt) 4 mg PO Q4H PRN PRN Reason: Nausea Polyethylene Glycol (Miralax) 17 gm PO DAILY [facility] Last Admin: 10/29/19 07:19 Dose: Not Given Potassium Chloride (Klor-Con M20) 20 meq PO BID [facility] Last Admin: 10/29/19 17:24 Dose: 20 meq Venlafaxine HCl (Effexor Xr) 37.5 mg PO DAILY [facility] Last Admin: 10/29/19 07:19 Dose: 37.5 mg Venlafaxine HCl (Effexor Xr) 150 mg PO DAILY [facility] Last Admin: 10/29/19 07:19 Dose: 150 mg Discontinued Medications Nystatin (Nystatin Crm) 0 gm TOP ONETIME ONE Stop: 10/29/19 14:01 Last Admin: 10/29/19 15:03 Dose: 1 applic - Exam General: Alert, Cooperative, No Acute Distress HEENT: Mucous Membr. Moist/[place] Neck: Trachea Midline, No JVD Lungs: Clear to Auscultation, Normal Respiratory Effort Cardiovascular: Regular Rate, Regular Rhythm GI/Abdominal Exam: Soft, Non-Tender, No Distention (Female) Exam: Deferred Back Exam: Other (kyphosis) Extremities: Normal Inspection, Non-Tender, No Pedal Edema Skin: Warm, Dry, Intact Neurological: No New Focal Deficit Psy/Mental Status: Alert, Normal Affect, Normal Mood Sepsis Event Note - Evaluation Sepsis Screening Result: No Definite Risk - Problem List & Annotations (1) Weakness SNOMED Code(s): 28899762 Code(s): R53.1 - WEAKNESS Status: Acute Priority: High Current Visit: No Onset Date: ~09/15/19 Annotation/Comment:: The patient and her now agree to a long-term usp/swing bed placement. She will be initially placed in observation status with [facility] to assume care in the a.m. Note recent hospitalization at [facility], which should qualify her for transfer to swing bed within the next 2448 hours. Physical therapy and occupational therapy to evaluate the patient in the a.m. 10/24/2019 Agree with above. (2) Chronic renal insufficiency, stage IV (severe) SNOMED Code(s): 018131031 Code(s): N18.4 - CHRONIC KIDNEY DISEASE, STAGE 4 (SEVERE) Status: Chronic Priority: Medium Current Visit: No (3) Hypertension SNOMED Code(s): 82126437 Code(s): I10 - ESSENTIAL (PRIMARY) HYPERTENSION Status: Chronic Priority : Medium Current Visit: No Qualifiers: Hypertension type: essential hypertension Annotation/Comment:: Stable by history. Continue to observe closely. (4) Hypothyroidism SNOMED Code(s): 92146249 Code(s): E03.9 - HYPOTHYROIDISM, UNSPECIFIED Status: Chronic Priority: Medium Current Visit: No Qualifiers: Annotation/Comment:: Currently under therapy (5) Mixed anxiety depressive disorder SNOMED Code(s): 421788117 Code(s): F41.8 - OTHER SPECIFIED ANXIETY DISORDERS Status: Chronic Priority: Medium Current Visit: No (6) Osteoarthritis SNOMED Code(s): 553853747 Code(s): M19.90 - UNSPECIFIED OSTEOARTHRITIS, UNSPECIFIED SITE Status: Chronic Priority: Medium Current Visit: No Qualifiers: Annotation/Comment:: Stable by history (7) Peptic reflux disease SNOMED Code(s): 808004720 Code(s): K21.9 - GASTRO-ESOPHAGEAL REFLUX DISEASE WITHOUT ESOPHAGITIS Status: Chronic Priority: Medium Current Visit: No Annotation/Comment:: Stable by history (8) Anemia SNOMED Code(s): 389187278 Code(s): D64.9 - ANEMIA, UNSPECIFIED Status: Acute Priority: High Current Visit: No Onset Date: ~10/04/16 Qualifiers: Anemia type: folate deficiency Folate deficiency anemia type: dietary Qualified Code(s): D52.0 - Dietary folate deficiency anemia (9) Chronic kidney disease SNOMED Code(s): 091106204 Code(s): N18.9 - CHRONIC KIDNEY DISEASE, UNSPECIFIED Status: Acute Current Visit: No Qualifiers: (10) Dialysis patient SNOMED Code(s): 190197894 Code(s): Z99.2 - DEPENDENCE ON RENAL DIALYSIS Status: Acute Priority: High Current Visit: No (11) Fatigue SNOMED Code(s): 06673032 Code(s): R53.83 - OTHER FATIGUE Status: Acute Priority: High Current Visit: No Onset Date: ~10/04/16 Qualifiers: Fatigue type: chronic, unspecified Qualified Code(s): R53.82 - Chronic fatigue, unspecified (12) First degree AV block SNOMED Code(s): 580048972 Code(s): I44.0 - ATRIOVENTRICULAR BLOCK, FIRST DEGREE Status: Acute Priority: Medium Current Visit: No Onset Date: 10/04/16 (13) Folic acid deficiency SNOMED Code(s): 443084190 Code(s): E53.8 - DEFICIENCY OF OTHER SPECIFIED B GROUP VITAMINS Status: Acute Priority: High Current Visit: No (14) Hypoalbuminemia SNOMED Code(s): 454392074 Code(s): E88.09 - OTH DISORDERS OF PLASMA-PROTEIN METABOLISM, NEC Status: Acute Priority: Medium Current Visit: No Onset Date: 10/04/16 (15) Hypokalemia SNOMED Code(s): 83519269 Code(s): E87.6 - HYPOKALEMIA Status: Acute Priority: High Current Visit : No (16) Hypomagnesemia SNOMED Code(s): 345191802 Code(s): E83.42 - HYPOMAGNESEMIA Status: Acute Priority: Medium Current Visit: No Onset Date: 10/04/16 (17) Hypotension SNOMED Code(s): 76622632 Code(s): I95.9 - HYPOTENSION, UNSPECIFIED Status: Acute Priority: High Current Visit: No Qualifiers: Hypotension type: hemodialysis-associated hypotension (18) Hypovolemia dehydration SNOMED Code(s): 28666382 Code(s): E86.1 - HYPOVOLEMIA Status: Acute Priority: High Current Visit : No (19) Hypocalcemia SNOMED Code(s): 9104215 Code(s): E83.51 - HYPOCALCEMIA Status: Chronic Priority: Medium Current Visit: No (20) Thyroid cancer SNOMED Code(s): 300246247 Code(s): C73 - MALIGNANT NEOPLASM OF THYROID GLAND Status: Chronic Priority: Medium Current Visit: No - Problem List Review Problem List Initiated/Reviewed/Updated: Yes - My Orders Last 24 Hours: My Active Orders 10/29/19 18:00 Nystatin [Nystatin Crm] See Dose Instructions TOP TID 11/21/19 09:00 Cyanocobalamin (Vitamin B12) [Vitamin B12] 1,000 mcg IM Q30D - Plan Plan:: 10/24/2019 Yandy Dennison MD 69 year old lady with multifactorial reasons for weakness and difficulty maintaining her ADLs. She has CKD, peritoneal dialysis, anemia, hypothyroid not well controlled at this time, question of hypo-adrenalism (hypo cortisone) which has not been completely worked up to my knowledge, and recent question of peritonitis secondary to contaminated peritoneal catheter. C&S grew staph coag negative only x1 so may be a contaminant but her technical services manager elected to treat her with intraperitoneal vancomycin which Anupama has been instructed and has the medicine and equipment. Next dose due Saturday10/26/2019. We have been in contact with her [facility] nurse Kaitlin ([phone]). She will be in [place] on Saturday10/28/2019. Anupama qualifies for admission into swing bed for PT-OT. 10/26/2019 Yandy Dennison MD Headache today. Discharge plans discussed with her. Hgb stablized. 10/29/2019 Yandy Dennison MD She is feeling okay. Hgb improved. Discharge planning discussed.
[2019-10-30] MEDS: Nystatin Crm 30 GM Tube TOP SCH ×3 (07:20→17:03)
[2019-10-30] MEDS: SEVELAMER CARBONATE 800 MG PO SCH ×3 (07:20→17:02)
[2019-10-30] MEDS: Cholecalciferol (Vitamin D3) 25 MCG Tab PO SCH (07:21)
[2019-10-30] MEDS: Venlafaxine 37.5 MG Cap.ER PO SCH (07:21)
[2019-10-30] MEDS: Calcitriol 0.25 MCG Cap PO SCH (07:21)
[2019-10-30] MEDS: Potassium Chloride 20 MEQ Tab.ER PO SCH ×2 (07:21→17:02)
[2019-10-30] MEDS: Levothyroxine 25 MCG Tab PO SCH (07:21)
[2019-10-30] MEDS: Levothyroxine 100 MCG Tab PO SCH (07:21)
[2019-10-30] MEDS: Folic Acid 1 MG Tab PO SCH (07:21)
[2019-10-30] MEDS: Venlafaxine 75 MG Cap.ER PO SCH (07:21)
[2019-10-30] MEDS: Polyethylene Glycol 3350 Powder 17 GM Packet PO SCH (07:22)
[2019-10-30] MEDS: ALPRAZolam 1 MG Tab PO SCH (20:18)
[2019-10-31] MEDS: Calcitriol 0.25 MCG Cap PO SCH (07:57)
[2019-10-31] MEDS: Levothyroxine 25 MCG Tab PO SCH (07:57)
[2019-10-31] MEDS: Venlafaxine 75 MG Cap.ER PO SCH (07:57)
[2019-10-31] MEDS: Potassium Chloride 20 MEQ Tab.ER PO SCH ×2 (07:57→17:18)
[2019-10-31] MEDS: Venlafaxine 37.5 MG Cap.ER PO SCH (07:57)
[2019-10-31] MEDS: Cholecalciferol (Vitamin D3) 25 MCG Tab PO SCH (07:57)
[2019-10-31] MEDS: SEVELAMER CARBONATE 800 MG PO SCH ×3 (07:57→17:18)
[2019-10-31] MEDS: Nystatin Crm 30 GM Tube TOP SCH ×3 (07:58→17:19)
[2019-10-31] MEDS: Levothyroxine 100 MCG Tab PO SCH (07:58)
[2019-10-31] MEDS: Polyethylene Glycol 3350 Powder 17 GM Packet PO SCH (07:58)
[2019-10-31] MEDS: Folic Acid 1 MG Tab PO SCH (07:58)
[2019-10-31] MEDS: ALPRAZolam 1 MG Tab PO SCH (20:02)
[2019-11-01] MEDS: Levothyroxine 100 MCG Tab PO SCH (08:00)
[2019-11-01] MEDS: Levothyroxine 25 MCG Tab PO SCH (08:00)
[2019-11-01] MEDS: Calcitriol 0.25 MCG Cap PO SCH (08:01)
[2019-11-01] MEDS: Folic Acid 1 MG Tab PO SCH (08:01)
[2019-11-01] MEDS: Potassium Chloride 20 MEQ Tab.ER PO SCH ×2 (08:01→17:52)
[2019-11-01] MEDS: Cholecalciferol (Vitamin D3) 25 MCG Tab PO SCH (08:01)
[2019-11-01] MEDS: Polyethylene Glycol 3350 Powder 17 GM Packet PO SCH ×2 (08:02→08:07)
[2019-11-01] MEDS: Venlafaxine 37.5 MG Cap.ER PO SCH (08:02)
[2019-11-01] MEDS: Venlafaxine 75 MG Cap.ER PO SCH (08:02)
[2019-11-01] MEDS: Nystatin Crm 30 GM Tube TOP SCH ×3 (08:03→17:51)
[2019-11-01] MEDS: SEVELAMER CARBONATE 800 MG PO SCH ×3 (09:13→17:53)
[2019-11-01] MEDS: ALPRAZolam 1 MG Tab PO SCH (19:51)
[2019-11-01] MEDS: Ondansetron 4 MG Tab.DIS PO PRN (19:51)
[2019-11-02] MEDS: Venlafaxine 37.5 MG Cap.ER PO SCH (07:57)
[2019-11-02] MEDS: Potassium Chloride 20 MEQ Tab.ER PO SCH (07:57)
[2019-11-02] MEDS: Calcitriol 0.25 MCG Cap PO SCH (07:57)
[2019-11-02] MEDS: Venlafaxine 75 MG Cap.ER PO SCH (07:57)
[2019-11-02] MEDS: Folic Acid 1 MG Tab PO SCH (07:57)
[2019-11-02] MEDS: Levothyroxine 100 MCG Tab PO SCH (07:58)
[2019-11-02] MEDS: Cholecalciferol (Vitamin D3) 25 MCG Tab PO SCH (07:58)
[2019-11-02] MEDS: Levothyroxine 25 MCG Tab PO SCH (07:58)
[2019-11-02] MEDS: Polyethylene Glycol 3350 Powder 17 GM Packet PO SCH (07:59)
[2019-11-02] MEDS: Nystatin Crm 30 GM Tube TOP SCH ×2 (07:59→11:53)
[2019-11-02 08:10] VITALS: BP 122/78; PULSE 99
[2019-11-02] MEDS: SEVELAMER CARBONATE 800 MG PO SCH ×2 (09:02→11:53)
[2019-11-02] MEDS: Ondansetron 4 MG Tab.DIS PO PRN (10:35)
--- NOTE | 2019-11-05 23:21 | PCM.DCSUM1 ---
Discharge Summary - Hospital Course Diagnosis: Stroke: No - Discharge Data Discharge Date: 11/02/19 Discharge Disposition: DC/Tfer to [facility] Condition: Fair - Referral to Home Health Primary Care Physician: PCP None - Discharge Diagnosis/Problem(s) (1) Weakness SNOMED Code(s): 56023734 ICD Code: R53.1 - WEAKNESS Status: Acute Priority: High Onset Date: ~ Problem Details: The patient and her now agree to a long-term mcfp/swing bed placement. She [place] be [place] [facility] in the a.[place]. Note recent hospitalization at [facility] in [place], which should qualify her for transfer to swing bed within the next 2448 hours. Physical therapy and occupational therapy to evaluate the patient in the a.m. 10/24/2019 Agree with above. (2) Chronic renal insufficiency, stage IV (severe) SNOMED Code(s): 359567143 ICD Code: N18.4 - CHRONIC KIDNEY DISEASE, STAGE 4 (SEVERE) Status: Chronic Priority: Medium (3) Hypertension SNOMED Code(s): 61829012 ICD Code: I10 - ESSENTIAL (PRIMARY) HYPERTENSION Status: Chronic Priority : Medium Problem Details: Stable by history. Continue to observe closely. Qualifiers: Hypertension type: essential hypertension (4) Hypothyroidism SNOMED Code(s): 81582035 ICD Code: E03.9 - HYPOTHYROIDISM, UNSPECIFIED Status: Chronic Priority: Medium Problem Details: Currently under therapy Qualifiers: (5) Mixed anxiety depressive disorder SNOMED Code(s): 466005854 ICD Code: F41.8 - OTHER SPECIFIED ANXIETY DISORDERS Status: Chronic Priority: Medium (6) Osteoarthritis SNOMED Code(s): 855450202 ICD Code: M19.90 - UNSPECIFIED OSTEOARTHRITIS, UNSPECIFIED SITE Status: Chronic Priority: Medium Problem Details: Stable by history Qualifiers: (7) Peptic reflux disease SNOMED Code(s): 787282917 ICD Code: K21.9 - GASTRO-ESOPHAGEAL REFLUX DISEASE WITHOUT ESOPHAGITIS Status: Chronic Priority: Medium Problem Details: Stable by history (8) Anemia SNOMED Code(s): 077657248 ICD Code: D64.9 - ANEMIA, UNSPECIFIED Status: Acute Priority: High Onset Date: ~10/04/16 Qualifiers: Anemia type: folate deficiency Folate deficiency anemia type: dietary Qualified Code(s): D52.0 - Dietary folate deficiency anemia (9) Chronic kidney disease SNOMED Code(s): 538311966 ICD Code: N18.9 - CHRONIC KIDNEY DISEASE, UNSPECIFIED Status: Acute Qualifiers: (10) Dialysis patient SNOMED Code(s): 543456620 ICD Code: Z99.2 - DEPENDENCE ON RENAL DIALYSIS Status: Acute Priority: High (11) Fatigue SNOMED Code(s): 26672489 ICD Code: R53.83 - OTHER FATIGUE Status: Acute Priority: High Onset Date: ~10/04/16 Qualifiers: Fatigue type: chronic, unspecified Qualified Code(s): R53.82 - Chronic fatigue, unspecified (12) First degree AV block SNOMED Code(s): 398585328 ICD Code: I44.0 - ATRIOVENTRICULAR BLOCK, FIRST DEGREE Status: Acute Priority: Medium Onset Date: 10/04/16 (13) Folic acid deficiency SNOMED Code(s): 079029292 ICD Code: E53.8 - DEFICIENCY OF OTHER SPECIFIED B GROUP VITAMINS Status: Acute Priority: High (14) Hypoalbuminemia SNOMED Code(s): 448199916 ICD Code: E88.09 - OTH DISORDERS OF PLASMA-PROTEIN METABOLISM, NEC Status: Acute Priority: Medium Onset Date: 10/04/16 (15) Hypokalemia SNOMED Code(s): 21135133 ICD Code: E87.6 - HYPOKALEMIA Status: Acute Priority: High (16) Hypomagnesemia SNOMED Code(s): 291882860 ICD Code: E83.42 - HYPOMAGNESEMIA Status: Acute Priority: Medium Onset Date: 10/04/16 (17) Hypotension SNOMED Code(s): 14138856 ICD Code: I95.9 - HYPOTENSION, UNSPECIFIED Status: Acute Priority: High Qualifiers: Hypotension type: hemodialysis-associated hypotension (18) Hypovolemia dehydration SNOMED Code(s): 01508412 ICD Code: E86.1 - HYPOVOLEMIA Status: Acute Priority: High (19) Hypocalcemia SNOMED Code(s): 5848170 ICD Code: E83.51 - HYPOCALCEMIA Status: Chronic Priority: Medium (20) Thyroid cancer SNOMED Code(s): 420021207 ICD Code: C73 - MALIGNANT NEOPLASM OF THYROID GLAND Status: Chronic Priority: Medium - Patient Summary/Data Consults: Consultations 10/24/19 11:20 Consult to Occupational Therapy [OT Evaluation and Treatment] [CONS] Routine Consult to Physical Therapy [PT Evaluation and Treatment] [CONS] Routine 10/24/19 11:26 Consult to Case Management/Sheet Metal Supervisor [CONS] Routine - Patient Instructions Diet: Regular Diet as Tolerated Activity: As Tolerated Driving: Do Not Drive Showering/Bathing: May Shower Other/Special Instructions: PT-OT referral and evaluation and treatment. Peritoneal dialysis daily as per [facility] Instructions. - Discharge Plan *PRESCRIPTION DRUG MONITORING PROGRAM REVIEWED*: Not Applicable *COPY OF PRESCRIPTION DRUG MONITORING REPORT IN PATIENT BRAYDEN: Not Applicable Prescriptions/Med Rec: Nystatin [Nystatin Crm] 1 squirt TOP TID #1 tube Home Medications: Home Meds ALPRAZolam [Xanax] 1 cap PO BEDTIME 06/24/19 [History] Cholecalciferol (Vitamin D3) [Vitamin D3] 4,000 unit PO DAILY 06/24/19 [History] Cyanocobalamin (Vitamin B-12) [Cyanocobalamin Injection] 1 ml IM Q30D 06/24/19 [ History] Potassium Chloride [Klor-Con M20] 1 tab PO TID 06/24/19 [History] Sevelamer Carbonate [Renvela] 800 mg PO TID 06/24/19 [History] Venlafaxine [Effexor XR] 150 mg PO DAILY 06/24/19 [History] calcitrioL [Rocaltrol] 0.25 mcg PO DAILY 06/24/19 [History] Folic Acid 1 mg PO DAILY #100 tablet 06/26/19 [Rx] Epoetin Dante [Epogen] 30,000 unit SQ WEEKLY 09/16/19 [History] Venlafaxine [Effexor XR] 37.5 mg PO DAILY 09/16/19 [History] polyethylene glycoL 3350 [MiraLAX] 17 gm PO DAILY 09/16/19 [History] Ondansetron [Zofran ODT] 4 mg PO Q4H PRN #30 tab.dis 10/16/19 [Rx] Levothyroxine 125 mcg PO ACBREAKFAST 10/23/19 [History] Acetaminophen [Tylenol] 650 mg PO Q4H PRN tablet 11/02/19 [Rx] Nystatin [Nystatin Crm] 1 squirt TOP TID #1 tube 11/02/19 [Rx] Oxygen Therapy Mode: Room Air - Discharge Summary/Plan Comment DC Time >30 min.: No - Patient Data Vitals - Most Recent: Last Vital Signs Temp 98 F 11/02/19 08:00 Pulse 99 11/02/19 08:00 Resp 16 11/02/19 08:00 BP 122/78 11/02/19 08:00 Pulse Ox 93 L 11/02/19 08:00 Weight - Most Recent: 199 lb Med Orders - Current: Current Medications Discontinued Medications Acetaminophen (Tylenol) 650 mg PO Q4H PRN PRN Reason: Pain/Fever Last Admin: 10/27/19 07:37 Dose: 650 mg Alprazolam (Xanax) 1 mg PO BEDTIME [facility] Last Admin: 11/01/19 19:51 Dose: 1 mg Calcitriol (Rocaltrol) 0.25 mcg PO DAILY [facility] Last Admin: 11/02/19 07:57 Dose: 0.25 mcg Cholecalciferol (Vitamin D3) 100 mcg PO DAILY [facility] Last Admin: 11/02/19 07:58 Dose: 100 mcg Cyanocobalamin (Vitamin B12) 1,000 mcg IM Q30D [facility] Folic Acid (Folic Acid) 1 mg PO DAILY [facility] Last Admin: 11/02/19 07:57 Dose: 1 mg Levothyroxine Sodium (Synthroid) 100 mcg PO DAILY@0700 [facility] Last Admin: 11/02/19 07:58 Dose: 100 mcg Levothyroxine Sodium (Levothyroxine) 25 mcg PO DAILY@0700 [facility] Last Admin: 11/02/19 07:58 Dose: 25 mcg Sevelamer Carbonate [Renvela] 800 Mg Own Med 800 mg PO TIDMEALS [facility] Last Admin: 11/02/19 11:53 Dose: 800 mg Epoetin Dante (Epogen () 20,000 Units) 30,000 each SQ Q7D [facility] Last Admin: 10/27/19 12:20 Dose: 30,000 each Nystatin (Nystatin Crm) 0 gm TOP TID [facility] Last Admin: 11/02/19 11:53 Dose: 1 applic Nystatin (Nystatin Crm) 0 gm TOP ONETIME ONE Stop: 10/29/19 14:01 Last Admin: 10/29/19 15:03 Dose: 1 applic Ondansetron HCl (Zofran Odt) 4 mg PO Q4H PRN PRN Reason: Nausea Last Admin: 11/02/19 10:35 Dose: 4 mg Polyethylene Glycol (Miralax) 17 gm PO DAILY [facility] Last Admin: 11/02/19 07:59 Dose: Not Given Potassium Chloride (Klor-Con M20) 20 meq PO BID [facility] Last Admin: 11/02/19 07:57 Dose: 20 meq Venlafaxine HCl (Effexor Xr) 37.5 mg PO DAILY [facility] Last Admin: 11/02/19 07:57 Dose: 37.5 mg Venlafaxine HCl (Effexor Xr) 150 mg PO DAILY [facility] Last Admin: 11/02/19 07:57 Dose: 150 mg *Q Meaningful Use (DIS) - VTE *Q VTE Mechanical Contraindications *Q: At Risk for Falls VTE Pharmacological Contraindications *Q: Patient has Severe Anemia VTE Anticoagulation Contraindications: Med/TX Not Indicated/Need
[2019-11-21] MEDS ORDERED: Cyanocobalamin (Vitamin B12) 1,000 MCG/ML SDV IM SCH (09:00)
== END 2019-11-02 13:05 | DRG 948 ==
LOC: LL.MS 11:24 → UNDOADMIN 11:35
PROVIDERS: ADMIT Family Medicine; ATTEND Family Medicine
DX: R53.1 Weakness (principal); N18.4 Chronic kidney disease, stage 4 (severe); I13.0 Hypertensive heart and chronic kidney disease with heart failure and stage 1 through stage 4 chronic kidney disease, or unspecified chronic kidney disease; E03.9 Hypothyroidism, unspecified; F41.8 Other specified anxiety disorders; M19.90 Unspecified osteoarthritis, unspecified site; K21.9 Gastro-esophageal reflux disease without esophagitis; D52.0 Dietary folate deficiency anemia; E88.09 Other disorders of plasma-protein metabolism, not elsewhere classified; I95.9 Hypotension, unspecified; E86.1 Hypovolemia; Z96.653 Presence of artificial knee joint, bilateral; H54.7 Unspecified visual loss; H54.8 Legal blindness, as defined in USA; E78.00 Pure hypercholesterolemia, unspecified; M54.9 Dorsalgia, unspecified; G89.29 Other chronic pain; M54.2 Cervicalgia; M81.0 Age-related osteoporosis without current pathological fracture; G43.909 Migraine, unspecified, not intractable, without status migrainosus; E66.9 Obesity, unspecified; E55.9 Vitamin D deficiency, unspecified; M85.80 Other specified disorders of bone density and structure, unspecified site; Z85.850 Personal history of malignant neoplasm of thyroid; Z98.84 Bariatric surgery status; Z90.49 Acquired absence of other specified parts of digestive tract; Z99.2 Dependence on renal dialysis; Z98.49 Cataract extraction status, unspecified eye; Z98.890 Other specified postprocedural states; Z98.1 Arthrodesis status
CPT/HCPCS: 36415; 85025; 85027; 97110-GO; 97110-GP; 97161-GP; 97165-GO; 97530-GO; 97530-GP; A9270-GY

== ENCOUNTER 2021-06-07 15:26 | Emergency (ER) | payer MEDICARE, MEDICAID ==
[2021-06-07 15:50] VITALS: BP 99/68; PULSE 67
[2021-06-07 17:37] LABS: ANION GAP 11.5 meq/L (7-15); CHLORIDE,CL 106 mmol/L (98-107); SODIUM,NA 141 mmol/L (136-145)
--- NOTE | 2021-06-07 18:41 | EDM.PDOC ---
ED HPI GENERAL MEDICAL PROBLEM - General Chief Complaint: Lower Extremity Injury/Pain Stated Complaint: Leg pain Time Seen by Provider: 06/07/21 16:47 Source of Information: Reports: Patient - History of Present Illness INITIAL COMMENTS - FREE TEXT/NARRATIVE: Anupama is a 70 y/o female who comes to the ER this afternoon with complaints of "bumps on my legs" that seem to have gotten bigger over the last month or so. Denies injury. She reports them on both lower legs. Sometimes the "bumps get red". No fevers. She has not seen her PCP about this issue. She in ESRD and does night peritoneal dialysis at home. - Related Data Allergies Allergy/AdvReac Type Severity Reaction Status Date / Time ibuprofen Allergy Renal Verified 06/07/21 15:28 Insufficiency zolpidem Allergy Hallucinati Verified 06/07/21 15:28 ons Home Meds: Home Meds ALPRAZolam [Xanax] 1 cap PO BEDTIME 06/24/19 [History] Cholecalciferol (Vitamin D3) [Vitamin D3] 4,000 unit PO DAILY 06/24/19 [History] Cyanocobalamin (Vitamin B-12) [Cyanocobalamin Injection] 1 ml IM Q30D 06/24/19 [History] Potassium Chloride [Klor-Con M20] 1 tab PO TID 06/24/19 [History] Sevelamer Carbonate [Renvela] 2,400 mg PO TID 06/24/19 [History] Venlafaxine [Effexor XR] 150 mg PO DAILY 06/24/19 [History] Folic Acid 1 mg PO DAILY #100 tablet 06/26/19 [Rx] Epoetin Dante [Epogen] 20,000 unit SQ WEEKLY 09/16/19 [History] Venlafaxine [Effexor XR] 37.5 mg PO DAILY 09/16/19 [History] Levothyroxine 200 mcg PO ACBREAKFAST 10/23/19 [History] Acetaminophen [Tylenol] 650 mg PO Q4H PRN tablet 11/02/19 [Rx] Bumetanide [Bumex] 1 mg PO BID 06/07/21 [History] Ferrous Sulfate 325 mg PO BID 06/07/21 [History] Magnesium Chloride 128 mg PO DAILY 06/07/21 [History] Metoprolol Tartrate 37.5 mg PO BID 06/07/21 [History] Mirtazapine 7.5 mg PO DAILY 06/07/21 [History] Past Medical History HEENT History: Reports: Cataract, Impaired Vision, Other (See Below) Other HEENT History: 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 The patient does wear glasses. Cardiovascular History: Reports: Arrhythmia, Heart Failure, High Cholesterol, Hypertension, Other (See Below) Other Cardiovascular History: PAC's and first-degree AV block by EKG on 09/15/2019 at [facility]. Respiratory History: Reports: Intubation, Previous, Other (See Below) Other Respiratory History: 8 mm right middle lobe pulmonary nodule with multiple probable benign right lower lobe pulmonary nodules. 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 Colitis with rectal ulcer by colonoscopy in 2019 as below. Bowel obstruction about 1978 with subsequent surgery as below. Genitourinary History: Reports: Chronic Renal Insuffiency, Dialysis, Dialysis, Peritoneal, Urinary Incontinence, UTI, Recurrent, Other (See Below) Other Genitourinary History: Home peritoneal dialysis which was initiated in March 2019 peritoneal catheter insertion on 10/24/2018. REPAIRER AND CHECKER History: Reports: Other REPAIRER AND CHECKER History: Menopause at age 46, Full term without complications during pregnancies or deliveries Musculoskeletal History: Reports: Arthritis, Back Pain, Chronic, Fracture, Neck Pain, Chronic, Osteoarthritis, Osteoporosis Other Musculoskeletal History: Right #3 posterior rib fracture. Right shoulder and right scapular fracture. Incidental L3 hemangioma CT scan. Neurological History: Reports: Headaches, Chronic, Migraines Other Neuro History: Long history, but have greatly improved Psychiatric History: Reports: Anxiety, Depression Endocrine/Metabolic History: Reports: Hyperparathyroidism, Hypokalemia, Hypomagnesemia, Hypothyroidism, Obesity/BMI 30+, Osteopenia, Osteoporosis, Vitamin D Deficiency, Other (See Below) Other Endocrine/Metabolic History: Hx of thyroid cancer nonoperable by patient history with subsequent chemotherapy and secondary hypothyroidism. Hypercalcemia/hypocalcemia; Hypoalbuminemia. Hematologic History: Reports: Anemia, B12 Deficiency, Blood Transfusion(s), Folic Acid, Iron Deficiency Other Hematologic History: Blood transfusions with knee surgeries as below. 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 Lymphoma also diagnosed with her thyroid cancer with chemotherapy as above. Dermatologic History: Reports: None - Infectious Disease History Infectious Disease History: Reports: Chicken Pox - Past Surgical History Head Surgeries/Procedures: Reports: None HEENT Surgical History: Reports: Cataract Surgery, Eye Surgery, Laser Surgery, Oral Surgery, Other (See Below) Other HEENT Surgeries/Procedures: Complete teeth extraction with complete dentures uppers and lowers. Right cataract surgery on 04/03/12. Previous right eye laser therapy. Left upper eyelid cyst excision at about age 11. Cardiovascular Surgical History: Reports: None Respiratory Surgical History: Reports: None GI Surgical History: Reports: Appendectomy, Bariatric Procedure, Colon, Colonoscopy, Other (See Below) Other GI Surgeries/Procedures: Gastric bypass, hemorrhoid surgery x2, including hemorrhoidectomy in October 2005 and hemorrhoid stapling in 2004; last colonoscopy on 09/09/2019 with multiple serial biopsies indicated mild colitis with additional rectal ulcer. Incomplete colonoscopy to the transverse colon on 04/24/2018 with follow-up barium enema as below. Otherwise colonoscopies on 04/18/2015 and 02/06/2005. Partial colon resection secondary to bowel obstruction in 1978 with concomitant appendectomy with previous intestinal torsion revision without partial colectomy about 6 weeks prior to the surgery. Multiple previous failed colonoscopies as above with last barium enema as below. Peritoneal dialysis catheter placement on 04/23/2019. Female Surgical History: Reports: None Endocrine Surgical History: Reports: Thyroid Biopsy, Other (See Below) Other Endocrine Surgeries/Procedures: Failed thyroidectomy for thyroid cancer in June 2010 as above. Neurological Surgical History: Reports: C-Spine, Spinal Fusion, Other (See Below) Other Neurological Surgeries/Procedures: Questionable cervical fusion versus stone implant in September 1996. Musculoskeletal Surgical History: Reports: Joint Replacement, Knee Replacement, Other (See Below) Other Musculoskeletal Surgeries/Procedures:: Bilateral total knee arthroplasty with right TKA on 12/13/2011. Oncologic Surgical History: Reports: None Dermatological Surgical History: Reports: None - Past Imaging History Past Imaging History: Reports: Barium Enema (Last on 09/11/19 however difficult exam secondary to bowel gas and stool.), Cardiac Echo (06/15/19 with ejection fraction of 6065 percent.), CAT Scan (CT of the abdomen and pelvis on 10/18/19. CT of the brain on 10/04/[address] of the chest without contrast on 05/06/18, 01/13/18, and 07/11/10.), DEXA Scan (07/25/18, 07/01/17, and 09/10/16,), Mammogram (Last on 07/27/19.), PET (PET/CT T scan of the base of the skull to the mid thigh region on 03/15/19 and 10/05/16.), PFT (03/11/18.), Ultrasound (Renal ultrasound on 03/12/19 and 10/05/16. Bilateral ultrasound arm mapping on 03/26/19 for possible future AV fistula placement for dialysis.), Venous Doppler (Negative on 10/04/16 of the legs bilaterally), Other (See Below) Social & Family History - Family History Family Medical History: No Pertinent Family History HEENT: Reports: None Cardiac: Reports: CAD, Cardiomyopathy, Heart Failure, High Cholesterol, H ypertension, RI, Other (See Below) Other Cardiac Family History: Maternal grandmother with fatal CHF at age 89, father with hyperlipidemia and hypertension, father with fatal RI at age 88 Respiratory: Reports: None GI: Reports: None : Reports: Dialysis, Renal Calculus, Renal Disease/Insufficiency, Other (See Below) Other Family History: Mother with urolithiasis, father and brother with renal insufficiency which did require dialysis OBGYN: Reports: None Musculoskeletal: Reports: Arthritis, Osteoarthritis, SLE, Other (See Below) Other Musculoskeletal Family History: mother with SLE Neurological: Reports: None Psychiatric: Reports: None Endocrine/Metabolic: Reports: None Hematologic: Reports: None, SLE, Other (See Below) Other Hematologic Family History: Mother with SLE Immunologic: Reports: SLE, Other (See Below) Other Immunologic Family History: Mother with SLE Dermatologic: Reports: None Oncologic: Reports: Metastatic, Prostate, Other (See Below) Other Oncologic Family History: brother with fatal metastatic prostate cancer in his 60s - Tobacco Use Tobacco Use Status *Q: Never Tobacco User Second Hand Smoke Exposure: No - Caffeine Use Caffeine Use: Reports: None - Recreational Drug Use Recreational Drug Use: No - Living Situation & Occupation Living situation: Reports: (1970, 3 children), with Family () 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.) Review of Systems - Review of Systems Review Of Systems: See Below Constitutional: Reports: No Symptoms Eyes: Reports: No Symptoms Ears: Reports: No Symptoms Nose: Reports: No Symptoms Mouth/Throat: Reports: No Symptoms Respiratory: Reports: No Symptoms Cardiovascular: Reports: No Symptoms GI/Abdominal: Reports: No Symptoms Genitourinary: Reports: No Symptoms Musculoskeletal: Reports: Other (Bumps on lower legs) Skin: Reports: No Symptoms Neurological: Reports: No Symptoms Psychiatric: Reports: No Symptoms ED EXAM, GENERAL - Physical Exam Exam: See Below Exam Limited By: No Limitations General Appearance: Alert, WD/WN, No Apparent Distress, Other (Elserly female, sitting enoc wheelcair huddled under a blanket.) Ears: Hearing Grossly Normal Nose: Normal Inspection Throat/Mouth: Normal Lips, Normal Voice Head: Atraumatic, Normocephalic Neck: Normal Inspection, Supple Respiratory/Chest: No Respiratory Distress, Lungs Clear, Chest Non-Tender Cardiovascular: Normal Peripheral Pulses, Regular Rate, Rhythm, No Murmur GI/Abdominal: Normal Bowel Sounds, Soft, Non-Tender (Female) Exam: Deferred Rectal (Female) Exam: Deferred Extremities: Other (Note firm region on inner left calf region, no redness. The area in question is not fluctant. Small firm areas noted on the right lower leg, but not as big.) Neurological: Alert, Oriented, CN II-XII Intact, Normal Cognition, No Motor/Sensory Deficits Course - Vital Signs Text/Narrative:: 1800 The patient was seen by the DIRECTOR ZONE. Labs and US had previously been ordered. 182 US tech reviews preliminary Venous Doppler report with DIRECTOR ZONE, negative for DVT in either extremity, notes 5cm mass in the left lower leg more like a lipoma or adipose tissue. Will review final report. Labs reviewed. CBC neg, CMP BUN=52, Embossing Press Operator Apprentice=8.52 expected findings for peritoneal dialysis pt. DIRECTOR ZONE discussed findings with patient and her . No interventions needed tonight and favor Lipoma as diagnosis. She can continue FU with her PCP Shyla Chiang PA-C here locally. She was given written instructions and left the ER in Stable condition. Last Recorded V/S: Last Vital Signs Temp 36.3 C 06/07/21 15:49 Pulse 67 06/07/21 15:49 Resp 20 06/07/21 15:49 BP 99/68 06/07/21 15:49 Pulse Ox 95 06/07/21 15:49 - Orders/Labs/Meds Orders: Active Orders 24 hr Category Date Time Status Venous Doppler Lwr Ext Bi [US] Stat Exams 06/07/21 15:47 Ordered Labs: Laboratory Tests 06/07/21 06/07/21 06/07/21 Range/Units 17:12 17:12 17:12 WBC 6.7 (4.0-10.2) K/uL RBC 3.16 L (3.77-5.09) M/uL Hgb 9.7 L D (11.7-15.5) g/dL Hct 30.9 L (34.0-46.0) % MCV 97.8 D (84.0-98.0) fL MCH 30.7 (28.2-33.3) pg MCHC 31.4 L (31.7-36.0) g/dL RDW 14.0 (11.2-14.1) % Plt Count 178 (150-350) K/uL Neut % (Auto) 75.8 (45.0-80.0) % Lymph % (Auto) 17.9 (10.0-50.0) % [place] % (Auto) 6.0 (2.0-14.0) % Eos % (Auto) 0.0 (0.0-5.0) % Baso % (Auto) 0.3 (0.0-2.0) % Neut # (Auto) 5.09 (1.40-7.00) K/uL Lymph # (Auto) 1.20 (0.50-3.50) K/uL [place] # (Auto) 0.40 (0.00-1.00) K/uL Eos # (Auto) 0.00 (0.00-0.50) K/uL Baso # (Auto) 0.02 (0.00-0.20) K/uL PT 9.2 L (9.5-12.0) SEC INR 0.9 Sodium 141 (136-145) mmol/L Potassium 4.1 (3.5-5.1) mmol/L Chloride 106 (98-107) mmol/L Carbon Dioxide 23.5 (21.0-32.0) mmol/L Anion Gap 11.5 (7-15) meq/L BUN 56 H (7-18) mg/dL Creatinine 8.52 H* D (0.51-1.17) mg/dL Est Cr Clr Drug Dosing 6.11 mL/min Estimated GFR (MDRD) 5 mL/min Glucose 96 (70-99) mg/dL Calcium 8.0 L (8.5-10.1) mg/dL Total Bilirubin 0.3 (0.2-1.0) mg/dL AST 39 H (15-37) U/L ALT 52 (12-78) U/L Alkaline Phosphatase 137 H (46-116) IU/L C-Reactive Protein < 0.2 (<=0.9) mg/dL Total Protein 5.7 L (6.4-8.2) g/dL Albumin 2.6 L (3.4-5.0) g/dL Departure - Departure Time of Disposition: 18:48 Disposition: Home, Self-Care 01 Condition: Good Clinical Impression: Lipoma of both lower extremities, ESRD on peritoneal dialysis - Discharge Information *PRESCRIPTION DRUG MONITORING PROGRAM REVIEWED*: Not Applicable *COPY OF PRESCRIPTION DRUG MONITORING REPORT IN PATIENT BRAYDEN: Not Applicable Instructions: Lipoma Referrals: Shyla Chiang PA [Primary Care Provider] - Forms: ED Department Discharge Additional Instructions: -No intervention needed at this time. The Ultrasound ruled out a blood clot in either of your legs. -Resume your peritoneal dialysis schedule/routine when you return home. -Discuss further intervention with Shyla Chiang PA-C at your next visit. -Follow up as needed for any other concerns. Sepsis Event Note (ED) - Evaluation Sepsis Screening Result: No Definite Risk - Focused Exam Vital Signs: Vital Signs Temp Pulse Resp BP Pulse Ox 06/07/21 15:49 36.3 C 67 20 99/68 95 06/07/21 15:44 64 16 91/60 93 L 06/07/21 15:30 66 18 93/68 95 - Problem List & Annotations (1) ESRD on peritoneal dialysis SNOMED Code(s): 622448824 Code(s): N18.6 - END STAGE RENAL DISEASE; Z99.2 - DEPENDENCE ON RENAL DIALYSIS Status: Acute Current Visit: Yes Annotation/Comment:: BUN=56, Embossing Press Operator Apprentice=8.52-Expected findings for pt due for peritoneal dialysis run. All other labs negative. (2) Lipoma of both lower extremities SNOMED Code(s): 69695901356395706 Code(s): D17.23 - BENIGN LIPOMATOUS NEOPLASM OF SKIN, SUBCU OF RIGHT LEG; D17.24 - BENIGN LIPOMATOUS NEOPLASM OF SKIN, SUBCU OF LEFT LEG Status: Acute Current Visit: Yes Annotation/Comment:: US noted lipoma vs adipose tissue 5.0cm region on left inner calf region, will have patient follow up with her PCP if she wants further intervention. No acute interventions needed to night. - Problem List Review Problem List Initiated/Reviewed/Updated: Yes - My Orders Last 24 Hours: My Active Orders 06/07/21 15:47 Venous Doppler Lwr Ext Bi [US] Stat - Assessment/Plan Last 24 Hours: My Active Orders 06/07/21 15:47 Venous Doppler Lwr Ext Bi [US] Stat Plan: -As above -Discharge to home
== END 2021-06-07 19:00 | disposition home or self-care (01) ==
LOC: LL.ED 15:26
DX: D17.24 Benign lipomatous neoplasm of skin and subcutaneous tissue of left leg (principal); D17.23 Benign lipomatous neoplasm of skin and subcutaneous tissue of right leg; I13.2 Hypertensive heart and chronic kidney disease with heart failure and with stage 5 chronic kidney disease, or end stage renal disease; N18.6 End stage renal disease; I50.9 Heart failure, unspecified; E78.00 Pure hypercholesterolemia, unspecified; E03.9 Hypothyroidism, unspecified; I25.10 Atherosclerotic heart disease of native coronary artery without angina pectoris; E66.9 Obesity, unspecified; Z68.28 Body mass index [BMI] 28.0-28.9, adult
CPT/HCPCS: 36415; 80053; 85025; 85610; 86140; 93970; 99284; 99284-25

== ENCOUNTER 2021-09-13 15:30 | Inpatient (IN) | payer MEDICARE, MEDICAID ==
[2021-09-13] MEDS ORDERED: Sodium Chloride 0.9% 10 ML Syringe FLUSH PRN (15:51)
--- NOTE | 2021-09-13 15:56 | EDM.PDOC ---
ED HPI GENERAL MEDICAL PROBLEM - General Chief Complaint: General Stated Complaint: pale, diaphoretic, RLL ulcers Time Seen by Provider: 09/13/21 15:43 Source of Information: Reports: Patient - History of Present Illness INITIAL COMMENTS - FREE TEXT/NARRATIVE: Anupama is a 71 y/o female who is sent to the ER by the [facility] provider with ulcers on on her legs. She has skin tears on her legs that have been present for 3-4 weeks. She was seen today by the [facility] nurse who sent her to the clinic stating she was pale and diaphoretic. Patient denies fever or chills. She has been on Keflex for the last week and the wounds on the back of both of her calves are not really healing much. - Related Data Allergies Allergy/AdvReac Type Severity Reaction Status Date / Time ibuprofen Allergy Renal Verified 09/13/21 16:55 Insufficiency zolpidem Allergy Hallucinati Verified 09/13/21 16:55 ons Home Meds: Home Meds ALPRAZolam [Xanax] 1 cap PO BEDTIME 06/24/19 [History] Cholecalciferol (Vitamin D3) [Vitamin D3] 4,000 unit PO DAILY 06/24/19 [History] Cyanocobalamin (Vitamin B-12) [Cyanocobalamin Injection] 1 ml IM Q30D 06/24/19 [History] Potassium Chloride [Klor-Con M20] 1 tab PO TID 06/24/19 [History] Sevelamer Carbonate [Renvela] 2,400 mg PO TID 06/24/19 [History] Venlafaxine [Effexor XR] 150 mg PO DAILY 06/24/19 [History] Folic Acid 1 mg PO DAILY #100 tablet 06/26/19 [Rx] Epoetin Dante [Epogen] 20,000 unit SQ WEEKLY 09/16/19 [History] Venlafaxine [Effexor XR] 37.5 mg PO DAILY 09/16/19 [History] Levothyroxine 200 mcg PO ACBREAKFAST 10/23/19 [History] Acetaminophen [Tylenol] 650 mg PO Q4H PRN tablet 11/02/19 [Rx] Bumetanide [Bumex] 1 mg PO BID 06/07/21 [History] Ferrous Sulfate 325 mg PO BID 06/07/21 [History] Magnesium Chloride 128 mg PO DAILY 06/07/21 [History] Metoprolol Tartrate 37.5 mg PO BID 06/07/21 [History] Mirtazapine 7.5 mg PO DAILY 06/07/21 [History] Past Medical History HEENT History: Reports: Cataract, Impaired Vision, Other (See Below) Other HEENT History: 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 The patient does wear glasses. Cardiovascular History: Reports: Arrhythmia, Heart Failure, High Cholesterol, Hypertension, Other (See Below) Other Cardiovascular History: PAC's and first-degree AV block by EKG on 09/15/2019 at [facility]. Respiratory History: Reports: Intubation, Previous, Other (See Below) Other Respiratory History: 8 mm right middle lobe pulmonary nodule with multiple probable benign right lower lobe pulmonary nodules. Gastrointestinal History: Reports: Bowel Obstruction, Chronic Constipation, Chronic Diarrhea, Fecal Incontinence, GERD, Hemorrhoids, Other (See Below) Other Gastrointestinal History: Nonspecific ascites by CT scan on 10/18/19. Colitis with rectal ulcer by colonoscopy in 2019 as below. Bowel obstruction about 1978 with subsequent surgery as below. Genitourinary History: Reports: Chronic Renal Insuffiency, Dialysis, Dialysis, Peritoneal, Urinary Incontinence, UTI, Recurrent, Other (See Below) Other Genitourinary History: Home peritoneal dialysis which was initiated in March 2019 peritoneal catheter insertion on 10/24/2018. COMMUNICATIONS SCIENTIST History: Reports: Other COMMUNICATIONS SCIENTIST History: Menopause at age 46, Full term without complications during pregnancies or deliveries Musculoskeletal History: Reports: Arthritis, Back Pain, Chronic, Fracture, Neck Pain, Chronic, Osteoarthritis, Osteoporosis Other Musculoskeletal History: Right #3 posterior rib fracture. Right shoulder and right scapular fracture. Incidental L3 hemangioma CT scan. Neurological History: Reports: Headaches, Chronic, Migraines Other Neuro History: Long history, but have greatly improved Psychiatric History: Reports: Anxiety, Depression Endocrine/Metabolic History: Reports: Hyperparathyroidism, Hypokalemia, Hypomagnesemia, Hypothyroidism, Obesity/BMI 30+, Osteopenia, Osteoporosis, Vitamin D Deficiency, Other (See Below) Other Endocrine/Metabolic History: Hx of thyroid cancer nonoperable by patient history with subsequent chemotherapy and secondary hypothyroidism. Hypercalcemia/hypocalcemia; Hypoalbuminemia. Hematologic History: Reports: Anemia, B12 Deficiency, Blood Transfusion(s), Folic Acid, Iron Deficiency Other Hematologic History: Blood transfusions with knee surgeries as below. 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 Lymphoma also diagnosed with her thyroid cancer with chemotherapy as above. Dermatologic History: Reports: None - Infectious Disease History Infectious Disease History: Reports: Chicken Pox - Past Surgical History Head Surgeries/Procedures: Reports: None HEENT Surgical History: Reports: Cataract Surgery, Eye Surgery, Laser Surgery, Oral Surgery, Other (See Below) Other HEENT Surgeries/Procedures: Complete teeth extraction with complete dentures uppers and lowers. Right cataract surgery on 04/03/12. Previous right eye laser therapy. Left upper eyelid cyst excision at about age 11. Cardiovascular Surgical History: Reports: None Respiratory Surgical History: Reports: None GI Surgical History: Reports: Appendectomy, Bariatric Procedure, Colon, Colonoscopy, Other (See Below) Other GI Surgeries/Procedures: Gastric bypass, hemorrhoid surgery x2, including hemorrhoidectomy in October 2005 and hemorrhoid stapling in 2004; last colonoscopy on 09/09/2019 with multiple serial biopsies indicated mild colitis with additional rectal ulcer. Incomplete colonoscopy to the transverse colon on 04/24/2018 with follow-up barium enema as below. Otherwise colonoscopies on 04/18/2015 and 02/06/2005. Partial colon resection secondary to bowel obstruction in 1978 with concomitant appendectomy with previous intestinal torsion revision without partial colectomy about 6 weeks prior to the surgery. Multiple previous failed colonoscopies as above with last barium enema as below. Peritoneal dialysis catheter placement on 04/23/2019. Female Surgical History: Reports: None Endocrine Surgical History: Reports: Thyroid Biopsy, Other (See Below) Other Endocrine Surgeries/Procedures: Failed thyroidectomy for thyroid cancer in June 2010 as above. Neurological Surgical History: Reports: C-Spine, Spinal Fusion, Other (See Below) Other Neurological Surgeries/Procedures: Questionable cervical fusion versus stone implant in September 1996. Musculoskeletal Surgical History: Reports: Joint Replacement, Knee Replacement, Other (See Below) Other Musculoskeletal Surgeries/Procedures:: Bilateral total knee arthroplasty with right TKA on 12/13/2011. Oncologic Surgical History: Reports: None Dermatological Surgical History: Reports: None - Past Imaging History Past Imaging History: Reports: Barium Enema (Last on 09/11/19 however difficult exam secondary to bowel gas and stool.), Cardiac Echo (06/15/19 with ejection fraction of 6065 percent.), CAT Scan (CT of the abdomen and pelvis on 10/18/19. CT of the brain on 10/04/[address] of the chest without contrast on 05/06/18, 01/13/18, and 07/11/10.), DEXA Scan (07/25/18, 07/01/17, and 09/10/16,), Mammogram (Last on 07/27/19.), PET (PET/CT T scan of the base of the skull to the mid thigh region on 03/15/19 and 10/05/16.), PFT (03/11/18.), Ultrasound (Renal ultrasound on 03/12/19 and 10/05/16. Bilateral ultrasound arm mapping on 03/26/19 for possible future AV fistula placement for dialysis.), Venous Doppler (Negative on 10/04/16 of the legs bilaterally), Other (See Below) Social & Family History - Family History Family Medical History: No Pertinent Family History HEENT: Reports: None Cardiac: Reports: CAD, Cardiomyopathy, Heart Failure, High Cholesterol, Hypertension, TN, Other (See Below) Other Cardiac Family History: Maternal grandmother with fatal CHF at age 89, father with hyperlipidemia and hypertension, father with fatal TN at age 88 Respiratory: Reports: None GI: Reports: None : Reports: Dialysis, Renal Calculus, Renal Disease/Insufficiency, Other (See Below) Other Family History: Mother with urolithiasis, father and brother with renal insufficiency which did require dialysis OBGYN: Reports: None Musculoskeletal: Reports: Arthritis, Osteoarthritis, SLE, Other (See Below) Other Musculoskeletal Family History: mother with SLE Neurological: Reports: None Psychiatric: Reports: None Endocrine/Metabolic: Reports: None Hematologic: Reports: None, SLE, Other (See Below) Other Hematologic Family History: Mother with SLE Immunologic: Reports: SLE, Other (See Below) Other Immunologic Family History: Mother with SLE Dermatologic: Reports: None Oncologic: Reports: Metastatic, Prostate, Other (See Below) Other Oncologic Family History: brother with fatal metastatic prostate cancer in his 60s - Caffeine Use Caffeine Use: Reports: None - Living Situation & Occupation Living situation: Reports: (1970, 3 children), with Family () 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.) ED ROS GENERAL - Review of Systems Review Of Systems: See Below Constitutional: Reports: Weakness HEENT: Reports: No Symptoms Respiratory: Reports: No Symptoms Cardiovascular: Reports: No Symptoms Endocrine: Reports: No Symptoms GI/Abdominal: Reports: No Symptoms : Reports: No Symptoms Musculoskeletal: Reports: No Symptoms Skin: Reports: Wound (Bilateral posterior calf regions) Neurological: Reports: No Symptoms Psychiatric: Reports: No Symptoms Hematologic/Lymphatic: Reports: No Symptoms Immunologic: Reports: No Symptoms ED EXAM, GENERAL - Physical Exam Exam: See Below General Appearance: Alert, WD/WN, No Apparent Distress (Elderly female, coopertive and answers questions) Eye Exam: Bilateral Eye: PERRL Ears: Hearing Grossly Normal Nose: Normal Inspection, Normal Mucosa Throat/Mouth: Normal Inspection, Normal Lips, Normal Oropharynx, Normal Voice Head: Atraumatic, Normocephalic Neck: Supple Respiratory/Chest: No Respiratory Distress, Lungs Clear, Chest Non-Tender Cardiovascular: Normal Peripheral Pulses, Regular Rate, Rhythm GI/Abdominal: Normal Bowel Sounds, Soft, Non-Tender (Female) Exam: Deferred Rectal (Female) Exam: Deferred Back Exam: Normal Inspection Extremities: Other (Note scabbed areas in what appears to be skin tears, note surrounding areas that are mildly erythematous, no drainage noted) Neurological: Alert, Oriented, CN II-XII Intact, Normal Cognition Psychiatric: Normal Affect Skin Exam: Warm, Dry, Intact, Normal Color Course - Vital Signs Text/Narrative:: 1543 The patient was seen by the DIRECTOR OF RADIO SERVICES. Labs ordered. 1700 Labs reviewed. WBC=16.6, Neuts=89.4%, Lactic Acid=2.6. Will plan Observation Admit for IV fluids and IV abx. Vancomycin 1750gm IV x 1 ordered along with Ceftriaxone 1gm IVP. Will repeat lactic acid in 4 hours. Plan IV abx along with fluids at 75ml/hr for Observation admission. Will also have nursing dress the wounds with Silvadene twice daily. If patient labs impro segun and she remains stable, will plan to send her home late tomorrow with oral Bactrim. Last Recorded V/S: Last Vital Signs Temp 36.4 C 09/13/21 15:40 Pulse 72 09/13/21 16:34 Resp 16 09/13/21 16:34 BP 98/56 L 09/13/21 16:34 Pulse Ox 100 09/13/21 16:34 - Orders/Labs/Meds Orders: Active Orders 24 hr Category Date Time Status Patient Status [ADT] Routine ADT 09/13/21 16:56 Active Cardiac Monitoring [RC] . DIRECTED Care 09/13/21 16:56 Active Chest 1V Frontal [CR] Stat Exams 09/13/21 15:51 Taken COVID-19/FLU A+B/RSV [MOLEC] Stat Lab 09/13/21 15:51 Ordered CULTURE BLOOD [BC] Stat Lab 09/13/21 15:45 Received CULTURE BLOOD [BC] Stat Lab 09/13/21 15:50 Received LACTIC ACID [CHEM] Timed Lab 09/13/21 20:00 Ordered UA RFX ZARINA AND CULT IF INDIC [URIN] Stat Lab 09/13/21 15:51 Ordered Sodium Chloride 0.9% [Normal Saline] 1,000 ml Med 09/13/21 17:00 Active IV ASDIRECTED Sodium Chloride 0.9% [Saline Flush] Med 09/13/21 15:51 Active 10 ml FLUSH ASDIRECTED PRN Vancomycin 1.75 gm Med 09/13/21 16:54 Active Sodium Chloride 0.9% [Normal Saline] 500 ml IV ONETIME Blood Culture x2 Reflex Set [OM.PC] Stat Oth 09/13/21 15:51 Ordered Saline Lock Insert [OM.PC] Stat Oth 09/13/21 15:51 Ordered Medication Orders Acetaminophen (Acetaminophen 325 Mg Tab) 650 mg PO Q4H PRN PRN Reason: Pain (Mild 1-3)/fever Vancomycin HCl 1.75 gm/ Sodium (Chloride) 500 mls @ 185 mls/hr IV ONETIME ONE Stop: 09/13/21 19:36 Last Admin: 09/13/21 17:23 Dose: 185 mls/hr Documented by: TANYA Sodium Chloride (Normal Saline) 1,000 mls @ 75 mls/hr IV ASDIRECTED NILO Ondansetron HCl (Ondansetron 4 Mg Tab.Dis) 4 mg PO Q4H PRN PRN Reason: Nausea/Vomiting Ondansetron HCl (Ondansetron 4 Mg/2 Ml Sdv) 4 mg IVPUSH Q4H PRN PRN Reason: Nausea/Vomiting Sodium Chloride (Sodium Chloride 0.9% 10 Ml Syringe) 10 ml FLUSH ASDIRECTED PRN PRN Reason: Keep Vein Open Sodium Chloride (Sodium Chloride 0.9% 10 Ml Syringe) 10 ml FLUSH ASDIRECTED PRN PRN Reason: Keep Vein Open Labs: Laboratory Tests 09/13/21 09/13/21 09/13/21 Range/Units 15:50 15:50 15:50 WBC 16.6 H (4.0-10.2) K/uL RBC 3.71 L (3.77-5.09) M/uL Hgb 12.0 D (11.7-15.5) g/dL Hct 39.2 (34.0-46.0) % MCV 105.7 H D (84.0-98.0) fL MCH 32.3 (28.2-33.3) pg MCHC 30.6 L (31.7-36.0) g/dL RDW 16.0 H (11.2-14.1) % Plt Count 175 (150-350) K/uL Neut % (Auto) 89.4 H (45.0-80.0) % Lymph % (Auto) 5.1 L (10.0-50.0) % [place] % (Auto) 5.3 (2.0-14.0) % Eos % (Auto) 0.1 (0.0-5.0) % Baso % (Auto) 0.1 (0.0-2.0) % Neut # (Auto) 14.87 H (1.40-7.00) K/uL Lymph # (Auto) 0.84 (0.50-3.50) K/uL [place] # (Auto) 0.88 (0.00-1.00) K/uL Eos # (Auto) 0.01 (0.00-0.50) K/uL Baso # (Auto) 0.02 (0.00-0.20) K/uL Sodium 138 (136-145) mmol/L Potassium 3.6 (3.5-5.1) mmol/L Chloride 100 (98-107) mmol/L Carbon Dioxide 20.4 L (21.0-32.0) mmol/L Anion Gap 21.2 H (7-15) meq/L BUN 52 H (7-18) mg/dL Creatinine 10.80 H* D (0.51-1.17) mg/dL Est Cr Clr Drug Dosing TNP Estimated GFR (MDRD) 3 mL/min Glucose 71 (70-99) mg/dL Lactic Acid 2.4 H (0.4-2.0) mmol/L Calcium 7.3 L (8.5-10.1) mg/dL Magnesium 3.3 H (1.8-2.4) mg/dL Total Bilirubin 0.3 (0.2-1.0) mg/dL AST 28 (15-37) U/L ALT 17 (12-78) U/L Alkaline Phosphatase 191 H (46-116) IU/L C-Reactive Protein 21.3 H (<=0.9) mg/dL Total Protein 5.4 L (6.4-8.2) g/dL Albumin 1.9 L (3.4-5.0) g/dL Meds: Medications Generic Name Dose Route Start Last Admin Trade Name Freq PRN Reason Stop Dose Admin Acetaminophen 650 mg 09/13/21 17:20 Acetaminophen 325 Mg Tab PO Q4H PRN Pain (Mild 1-3)/fever Vancomycin HCl 1.75 gm/ Sodium 500 mls @ 185 mls/hr 09/13/21 16:54 09/13/21 17:23 Chloride IV 09/13/21 19:36 185 mls/hr ONETIME ONE Administration Sodium Chloride 1,000 mls @ 75 mls/hr 09/13/21 17:00 Normal Saline IV ASDIRECTED NILO Ondansetron HCl 4 mg 09/13/21 17:20 Ondansetron 4 Mg Tab.Dis PO Q4H PRN Nausea/Vomiting Ondansetron HCl 4 mg 09/13/21 17:20 Ondansetron 4 Mg/2 Ml Sdv IVPUSH Q4H PRN Nausea/Vomiting Sodium Chloride 10 ml 09/13/21 15:51 Sodium Chloride 0.9% 10 Ml Syringe FLUSH ASDIRECTED PRN Keep Vein Open Sodium Chloride 10 ml 09/13/21 17:20 Sodium Chloride 0.9% 10 Ml Syringe FLUSH ASDIRECTED PRN Keep Vein Open Discontinued Medications Generic Name Dose Route Start Last Admin Trade Name Kun PRN Reason Stop Dose Admin Ceftriaxone Sodium 1 gm 09/13/21 16:42 09/13/21 17:00 Ceftriaxone 2 Gm Vial IVPUSH 09/13/21 16:43 1 gm Q24H ONE Administration Sodium Chloride 1,000 mls @ 999 mls/hr 09/13/21 16:10 09/13/21 17:24 Normal Saline IV 09/13/21 17:10 Infused .BOLUS ONE Infusion Vancomycin HCl 1 gm/ Sodium 250 mls @ 250 mls/hr 09/13/21 16:37 Chloride IV 09/13/21 17:36 STAT ONE Departure - Departure Time of Disposition: 17:31 Disposition: DC/Tfer to [facility] 03 Condition: Good Clinical Impression: Cellulitis and abscess of leg, Multiple skin tears, ESRD (end stage renal disease) on dialysis, Elevated lactic acid level - Discharge Information Sepsis Event Note (ED) - Focused Exam Vital Signs: Vital Signs Temp Pulse Resp BP Pulse Ox 09/13/21 16:34 72 16 98/56 L 100 09/13/21 16:25 73 15 86/53 L 100 09/13/21 16:10 76 16 87/56 L 100 09/13/21 15:55 78 16 92/49 L 95 09/13/21 15:40 36.4 C 79 14 77/53 L 94 L - Problem List & Annotations (1) Cellulitis and abscess of leg SNOMED Code(s): 749824283 Code(s): L03.119 - CELLULITIS OF UNSPECIFIED PART OF LIMB; L02.419 - CUTANEOUS ABSCESS OF LIMB, UNSPECIFIED Status: Acute Current Visit: Yes Annotation/Comment:: WBC=16.6, Neuts=89.4%; CRP=21.3; Skin tears on posterior aspect of both legs with mild cellulitis noted. Failed outpatient Keflex therapy. Will treat with Vancomycin and Ceftriaxone. (2) Multiple skin tears SNOMED Code(s): 212680128 Code(s): T14.8XXA - OTHER INJURY OF UNSPECIFIED BODY REGION, INITIAL ENCOUNTER Status: Acute Current Visit: Yes Annotation/Comment:: As noted above, suspect skin tears now infected. Will dress with Silvadene and dressing BID. (3) Elevated lactic acid level SNOMED Code(s): 6614292 Code(s): R79.89 - OTHER SPECIFIED ABNORMAL FINDINGS OF BLOOD CHEMISTRY Status: Acute Current Visit: Yes Annotation/Comment:: Lactic Acid=2.4, will repeat in 4 hours and in AM. BP seems to be at baseline for patient and she is afebrile. Blood Cx pending. IV abx ordered. (4) ESRD (end stage renal disease) on dialysis SNOMED Code(s): 212627369 Code(s): N18.6 - END STAGE RENAL DISEASE; Z99.2 - DEPENDENCE ON RENAL DIALYSIS Status: Acute Current Visit: Yes Annotation/Comment:: On peritoneal dialysis, family to bring supplies and complete while admitted. Financial Reporting Accountant=10.8, Renal dosing for abx used. - Problem List Review Problem List Initiated/Reviewed/Updated: Yes - My Orders Last 24 Hours: My Active Orders 09/13/21 15:45 CULTURE BLOOD [BC] Stat 09/13/21 15:50 CULTURE BLOOD [BC] Stat 09/13/21 15:51 Chest 1V Frontal [CR] Stat COVID-19/FLU A+B/RSV [MOLEC] Stat UA RFX ZARINA AND CULT IF INDIC [URIN] Stat Sodium Chloride 0.9% [Saline Flush] 10 ml FLUSH ASDIRECTED PRN Blood Culture x2 Reflex Set [OM.PC] Stat Saline Lock Insert [OM.PC] Stat 09/13/21 16:54 Vancomycin 1.75 gm Sodium Chloride 0.9% [Normal Saline] 500 ml IV ONETIME 09/13/21 16:56 Patient Status [ADT] Routine Cardiac Monitoring [RC] . DIRECTED 09/13/21 17:00 Sodium Chloride 0.9% [Normal Saline] 1,000 ml IV ASDIRECTED 09/13/21 20:00 LACTIC ACID [CHEM] Timed - Assessment/Plan Admission H&P: Please use this note as an admission H&P Last 24 Hours: My Active Orders 09/13/21 15:45 CULTURE BLOOD [BC] Stat 09/13/21 15:50 CULTURE BLOOD [BC] Stat 09/13/21 15:51 Chest 1V Frontal [CR] Stat COVID-19/FLU A+B/RSV [MOLEC] Stat UA RFX ZARINA AND CULT IF INDIC [URIN] Stat Sodium Chloride 0.9% [Saline Flush] 10 ml FLUSH ASDIRECTED PRN Blood Culture x2 Reflex Set [OM.PC] Stat Saline Lock Insert [OM.PC] Stat 09/13/21 16:54 Vancomycin 1.75 gm Sodium Chloride 0.9% [Normal Saline] 500 ml IV ONETIME 09/13/21 16:56 Patient Status [ADT] Routine Cardiac Monitoring [RC] . DIRECTED 09/13/21 17:00 Sodium Chloride 0.9% [Normal Saline] 1,000 ml IV ASDIRECTED 09/13/21 20:00 LACTIC ACID [CHEM] Timed Plan: Admit to Observation
[2021-09-13] MEDS ORDERED: Sodium Chloride 0.9% 1,000 ML IV ONE (16:10)
[2021-09-13 16:36] LABS: CHLORIDE,CL 100 mmol/L (98-107); SODIUM,NA 138 mmol/L (136-145)
[2021-09-13 16:39] LABS: ANION GAP 21.2 meq/L (7-15)
[2021-09-13] MEDS ORDERED: cefTRIAXone 2 GM Vial IVPUSH ONE (16:42)
[2021-09-13] MEDS ORDERED: Vancomycin 1.75 GM in Sodium Chloride 0.9% 500 ML IV ONE (16:54)
[2021-09-13] MEDS ORDERED: Sodium Chloride 0.9% 1,000 ML IV SCH (17:00)
[2021-09-13] MEDS ORDERED: Ondansetron 4 MG Tab.DIS PO PRN (17:20)
[2021-09-13] MEDS ORDERED: Ondansetron 4 MG/2 ML SDV IVPUSH PRN (17:20)
[2021-09-13] MEDS: Bumetanide 1 MG Tab PO SCH (20:34)
[2021-09-13] MEDS: Ferrous Sulfate 325 MG Tab PO SCH (20:34)
[2021-09-13] MEDS: Silver Sulfadiazine 1% Crm 20 GM Tube TOP SCH (20:35)
[2021-09-13] MEDS: ALPRAZolam 1 MG Tab PO SCH (20:35)
[2021-09-13] MEDS: Metoprolol Tartrate 25 MG Tab PO SCH (20:36)
--- NOTE | 2021-09-13 21:07 | PCM.SN.2 ---
- Free Text/Narrative Note: O: BP stable, no fever Lactic Acid=0.6 A/P: -Doubt Sepsis, Vancomycin and Ceftriaxone started along with IV fluids.
[2021-09-14] MEDS ORDERED: Non-Formulary Medication 1 Each (Venlafaxine [Effexor Xr] 150 MG Cap.Er) PO SCH ×2 (08:00→09:45)
[2021-09-14] MEDS ORDERED: Venlafaxine 37.5 MG Cap.ER PO SCH (08:00)
[2021-09-14] MEDS: Folic Acid 1 MG Tab PO SCH (08:23)
[2021-09-14] MEDS: Levothyroxine 100 MCG Tab PO SCH (08:23)
[2021-09-14] MEDS: Bumetanide 1 MG Tab PO SCH ×2 (08:24→17:40)
[2021-09-14] MEDS: Mirtazapine 15 MG Tab PO SCH (08:25)
[2021-09-14] MEDS: Ferrous Sulfate 325 MG Tab PO SCH ×2 (08:25→17:41)
[2021-09-14] MEDS: Metoprolol Tartrate 25 MG Tab PO SCH ×2 (08:26→17:37)
[2021-09-14 08:46] LABS: ANION GAP 15.2 meq/L (7-15)
[2021-09-14 09:34] LABS: CORONAVIRUS COVID-19 NAA NEGATIVE (NEGATIVE); RESPIRATORY SYNCYTIAL VIR NAA NEGATIVE (NEGATIVE)
[2021-09-14] MEDS ORDERED: Venlafaxine 75 MG Cap.ER PO SCH (09:45)
--- NOTE | 2021-09-14 09:57 | PCM.PN ---
- General Info Date of Service: 09/14/21 Admission Dx/Problem (Free Text): Cellulitis in Bilateral Lower Legs Bilateral Lower Leg Skin Tears ESRD Subjective Update: Patient rested overnight. She is having more pain in her lower legs this AM. Nursing reports that she is very weak and has had a hard time standing up or moving much. - Review of Systems General: Reports: Weakness HEENT: Reports: No Symptoms Pulmonary: Reports: No Symptoms Cardiovascular: Reports: No Symptoms Gastrointestinal: Reports: No Symptoms Genitourinary: Reports: No Symptoms Musculoskeletal: Reports: Leg Pain Skin: Reports: No Symptoms Neurological: Reports: No Symptoms Psychiatric: Reports: No Symptoms - Patient Data Vitals - Most Recent: Last Vital Signs Temp 35.8 C L 09/14/21 07:29 Pulse 87 09/14/21 08:26 Resp 14 09/14/21 07:29 BP 87/59 L 09/14/21 08:26 Pulse Ox 92 L 09/14/21 07:29 Weight - Most Recent: 88.451 kg I&O - Last 24 Hours: Intake & Output 09/13/21 09/14/21 09/14/21 22:59 06:59 14:59 Intake Total 100 Balance 100 Lab Results Last 24 Hours: Laboratory Results - last 24 hr 09/13/21 09/13/21 09/13/21 Range/Units 08:40 15:50 15:50 WBC 16.6 H (4.0-10.2) K/uL RBC 3.71 L (3.77-5.09) M/uL Hgb 12.0 D (11.7-15.5) g/dL Hct 39.2 (34.0-46.0) % MCV 105.7 H D (84.0-98.0) fL MCH 32.3 (28.2-33.3) pg MCHC 30.6 L (31.7-36.0) g/dL RDW 16.0 H (11.2-14.1) % Plt Count 175 (150-350) K/uL Neut % (Auto) 89.4 H (45.0-80.0) % Lymph % (Auto) 5.1 L (10.0-50.0) % [place] % (Auto) 5.3 (2.0-14.0) % Eos % (Auto) 0.1 (0.0-5.0) % Baso % (Auto) 0.1 (0.0-2.0) % Neut # (Auto) 14.87 H (1.40-7.00) K/uL Lymph # (Auto) 0.84 (0.50-3.50) K/uL [place] # (Auto) 0.88 (0.00-1.00) K/uL Eos # (Auto) 0.01 (0.00-0.50) K/uL Baso # (Auto) 0.02 (0.00-0.20) K/uL Sodium 138 (136-145) mmol/L Potassium 3.6 (3.5-5.1) mmol/L Chloride 100 (98-107) mmol/L Carbon Dioxide 20.4 L (21.0-32.0) mmol/L Anion Gap 21.2 H (7-15) meq/L BUN 52 H (7-18) mg/dL Creatinine 10.80 H* D (0.51-1.17) mg/dL Est Cr Clr Drug Dosing TNP Estimated GFR (MDRD) 3 mL/min Glucose 71 (70-99) mg/dL Lactic Acid (0.4-2.0) mmol/L Calcium 7.3 L (8.5-10.1) mg/dL Magnesium 3.3 H (1.8-2.4) mg/dL Total Bilirubin 0.3 (0.2-1.0) mg/dL AST 28 (15-37) U/L ALT 17 (12-78) U/L Alkaline Phosphatase 191 H (46-116) IU/L C-Reactive Protein 21.3 H (<=0.9) mg/dL Total Protein 5.4 L (6.4-8.2) g/dL Albumin 1.9 L (3.4-5.0) g/dL Influenza Type A RNA Negative (NEGATIVE) RSV RNA (INAAT) Negative (NEGATIVE) Influenza Type B RNA Negative (NEGATIVE) SARS-CoV-2 RNA (MILKA) Negative (NEGATIVE) 09/13/21 09/13/21 09/14/21 Range/Units 15:50 20:20 07:35 WBC (4.0-10.2) K/uL RBC (3.77-5.09) M/uL Hgb (11.7-15.5) g/dL Hct (34.0-46.0) % MCV (84.0-98.0) fL MCH (28.2-33.3) pg MCHC (31.7-36.0) g/dL RDW (11.2-14.1) % Plt Count (150-350) K/uL Neut % (Auto) (45.0-80.0) % Lymph % (Auto) (10.0-50.0) % [place] % (Auto) (2.0-14.0) % Eos % (Auto) (0.0-5.0) % Baso % (Auto) (0.0-2.0) % Neut # (Auto) (1.40-7.00) K/uL Lymph # (Auto) (0.50-3.50) K/uL [place] # (Auto) (0.00-1.00) K/uL Eos # (Auto) (0.00-0.50) K/uL Baso # (Auto) (0.00-0.20) K/uL Sodium (136-145) mmol/L Potassium (3.5-5.1) mmol/L Chloride (98-107) mmol/L Carbon Dioxide (21.0-32.0) mmol/L Anion Gap (7-15) meq/L BUN (7-18) mg/dL Creatinine (0.51-1.17) mg/dL Est Cr Clr Drug Dosing Estimated GFR (MDRD) mL/min Glucose (70-99) mg/dL Lactic Acid 2.4 H 0.8 2.0 (0.4-2.0) mmol/L Calcium (8.5-10.1) mg/dL Magnesium (1.8-2.4) mg/dL Total Bilirubin (0.2-1.0) mg/dL AST (15-37) U/L ALT (12-78) U/L Alkaline Phosphatase (46-116) IU/L C-Reactive Protein (<=0.9) mg/dL Total Protein (6.4-8.2) g/dL Albumin (3.4-5.0) g/dL Influenza Type A RNA (NEGATIVE) RSV RNA (INAAT) (NEGATIVE) Influenza Type B RNA (NEGATIVE) SARS-CoV-2 RNA (MILKA) (NEGATIVE) 09/14/21 09/14/21 Range/Units 08:15 08:15 WBC 15.3 H (4.0-10.2) K/uL RBC 3.43 L (3.77-5.09) M/uL Hgb 11.0 L (11.7-15.5) g/dL Hct 36.1 (34.0-46.0) % MCV 105.2 H (84.0-98.0) fL MCH 32.1 (28.2-33.3) pg MCHC 30.5 L (31.7-36.0) g/dL RDW 16.1 H (11.2-14.1) % Plt Count 169 (150-350) K/uL Neut % (Auto) 90.3 H (45.0-80.0) % Lymph % (Auto) 5.0 L (10.0-50.0) % [place] % (Auto) 4.5 (2.0-14.0) % Eos % (Auto) 0.0 (0.0-5.0) % Baso % (Auto) 0.2 (0.0-2.0) % Neut # (Auto) 13.84 H (1.40-7.00) K/uL Lymph # (Auto) 0.77 (0.50-3.50) K/uL [place] # (Auto) 0.69 (0.00-1.00) K/uL Eos # (Auto) 0.00 (0.00-0.50) K/uL Baso # (Auto) 0.03 (0.00-0.20) K/uL Sodium 135 L (136-145) mmol/L Potassium 3.6 (3.5-5.1) mmol/L Chloride 102 (98-107) mmol/L Carbon Dioxide 21.4 (21.0-32.0) mmol/L Anion Gap 15.2 H (7-15) meq/L BUN 48 H (7-18) mg/dL Creatinine 9.72 H* (0.51-1.17) mg/dL Est Cr Clr Drug Dosing 5.18 Estimated GFR (MDRD) 4 mL/min Glucose 119 H (70-99) mg/dL Lactic Acid (0.4-2.0) mmol/L Calcium 7.1 L (8.5-10.1) mg/dL Magnesium (1.8-2.4) mg/dL Total Bilirubin (0.2-1.0) mg/dL AST (15-37) U/L ALT (12-78) U/L Alkaline Phosphatase (46-116) IU/L C-Reactive Protein 24.0 H (<=0.9) mg/dL Total Protein (6.4-8.2) g/dL Albumin (3.4-5.0) g/dL Influenza Type A RNA (NEGATIVE) RSV RNA (INAAT) (NEGATIVE) Influenza Type B RNA (NEGATIVE) SARS-CoV-2 RNA (MILKA) (NEGATIVE) Med Orders - Current: Current Medications Acetaminophen (Acetaminophen 325 Mg Tab) 650 mg PO Q4H PRN PRN Reason: Pain (Mild 1-3)/fever Alprazolam (Alprazolam 1 Mg Tab) 1 mg PO BEDTIME [facility] Last Admin: 09/13/21 20:35 Dose: 1 mg Documented by: Bumetanide (Bumetanide 1 Mg Tab) 1 mg PO BID [facility] Last Admin: 09/14/21 08:24 Dose: 1 mg Documented by: Ferrous Sulfate (Ferrous Sulfate 325 Mg Tab) 325 mg PO BID [facility] Last Admin: 09/14/21 08:25 Dose: 325 mg Documented by: Folic Acid (Folic Acid 1 Mg Tab) 1 mg PO DAILY [facility] Last Admin: 09/14/21 08:23 Dose: 1 mg Documented by: Levothyroxine Sodium (Levothyroxine 100 Mcg Tab) 200 mcg PO ACBREAKFAST [facility] Last Admin: 09/14/21 08:23 Dose: 200 mcg Documented by: Metoprolol Tartrate (Metoprolol Tartrate 25 Mg Tab) 37.5 mg PO BID [facility] Last Admin: 09/14/21 08:26 Dose: 37.5 mg Documented by: Mirtazapine (Mirtazapine 15 Mg Tab) 7.5 mg PO DAILY [facility] Last Admin: 09/14/21 08:25 Dose: 7.5 mg Documented by: Non-Formulary Medication (Sevelamer Carbonate [Renvela]) 2,400 mg PO TID [facility] Non-Formulary Medication (Venlafaxine [Effexor Xr]) 150 mg PO DAILY [facility] Non-Formulary Medication (Venlafaxine [Effexor Xr]) 150 mg PO DAILY [facility] Non-Formulary Medication (Non-Formulary Medication [Nf Drug]) 1 dose .XX ASDIRECTED [facility] Ondansetron HCl (Ondansetron 4 Mg Tab.Dis) 4 mg PO Q4H PRN PRN Reason: Nausea/Vomiting Ondansetron HCl (Ondansetron 4 Mg/2 Ml Sdv) 4 mg IVPUSH Q4H PRN PRN Reason: Nausea/Vomiting Potassium Chloride (Potassium Chloride 20 Meq Tab.Er) 20 meq PO TID [facility] Silver Sulfadiazine (Silver Sulfadiazine 1% Crm 20 Gm Tube) 0 gm TOP BID [facility] Last Admin: 09/13/21 20:35 Dose: 1 applic Documented by: Sodium Chloride (Sodium Chloride 0.9% 10 Ml Syringe) 10 ml FLUSH ASDIRECTED PRN PRN Reason: Keep Vein Open Venlafaxine HCl (Venlafaxine 37.5 Mg Cap.Er) 37.5 mg PO DAILY [facility] Venlafaxine HCl (Venlafaxine 75 Mg Cap.Er) 75 mg PO DAILY [facility] Discontinued Medications Ceftriaxone Sodium (Ceftriaxone 2 Gm Vial) 1 gm IVPUSH Q24H ONE Stop: 09/13/21 16:43 Last Admin: 09/13/21 17:00 Dose: 1 gm Documented by: Sodium Chloride (Normal Saline) 1,000 mls @ 999 mls/hr IV .BOLUS ONE Stop: 09/13/21 17:10 Last Infusion: 09/13/21 17:24 Dose: Infused Documented by: Vancomycin HCl 1 gm/ Sodium (Chloride) 250 mls @ 250 mls/hr IV STAT ONE Stop: 09/13/21 17:36 Last Admin: 09/13/21 19:01 Dose: Not Given Documented by: Vancomycin HCl 1.75 gm/ Sodium (Chloride) 500 mls @ 185 mls/hr IV ONETIME ONE Stop: 09/13/21 19:36 Last Admin: 09/13/21 17:23 Dose: 185 mls/hr Documented by: Sodium Chloride (Normal Saline) 1,000 mls @ 75 mls/hr IV ASDIRECTED NILO Stop: 09/13/21 17:00 Sodium Chloride (Sodium Chloride 0.9% 10 Ml Syringe) 10 ml FLUSH ASDIRECTED PRN PRN Reason: Keep Vein Open - Exam General: Alert, Oriented, Other (Appears weak and like hse doesn't feel well) HEENT: Pupils Equal, Mucous Membr. Moist/[place] Neck: Supple Lungs: Clear to Auscultation, Normal Respiratory Effort Cardiovascular: Regular Rate, Regular Rhythm GI/Abdominal Exam: Normal Bowel Sounds, Soft, Non-Tender (Female) Exam: Deferred Extremities: Other (Dressing in place to bilateral lower legs, erythema has decreased, but legs are tender with movement; Still noting scabbed areas, no drainage.) Skin: Warm, Dry, Intact Neurological: No New Focal Deficit Psy/Mental Status: Alert, Other (Flat) - Patient Data Lab Results Last 24 hrs: Laboratory Results - last 24 hr 09/13/21 09/13/21 09/13/21 Range/Units 08:40 15:50 15:50 WBC 16.6 H (4.0-10.2) K/uL RBC 3.71 L (3.77-5.09) M/uL Hgb 12.0 D (11.7-15.5) g/dL Hct 39.2 (34.0-46.0) % MCV 105.7 H D (84.0-98.0) fL MCH 32.3 (28.2-33.3) pg MCHC 30.6 L (31.7-36.0) g/dL RDW 16.0 H (11.2-14.1) % Plt Count 175 (150-350) K/uL Neut % (Auto) 89.4 H (45.0-80.0) % Lymph % (Auto) 5.1 L (10.0-50.0) % [place] % (Auto) 5.3 (2.0-14.0) % Eos % (Auto) 0.1 (0.0-5.0) % Baso % (Auto) 0.1 (0.0-2.0) % Neut # (Auto) 14.87 H (1.40-7.00) K/uL Lymph # (Auto) 0.84 (0.50-3.50) K/uL [place] # (Auto) 0.88 (0.00-1.00) K/uL Eos # (Auto) 0.01 (0.00-0.50) K/uL Baso # (Auto) 0.02 (0.00-0.20) K/uL Sodium 138 (136-145) mmol/L Potassium 3.6 (3.5-5.1) mmol/L Chloride 100 (98-107) mmol/L Carbon Dioxide 20.4 L (21.0-32.0) mmol/L Anion Gap 21.2 H (7-15) meq/L BUN 52 H (7-18) mg/dL Creatinine 10.80 H* D (0.51-1.17) mg/dL Est Cr Clr Drug Dosing TNP Estimated GFR (MDRD) 3 mL/min Glucose 71 (70-99) mg/dL Lactic Acid (0.4-2.0) mmol/L Calcium 7.3 L (8.5-10.1) mg/dL Magnesium 3.3 H (1.8-2.4) mg/dL Total Bilirubin 0.3 (0.2-1.0) mg/dL AST 28 (15-37) U/L ALT 17 (12-78) U/L Alkaline Phosphatase 191 H (46-116) IU/L C-Reactive Protein 21.3 H (<=0.9) mg/dL Total Protein 5.4 L (6.4-8.2) g/dL Albumin 1.9 L (3.4-5.0) g/dL Influenza Type A RNA Negative (NEGATIVE) RSV RNA (INAAT) Negative (NEGATIVE) Influenza Type B RNA Negative (NEGATIVE) SARS-CoV-2 RNA (MILKA) Negative (NEGATIVE) 09/13/21 09/13/21 09/14/21 Range/Units 15:50 20:20 07:35 WBC (4.0-10.2) K/uL RBC (3.77-5.09) M/uL Hgb (11.7-15.5) g/dL Hct (34.0-46.0) % MCV (84.0-98.0) fL MCH (28.2-33.3) pg MCHC (31.7-36.0) g/dL RDW (11.2-14.1) % Plt Count (150-350) K/uL Neut % (Auto) (45.0-80.0) % Lymph % (Auto) (10.0-50.0) % [place] % (Auto) (2.0-14.0) % Eos % (Auto) (0.0-5.0) % Baso % (Auto) (0.0-2.0) % Neut # (Auto) (1.40-7.00) K/uL Lymph # (Auto) (0.50-3.50) K/uL [place] # (Auto) (0.00-1.00) K/uL Eos # (Auto) (0.00-0.50) K/uL Baso # (Auto) (0.00-0.20) K/uL Sodium (136-145) mmol/L Potassium (3.5-5.1) mmol/L Chloride (98-107) mmol/L Carbon Dioxide (21.0-32.0) mmol/L Anion Gap (7-15) meq/L BUN (7-18) mg/dL Creatinine (0.51-1.17) mg/dL Est Cr Clr Drug Dosing Estimated GFR (MDRD) mL/min Glucose (70-99) mg/dL Lactic Acid 2.4 H 0.8 2.0 (0.4-2.0) mmol/L Calcium (8.5-10.1) mg/dL Magnesium (1.8-2.4) mg/dL Total Bilirubin (0.2-1.0) mg/dL AST (15-37) U/L ALT (12-78) U/L Alkaline Phosphatase (46-116) IU/L C-Reactive Protein (<=0.9) mg/dL Total Protein (6.4-8.2) g/dL Albumin (3.4-5.0) g/dL Influenza Type A RNA (NEGATIVE) RSV RNA (INAAT) (NEGATIVE) Influenza Type B RNA (NEGATIVE) SARS-CoV-2 RNA (MILKA) (NEGATIVE) 09/14/21 09/14/21 Range/Units 08:15 08:15 WBC 15.3 H (4.0-10.2) K/uL RBC 3.43 L (3.77-5.09) M/uL Hgb 11.0 L (11.7-15.5) g/dL Hct 36.1 (34.0-46.0) % MCV 105.2 H (84.0-98.0) fL MCH 32.1 (28.2-33.3) pg MCHC 30.5 L (31.7-36.0) g/dL RDW 16.1 H (11.2-14.1) % Plt Count 169 (150-350) K/uL Neut % (Auto) 90.3 H (45.0-80.0) % Lymph % (Auto) 5.0 L (10.0-50.0) % [place] % (Auto) 4.5 (2.0-14.0) % Eos % (Auto) 0.0 (0.0-5.0) % Baso % (Auto) 0.2 (0.0-2.0) % Neut # (Auto) 13.84 H (1.40-7.00) K/uL Lymph # (Auto) 0.77 (0.50-3.50) K/uL [place] # (Auto) 0.69 (0.00-1.00) K/uL Eos # (Auto) 0.00 (0.00-0.50) K/uL Baso # (Auto) 0.03 (0.00-0.20) K/uL Sodium 135 L (136-145) mmol/L Potassium 3.6 (3.5-5.1) mmol/L Chloride 102 (98-107) mmol/L Carbon Dioxide 21.4 (21.0-32.0) mmol/L Anion Gap 15.2 H (7-15) meq/L BUN 48 H (7-18) mg/dL Creatinine 9.72 H* (0.51-1.17) mg/dL Est Cr Clr Drug Dosing 5.18 Estimated GFR (MDRD) 4 mL/min Glucose 119 H (70-99) mg/dL Lactic Acid (0.4-2.0) mmol/L Calcium 7.1 L (8.5-10.1) mg/dL Magnesium (1.8-2.4) mg/dL Total Bilirubin (0.2-1.0) mg/dL AST (15-37) U/L ALT (12-78) U/L Alkaline Phosphatase (46-116) IU/L C-Reactive Protein 24.0 H (<=0.9) mg/dL Total Protein (6.4-8.2) g/dL Albumin (3.4-5.0) g/dL Influenza Type A RNA (NEGATIVE) RSV RNA (INAAT) (NEGATIVE) Influenza Type B RNA (NEGATIVE) SARS-CoV-2 RNA (MILKA) (NEGATIVE) Result Diagrams: 09/14/21 08:15 09/14/21 08:15 Sepsis Event Note - Evaluation Sepsis Screening Result: Possible Sepsis Risk - Focused Exam Vital Signs: Vital Signs Temp Pulse Pulse Resp BP BP Pulse Ox 09/14/21 08:26 87 87/59 L 09/14/21 07:29 35.8 C L 87 14 87/59 L 92 L 09/14/21 04:00 36.1 C 83 16 106/62 94 L 09/14/21 00:00 83 16 - Problem List & Annotations (1) Cellulitis and abscess of leg SNOMED Code(s): 853822720 Code(s): L03.119 - CELLULITIS OF UNSPECIFIED PART OF LIMB; L02.419 - CUTANEOUS ABSCESS OF LIMB, UNSPECIFIED Status: Acute Current Visit: Yes Annotation/Comment:: WBC=15.3, Neuts=90.3%; CRP=24; WBC slightly improved, CRP climbing. Will continue the Vancomycin and Ceftriaxone. No fevers. Repeat Labs in the AM, anticipate at least another 24-48 hour stay. (2) Multiple skin tears SNOMED Code(s): 090105446 Code(s): T14.8XXA - OTHER INJURY OF UNSPECIFIED BODY REGION, INITIAL ENCOUNTER Status: Acute Current Visit: Yes Annotation/Comment:: Looks a bit better today. Continue dressing with Silvadene BID. APAP prn pain. (3) Elevated lactic acid level SNOMED Code(s): 6023260 Code(s): R79.89 - OTHER SPECIFIED ABNORMAL FINDINGS OF BLOOD CHEMISTRY Status: Acute Current Visit: Yes Annotation/Comment:: Lactic Acid normalized at 4 hour draw last night. Blood Cx pending. IV abx ordered. (4) ESRD (end stage renal disease) on dialysis SNOMED Code(s): 848447982 Code(s): N18.6 - END STAGE RENAL DISEASE; Z99.2 - DEPENDENCE ON RENAL DIALYSIS Status: Acute Current Visit: Yes Annotation/Comment:: On peritoneal dialysis, family assisting with cares. Sales Representative Business Courses=9.72, BUN=48. Will continue IV fluids today. Renal dosing for abx used. (5) Weakness SNOMED Code(s): 46638361 Code(s): R53.1 - WEAKNESS Status: Acute Current Visit: Yes (6) Weakness SNOMED Code(s): 15215533 Code(s): R53.1 - WEAKNESS Status: Acute Priority: High Current Visit: No Onset Date: ~09/15/19 Annotation/Comment:: Patient quite weak and having a hard time with transferring and geting out of bed. PT/OT consults placed. Also Case Management to review case as she may need SSB or LTC again. - Problem List Review Problem List Initiated/Reviewed/Updated: Yes - My Orders Last 24 Hours: My Active Orders 09/13/21 15:45 CULTURE BLOOD [BC] Stat 09/13/21 15:50 CULTURE BLOOD [BC] Stat 09/13/21 15:51 Chest 1V Frontal [CR] Stat UA RFX ZARINA AND CULT IF INDIC [URIN] Stat Blood Culture x2 Reflex Set [OM.PC] Stat Saline Lock Insert [OM.PC] Stat 09/13/21 16:56 Patient Status [ADT] Routine Cardiac Monitoring [RC] . DIRECTED 09/13/21 17:20 Height and Weight [RC] DAILY May Shower [RC] ASDIRECTED Oxygen Therapy [RC] PRN Up ad Ella [RC] ASDIRECTED VTE/DVT Education [RC] PER UNIT ROUTINE Vital Signs [RC] Q4HR Acetaminophen [TylenoL] 650 mg PO Q4H PRN Ondansetron [Zofran ODT] 4 mg PO Q4H PRN Ondansetron [Zofran] 4 mg IVPUSH Q4H PRN Sodium Chloride 0.9% [Saline Flush] 10 ml FLUSH ASDIRECTED PRN Peripheral IV Insertion Adult [OM.PC] Routine Resuscitation Status Routine 09/13/21 17:23 Intake and Output [RC] QSHIFT Pulse Oximetry [RC] PRN 09/13/21 17:24 Cardiac Monitoring [RC] Q2HR 09/13/21 17:25 Peripheral IV Care [RC] . DIRECTED 09/13/21 Dinner Regular Diet [DIET] 09/13/21 18:00 Bumetanide [Bumex] 1 mg PO BID Ferrous Sulfate 325 mg PO BID Metoprolol Tartrate [Lopressor] 37.5 mg PO BID Potassium Chloride [Klor-Con M20] 20 meq PO TID Sevelamer Carbonate [Renvela] 2,400 mg PO TID Silver Sulfadiazine [Silvadene 1% Cream 20 GM] 0 gm TOP BID 09/13/21 20:00 ALPRAZolam [Xanax] 1 mg PO BEDTIME 09/14/21 07:30 Levothyroxine [Synthroid] 200 mcg PO ACBREAKFAST 09/14/21 08:00 Folic Acid 1 mg PO DAILY Mirtazapine [Remeron] 7.5 mg PO DAILY Venlafaxine [Effexor XR] 150 mg PO DAILY Venlafaxine [Effexor XR] 37.5 mg PO DAILY 09/14/21 09:31 Consult to Case Management/Airway Controller [CONS] Routine OT Evaluation and Treatment [CONS] Routine PT Evaluation and Treatment [CONS] Routine 09/14/21 09:45 Non-Formulary Medication [NF Drug] 1 dose .XX ASDIRECTED Venlafaxine [Effexor XR] 150 mg PO DAILY Venlafaxine [Effexor XR] 75 mg PO DAILY
[2021-09-14] MEDS: Sodium Chloride 0.9% 1,000 ML IV SCH (11:11)
[2021-09-14] MEDS: Acetaminophen 325 MG Tab PO PRN (11:13)
[2021-09-14] MEDS: Silver Sulfadiazine 1% Crm 20 GM Tube TOP SCH ×2 (11:13→20:59)
[2021-09-14] MEDS: Sodium Chloride 0.9% 10 ML Syringe FLUSH PRN (11:16)
[2021-09-14] MEDS: Venlafaxine 75 MG Cap.ER PO SCH (12:05)
[2021-09-14] MEDS: Non-Formulary Medication 1 Each (Sevelamer Carbonate [Renvela] 800 MG Tablet) PO SCH ×2 (15:27→15:28)
[2021-09-14] MEDS ORDERED: Heparin Sodium 5,000 Units/ML Vial PRN (15:33)
[2021-09-14] MEDS: cefTRIAXone 1 GM in Sodium Chloride 0.9% 100 ML IV SCH (17:37)
[2021-09-14] MEDS: Calcium Acetate 667 MG Cap PO SCH (17:41)
[2021-09-14] MEDS: ALPRAZolam 1 MG Tab PO SCH (20:59)
[2021-09-15] MEDS: Sodium Chloride 0.9% 1,000 ML IV SCH ×2 (01:39→15:17)
[2021-09-15] MEDS ORDERED: Potassium Chloride 20 MEQ Tab.ER PO SCH (08:00)
[2021-09-15] MEDS: Venlafaxine 75 MG Cap.ER PO SCH (08:13)
[2021-09-15] MEDS: Calcium Acetate 667 MG Cap PO SCH ×3 (08:13→17:33)
[2021-09-15] MEDS: Ferrous Sulfate 325 MG Tab PO SCH ×2 (08:14→17:34)
[2021-09-15] MEDS: Mirtazapine 15 MG Tab PO SCH (08:14)
[2021-09-15] MEDS: Levothyroxine 100 MCG Tab PO SCH (08:15)
[2021-09-15] MEDS: Bumetanide 1 MG Tab PO SCH ×2 (08:15→17:34)
[2021-09-15] MEDS: Folic Acid 1 MG Tab PO SCH (08:15)
[2021-09-15] MEDS: Silver Sulfadiazine 1% Crm 20 GM Tube TOP SCH ×2 (08:16→21:13)
[2021-09-15 08:21] LABS: ANION GAP 14.9 meq/L (7-15)
[2021-09-15] MEDS: Metoprolol Tartrate 25 MG Tab PO SCH ×2 (09:15→21:11)
--- NOTE | 2021-09-15 10:46 | PCM.PN ---
- General Info Date of Service: 09/15/21 Admission Dx/Problem (Free Text): Cellulitis in Bilateral Lower Legs Bilateral Lower Leg Skin Tears ESRD Subjective Update: Remains quite weak. Reports this AM that her legs do not hurt as much. She has been using Tylenol for pain. BPs running low and nursing held Metoprolol this AM. - Review of Systems General: Reports: Weakness HEENT: Reports: No Symptoms Pulmonary: Reports: No Symptoms Cardiovascular: Reports: No Symptoms Gastrointestinal: Reports: No Symptoms Genitourinary: Reports: No Symptoms Musculoskeletal: Reports: Leg Pain Skin: Reports: No Symptoms Neurological: Reports: Weakness - Patient Data Vitals - Most Recent: Last Vital Signs Temp 35.7 C L 09/15/21 08:00 Pulse 82 09/15/21 08:00 Resp 18 09/15/21 08:00 BP 100/61 09/15/21 08:00 Pulse Ox 92 L 09/15/21 08:00 Weight - Most Recent: 88.451 kg I&O - Last 24 Hours: Intake & Output 09/14/21 09/15/21 09/15/21 22:59 06:59 14:59 Intake Total 150 120 Balance 150 120 Lab Results Last 24 Hours: Laboratory Results - last 24 hr 09/13/21 09/14/21 09/15/21 Range/Units 08:40 16:10 07:23 WBC 11.1 H (4.0-10.2) K/uL RBC 3.24 L (3.77-5.09) M/uL Hgb 10.7 L (11.7-15.5) g/dL Hct 34.5 (34.0-46.0) % MCV 106.5 H (84.0-98.0) fL MCH 33.0 (28.2-33.3) pg MCHC 31.0 L (31.7-36.0) g/dL RDW 16.2 H (11.2-14.1) % Plt Count 148 L (150-350) K/uL Neut % (Auto) 86.2 H (45.0-80.0) % Lymph % (Auto) 7.9 L (10.0-50.0) % [place] % (Auto) 5.7 (2.0-14.0) % Eos % (Auto) 0.1 (0.0-5.0) % Baso % (Auto) 0.1 (0.0-2.0) % Neut # (Auto) 9.61 H (1.40-7.00) K/uL Lymph # (Auto) 0.88 (0.50-3.50) K/uL [place] # (Auto) 0.63 (0.00-1.00) K/uL Eos # (Auto) 0.01 (0.00-0.50) K/uL Baso # (Auto) 0.01 (0.00-0.20) K/uL Sodium (136-145) mmol/L Potassium (3.5-5.1) mmol/L Chloride (98-107) mmol/L Carbon Dioxide (21.0-32.0) mmol/L Anion Gap (7-15) meq/L BUN (7-18) mg/dL Creatinine (0.51-1.17) mg/dL Est Cr Clr Drug Dosing mL/min Estimated GFR (MDRD) mL/min Glucose (70-99) mg/dL Calcium (8.5-10.1) mg/dL C-Reactive Protein (<=0.9) mg/dL Vancomycin Trough (10-20) ug/mL Random Vancomycin 22.3 ug/mL Influenza Type A RNA Negative (NEGATIVE) RSV RNA (INAAT) Negative (NEGATIVE) Influenza Type B RNA Negative (NEGATIVE) SARS-CoV-2 RNA (MILKA) Negative (NEGATIVE) 09/15/21 09/15/21 Range/Units 07:23 07:23 WBC (4.0-10.2) K/uL RBC (3.77-5.09) M/uL Hgb (11.7-15.5) g/dL Hct (34.0-46.0) % MCV (84.0-98.0) fL MCH (28.2-33.3) pg MCHC (31.7-36.0) g/dL RDW (11.2-14.1) % Plt Count (150-350) K/uL Neut % (Auto) (45.0-80.0) % Lymph % (Auto) (10.0-50.0) % [place] % (Auto) (2.0-14.0) % Eos % (Auto) (0.0-5.0) % Baso % (Auto) (0.0-2.0) % Neut # (Auto) (1.40-7.00) K/uL Lymph # (Auto) (0.50-3.50) K/uL [place] # (Auto) (0.00-1.00) K/uL Eos # (Auto) (0.00-0.50) K/uL Baso # (Auto) (0.00-0.20) K/uL Sodium 139 (136-145) mmol/L Potassium 2.9 L* (3.5-5.1) mmol/L Chloride 105 (98-107) mmol/L Carbon Dioxide 22.0 (21.0-32.0) mmol/L Anion Gap 14.9 (7-15) meq/L BUN 44 H (7-18) mg/dL Creatinine 8.99 H* (0.51-1.17) mg/dL Est Cr Clr Drug Dosing 5.60 mL/min Estimated GFR (MDRD) 4 mL/min Glucose 104 H (70-99) mg/dL Calcium 7.0 L (8.5-10.1) mg/dL C-Reactive Protein 8.9 H (<=0.9) mg/dL Vancomycin Trough 20.7 H (10-20) ug/mL Random Vancomycin ug/mL Influenza Type A RNA (NEGATIVE) RSV RNA (INAAT) (NEGATIVE) Influenza Type B RNA (NEGATIVE) SARS-CoV-2 RNA (MILKA) (NEGATIVE) [place] Results Last 24 Hours: Microbiology 09/13/21 15:45 Aerobic Blood Culture - Preliminary Blood - Venous NO GROWTH AFTER 1 DAY Anaerobic Blood Culture - Preliminary NO GROWTH AFTER 1 DAY 09/13/21 15:50 Aerobic Blood Culture - Preliminary Blood - Venous - Lab Draw NO GROWTH AFTER 1 DAY Anaerobic Blood Culture - Preliminary NO GROWTH AFTER 1 DAY Med Orders - Current: Current Medications Acetaminophen (Acetaminophen 325 Mg Tab) 650 mg PO Q4H PRN PRN Reason: Pain (Mild 1-3)/fever Last Admin: 09/14/21 11:13 Dose: 650 mg Documented by: Alprazolam (Alprazolam 1 Mg Tab) 1 mg PO BEDTIME NILO Last Admin: 09/14/21 20:59 Dose: 1 mg Documented by: Bumetanide (Bumetanide 1 Mg Tab) 1 mg PO BID NILO Last Admin: 09/15/21 08:15 Dose: 1 mg Documented by: Calcium Acetate (Calcium Acetate 667 Mg Cap) 1,334 mg PO TID [facility] Last Admin: 09/15/21 08:13 Dose: 1,334 mg Documented by: Ferrous Sulfate (Ferrous Sulfate 325 Mg Tab) 325 mg PO BID [facility] Last Admin: 09/15/21 08:14 Dose: 325 mg Documented by: Folic Acid (Folic Acid 1 Mg Tab) 1 mg PO DAILY [facility] Last Admin: 09/15/21 08:15 Dose: 1 mg Documented by: Heparin Sodium (Porcine) (Heparin Sodium 5,000 Units/Ml Vial) 3,000 units .XX ASDIRECTED PRN PRN Reason: PER DIALYSIS RUN Sodium Chloride (Normal Saline) 1,000 mls @ 75 mls/hr IV ASDIRECTED [facility] Last Admin: 09/15/21 01:39 Dose: 75 mls/hr Documented by: Ceftriaxone Sodium 1 gm/ (Sodium Chloride) 100 mls @ 200 mls/hr IV Q24H [facility] Last Admin: 09/14/21 17:37 Dose: 200 mls/hr Documented by: Levothyroxine Sodium (Levothyroxine 100 Mcg Tab) 200 mcg PO ACBREAKFAST [facility] Last Admin: 09/15/21 08:15 Dose: 200 mcg Documented by: Metoprolol Tartrate (Metoprolol Tartrate 25 Mg Tab) 37.5 mg PO BID [facility] Last Admin: 09/15/21 09:15 Dose: Not Given Documented by: Mirtazapine (Mirtazapine 15 Mg Tab) 7.5 mg PO DAILY [facility] Last Admin: 09/15/21 08:14 Dose: 7.5 mg Documented by: Ondansetron HCl (Ondansetron 4 Mg Tab.Dis) 4 mg PO Q4H PRN PRN Reason: Nausea/Vomiting Ondansetron HCl (Ondansetron 4 Mg/2 Ml Sdv) 4 mg IVPUSH Q4H PRN PRN Reason: Nausea/Vomiting Potassium Chloride (Potassium Chloride 20 Meq Tab.Er) 20 meq PO Q48H [facility] Last Admin: 09/15/21 08:14 Dose: 20 meq Documented by: Silver Sulfadiazine (Silver Sulfadiazine 1% Crm 20 Gm Tube) 0 gm TOP BID@0800,1999 [facility] Last Admin: 09/15/21 08:16 Dose: 1 applic Documented by: Sodium Chloride (Sodium Chloride 0.9% 10 Ml Syringe) 10 ml FLUSH ASDIRECTED PRN PRN Reason: Keep Vein Open Last Admin: 09/14/21 11:16 Dose: 10 ml Documented by: Venlafaxine HCl (Venlafaxine 75 Mg Cap.Er) 225 mg PO DAILY [facility] Last Admin: 09/15/21 08:13 Dose: 225 mg Documented by: Discontinued Medications Ceftriaxone Sodium (Ceftriaxone 2 Gm Vial) 1 gm IVPUSH Q24H ONE Stop: 09/13/21 16:43 Last Admin: 09/13/21 17:00 Dose: 1 gm Documented by: Sodium Chloride (Normal Saline) 1,000 mls @ 999 mls/hr IV .BOLUS ONE Stop: 09/13/21 17:10 Last Infusion: 09/13/21 17:24 Dose: Infused Documented by: Vancomycin HCl 1 gm/ Sodium (Chloride) 250 mls @ 250 mls/hr IV STAT ONE Stop: 09/13/21 17:36 Last Admin: 09/13/21 19:01 Dose: Not Given Documented by: Vancomycin HCl 1.75 gm/ Sodium (Chloride) 500 mls @ 185 mls/hr IV ONETIME ONE Stop: 09/13/21 19:36 Last Admin: 09/13/21 17:23 Dose: 185 mls/hr Documented by: Sodium Chloride (Normal Saline) 1,000 mls @ 75 mls/hr IV ASDIRECTED NILO Stop: 09/13/21 17:00 Non-Formulary Medication (Sevelamer Carbonate [Renvela]) 2,400 mg PO TID [facility] Last Admin: 09/14/21 15:28 Dose: Not Given Documented by: Non-Formulary Medication (Venlafaxine [Effexor Xr]) 150 mg PO DAILY [facility] Last Admin: 09/14/21 11:12 Dose: Not Given Documented by: Non-Formulary Medication (Venlafaxine [Effexor Xr]) 150 mg PO DAILY [facility] Last Admin: 09/14/21 11:13 Dose: Not Given Documented by: Non-Formulary Medication (Non-Formulary Medication [Nf Drug]) 1 dose .XX ASDIRECTED [facility] Silver Sulfadiazine (Silver Sulfadiazine 1% Crm 20 Gm Tube) 0 gm TOP BID [facility] Last Admin: 09/14/21 11:13 Dose: 1 applic Documented by: Sodium Chloride (Sodium Chloride 0.9% 10 Ml Syringe) 10 ml FLUSH ASDIRECTED PRN PRN Reason: Keep Vein Open Vancomycin HCl (Pharmacy To Dose - Vancomycin) 1 dose .XX ASDIRECTED NILO Venlafaxine HCl (Venlafaxine 37.5 Mg Cap.Er) 37.5 mg PO DAILY [facility] Last Admin: 09/14/21 11:12 Dose: Not Given Documented by: Venlafaxine HCl (Venlafaxine 75 Mg Cap.Er) 75 mg PO DAILY [facility] Last Admin: 09/14/21 11:12 Dose: Not Given Documented by: - Exam General: Alert, Oriented, No Acute Distress (Elderly female, looks a bit better today.) HEENT: Mucous Membr. Moist/[place] Lungs: Clear to Auscultation, Normal Respiratory Effort Cardiovascular: Regular Rate, Regular Rhythm GI/Abdominal Exam: Normal Bowel Sounds, Soft (Female) Exam: Deferred Extremities: Other (Wounds on the posterior aspect of lower legs are improving, no drainage, erythema is fading and aooears that Silvadene is helping.) Skin: Warm, Dry, Intact Neurological: No New Focal Deficit Psy/Mental Status: Alert, Normal Affect, Normal Mood - Patient Data Lab Results Last 24 hrs: Laboratory Results - last 24 hr 09/13/21 09/14/21 09/15/21 Range/Units 08:40 16:10 07:23 WBC 11.1 H (4.0-10.2) K/uL RBC 3.24 L (3.77-5.09) M/uL Hgb 10.7 L (11.7-15.5) g/dL Hct 34.5 (34.0-46.0) % MCV 106.5 H (84.0-98.0) fL MCH 33.0 (28.2-33.3) pg MCHC 31.0 L (31.7-36.0) g/dL RDW 16.2 H (11.2-14.1) % Plt Count 148 L (150-350) K/uL Neut % (Auto) 86.2 H (45.0-80.0) % Lymph % (Auto) 7.9 L (10.0-50.0) % [place] % (Auto) 5.7 (2.0-14.0) % Eos % (Auto) 0.1 (0.0-5.0) % Baso % (Auto) 0.1 (0.0-2.0) % Neut # (Auto) 9.61 H (1.40-7.00) K/uL Lymph # (Auto) 0.88 (0.50-3.50) K/uL [place] # (Auto) 0.63 (0.00-1.00) K/uL Eos # (Auto) 0.01 (0.00-0.50) K/uL Baso # (Auto) 0.01 (0.00-0.20) K/uL Sodium (136-145) mmol/L Potassium (3.5-5.1) mmol/L Chloride (98-107) mmol/L Carbon Dioxide (21.0-32.0) mmol/L Anion Gap (7-15) meq/L BUN (7-18) mg/dL Creatinine (0.51-1.17) mg/dL Est Cr Clr Drug Dosing mL/min Estimated GFR (MDRD) mL/min Glucose (70-99) mg/dL Calcium (8.5-10.1) mg/dL C-Reactive Protein (<=0.9) mg/dL Vancomycin Trough (10-20) ug/mL Random Vancomycin 22.3 ug/mL Influenza Type A RNA Negative (NEGATIVE) RSV RNA (INAAT) Negative (NEGATIVE) Influenza Type B RNA Negative (NEGATIVE) SARS-CoV-2 RNA (MILKA) Negative (NEGATIVE) 09/15/21 09/15/21 Range/Units 07:23 07:23 WBC (4.0-10.2) K/uL RBC (3.77-5.09) M/uL Hgb (11.7-15.5) g/dL Hct (34.0-46.0) % MCV (84.0-98.0) fL MCH (28.2-33.3) pg MCHC (31.7-36.0) g/dL RDW (11.2-14.1) % Plt Count (150-350) K/uL Neut % (Auto) (45.0-80.0) % Lymph % (Auto) (10.0-50.0) % [place] % (Auto) (2.0-14.0) % Eos % (Auto) (0.0-5.0) % Baso % (Auto) (0.0-2.0) % Neut # (Auto) (1.40-7.00) K/uL Lymph # (Auto) (0.50-3.50) K/uL [place] # (Auto) (0.00-1.00) K/uL Eos # (Auto) (0.00-0.50) K/uL Baso # (Auto) (0.00-0.20) K/uL Sodium 139 (136-145) mmol/L Potassium 2.9 L* (3.5-5.1) mmol/L Chloride 105 (98-107) mmol/L Carbon Dioxide 22.0 (21.0-32.0) mmol/L Anion Gap 14.9 (7-15) meq/L BUN 44 H (7-18) mg/dL Creatinine 8.99 H* (0.51-1.17) mg/dL Est Cr Clr Drug Dosing 5.60 mL/min Estimated GFR (MDRD) 4 mL/min Glucose 104 H (70-99) mg/dL Calcium 7.0 L (8.5-10.1) mg/dL C-Reactive Protein 8.9 H (<=0.9) mg/dL Vancomycin Trough 20.7 H (10-20) ug/mL Random Vancomycin ug/mL Influenza Type A RNA (NEGATIVE) RSV RNA (INAAT) (NEGATIVE) Influenza Type B RNA (NEGATIVE) SARS-CoV-2 RNA (MILKA) (NEGATIVE) Result Diagrams: 09/15/21 07:23 09/15/21 07:23 [place] Results Last 24 hrs: Microbiology 09/13/21 15:45 Aerobic Blood Culture - Preliminary Blood - Venous NO GROWTH AFTER 1 DAY Anaerobic Blood Culture - Preliminary NO GROWTH AFTER 1 DAY 09/13/21 15:50 Aerobic Blood Culture - Preliminary Blood - Venous - Lab Draw NO GROWTH AFTER 1 DAY Anaerobic Blood Culture - Preliminary NO GROWTH AFTER 1 DAY Imaging Impressions Last 24 hrs: XR Chest-notified by radiologist that free air noted below diaphragm, but expected with peritoneal dialysis (See final report) Sepsis Event Note - Evaluation Sepsis Screening Result: Possible Sepsis Risk - Focused Exam Vital Signs: Vital Signs Temp Pulse Resp BP Pulse Ox 09/15/21 08:00 35.7 C L 82 18 100/61 92 L - Problem List & Annotations (1) Cellulitis and abscess of leg SNOMED Code(s): 063104068 Code(s): L03.119 - CELLULITIS OF UNSPECIFIED PART OF LIMB; L02.419 - CUTANEOUS ABSCESS OF LIMB, UNSPECIFIED Status: Acute Current Visit: Yes Annotation/Comment:: WBC=11.1; CRP=8.9; WBC and CRP improved. Will continue the Vancomycin and Ceftriaxone. Vanco level is high and will most likely not need another dose until next week, pharmacy to continue monitoring. Will continue Ceftriaxone at this time. Open areas on legs look much better. Will continue the Silvadene dressing arreola ges BID. Will repeat labs in the AM. (2) Multiple skin tears SNOMED Code(s): 607133246 Code(s): T14.8XXA - OTHER INJURY OF UNSPECIFIED BODY REGION, INITIAL ENCOUNTER Status: Acute Current Visit: Yes Annotation/Comment:: Looking better as noted above, continue APAP for pain as needed. (3) Elevated lactic acid level SNOMED Code(s): 0837261 Code(s): R79.89 - OTHER SPECIFIED ABNORMAL FINDINGS OF BLOOD CHEMISTRY Status: Acute Current Visit: Yes Annotation/Comment:: Lactic Acid normalized. Blood Cx pending. (4) ESRD (end stage renal disease) on dialysis SNOMED Code(s): 795860131 Code(s): N18.6 - END STAGE RENAL DISEASE; Z99.2 - DEPENDENCE ON RENAL DIALYSIS Status: Acute Current Visit: Yes Annotation/Comment:: On peritoneal dialysis, family assisting with cares. 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 Improving, will continue IV fluids today. Renal dosing for abx used. (5) Weakness SNOMED Code(s): 98732826 Code(s): R53.1 - WEAKNESS Status: Acute Priority: High Current Visit: No Onset Date: ~09/15/19 Annotation/Comment:: Working with PT/OT, needs strenghthening. Patient admitted to acute care at 1034 today. Case management seeing patient to plan needs for home. (6) Hypertension SNOMED Code(s): 66836775 Code(s): I10 - ESSENTIAL (PRIMARY) HYPERTENSION Status: Chronic Priority: Medium Current Visit: No Qualifiers: Hypertension type: essential hypertension Annotation/Comment:: On Meptoprolol 37.5mg BID, BPs running low and dose held this AM by nursing. Will decrease dose to 12.5mg po BID. Hold for SBPs >=90mmHg or DBPs >=50mmHg. Will monitor. (7) Hypokalemia SNOMED Code(s): 39779754 Code(s): E87.6 - HYPOKALEMIA Status: Acute Priority: High Current Visit: No Annotation/Comment:: Potassium=2.8 this AM. Will give her a 20mEq one time dose then increase her Potassium to 20mEq daily. She has been on q48 hr dosing. - Problem List Review Problem List Initiated/Reviewed/Updated: Yes - My Orders Last 24 Hours: My Active Orders 09/14/21 10:00 Sodium Chloride 0.9% [Normal Saline] 1,000 ml IV ASDIRECTED 09/14/21 Lunch Renal Non-Dialysis Diet [DIET] 09/14/21 12:00 Venlafaxine [Effexor XR] 225 mg PO DAILY 09/14/21 15:33 Heparin Sodium 3,000 units .XX ASDIRECTED PRN 09/14/21 16:00 cefTRIAXone [Rocephin] 1 gm Sodium Chloride 0.9% [Normal Saline] 100 ml IV Q24H 09/14/21 18:00 Calcium Acetate [PhosLo] 1,334 mg PO TID 09/14/21 20:00 Silver Sulfadiazine [Silvadene 1% Cream 20 GM] 0 gm TOP BID@0800,2000 09/15/21 08:00 Potassium Chloride [Klor-Con M20] 20 meq PO Q48H 09/15/21 10:34 Patient Status [ADT] Routine 09/15/21 10:45 Metoprolol Tartrate [Lopressor] 12.5 mg PO Q12H Potassium Chloride [Klor-Con M20] 20 meq PO DAILY 09/16/21 05:11 BASIC METABOLIC PANEL,BMP [CHEM] AM C-REACTIVE PROTEIN [CHEM] AM CBC WITH AUTO DIFF [HEME] AM - Plan Plan:: Admit to Acute Care See Above
[2021-09-15] MEDS: Acetaminophen 325 MG Tab PO PRN ×2 (10:49→15:16)
[2021-09-15] MEDS: Potassium Chloride 20 MEQ Tab.ER PO SCH (12:06)
[2021-09-15] MEDS ORDERED: traMADol 50 MG Tab PO ONE (14:39)
[2021-09-15] MEDS: cefTRIAXone 1 GM in Sodium Chloride 0.9% 100 ML IV SCH (15:17)
[2021-09-15] MEDS: ALPRAZolam 1 MG Tab PO SCH (21:11)
[2021-09-16] MEDS: Sodium Chloride 0.9% 1,000 ML IV SCH ×2 (05:30→21:40)
[2021-09-16] MEDS: Metoprolol Tartrate 25 MG Tab PO SCH ×2 (07:55→21:38)
[2021-09-16] MEDS: Ferrous Sulfate 325 MG Tab PO SCH ×2 (07:56→17:50)
[2021-09-16] MEDS: Potassium Chloride 20 MEQ Tab.ER PO SCH (07:56)
[2021-09-16] MEDS: Folic Acid 1 MG Tab PO SCH (07:56)
[2021-09-16] MEDS: Venlafaxine 75 MG Cap.ER PO SCH (07:57)
[2021-09-16] MEDS: Bumetanide 1 MG Tab PO SCH ×2 (07:57→17:50)
[2021-09-16] MEDS: Calcium Acetate 667 MG Cap PO SCH ×3 (07:58→17:50)
[2021-09-16] MEDS: Mirtazapine 15 MG Tab PO SCH (07:59)
[2021-09-16] MEDS: Levothyroxine 100 MCG Tab PO SCH (07:59)
[2021-09-16] MEDS: Sodium Chloride 0.9% 10 ML Syringe FLUSH PRN (08:00)
[2021-09-16 08:22] LABS: ANION GAP 14.9 meq/L (7-15)
[2021-09-16] MEDS: Acetaminophen 325 MG Tab PO PRN (09:29)
[2021-09-16] MEDS: Silver Sulfadiazine 1% Crm 20 GM Tube TOP SCH ×2 (09:45→21:37)
--- NOTE | 2021-09-16 13:12 | PCM.PN ---
- General Info Date of Service: 09/16/21 Functional Status: Denies: Pain Controlled (complaining of pain in her BLE R>L) Pain Score: 6 (in BLE L>R) - Review of Systems General: Reports: No Symptoms HEENT: Reports: Glasses Pulmonary: Reports: No Symptoms Cardiovascular: Reports: No Symptoms Gastrointestinal: Reports: No Symptoms Genitourinary: Reports: No Symptoms Musculoskeletal: Reports: No Symptoms Skin: Reports: No Symptoms Neurological: Reports: No Symptoms Psychiatric: Reports: No Symptoms - Patient Data Vitals - Most Recent: Last Vital Signs Temp 97.6 F 09/16/21 12:00 Pulse 106 H 09/16/21 12:00 Resp 24 H 09/16/21 12:00 BP 132/86 09/16/21 12:00 Pulse Ox 92 L 09/16/21 12:00 Weight - Most Recent: 184 lb 12.8 oz I&O - Last 24 Hours: Intake & Output 09/15/21 09/16/21 09/16/21 22:59 06:59 14:59 Intake Total 1214 500 100 Balance 1214 500 100 Lab Results Last 24 Hours: Laboratory Results - last 24 hr 09/16/21 09/16/21 09/16/21 Range/Units 07:40 07:40 07:40 WBC 13.2 H (4.0-10.2) K/uL RBC 3.10 L (3.77-5.09) M/uL Hgb 10.1 L (11.7-15.5) g/dL Hct 33.3 L (34.0-46.0) % MCV 107.4 H (84.0-98.0) fL MCH 32.6 (28.2-33.3) pg MCHC 30.3 L (31.7-36.0) g/dL RDW 15.9 H (11.2-14.1) % Plt Count 139 L (150-350) K/uL Neut % (Auto) 85.3 H (45.0-80.0) % Lymph % (Auto) 7.9 L (10.0-50.0) % [place] % (Auto) 6.4 (2.0-14.0) % Eos % (Auto) 0.2 (0.0-5.0) % Baso % (Auto) 0.2 (0.0-2.0) % Neut # (Auto) 11.27 H (1.40-7.00) K/uL Lymph # (Auto) 1.04 (0.50-3.50) K/uL [place] # (Auto) 0.84 (0.00-1.00) K/uL Eos # (Auto) 0.02 (0.00-0.50) K/uL Baso # (Auto) 0.03 (0.00-0.20) K/uL Sodium 137 (136-145) mmol/L Potassium 3.9 (3.5-5.1) mmol/L Chloride 106 (98-107) mmol/L Carbon Dioxide 20.0 L (21.0-32.0) mmol/L Anion Gap 14.9 (7-15) meq/L BUN 42 H (7-18) mg/dL Creatinine 8.08 H* (0.51-1.17) mg/dL Est Cr Clr Drug Dosing 6.23 mL/min Estimated GFR (MDRD) 5 mL/min Glucose 92 (70-99) mg/dL Calcium 7.2 L (8.5-10.1) mg/dL Magnesium 2.5 H (1.8-2.4) mg/dL C-Reactive Protein 14.8 H (<=0.9) mg/dL [place] Results Last 24 Hours: Microbiology 09/13/21 15:45 Aerobic Blood Culture - Preliminary Blood - Venous NO GROWTH AFTER 2 DAYS Anaerobic Blood Culture - Preliminary NO GROWTH AFTER 2 DAYS 09/13/21 15:50 Aerobic Blood Culture - Preliminary Blood - Venous - Lab Draw NO GROWTH AFTER 2 DAYS Anaerobic Blood Culture - Preliminary NO GROWTH AFTER 2 DAYS Med Orders - Current: Current Medications Acetaminophen (Acetaminophen 325 Mg Tab) 650 mg PO Q4H PRN PRN Reason: Pain (Mild 1-3)/fever Last Admin: 09/16/21 09:29 Dose: 650 mg Documented by: Alprazolam (Alprazolam 1 Mg Tab) 1 mg PO BEDTIME [facility] Last Admin: 09/15/21 21:11 Dose: 1 mg Documented by: Bumetanide (Bumetanide 1 Mg Tab) 1 mg PO BID [facility] Last Admin: 09/16/21 07:57 Dose: 1 mg Documented by: Calcium Acetate (Calcium Acetate 667 Mg Cap) 1,334 mg PO TID [facility] Last Admin: 09/16/21 12:11 Dose: 1,334 mg Documented by: Ferrous Sulfate (Ferrous Sulfate 325 Mg Tab) 325 mg PO BID [facility] Last Admin: 09/16/21 07:56 Dose: 325 mg Documented by: Folic Acid (Folic Acid 1 Mg Tab) 1 mg PO DAILY [facility] Last Admin: 09/16/21 07:56 Dose: 1 mg Documented by: Sodium Chloride (Normal Saline) 1,000 mls @ 75 mls/hr IV ASDIRECTED [facility] Last Admin: 09/15/21 15:17 Dose: 75 mls/hr Documented by: Ceftriaxone Sodium 1 gm/ (Sodium Chloride) 100 mls @ 200 mls/hr IV Q24H [facility] Last Admin: 09/15/21 15:17 Dose: 200 mls/hr Documented by: Levothyroxine Sodium (Levothyroxine 100 Mcg Tab) 200 mcg PO ACBREAKFAST [facility] Last Admin: 09/16/21 07:59 Dose: 200 mcg Documented by: Metoprolol Tartrate (Metoprolol Tartrate 25 Mg Tab) 12.5 mg PO Q12H [facility] Last Admin: 09/16/21 07:55 Dose: 12.5 mg Documented by: Mirtazapine (Mirtazapine 15 Mg Tab) 7.5 mg PO DAILY [facility] Last Admin: 09/16/21 07:59 Dose: 7.5 mg Documented by: Ondansetron HCl (Ondansetron 4 Mg Tab.Dis) 4 mg PO Q4H PRN PRN Reason: Nausea/Vomiting Ondansetron HCl (Ondansetron 4 Mg/2 Ml Sdv) 4 mg IVPUSH Q4H PRN PRN Reason: Nausea/Vomiting Potassium Chloride (Potassium Chloride 20 Meq Tab.Er) 20 meq PO DAILY [facility] Last Admin: 09/16/21 07:56 Dose: 20 meq Documented by: Silver Sulfadiazine (Silver Sulfadiazine 1% Crm 20 Gm Tube) 0 gm TOP BID@0800,1999 [facility] Last Admin: 09/16/21 09:45 Dose: 1 applic Documented by: Sodium Chloride (Sodium Chloride 0.9% 10 Ml Syringe) 10 ml FLUSH ASDIRECTED PRN PRN Reason: Keep Vein Open Last Admin: 09/16/21 08:00 Dose: 10 ml Documented by: Venlafaxine HCl (Venlafaxine 75 Mg Cap.Er) 225 mg PO DAILY [facility] Last Admin: 09/16/21 07:57 Dose: 225 mg Documented by: Discontinued Medications Ceftriaxone Sodium (Ceftriaxone 2 Gm Vial) 1 gm IVPUSH Q24H ONE Stop: 09/13/21 16:43 Last Admin: 09/13/21 17:00 Dose: 1 gm Documented by: Heparin Sodium (Porcine) (Heparin Sodium 5,000 Units/Ml Vial) 3,000 units .XX ASDIRECTED PRN PRN Reason: PER DIALYSIS RUN Sodium Chloride (Normal Saline) 1,000 mls @ 999 mls/hr IV .BOLUS ONE Stop: 09/13/21 17:10 Last Infusion: 09/13/21 17:24 Dose: Infused Documented by: Vancomycin HCl 1 gm/ Sodium (Chloride) 250 mls @ 250 mls/hr IV STAT ONE Stop: 09/13/21 17:36 Last Admin: 09/13/21 19:01 Dose: Not Given Documented by: Vancomycin HCl 1.75 gm/ Sodium (Chloride) 500 mls @ 185 mls/hr IV ONETIME ONE Stop: 09/13/21 19:36 Last Admin: 09/13/21 17:23 Dose: 185 mls/hr Documented by: Sodium Chloride (Normal Saline) 1,000 mls @ 75 mls/hr IV ASDIRECTED [facility] Stop: 09/13/21 17:00 Metoprolol Tartrate (Metoprolol Tartrate 25 Mg Tab) 37.5 mg PO BID [facility] Last Admin: 09/15/21 09:15 Dose: Not Given Documented by: Non-Formulary Medication (Sevelamer Carbonate [Renvela]) 2,400 mg PO TID [facility] Last Admin: 09/14/21 15:28 Dose: Not Given Documented by: Non-Formulary Medication (Venlafaxine [Effexor Xr]) 150 mg PO DAILY [facility] Last Admin: 09/14/21 11:12 Dose: Not Given Documented by: Non-Formulary Medication (Venlafaxine [Effexor Xr]) 150 mg PO DAILY [facility] Last Admin: 09/14/21 11:13 Dose: Not Given Documented by: Non-Formulary Medication (Non-Formulary Medication [Nf Drug]) 1 dose .XX ASDIRECTED [facility] Potassium Chloride (Potassium Chloride 20 Meq Tab.Er) 20 meq PO Q48H [facility] Last Admin: 09/15/21 08:14 Dose: 20 meq Documented by: Silver Sulfadiazine (Silver Sulfadiazine 1% Crm 20 Gm Tube) 0 gm TOP BID [facility] Last Admin: 09/14/21 11:13 Dose: 1 applic Documented by: Sodium Chloride (Sodium Chloride 0.9% 10 Ml Syringe) 10 ml FLUSH ASDIRECTED PRN PRN Reason: Keep Vein Open Tramadol HCl (Tramadol 50 Mg Tab) 50 mg PO ONETIME ONE Stop: 09/15/21 14:40 Last Admin: 09/15/21 15:16 Dose: 50 mg Documented by: Vancomycin HCl (Pharmacy To Dose - Vancomycin) 1 dose .XX ASDIRECTED [facility] Venlafaxine HCl (Venlafaxine 37.5 Mg Cap.Er) 37.5 mg PO DAILY [facility] Last Admin: 09/14/21 11:12 Dose: Not Given Documented by: Venlafaxine HCl (Venlafaxine 75 Mg Cap.Er) 75 mg PO DAILY [facility] Last Admin: 09/14/21 11:12 Dose: Not Given Documented by: - Exam Quality Assessment: DVT Prophylaxis, Skin Breakdown. No: Supplemental Oxygen, Urine Catheter General: Alert, Oriented, Mild Distress HEENT: EOMI Neck: Supple Lungs: Clear to Auscultation, Normal Respiratory Effort Cardiovascular: Regular Rate, Regular Rhythm, No Murmurs GI/Abdominal Exam: Soft, Non-Tender (Female) Exam: Deferred Extremities: Normal Range of Motion, No Pedal Edema, Other (see skin section for BLE exam) Skin: Warm, Dry, Other (RLE: stage II ulceration present on anteior-medial to posterior-medial aspect. eschar covering. surrounded by erythema. extremely tender to even light touch. LLE: medial aspect of lower leg has stage I-II ulceration present. surrounding erythema. sloughing epithelial layer. tender to touch. ) Wound/Incisions: Dressing Dry and Intact Neurological: No New Focal Deficit Psy/Mental Status: Alert, Normal Affect, Normal Mood - Patient Data Lab Results Last 24 hrs: Laboratory Results - last 24 hr 09/16/21 09/16/21 09/16/21 Range/Units 07:40 07:40 07:40 WBC 13.2 H (4.0-10.2) K/uL RBC 3.10 L (3.77-5.09) M/uL Hgb 10.1 L (11.7-15.5) g/dL Hct 33.3 L (34.0-46.0) % MCV 107.4 H (84.0-98.0) fL MCH 32.6 (28.2-33.3) pg MCHC 30.3 L (31.7-36.0) g/dL RDW 15.9 H (11.2-14.1) % Plt Count 139 L (150-350) K/uL Neut % (Auto) 85.3 H (45.0-80.0) % Lymph % (Auto) 7.9 L (10.0-50.0) % [place] % (Auto) 6.4 (2.0-14.0) % Eos % (Auto) 0.2 (0.0-5.0) % Baso % (Auto) 0.2 (0.0-2.0) % Neut # (Auto) 11.27 H (1.40-7.00) K/uL Lymph # (Auto) 1.04 (0.50-3.50) K/uL [place] # (Auto) 0.84 (0.00-1.00) K/uL Eos # (Auto) 0.02 (0.00-0.50) K/uL Baso # (Auto) 0.03 (0.00-0.20) K/uL Sodium 137 (136-145) mmol/L Potassium 3.9 (3.5-5.1) mmol/L Chloride 106 (98-107) mmol/L Carbon Dioxide 20.0 L (21.0-32.0) mmol/L Anion Gap 14.9 (7-15) meq/L BUN 42 H (7-18) mg/dL Creatinine 8.08 H* (0.51-1.17) mg/dL Est Cr Clr Drug Dosing 6.23 mL/min Estimated GFR (MDRD) 5 mL/min Glucose 92 (70-99) mg/dL Calcium 7.2 L (8.5-10.1) mg/dL Magnesium 2.5 H (1.8-2.4) mg/dL C-Reactive Protein 14.8 H (<=0.9) mg/dL Result Diagrams: 09/16/21 07:40 09/16/21 07:40 [place] Results Last 24 hrs: Microbiology 09/13/21 15:45 Aerobic Blood Culture - Preliminary Blood - Venous NO GROWTH AFTER 2 DAYS Anaerobic Blood Culture - Preliminary NO GROWTH AFTER 2 DAYS 09/13/21 15:50 Aerobic Blood Culture - Preliminary Blood - Venous - Lab Draw NO GROWTH AFTER 2 DAYS Anaerobic Blood Culture - Preliminary NO GROWTH AFTER 2 DAYS Sepsis Event Note - Evaluation Sepsis Screening Result: Severe Sepsis Risk - Focused Exam Vital Signs: Vital Signs Temp Pulse Pulse Resp BP BP BP 09/16/21 12:00 97.6 F 106 H 24 H 132/86 09/16/21 07:55 97.4 F 89 89 24 H 126/86 126/86 09/16/21 04:00 98 F 82 16 104/78 Pulse Ox 09/16/21 12:00 92 L 09/16/21 07:55 97 09/16/21 04:00 95 - Problem List Review Problem List Initiated/Reviewed/Updated: Yes - My Orders Last 24 Hours: My Active Orders 09/16/21 11:04 Up With Assistance [RC] ASDIRECTED 09/16/21 13:06 oxyCODONE 5 mg PO Q8H PRN - Assessment Assessment:: BLE ulcerations stage II possible cellulitis of BLE elevated lactic acid 2/2 above, resolved - Ddx is broad for BLE ulcerations. concern for cellulitis led to starting broad spec abx. Plan: - continue current abx and monitor WBC trend. if it trends down tomorrow will de-escalte to PO abx - possible calciphylaxis in the ESRD patient. will complete a punch biopsy today and send for evaluation. ESRD on PD: - continue peritoneal dialysis - BMP daily to monitor electrolytes Hypokalemia: - monitoring manager 09/15 for K 2.9. replaced PO. recheck this morning WNL. - check Mg level - remove monitoring manager chronic conditions: Continue current home medications as ordered - legal blindness: -Acquired hypothyroidism -Secondary hyperparathyroidism -Mixed hyperlipidemia -Benign essential hypertension -Unspecified heart failure -Depression with anxiety -History of thyroid cancer status post chemotherapy in October 2015 -History of lymphoma -Osteoporosis -Chronic back pain -Chronic migraines -Osteoarthritis of multiple locations -GERD without esophagitis - Plan Plan:: Admit to Acute Care See Above
[2021-09-16] MEDS: oxyCODONE 5 MG Tab PO PRN ×2 (13:13→21:39)
[2021-09-16] MEDS: cefTRIAXone 1 GM in Sodium Chloride 0.9% 100 ML IV SCH (16:40)
[2021-09-16] MEDS: ALPRAZolam 1 MG Tab PO SCH (21:39)
[2021-09-17] MEDS: Bumetanide 1 MG Tab PO SCH ×2 (07:44→17:46)
[2021-09-17] MEDS: Venlafaxine 75 MG Cap.ER PO SCH (07:44)
[2021-09-17] MEDS: Calcium Acetate 667 MG Cap PO SCH ×3 (07:44→17:46)
[2021-09-17] MEDS: Potassium Chloride 20 MEQ Tab.ER PO SCH (07:45)
[2021-09-17] MEDS: Folic Acid 1 MG Tab PO SCH (07:45)
[2021-09-17] MEDS: Ferrous Sulfate 325 MG Tab PO SCH ×2 (07:45→17:46)
[2021-09-17] MEDS: Levothyroxine 100 MCG Tab PO SCH (07:45)
[2021-09-17] MEDS: Mirtazapine 15 MG Tab PO SCH (07:46)
[2021-09-17] MEDS: Metoprolol Tartrate 25 MG Tab PO SCH ×2 (07:46→20:23)
[2021-09-17 08:45] LABS: ANION GAP 19.1 meq/L (7-15)
[2021-09-17] MEDS: Silver Sulfadiazine 1% Crm 20 GM Tube TOP SCH ×2 (09:06→20:24)
--- NOTE | 2021-09-17 13:54 | PCM.PN ---
- General Info Date of Service: 09/17/21 Admission Dx/Problem (Free Text): Cellulitis in Bilateral Lower Legs Bilateral Lower Leg Skin Tears ESRD on PD Subjective Update: remains weak. pleasantly confused. tolerating abx with no adverse effects. Functional Status: Reports: Pain Controlled, Tolerating Diet. Denies: New Symptoms - Review of Systems General: Reports: Weakness, Fatigue HEENT: Reports: Glasses Pulmonary: Reports: No Symptoms Cardiovascular: Reports: No Symptoms Gastrointestinal: Reports: No Symptoms Genitourinary: Reports: No Symptoms Musculoskeletal: Reports: No Symptoms Skin: Reports: Other (wounds to bilateral lower legs) Neurological: Reports: Confusion (memory difficulty ) Psychiatric: Reports: No Symptoms - Patient Data Vitals - Most Recent: Last Vital Signs Temp 96.7 F L 09/17/21 08:00 Pulse 90 09/17/21 08:00 Resp 20 09/17/21 08:00 BP 130/86 09/17/21 08:00 Pulse Ox 94 L 09/17/21 08:00 Weight - Most Recent: 184 lb 12.8 oz I&O - Last 24 Hours: Intake & Output 09/16/21 09/17/21 09/17/21 22:59 06:59 14:59 Intake Total 580 1753 577 Output Total 0 Balance 580 1753 577 Lab Results Last 24 Hours: Laboratory Results - last 24 hr 09/17/21 09/17/21 09/17/21 Range/Units 07:40 07:40 08:52 WBC 11.6 H (4.0-10.2) K/uL RBC 3.08 L (3.77-5.09) M/uL Hgb 10.3 L (11.7-15.5) g/dL Hct 33.6 L (34.0-46.0) % MCV 109.1 H (84.0-98.0) fL MCH 33.4 H (28.2-33.3) pg MCHC 30.7 L (31.7-36.0) g/dL RDW 16.3 H (11.2-14.1) % Plt Count 111 L (150-350) K/uL MPV 10.70 (7.00-11.50) fL Sodium 142 (136-145) mmol/L Potassium 4.3 (3.5-5.1) mmol/L Chloride 108 H (98-107) mmol/L Carbon Dioxide 19.2 L (21.0-32.0) mmol/L Anion Gap 19.1 H (7-15) meq/L BUN 46 H (7-18) mg/dL Creatinine 8.90 H* (0.51-1.17) mg/dL Est Cr Clr Drug Dosing 5.66 mL/min Estimated GFR (MDRD) 4 mL/min Glucose 45 L* (70-99) mg/dL POC Glucose 77 (70-99) mg/dL Calcium 7.8 L (8.5-10.1) mg/dL [place] Results Last 24 Hours: Microbiology 09/13/21 15:45 Aerobic Blood Culture - Preliminary Blood - Venous NO GROWTH AFTER 3 DAYS Anaerobic Blood Culture - Preliminary NO GROWTH AFTER 3 DAYS 09/13/21 15:50 Aerobic Blood Culture - Preliminary Blood - Venous - Lab Draw NO GROWTH AFTER 3 DAYS Anaerobic Blood Culture - Preliminary NO GROWTH AFTER 3 DAYS Med Orders - Current: Current Medications Acetaminophen (Acetaminophen 325 Mg Tab) 650 mg PO Q4H PRN PRN Reason: Pain (Mild 1-3)/fever Last Admin: 09/16/21 09:29 Dose: 650 mg Documented by: Alprazolam (Alprazolam 1 Mg Tab) 1 mg PO BEDTIME [facility] Last Admin: 09/16/21 21:39 Dose: 1 mg Documented by: Bumetanide (Bumetanide 1 Mg Tab) 1 mg PO BID [facility] Last Admin: 09/17/21 07:44 Dose: 1 mg Documented by: Calcium Acetate (Calcium Acetate 667 Mg Cap) 1,334 mg PO TID [facility] Last Admin: 09/17/21 12:11 Dose: 1,334 mg Documented by: Cephalexin (Cephalexin 250 Mg Cap) 250 mg PO Q6HR [facility] Stop: 09/19/21 23:59 Ferrous Sulfate (Ferrous Sulfate 325 Mg Tab) 325 mg PO BID [facility] Last Admin: 09/17/21 07:45 Dose: 325 mg Documented by: Folic Acid (Folic Acid 1 Mg Tab) 1 mg PO DAILY [facility] Last Admin: 09/17/21 07:45 Dose: 1 mg Documented by: Sodium Chloride (Normal Saline) 1,000 mls @ 75 mls/hr IV ASDIRECTED [facility] Last Admin: 09/16/21 21:40 Dose: 75 mls/hr Documented by: Levothyroxine Sodium (Levothyroxine 100 Mcg Tab) 200 mcg PO ACBREAKFAST [facility] Last Admin: 09/17/21 07:45 Dose: 200 mcg Documented by: Metoprolol Tartrate (Metoprolol Tartrate 25 Mg Tab) 12.5 mg PO Q12H [facility] Last Admin: 09/17/21 07:46 Dose: 12.5 mg Documented by: Mirtazapine (Mirtazapine 15 Mg Tab) 7.5 mg PO DAILY [facility] Last Admin: 09/17/21 07:46 Dose: 7.5 mg Documented by: Ondansetron HCl (Ondansetron 4 Mg Tab.Dis) 4 mg PO Q4H PRN PRN Reason: Nausea/Vomiting Oxycodone HCl (Oxycodone 5 Mg Tab) 5 mg PO Q8H PRN PRN Reason: pain Last Admin: 09/16/21 21:39 Dose: 5 mg Documented by: Potassium Chloride (Potassium Chloride 20 Meq Tab.Er) 20 meq PO DAILY [facility] Last Admin: 09/17/21 07:45 Dose: 20 meq Documented by: Silver Sulfadiazine (Silver Sulfadiazine 1% Crm 20 Gm Tube) 0 gm TOP BID@0800,2000 [facility] Last Admin: 09/17/21 09:06 Dose: 1 applic Documented by: Sodium Chloride (Sodium Chloride 0.9% 10 Ml Syringe) 10 ml FLUSH ASDIRECTED PRN PRN Reason: Keep Vein Open Last Admin: 09/16/21 08:00 Dose: 10 ml Documented by: Venlafaxine HCl (Venlafaxine 75 Mg Cap.Er) 225 mg PO DAILY [facility] Last Admin: 09/17/21 07:44 Dose: 225 mg Documented by: Discontinued Medications Ceftriaxone Sodium (Ceftriaxone 2 Gm Vial) 1 gm IVPUSH Q24H ONE Stop: 09/13/21 16:43 Last Admin: 09/13/21 17:00 Dose: 1 gm Documented by: Heparin Sodium (Porcine) (Heparin Sodium 5,000 Units/Ml Vial) 3,000 units .XX ASDIRECTED PRN PRN Reason: PER DIALYSIS RUN Sodium Chloride (Normal Saline) 1,000 mls @ 999 mls/hr IV .BOLUS ONE Stop: 09/13/21 17:10 Last Infusion: 09/13/21 17:24 Dose: Infused Documented by: Vancomycin HCl 1 gm/ Sodium (Chloride) 250 mls @ 250 mls/hr IV STAT ONE Stop: 09/13/21 17:36 Last Admin: 09/13/21 19:01 Dose: Not Given Documented by: Vancomycin HCl 1.75 gm/ Sodium (Chloride) 500 mls @ 185 mls/hr IV ONETIME ONE Stop: 09/13/21 19:36 Last Admin: 09/13/21 17:23 Dose: 185 mls/hr Documented by: Sodium Chloride (Normal Saline) 1,000 mls @ 75 mls/hr IV ASDIRECTED [facility] Stop: 09/13/21 17:00 Ceftriaxone Sodium 1 gm/ (Sodium Chloride) 100 mls @ 200 mls/hr IV Q24H [facility] Last Admin: 09/16/21 16:40 Dose: 200 mls/hr Documented by: Metoprolol Tartrate (Metoprolol Tartrate 25 Mg Tab) 37.5 mg PO BID [facility] Last Admin: 09/15/21 09:15 Dose: Not Given Documented by: Non-Formulary Medication (Sevelamer Carbonate [Renvela]) 2,400 mg PO TID [facility] Last Admin: 09/14/21 15:28 Dose: Not Given Documented by: Non-Formulary Medication (Venlafaxine [Effexor Xr]) 150 mg PO DAILY [facility] Last Admin: 09/14/21 11:12 Dose: Not Given Documented by: Non-Formulary Medication (Venlafaxine [Effexor Xr]) 150 mg PO DAILY [facility] Last Admin: 09/14/21 11:13 Dose: Not Given Documented by: Non-Formulary Medication (Non-Formulary Medication [Nf Drug]) 1 dose .XX ASDIRECTED [facility] Ondansetron HCl (Ondansetron 4 Mg/2 Ml Sdv) 4 mg IVPUSH Q4H PRN PRN Reason: Nausea/Vomiting Potassium Chloride (Potassium Chloride 20 Meq Tab.Er) 20 meq PO Q48H [facility] Last Admin: 09/15/21 08:14 Dose: 20 meq Documented by: Silver Sulfadiazine (Silver Sulfadiazine 1% Crm 20 Gm Tube) 0 gm TOP BID COUNT [facility] Last Admin: 09/14/21 11:13 Dose: 1 applic Documented by: Sodium Chloride (Sodium Chloride 0.9% 10 Ml Syringe) 10 ml FLUSH ASDIRECTED PRN PRN Reason: Keep Vein Open Tramadol HCl (Tramadol 50 Mg Tab) 50 mg PO ONETIME ONE Stop: 09/15/21 14:40 Last Admin: 09/15/21 15:16 Dose: 50 mg Documented by: Vancomycin HCl (Pharmacy To Dose - Vancomycin) 1 dose .XX ASDIRECTED [facility] Venlafaxine HCl (Venlafaxine 37.5 Mg Cap.Er) 37.5 mg PO DAILY [facility] Last Admin: 09/14/21 11:12 Dose: Not Given Documented by: Venlafaxine HCl (Venlafaxine 75 Mg Cap.Er) 75 mg PO DAILY [facility] Last Admin: 09/14/21 11:12 Dose: Not Given Documented by: - Exam General: Alert, Oriented (to self and place only), Mild Distress HEENT: EOMI Neck: Supple, No JVD Lungs: Clear to Auscultation, Normal Respiratory Effort. No: Decreased Breath Sounds, Crackles, Rales Cardiovascular: Regular Rate, Regular Rhythm, No Murmurs GI/Abdominal Exam: Normal Bowel Sounds, Soft, No Distention (Female) Exam: Deferred Extremities: Leg Pain, Redness (stage II-III ulceration to left mediolateral aspect with escar and surrounding erythema present. stage II ulceration present to right lower leg medial aspect. surrounding erythema present) Peripheral Pulses: 1+: Posterior Tibial (R), Dorsalis Pedis (R), 2+: Posterior Tibial (L), Dorsalis Pedis (L) Skin: Warm, Dry Wound/Incisions: No Drainage, Erythema, Decubitis (see above) Psy/Mental Status: Alert, Normal Mood - Patient Data Lab Results Last 24 hrs: Laboratory Results - last 24 hr 09/17/21 09/17/21 09/17/21 Range/Units 07:40 07:40 08:52 WBC 11.6 H (4.0-10.2) K/uL RBC 3.08 L (3.77-5.09) M/uL Hgb 10.3 L (11.7-15.5) g/dL Hct 33.6 L (34.0-46.0) % MCV 109.1 H (84.0-98.0) fL MCH 33.4 H (28.2-33.3) pg MCHC 30.7 L (31.7-36.0) g/dL RDW 16.3 H (11.2-14.1) % Plt Count 111 L (150-350) K/uL MPV 10.70 (7.00-11.50) fL Sodium 142 (136-145) mmol/L Potassium 4.3 (3.5-5.1) mmol/L Chloride 108 H (98-107) mmol/L Carbon Dioxide 19.2 L (21.0-32.0) mmol/L Anion Gap 19.1 H (7-15) meq/L BUN 46 H (7-18) mg/dL Creatinine 8.90 H* (0.51-1.17) mg/dL Est Cr Clr Drug Dosing 5.66 mL/min Estimated GFR (MDRD) 4 mL/min Glucose 45 L* (70-99) mg/dL POC Glucose 77 (70-99) mg/dL Calcium 7.8 L (8.5-10.1) mg/dL Result Diagrams: 09/17/21 07:40 09/17/21 07:40 [place] Results Last 24 hrs: Microbiology 09/13/21 15:45 Aerobic Blood Culture - Preliminary Blood - Venous NO GROWTH AFTER 3 DAYS Anaerobic Blood Culture - Preliminary NO GROWTH AFTER 3 DAYS 09/13/21 15:50 Aerobic Blood Culture - Preliminary Blood - Venous - Lab Draw NO GROWTH AFTER 3 DAYS Anaerobic Blood Culture - Preliminary NO GROWTH AFTER 3 DAYS Sepsis Event Note - Evaluation Sepsis Screening Result: Possible Sepsis Risk - Focused Exam Vital Signs: Vital Signs Temp Pulse Pulse Resp BP BP Pulse Ox 09/17/21 08:00 96.7 F L 90 20 130/86 94 L 09/17/21 07:46 90 130/86 - Problem List Review Problem List Initiated/Reviewed/Updated: Yes - My Orders Last 24 Hours: My Active Orders 09/16/21 13:06 oxyCODONE 5 mg PO Q8H PRN 09/17/21 16:00 cephALEXin [Keflex] 250 mg PO Q6HR 09/18/21 05:11 BASIC METABOLIC PANEL,BMP [CHEM] AM CBC W/O DIFF,HEMOGRAM [HEME] AM 09/19/21 05:11 BASIC METABOLIC PANEL,BMP [CHEM] AM CBC W/O DIFF,HEMOGRAM [HEME] AM - Assessment Assessment:: BLE ulcerations stage II possible cellulitis of BLE elevated lactic acid 2/2 above, resolved - Ddx is broad for BLE ulcerations. concern for cellulitis led to starting broad spec abx. Plan: - DC IV abx and start PO keflex 250mg every 6 hours. - possible calciphylaxis in the ESRD patient. will complete a punch biopsy 09/18 and send for pathology. - continue to trend WBC - acetaminophen PO for mild and oxy IR for moderate and severe pain ESRD on PD: - continue peritoneal dialysis, pt was not hooked up for her run last night. she and her inadvertently forgot. no run complete - BMP daily to monitor electrolytes Hypokalemia: - customer experience associate 09/15 for K 2.9. replaced PO. recheck this morning WNL. - check Mg level - remove customer experience associate Hypoglycemia: - blood glucose 46 this morning. Cognitive decline: - currently lacks capacity. oriented to self and place only and forgets information within minutes. this could be age related, secondary to missed dialysis, delirium from acute illness and hospital stay, previously undiagnosed dementia or a combination of all of the above. - will recommend SNF placement with official neuropsych testing to be completed 6-8 weeks post discharge. - pt will require family conference to establish surrogate decision maker as her also appears to have difficulties with memory. chronic conditions: Continue current home medications as ordered - legal blindness: -Acquired hypothyroidism -Secondary hyperparathyroidism -Mixed hyperlipidemia -Benign essential hypertension -Unspecified heart failure -Depression with anxiety -History of thyroid cancer status post chemotherapy in October 2015 -History of lymphoma -Osteoporosis -Chronic back pain -Chronic migraines -Osteoarthritis of multiple locations -GERD without esophagitis - Plan Plan:: Admit to Acute Care See Above
[2021-09-17] MEDS: Cephalexin 250 MG Cap PO SCH ×2 (15:43→22:20)
[2021-09-17] MEDS: oxyCODONE 5 MG Tab PO PRN (20:23)
[2021-09-17] MEDS: ALPRAZolam 1 MG Tab PO SCH (20:23)
--- NOTE | 2021-09-18 00:54 | PCM.SN.2 ---
- Free Text/Narrative Note: during nursing bedside evaluation it was discovered the patient was not properly hooked up to her peritoneal dialysis. This is due to that this is been an issue. There is concerned that she is not been receiving appropriate peritoneal dialysis at home. Care conference will need to be held to establish a surrogate decision maker as Anupama currently lacks capacity. Her also appears to have some mild memory difficulties. Discussion will need to be held as to whether or not to transition to hemodialysis, have family assistance with peritoneal dialysis, or discontinue dialysis altogether and discussed the option of hospice care.
[2021-09-18] MEDS: Cephalexin 250 MG Cap PO SCH ×3 (05:03→16:26)
[2021-09-18] MEDS: Calcium Acetate 667 MG Cap PO SCH ×3 (08:12→17:28)
[2021-09-18] MEDS: Venlafaxine 75 MG Cap.ER PO SCH (08:13)
[2021-09-18] MEDS: Potassium Chloride 20 MEQ Tab.ER PO SCH (08:14)
[2021-09-18] MEDS: Ferrous Sulfate 325 MG Tab PO SCH (08:14)
[2021-09-18] MEDS: Mirtazapine 15 MG Tab PO SCH (08:14)
[2021-09-18] MEDS: Folic Acid 1 MG Tab PO SCH (08:14)
[2021-09-18] MEDS: Levothyroxine 100 MCG Tab PO SCH (08:15)
[2021-09-18] MEDS: Bumetanide 1 MG Tab PO SCH (08:15)
[2021-09-18] MEDS: Metoprolol Tartrate 25 MG Tab PO SCH (08:15)
[2021-09-18 08:19] VITALS: BP 142/84; PULSE 93
[2021-09-18] MEDS: Silver Sulfadiazine 1% Crm 20 GM Tube TOP SCH (08:22)
[2021-09-18 08:24] LABS: ANION GAP 15.6 meq/L (7-15)
[2021-09-18] MEDS ORDERED: Lidocaine 2% 5 ML SDV INJECT ONE (10:56)
--- NOTE | 2021-09-18 10:58 | PCM.PN ---
- General Info Date of Service: 09/18/21 Admission Dx/Problem (Free Text): Cellulitis in Bilateral Lower Legs Bilateral Lower Leg Skin Tears ESRD on PD Subjective Update: doing well today. did not receive peritoneal dialysis last night. continues to be pleasantly confused. - Patient Data Vitals - Most Recent: Last Vital Signs Temp 97.3 F 09/18/21 08:00 Pulse 93 09/18/21 08:15 Resp 18 09/18/21 08:00 BP 142/84 H 09/18/21 08:15 Pulse Ox 97 09/18/21 08:00 Weight - Most Recent: 191 lb I&O - Last 24 Hours: Intake & Output 09/17/21 09/18/21 09/18/21 22:59 06:59 14:59 Intake Total 400 100 Balance 400 100 Lab Results Last 24 Hours: Laboratory Results - last 24 hr 09/17/21 09/18/21 09/18/21 Range/Units 16:06 07:30 07:30 WBC 8.9 (4.0-10.2) K/uL RBC 2.65 L (3.77-5.09) M/uL Hgb 8.6 L D (11.7-15.5) g/dL Hct 29.2 L (34.0-46.0) % MCV 110.2 H (84.0-98.0) fL MCH 32.5 (28.2-33.3) pg MCHC 29.5 L (31.7-36.0) g/dL RDW 16.0 H (11.2-14.1) % Plt Count 105 L (150-350) K/uL MPV 10.50 (7.00-11.50) fL Sodium 141 (136-145) mmol/L Potassium 4.7 (3.5-5.1) mmol/L Chloride 108 H (98-107) mmol/L Carbon Dioxide 22.1 (21.0-32.0) mmol/L Anion Gap 15.6 H (7-15) meq/L BUN 50 H (7-18) mg/dL Creatinine 9.45 H* (0.51-1.17) mg/dL Est Cr Clr Drug Dosing 5.33 mL/min Estimated GFR (MDRD) 4 mL/min Glucose 50 L (70-99) mg/dL POC Glucose 73 (70-99) mg/dL Calcium 8.1 L (8.5-10.1) mg/dL 09/18/21 Range/Units 07:39 WBC (4.0-10.2) K/uL RBC (3.77-5.09) M/uL Hgb (11.7-15.5) g/dL Hct (34.0-46.0) % MCV (84.0-98.0) fL MCH (28.2-33.3) pg MCHC (31.7-36.0) g/dL RDW (11.2-14.1) % Plt Count (150-350) K/uL MPV (7.00-11.50) fL Sodium (136-145) mmol/L Potassium (3.5-5.1) mmol/L Chloride (98-107) mmol/L Carbon Dioxide (21.0-32.0) mmol/L Anion Gap (7-15) meq/L BUN (7-18) mg/dL Creatinine (0.51-1.17) mg/dL Est Cr Clr Drug Dosing mL/min Estimated GFR (MDRD) mL/min Glucose (70-99) mg/dL POC Glucose 47 L* (70-99) mg/dL Calcium (8.5-10.1) mg/dL [place] Results Last 24 Hours: Microbiology 09/13/21 15:45 Aerobic Blood Culture - Preliminary Blood - Venous NO GROWTH AFTER 4 DAYS Anaerobic Blood Culture - Preliminary NO GROWTH AFTER 4 DAYS 09/13/21 15:50 Aerobic Blood Culture - Preliminary Blood - Venous - Lab Draw NO GROWTH AFTER 4 DAYS Anaerobic Blood Culture - Preliminary NO GROWTH AFTER 4 DAYS Med Orders - Current: Current Medications Acetaminophen (Acetaminophen 325 Mg Tab) 650 mg PO Q4H PRN PRN Reason: Pain (Mild 1-3)/fever Last Admin: 09/16/21 09:29 Dose: 650 mg Documented by: Alprazolam (Alprazolam 1 Mg Tab) 1 mg PO BEDTIME [facility] Last Admin: 09/17/21 20:23 Dose: 1 mg Documented by: Bumetanide (Bumetanide 1 Mg Tab) 1 mg PO BID [facility] Last Admin: 09/18/21 08:15 Dose: 1 mg Documented by: Calcium Acetate (Calcium Acetate 667 Mg Cap) 1,334 mg PO TID [facility] Last Admin: 09/18/21 08:12 Dose: 1,334 mg Documented by: Cephalexin (Cephalexin 250 Mg Cap) 250 mg PO Q6HR [facility] Stop: 09/19/21 23:59 Last Admin: 09/18/21 10:28 Dose: 250 mg Documented by: Ferrous Sulfate (Ferrous Sulfate 325 Mg Tab) 325 mg PO BID [facility] Last Admin: 09/18/21 08:14 Dose: 325 mg Documented by: Folic Acid (Folic Acid 1 Mg Tab) 1 mg PO DAILY [facility] Last Admin: 09/18/21 08:14 Dose: 1 mg Documented by: Sodium Chloride (Normal Saline) 1,000 mls @ 75 mls/hr IV ASDIRECTED [facility] Last Admin: 09/16/21 21:40 Dose: 75 mls/hr Documented by: Levothyroxine Sodium (Levothyroxine 100 Mcg Tab) 200 mcg PO ACBREAKFAST [facility] Last Admin: 09/18/21 08:15 Dose: 200 mcg Documented by: Metoprolol Tartrate (Metoprolol Tartrate 25 Mg Tab) 12.5 mg PO Q12H [facility] Last Admin: 09/18/21 08:15 Dose: 12.5 mg Documented by: Mirtazapine (Mirtazapine 15 Mg Tab) 7.5 mg PO DAILY [facility] Last Admin: 09/18/21 08:14 Dose: 7.5 mg Documented by: Ondansetron HCl (Ondansetron 4 Mg Tab.Dis) 4 mg PO Q4H PRN PRN Reason: Nausea/Vomiting Oxycodone HCl (Oxycodone 5 Mg Tab) 5 mg PO Q8H PRN PRN Reason: pain Last Admin: 09/17/21 20:23 Dose: 5 mg Documented by: Potassium Chloride (Potassium Chloride 20 Meq Tab.Er) 20 meq PO DAILY [facility] Last Admin: 09/18/21 08:14 Dose: 20 meq Documented by: Silver Sulfadiazine (Silver Sulfadiazine 1% Crm 20 Gm Tube) 0 gm TOP BID@0800,1999 [facility] Last Admin: 09/18/21 08:22 Dose: 1 applic Documented by: Sodium Chloride (Sodium Chloride 0.9% 10 Ml Syringe) 10 ml FLUSH ASDIRECTED PRN PRN Reason: Keep Vein Open Last Admin: 09/16/21 08:00 Dose: 10 ml Documented by: Venlafaxine HCl (Venlafaxine 75 Mg Cap.Er) 225 mg PO DAILY [facility] Last Admin: 09/18/21 08:13 Dose: 225 mg Documented by: Discontinued Medications Ceftriaxone Sodium (Ceftriaxone 2 Gm Vial) 1 gm IVPUSH Q24H ONE Stop: 09/13/21 16:43 Last Admin: 09/13/21 17:00 Dose: 1 gm Documented by: Heparin Sodium (Porcine) (Heparin Sodium 5,000 Units/Ml Vial) 3,000 units .XX ASDIRECTED PRN PRN Reason: PER DIALYSIS RUN Sodium Chloride (Normal Saline) 1,000 mls @ 999 mls/hr IV .BOLUS ONE Stop: 09/13/21 17:10 Last Infusion: 09/13/21 17:24 Dose: Infused Documented by: Vancomycin HCl 1 gm/ Sodium (Chloride) 250 mls @ 250 mls/hr IV STAT ONE Stop: 09/13/21 17:36 Last Admin: 09/13/21 19:01 Dose: Not Given Documented by: Vancomycin HCl 1.75 gm/ Sodium (Chloride) 500 mls @ 185 mls/hr IV ONETIME ONE Stop: 09/13/21 19:36 Last Admin: 09/13/21 17:23 Dose: 185 mls/hr Documented by: Sodium Chloride (Normal Saline) 1,000 mls @ 75 mls/hr IV ASDIRECTED [facility] Stop: 09/13/21 17:00 Ceftriaxone Sodium 1 gm/ (Sodium Chloride) 100 mls @ 200 mls/hr IV Q24H [facility] Last Admin: 09/16/21 16:40 Dose: 200 mls/hr Documented by: Metoprolol Tartrate (Metoprolol Tartrate 25 Mg Tab) 37.5 mg PO BID [facility] Last Admin: 09/15/21 09:15 Dose: Not Given Documented by: Non-Formulary Medication (Sevelamer Carbonate [Renvela]) 2,400 mg PO TID [facility] Last Admin: 09/14/21 15:28 Dose: Not Given Documented by: Non-Formulary Medication (Venlafaxine [Effexor Xr]) 150 mg PO DAILY [facility] Last Admin: 09/14/21 11:12 Dose: Not Given Documented by: Non-Formulary Medication (Venlafaxine [Effexor Xr]) 150 mg PO DAILY [facility] Last Admin: 09/14/21 11:13 Dose: Not Given Documented by: Non-Formulary Medication (Non-Formulary Medication [Nf Drug]) 1 dose .XX ASDIRECTED [facility] Ondansetron HCl (Ondansetron 4 Mg/2 Ml Sdv) 4 mg IVPUSH Q4H PRN PRN Reason: Nausea/Vomiting Potassium Chloride (Potassium Chloride 20 Meq Tab.Er) 20 meq PO Q48H [facility] Last Admin: 09/15/21 08:14 Dose: 20 meq Documented by: Silver Sulfadiazine (Silver Sulfadiazine 1% Crm 20 Gm Tube) 0 gm TOP BID [facility] Last Admin: 09/14/21 11:13 Dose: 1 applic Documented by: Sodium Chloride (Sodium Chloride 0.9% 10 Ml Syringe) 10 ml FLUSH ASDIRECTED PRN PRN Reason: Keep Vein Open Tramadol HCl (Tramadol 50 Mg Tab) 50 mg PO ONETIME ONE Stop: 09/15/21 14:40 Last Admin: 09/15/21 15:16 Dose: 50 mg Documented by: Vancomycin HCl (Pharmacy To Dose - Vancomycin) 1 dose .XX ASDIRECTED [facility] Venlafaxine HCl (Venlafaxine 37.5 Mg Cap.Er) 37.5 mg PO DAILY [facility] Last Admin: 09/14/21 11:12 Dose: Not Given Documented by: Venlafaxine HCl (Venlafaxine 75 Mg Cap.Er) 75 mg PO DAILY [facility] Last Admin: 09/14/21 11:12 Dose: Not Given Documented by: - Patient Data Lab Results Last 24 hrs: Laboratory Results - last 24 hr 09/17/21 09/18/21 09/18/21 Range/Units 16:06 07:30 07:30 WBC 8.9 (4.0-10.2) K/uL RBC 2.65 L (3.77-5.09) M/uL Hgb 8.6 L D (11.7-15.5) g/dL Hct 29.2 L (34.0-46.0) % MCV 110.2 H (84.0-98.0) fL MCH 32.5 (28.2-33.3) pg MCHC 29.5 L (31.7-36.0) g/dL RDW 16.0 H (11.2-14.1) % Plt Count 105 L (150-350) K/uL MPV 10.50 (7.00-11.50) fL Sodium 141 (136-145) mmol/L Potassium 4.7 (3.5-5.1) mmol/L Chloride 108 H (98-107) mmol/L Carbon Dioxide 22.1 (21.0-32.0) mmol/L Anion Gap 15.6 H (7-15) meq/L BUN 50 H (7-18) mg/dL Creatinine 9.45 H* (0.51-1.17) mg/dL Est Cr Clr Drug Dosing 5.33 mL/min Estimated GFR (MDRD) 4 mL/min Glucose 50 L (70-99) mg/dL POC Glucose 73 (70-99) mg/dL Calcium 8.1 L (8.5-10.1) mg/dL 09/18/21 Range/Units 07:39 WBC (4.0-10.2) K/uL RBC (3.77-5.09) M/uL Hgb (11.7-15.5) g/dL Hct (34.0-46.0) % MCV (84.0-98.0) fL MCH (28.2-33.3) pg MCHC (31.7-36.0) g/dL RDW (11.2-14.1) % Plt Count (150-350) K/uL MPV (7.00-11.50) fL Sodium (136-145) mmol/L Potassium (3.5-5.1) mmol/L Chloride (98-107) mmol/L Carbon Dioxide (21.0-32.0) mmol/L Anion Gap (7-15) meq/L BUN (7-18) mg/dL Creatinine (0.51-1.17) mg/dL Est Cr Clr Drug Dosing mL/min Estimated GFR (MDRD) mL/min Glucose (70-99) mg/dL POC Glucose 47 L* (70-99) mg/dL Calcium (8.5-10.1) mg/dL Result Diagrams: 09/18/21 07:30 09/18/21 07:30 [place] Results Last 24 hrs: Microbiology 09/13/21 15:45 Aerobic Blood Culture - Preliminary Blood - Venous NO GROWTH AFTER 4 DAYS Anaerobic Blood Culture - Preliminary NO GROWTH AFTER 4 DAYS 09/13/21 15:50 Aerobic Blood Culture - Preliminary Blood - Venous - Lab Draw NO GROWTH AFTER 4 DAYS Anaerobic Blood Culture - Preliminary NO GROWTH AFTER 4 DAYS Sepsis Event Note - Evaluation Sepsis Screening Result: Possible Sepsis Risk - Focused Exam Vital Signs: Vital Signs Temp Pulse Pulse Resp BP BP Pulse Ox 09/18/21 08:15 93 142/84 H 09/18/21 08:00 97.3 F 93 18 142/84 H 97 - Problem List Review Problem List Initiated/Reviewed/Updated: Yes - My Orders Last 24 Hours: My Active Orders 09/17/21 16:00 cephALEXin [Keflex] 250 mg PO Q6HR 09/18/21 10:56 Lidocaine 2% [Xylocaine-MPF 2%] 5 ml INJECT ONETIME ONE 09/19/21 05:11 BASIC METABOLIC PANEL,BMP [CHEM] AM CBC W/O DIFF,HEMOGRAM [HEME] AM - Assessment Assessment:: BLE ulcerations stage II possible cellulitis of BLE elevated lactic acid 2/2 above, resolved - Ddx is broad for BLE ulcerations. concern for cellulitis led to starting broad spec abx. Plan: - DC IV abx and start PO keflex 250mg every 6 hours. - possible calciphylaxis in the ESRD patient. will complete a punch biopsy 09/18 and send for pathology. - continue to trend WBC - acetaminophen PO for mild and oxy IR for moderate and severe pain ESRD on PD: - continue peritoneal dialysis, pt was not hooked up for her run last night. she and her inadvertently forgot. no run complete - BMP daily to monitor electrolytes Hypokalemia: - laboratory monitor 09/15 for K 2.9. replaced PO. recheck this morning WNL. - check Mg level - remove laboratory monitor Hypoglycemia: - blood glucose 46 this morning. Cognitive decline: - currently lacks capacity. oriented to self and place only and forgets information within minutes. this could be age related, secondary to missed dialysis, delirium from acute illness and hospital stay, previously undiagnosed dementia or a combination of all of the above. - will recommend SNF placement with official neuropsych testing to be completed 6-8 weeks post discharge. - pt will require family conference to establish surrogate decision maker as her also appears to have difficulties with memory. chronic conditions: Continue current home medications as ordered - legal blindness: -Acquired hypothyroidism -Secondary hyperparathyroidism -Mixed hyperlipidemia -Benign essential hypertension -Unspecified heart failure -Depression with anxiety -History of thyroid cancer status post chemotherapy in October 2015 -History of lymphoma -Osteoporosis -Chronic back pain -Chronic migraines -Osteoarthritis of multiple locations -GERD without esophagitis - Plan Plan:: Admit to Acute Care See Above
--- NOTE | 2021-09-18 12:18 | PCM.PRNOTE ---
- Free Text/Narrative Note: Preop diagnosis: Bilateral lower extremity stage II-III decubitus ulcerations Postop diagnosis: Same Procedure: Skin biopsy Performing physician: Dr. Kathi Funk MD Procedure excisional punch biopsy 3 mm An appropriate timeout was performed. After obtaining informed consent from patient's , the area surrounding the skin lesion was prepared and draped in the usual sterile manner. Anesthesia was obtained with 10 mL of 2% lidocaine without epinephrine. Full-thickness punch biopsy was obtained with a 3 mm punch. The lesion was removed in the usual manner by the biopsy method noted above. Hemostasis was assured. The patient tolerated the procedure well. Estimated blood loss was less than 1 cc. Closure: Attempt at suture was unsuccessful given inability open wound edges to approximate. Pressure dressing was placed for 30 minutes after which hemostasis was achieved Follow-up the patient tolerated the procedure well without complication. Standard postprocedure care was explained.
[2021-09-18] MEDS: oxyCODONE 5 MG Tab PO PRN (13:21)
--- NOTE | 2021-09-18 18:45 | PCM.DCSUM1 ---
Discharge Summary - Hospital Course Brief History: Anupama is a 71-year-old female who presented to emergency department with complaints of extreme generalized weakness and physical deconditioning. She was also noted to have bilateral lower extremity ulcerations. Past medical history most significant for end-stage renal disease on hemodialysis. While in the swing bed her was coming daily to provide peritoneal dialysis. She had been treated for cellulitis of her bilateral lower extremities with broad-spectrum antibiotics initially will white blood count was trended. She was then transitioned to an oral antibiotic when blood cultures were negative and cellulitis appeared to improve. Skin biopsy completed on 09/18/2021 to rule out calciphylaxis. Realization that was unable to complete peritoneal dialysis overnight on 1219 and 1218. Lengthy discussion with family during which time it was realized that the patient's also appears to have some significant memory difficulties. He was basing peritoneal dialysis rounds on which of her bags were most convenient to grab. By the morning of 09/18/2021 she was encephalopathic and oriented x0. Discussion with primary nephrology team after which patient was transferred to [facility] for peritoneal dialysis under further evaluation and management. Diagnosis: Stroke: No Modified [place] Scale: Mod.Sev.Disability ;Unable to Walk/Attend Bodily Needs W/O Assistance Modified [place] Scale Score: 4 - Discharge Data Discharge Date: 09/18/21 Discharge Disposition: DC/Tfer to Acute Hospital 02 Condition: Fair - Referral to Home Health Primary Care Physician: JAE Griffin - Discharge Diagnosis/Problem(s) (1) Cellulitis and abscess of leg SNOMED Code(s): 929096307 ICD Code: L03.119 - CELLULITIS OF UNSPECIFIED PART OF LIMB; L02.419 - CUTANEOUS ABSCESS OF LIMB, UNSPECIFIED Status: Acute Current Visit: Yes Problem Details: White blood count downtrending. Broad-spectrum antibiotics deescalated to Keflex 250 mg 4 times daily. Silvadene dressing changes twice daily. Skin biopsy on 09/18/2021 to rule out calciphylaxis. (2) ESRD (end stage renal disease) on dialysis SNOMED Code(s): 275894225 ICD Code: N18.6 - END STAGE RENAL DISEASE; Z99.2 - DEPENDENCE ON RENAL DIALYSIS Status: Acute Current Visit: Yes Problem Details: Has been on peritoneal dialysis for approximately 2 years. Patient has been completing this at home with her . Concern is she has significant memory difficulties and her appears to have some as well. Dialysis run for the previous 2 days was incomplete as patient's did not scrap picker tubing and then hoped to bring up incorrectly with run spilling onto the floor. According to him at home he will frequently use whatever bags are readily available to complete the dialysis runs. Cap stuck on peritoneal dialysis tubing. Spoke with primary nephrology team and recommendation was made to transfer the patient to [facility] for peritoneal dialysis and further evaluation and treatment given acute metabolic encephalopathy (3) Elevated lactic acid level SNOMED Code(s): 4076466 ICD Code: R79.89 - OTHER SPECIFIED ABNORMAL FINDINGS OF BLOOD CHEMISTRY Status: Acute Current Visit: Yes Problem Details: Lactic Acid normalized. Negative blood culture x2 (4) Multiple skin tears SNOMED Code(s): 244045317 ICD Code: T14.8XXA - OTHER INJURY OF UNSPECIFIED BODY REGION, INITIAL ENCOUNTER Status: Acute Current Visit: Yes Problem Details: Looking better as noted above, continue APAP for pain as needed. - Patient Summary/Data Consults: Consultations 09/14/21 09:31 Consult to Case Management/Contract Loader [CONS] Routine OT Evaluation and Treatment [CONS] Routine PT Evaluation and Treatment [CONS] Routine Labs Pending at D/C: punch biopsy of RLE Recommended Follow-up Testing/Procedures: follow up with nephrology official neuropsych evaluation 6-8 weeks post discharge Hospital Course: Anupama is a 71-year-old female who presented to emergency department with complaints of extreme generalized weakness and physical deconditioning. She was also noted to have bilateral lower extremity ulcerations. Past medical history most significant for end-stage renal disease on hemodialysis. While in the swing bed her was coming daily to provide peritoneal dialysis. She had been treated for cellulitis of her bilateral lower extremities with broad- spectrum antibiotics initially will white blood count was trended. She was then transitioned to an oral antibiotic when blood cultures were negative and cellulitis appeared to improve. Skin biopsy completed on 09/18/2021 to rule out calciphylaxis. Realization that was unable to complete peritoneal dialysis overnight on 1219 and 1218. Lengthy discussion with family during which time it was realized that the patient's also appears to have some significant memory difficulties. He was basing peritoneal dialysis rounds on which of her bags were most convenient to grab. By the morning of 09/18/2021 she was encephalopathic and oriented x0. Discussion with primary nephrology team after which patient was transferred to [facility] for peritoneal dialysis under further evaluation and management. - Patient Instructions Diet: Renal Diet Driving: Do Not Drive Showering/Bathing: May Shower Wound/Incision Care: Change Dressing Daily - Discharge Plan *PRESCRIPTION DRUG MONITORING PROGRAM REVIEWED*: Not Applicable *COPY OF PRESCRIPTION DRUG MONITORING REPORT IN PATIENT [place]: Not Applicable Home Medications: Home Meds Cholecalciferol (Vitamin D3) [Vitamin D3] 4,000 unit PO DAILY 06/24/19 [History] Cyanocobalamin (Vitamin B-12) [Cyanocobalamin Injection] 1 ml IM Q30D 06/24/19 [History] Potassium Chloride [Klor-Con M20] 1 tab PO ASDIRECTED 06/24/19 [History] Sevelamer Carbonate [Renvela] 2,400 mg PO TID 06/24/19 [History] Folic Acid 1 mg PO DAILY #100 tablet 06/26/19 [Rx] Epoetin Dante [Epogen] 40,000 unit SQ ASDIRECTED 09/16/19 [History] Levothyroxine 200 mcg PO ACBREAKFAST 10/23/19 [History] Acetaminophen [Tylenol] 650 mg PO Q4H PRN tablet 11/02/19 [Rx] Ferrous Sulfate 325 mg PO BID 06/07/21 [History] Magnesium Chloride 128 mg PO DAILY 06/07/21 [History] Mirtazapine 7.5 mg PO BEDTIME 06/07/21 [History] Calcium Carbonate [Tums] 1,000 mg PO BID 09/13/21 [History] Venlafaxine [Effexor XR] 75 mg PO DAILY 09/13/21 [History] Venlafaxine [Effexor XR] 150 mg PO DAILY 09/13/21 [History] Metoprolol Tartrate [Lopressor] 12.5 mg PO Q12H tablet 09/18/21 [Rx] Ondansetron [Zofran ODT] 4 mg PO Q4H PRN tab.dis 09/18/21 [Rx] Venlafaxine [Effexor XR] 225 mg PO DAILY cap.er 09/18/21 [Rx] cephALEXin [Keflex] 250 mg PO Q6HR cap 09/18/21 [Rx] Forms: ED Department Discharge Referrals: Colt Fermin PA [Physician [employer]] - - Discharge Summary/Plan Comment DC Time >30 min.: Yes Total # of Minutes for Discharge Time: 75 - Patient Data Vitals - Most Recent: Last Vital Signs Temp 97.3 F 09/18/21 08:00 Pulse 93 09/18/21 08:15 Resp 18 09/18/21 08:00 BP 142/84 H 09/18/21 08:15 Pulse Ox 97 09/18/21 08:00 Weight - Most Recent: 191 lb I&O - Last 24 hours: Intake & Output 09/18/21 09/18/21 09/18/21 06:59 14:59 22:59 Intake Total 100 300 Balance 100 300 Lab Results - Last 24 hrs: Laboratory Results - last 24 hr 09/18/21 09/18/21 09/18/21 Range/Units 07:30 07:30 07:39 WBC 8.9 (4.0-10.2) K/uL RBC 2.65 L (3.77-5.09) M/uL Hgb 8.6 L D (11.7-15.5) g/dL Hct 29.2 L (34.0-46.0) % MCV 110.2 H (84.0-98.0) fL MCH 32.5 (28.2-33.3) pg MCHC 29.5 L (31.7-36.0) g/dL RDW 16.0 H (11.2-14.1) % Plt Count 105 L (150-350) K/uL MPV 10.50 (7.00-11.50) fL Sodium 141 (136-145) mmol/L Potassium 4.7 (3.5-5.1) mmol/L Chloride 108 H (98-107) mmol/L Carbon Dioxide 22.1 (21.0-32.0) mmol/L Anion Gap 15.6 H (7-15) meq/L BUN 50 H (7-18) mg/dL Creatinine 9.45 H* (0.51-1.17) mg/dL Est Cr Clr Drug Dosing 5.33 mL/min Estimated GFR (MDRD) 4 mL/min Glucose 50 L (70-99) mg/dL POC Glucose 47 L* (70-99) mg/dL Calcium 8.1 L (8.5-10.1) mg/dL ZARINA Results - Last 24 hrs: Microbiology 09/13/21 15:45 Aerobic Blood Culture - Final Blood - Venous NO GROWTH AFTER 5 DAYS Anaerobic Blood Culture - Final NO GROWTH AFTER 5 DAYS 09/13/21 15:50 Aerobic Blood Culture - Final Blood - Venous - Lab Draw NO GROWTH AFTER 5 DAYS Anaerobic Blood Culture - Final NO GROWTH AFTER 5 DAYS Med Orders - Current: Current Medications Acetaminophen (Acetaminophen 325 Mg Tab) 650 mg PO Q4H PRN PRN Reason: Pain (Mild 1-3)/fever Last Admin: 09/16/21 09:29 Dose: 650 mg Documented by: Calcium Acetate (Calcium Acetate 667 Mg Cap) 1,334 mg PO TID [facility] Last Admin: 09/18/21 17:28 Dose: 1,334 mg Documented by: Cephalexin (Cephalexin 250 Mg Cap) 250 mg PO Q6HR [facility] Stop: 09/19/21 23:59 Last Admin: 09/18/21 16:26 Dose: 250 mg Documented by: Sodium Chloride (Normal Saline) 1,000 mls @ 75 mls/hr IV ASDIRECTED [facility] Last Admin: 09/16/21 21:40 Dose: 75 mls/hr Documented by: Levothyroxine Sodium (Levothyroxine 100 Mcg Tab) 200 mcg PO ACBREAKFAST [facility] Last Admin: 09/18/21 08:15 Dose: 200 mcg Documented by: Metoprolol Tartrate (Metoprolol Tartrate 25 Mg Tab) 12.5 mg PO Q12H [facility] Last Admin: 09/18/21 08:15 Dose: 12.5 mg Documented by: Mirtazapine (Mirtazapine 15 Mg Tab) 7.5 mg PO DAILY [facility] Last Admin: 09/18/21 08:14 Dose: 7.5 mg Documented by: Ondansetron HCl (Ondansetron 4 Mg Tab.Dis) 4 mg PO Q4H PRN PRN Reason: Nausea/Vomiting Oxycodone HCl (Oxycodone 5 Mg Tab) 5 mg PO Q8H PRN PRN Reason: pain Last Admin: 09/18/21 13:21 Dose: 5 mg Documented by: Silver Sulfadiazine (Silver Sulfadiazine 1% Crm 20 Gm Tube) 0 gm TOP BID@0800,1999 [facility] Last Admin: 09/18/21 08:22 Dose: 1 applic Documented by: Sodium Chloride (Sodium Chloride 0.9% 10 Ml Syringe) 10 ml FLUSH ASDIRECTED PRN PRN Reason: Keep Vein Open Last Admin: 09/16/21 08:00 Dose: 10 ml Documented by: Venlafaxine HCl (Venlafaxine 75 Mg Cap.Er) 225 mg PO DAILY [facility] Last Admin: 09/18/21 08:13 Dose: 225 mg Documented by: Discontinued Medications Alprazolam (Alprazolam 1 Mg Tab) 1 mg PO BEDTIME [facility] Last Admin: 09/17/21 20:23 Dose: 1 mg Documented by: Bumetanide (Bumetanide 1 Mg Tab) 1 mg PO BID [facility] Last Admin: 09/18/21 08:15 Dose: 1 mg Documented by: Ceftriaxone Sodium (Ceftriaxone 2 Gm Vial) 1 gm IVPUSH Q24H ONE Stop: 09/13/21 16:43 Last Admin: 09/13/21 17:00 Dose: 1 gm Documented by: Ferrous Sulfate (Ferrous Sulfate 325 Mg Tab) 325 mg PO BID [facility] Last Admin: 09/18/21 08:14 Dose: 325 mg Documented by: Folic Acid (Folic Acid 1 Mg Tab) 1 mg PO DAILY [facility] Last Admin: 09/18/21 08:14 Dose: 1 mg Documented by: Heparin Sodium (Porcine) (Heparin Sodium 5,000 Units/Ml Vial) 3,000 units .XX ASDIRECTED PRN PRN Reason: PER DIALYSIS RUN Sodium Chloride (Normal Saline) 1,000 mls @ 999 mls/hr IV .BOLUS ONE Stop: 09/13/21 17:10 Last Infusion: 09/13/21 17:24 Dose: Infused Documented by: Vancomycin HCl 1 gm/ Sodium (Chloride) 250 mls @ 250 mls/hr IV STAT ONE Stop: 09/13/21 17:36 Last Admin: 09/13/21 19:01 Dose: Not Given Documented by: Vancomycin HCl 1.75 gm/ Sodium (Chloride) 500 mls @ 185 mls/hr IV ONETIME ONE Stop: 09/13/21 19:36 Last Admin: 09/13/21 17:23 Dose: 185 mls/hr Documented by: Sodium Chloride (Normal Saline) 1,000 mls @ 75 mls/hr IV ASDIRECTED [facility] Stop: 09/13/21 17:00 Ceftriaxone Sodium 1 gm/ (Sodium Chloride) 100 mls @ 200 mls/hr IV Q24H [facility] Last Admin: 09/16/21 16:40 Dose: 200 mls/hr Documented by: Lidocaine (Lidocaine 2% 5 Ml Sdv) 5 ml INJECT ONETIME ONE Stop: 09/18/21 10:57 Last Admin: 09/18/21 11:49 Dose: 5 ml Documented by: Metoprolol Tartrate (Metoprolol Tartrate 25 Mg Tab) 37.5 mg PO BID [facility] Last Admin: 09/15/21 09:15 Dose: Not Given Documented by: Non-Formulary Medication (Sevelamer Carbonate [Renvela]) 2,400 mg PO TID [facility] Last Admin: 09/14/21 15:28 Dose: Not Given Documented by: Non-Formulary Medication (Venlafaxine [Effexor Xr]) 150 mg PO DAILY [facility] Last Admin: 09/14/21 11:12 Dose: Not Given Documented by: Non-Formulary Medication (Venlafaxine [Effexor Xr]) 150 mg PO DAILY [facility] Last Admin: 09/14/21 11:13 Dose: Not Given Documented by: Non-Formulary Medication (Non-Formulary Medication [Nf Drug]) 1 dose .XX ASDIRECTED [facility] Ondansetron HCl (Ondansetron 4 Mg/2 Ml Sdv) 4 mg IVPUSH Q4H PRN PRN Reason: Nausea/Vomiting Potassium Chloride (Potassium Chloride 20 Meq Tab.Er) 20 meq PO Q48H [facility] Last Admin: 09/15/21 08:14 Dose: 20 meq Documented by: Potassium Chloride (Potassium Chloride 20 Meq Tab.Er) 20 meq PO DAILY [facility] Last Admin: 09/18/21 08:14 Dose: 20 meq Documented by: Silver Sulfadiazine (Silver Sulfadiazine 1% Crm 20 Gm Tube) 0 gm TOP BID [facility] Last Admin: 09/14/21 11:13 Dose: 1 applic Documented by: Sodium Chloride (Sodium Chloride 0.9% 10 Ml Syringe) 10 ml FLUSH ASDIRECTED PRN PRN Reason: Keep Vein Open Tramadol HCl (Tramadol 50 Mg Tab) 50 mg PO ONETIME ONE Stop: 09/15/21 14:40 Last Admin: 09/15/21 15:16 Dose: 50 mg Documented by: Vancomycin HCl (Pharmacy To Dose - Vancomycin) 1 dose .XX ASDIRECTED [facility] Venlafaxine HCl (Venlafaxine 37.5 Mg Cap.Er) 37.5 mg PO DAILY [facility] Last Admin: 09/14/21 11:12 Dose: Not Given Documented by: Venlafaxine HCl (Venlafaxine 75 Mg Cap.Er) 75 mg PO DAILY [facility] Last Admin: 09/14/21 11:12 Dose: Not Given Documented by:
== END 2021-09-18 18:45 | DRG 602 ==
LOC: LL.ED 15:30 → LL.MS 17:07 → OBSVTOIN 09-15 10:45
PROVIDERS: ADMIT Nurse Practitioner Family; ATTEND Nurse Practitioner Family
PROC: 0HBLXZX Excision of Left Lower Leg Skin, External Approach, Diagnostic (ICD-10-PCS; principal; 2021-09-13)
PROC: 0HBKXZX Excision of Right Lower Leg Skin, External Approach, Diagnostic (ICD-10-PCS; 2021-09-13)
DX: T14.8XXA Other injury of unspecified body region, initial encounter (principal); R79.89 Other specified abnormal findings of blood chemistry; L03.116 Cellulitis of left lower limb; N18.6 End stage renal disease; L97.929 Non-pressure chronic ulcer of unspecified part of left lower leg with unspecified severity; L97.919 Non-pressure chronic ulcer of unspecified part of right lower leg with unspecified severity; R53.1 Weakness; I10 Essential (primary) hypertension; D84.9 Immunodeficiency, unspecified; I13.2 Hypertensive heart and chronic kidney disease with heart failure and with stage 5 chronic kidney disease, or end stage renal disease; L03.115 Cellulitis of right lower limb; L02.415 Cutaneous abscess of right lower limb; H54.7 Unspecified visual loss; H54.62 Unqualified visual loss, left eye, normal vision right eye; I50.9 Heart failure, unspecified; E78.00 Pure hypercholesterolemia, unspecified; I44.0 Atrioventricular block, first degree; K59.09 Other constipation; K52.9 Noninfective gastroenteritis and colitis, unspecified; R15.9 Full incontinence of feces; K21.9 Gastro-esophageal reflux disease without esophagitis; M19.90 Unspecified osteoarthritis, unspecified site; M54.9 Dorsalgia, unspecified; G89.29 Other chronic pain; M54.2 Cervicalgia; M81.0 Age-related osteoporosis without current pathological fracture; G43.909 Migraine, unspecified, not intractable, without status migrainosus; F41.9 Anxiety disorder, unspecified; F32.A Depression, unspecified; E87.6 Hypokalemia; E66.9 Obesity, unspecified; E55.9 Vitamin D deficiency, unspecified; M85.80 Other specified disorders of bone density and structure, unspecified site; Z98.84 Bariatric surgery status; Z99.2 Dependence on renal dialysis; Z79.899 Other long term (current) drug therapy; Z79.890 Hormone replacement therapy; Z88.6 Allergy status to analgesic agent; Z88.8 Allergy status to other drugs, medicaments and biological substances; Z20.822 Contact with and (suspected) exposure to COVID-19
CPT/HCPCS: 0241U; 36415; 71045; 80048; 80053; 80202; 82947; 83605; 83735; 85025; 85027; 86140; 87040; 88305; 96365; 96366; 96367; 96375; 97110-GP; 97163-GP; 97530-GP; 99285-25; A9270-GY; G0378; J0696; J3370; J7030; J7040